=== PATIENT | male | born 1945 | race Caucasian/White ===

== ENCOUNTER → 2023-03-11 | Outpatient (CLI) | payer MEDICARE, SELFPAY ==
--- NOTE | 2023-03-11 12:53 | VDLE_ITS ---
Reason For Study: Bilateral swelling RIGHT LEFT CFV is compressible, spontaneous, phasic, CFV is compressible, spontaneous, phasic, competent and demonstrates normal competent, and demonstrates normal augmentation. augmentation. FV is compressible, spontaneous, phasic, FV is compressible, spontaneous, phasic, competent and demonstrates normal competent and demonstrates normal augmentation. augmentation. POP V is compressible, spontaneous, phasic, POP V is compressible, spontaneous, phasic, competent and demonstrates normal competent and demonstrates normal augmentation. augmentation. T/P Trunk is compressible. T/P Trunk is compressible. PTV is compressible. PTV is compressible. RT PerV is compressible. LT PerV is compressible. SFJ is competent and measures 0.61 x 0.75 cm. SFJ is competent and measures 0.72 x 0.88 cm. GSV proximal thigh measures 0.35 x 0.36 cm. GSV proximal thigh measures 0.42 x 0.44 cm. GSV at knee measures 0.27 x 0.28 cm. GSV above knee is INCOMPETENT for greater GSV is competent throughout. than 0.5 seconds. ASV proximal calf is INCOMPETENT for greater GSV at knee measures 0.13 x 0.14 cm. than 0.5 seconds and measures 0.24 x 0.24 cm. GSV below knee is competent. ASV2 proximal calf, medial, is INCOMPETENT ASV proximal calf is INCOMPETENT for greater for greater than 0.5 seconds and measures than 0.5 seconds and measures 0.30 x 0.30 cm. 0.14 x 0.15 cm. Cluster of varicose veins noted at the left SSV proximal calf is competent and measures proximal calf. 0.18 x 0.22 cm. INCOMPETENT cow puncher is noted 6cm above Procedure medial malleolus. This is a venous duplex using B-mode, color Vein of Giacomini is INCOMPETENT for greater flow and spectral Doppler. than 0.5 seconds and measures 0.30 x 0.29 cm. Exam performed in department. SSV proximal calf is INCOMPETENT for greater Patient was scanned in reverse Trendelenburg than 0.5 seconds and measures 0.30 x 0.30 cm. position during reflux assessment. VL/Venous Duplex US - Leroy Extrem Interpretation Summary Deep veins of the bilateral lower extremities are patent and compressible segme ntally. There is no evidence of bilateral lower extremity deep vein thrombosis. The bilateral great saphenous veins appear patent and compressible segmentally. Positive for reflux in two separate right accessory saphenous veins Positive for reflux in the left great saphenous vein above the knee, accessory saphenous vein below the knee, small saphenous vein, Vein of Giacomini, and a cow puncher vein above the malleolus Ordering Physician: Diana Kelley Referring Physician: Diana Kelley Performed By: Kortney Baltazar RVT
== END | disposition home or self-care (01) ==
LOC: CVS 12:50
PROVIDERS: PCP Nurse Practitioner; Referring Provider Nurse Practitioner; Visit Provider Nurse Practitioner
DX: I83.813 Varicose veins of bilateral lower extremities with pain (principal); R60.0 Localized edema
CPT/HCPCS: 93970

== ENCOUNTER → 2023-07-02 | Outpatient (CLI) | payer MEDICARE, SELFPAY ==
[2023-07-02 20:28] LABS: Absolute Lymphocyte Count 2.06 X10^3/uL (0.83-4.51); Absolute Neutrophil Count 5.4 X10^3/uL (2.0-7.7); Basophil# 0.07 X10^3/uL; Basophil% 0.8 % (0-1); Eosinophil# 0.28 X10^3/uL; Eosinophils% 3.3 % (0-5); Hemoglobin 14.2 g/dL (13.0-16.5); Lymphocyte # 2.06 X10^3/ul (0.83-4.51); Mean Corp Hgb Conc 32.3 g/dL (32-36); Monocyte# 0.78 X10^3/uL; Monocyte% 9.1 % (0-10); NRBC Flagged by Analyzer 0 % (0-5); Neutrophil # 5.36 X10^3/uL (2.7-7.7); Neutrophil % 62.2 % (47-70); Platelet Count 137 K/mm3 (150-450); RBC Distribution Width CV 12.2 % (11.6-14.6); RBC Distribution Width SD 41.9 fl (35.1-43.9); Red Blood Count 4.73 M/mm3 (4.6-6.2); White Blood Count 8.6 K/mm3 (4.4-11.0)
[2023-07-02 20:52] LABS: ALB/GLOB Ratio 1.1 RATIO (0.9-2.4); AST(SGOT) 21 U/L (15-37); Alanine Aminotransfer ALT/SGPT 17 U/L (16-61); Albumin, Serum 3.6 g/dL (3.2-5.0); Alkaline Phosphatase 67 U/L (45-117); Anion Gap 4 (5-15); BUN 18 mg/dL (7-18); Calcium,Total 8.5 mg/dL (8.5-10.1); Chloride 107 mmol/L (98-107); Cholesterol 98 mg/dL (200); Creatinine, Serum 1.06 mg/dL (0.70-1.30); EST Glomerular Filtration Rate 72 mL/min (>60); Est Glom Filt Rate - Afr Amer 87 mL/min (>60); Globulin 3.2 g/dL (2.2-4.2); Glucose 99 mg/dL (74-106); High Density Lipoprotein 35 mg/dL; PSA,Total- Diagnostic 1.85 ng/mL (0.0-4.0); Protein, Total 6.8 g/dL (6.4-8.2); Sodium Level 143 mmol/L (136-145); Triglycerides 170 mg/dL; Very Low Density Lipoprotein 34 mg/dL (5-40)
== END | disposition home or self-care (01) ==
PROVIDERS: PCP Nurse Practitioner; Referring Provider Nurse Practitioner; Visit Provider Nurse Practitioner
DX: I10 Essential (primary) hypertension (principal); E78.5 Hyperlipidemia, unspecified; R35.0 Frequency of micturition
CPT/HCPCS: 80053; 80061; 84153; 85025

== ENCOUNTER → 2024-01-10 | Outpatient (CLI) | payer MEDICARE, SELFPAY ==
[2024-01-10 22:31] LABS: Uric Acid 7.4 mg/dL (3.5-7.2)
== END | disposition home or self-care (01) ==
PROVIDERS: PCP Nurse Practitioner; Referring Provider Nurse Practitioner; Visit Provider Nurse Practitioner
DX: M10.9 Gout, unspecified (principal)
CPT/HCPCS: 84550

== ENCOUNTER → 2024-06-06 | Outpatient (CLI) | payer MEDICARE, SELFPAY ==
--- NOTE | 2024-06-06 09:25 | RAD_ITS ---
INDICATION: sleep apnea sob EXAMINATION/TECHNIQUE: X-RAY - XR Chest 2 Views COMPARISON: No relevant prior comparison study available FINDINGS: LINES/DEVICES: None. LUNGS: No consolidation, edema or effusion. No pneumothorax. MEDIASTINUM AND CARDIOVASCULAR STRUCTURES: Normal cardiac silhouette. Status post CABG. BONES AND SOFT TISSUES: Unremarkable. RAD/Chest PA and Lateral IMPRESSION: No radiographic evidence of acute cardiopulmonary disease. Electronically Signed: Hugo Martell MD at 8:15 EST ,
== END | disposition home or self-care (01) ==
LOC: RAD 09:16
PROVIDERS: PCP Nurse Practitioner; Referring Provider Nurse Practitioner; Visit Provider Nurse Practitioner
DX: G47.30 Sleep apnea, unspecified (principal); R06.83 Snoring
CPT/HCPCS: 71046

== ENCOUNTER → 2024-07-04 | Outpatient (CLI) | payer MEDICARE, SELFPAY ==
[2024-07-04 21:24] LABS: Absolute Neutrophil Count 5.6 X10^3/uL (2.0-7.7); Basophil# 0.08 X10^3/uL; Basophil% 0.9 % (0-1); Eosinophil# 0.38 X10^3/uL; Eosinophils% 4.2 % (0-5); Hematocrit 42.2 % (40-54); Hemoglobin 13.6 g/dL (13.0-16.5); Lymphocyte % 24.1 % (19-41); Mean Corp Hgb Conc 32.2 g/dL (32-36); Mean Corpuscular Volume 93.2 fL (80-94); Mean Platelet Vol. 12.9 fl (6.2-12.0); Monocyte# 0.89 X10^3/uL; Monocyte% 9.8 % (0-10); NRBC Flagged by Analyzer 0 % (0-5); Neutrophil # 5.55 X10^3/uL (2.7-7.7); Neutrophil % 60.8 % (47-70); Platelet Count 134 K/mm3 (150-450); RBC Distribution Width CV 12.4 % (11.6-14.6); RBC Distribution Width SD 42.6 fl (35.1-43.9); Red Blood Count 4.53 M/mm3 (4.6-6.2); White Blood Count 9.1 K/mm3 (4.4-11.0)
[2024-07-04 21:45] LABS: AST(SGOT) 15 U/L (15-37); Alanine Aminotransfer ALT/SGPT 11 U/L (16-61); Albumin, Serum 3.4 g/dL (3.2-5.0); Alkaline Phosphatase 63 U/L (45-117); Anion Gap 1 (5-15); BUN 19 mg/dL (7-18); BUN/Creat Ratio 19.2 RATIO (10-20); Calcium,Total 8.5 mg/dL (8.5-10.1); Chloride 107 mmol/L (98-107); Cholesterol 98 mg/dL (200); Creatinine, Serum 0.99 mg/dL (0.70-1.30); EST Glomerular Filtration Rate 78 mL/min (>60); Est Glom Filt Rate - Afr Amer 94 mL/min (>60); Globulin 3.4 g/dL (2.2-4.2); Glucose 99 mg/dL (74-106); High Density Lipoprotein 39 mg/dL; PSA,Total- Diagnostic 1.61 ng/mL (0.0-4.0); Potassium 4.3 mmol/L (3.5-5.1); Protein, Total 6.8 g/dL (6.4-8.2); Sodium Level 140 mmol/L (136-145); Triglycerides 104 mg/dL; Very Low Density Lipoprotein 21 mg/dL (5-40)
== END | disposition home or self-care (01) ==
PROVIDERS: PCP Nurse Practitioner; Referring Provider Nurse Practitioner; Visit Provider Nurse Practitioner
DX: I10 Essential (primary) hypertension (principal); E78.2 Mixed hyperlipidemia; R35.0 Frequency of micturition; G47.30 Sleep apnea, unspecified
CPT/HCPCS: 80053; 80061; 84153; 85025

== ENCOUNTER → 2024-08-01 | Outpatient (CLI) | payer MEDICARE, SELFPAY | END | disposition home or self-care (01) | LOC: SL 09:59 | PROVIDERS: PCP Nurse Practitioner; Referring Provider Nurse Practitioner Acute Care; Visit Provider Nurse Practitioner Acute Care | DX: G47.33 Obstructive sleep apnea (adult) (pediatric) (principal); G47.10 Hypersomnia, unspecified ==

== ENCOUNTER → 2024-12-14 | Outpatient (CLI) | payer MEDICARE, SELFPAY ==
[2024-12-14 22:01] LABS: Absolute Neutrophil Count 4.8 X10^3/uL (2.0-7.7); Basophil# 0.07 X10^3/uL; Basophil% 0.9 % (0-1); Eosinophil# 0.34 X10^3/uL; Eosinophils% 4.4 % (0-5); Hematocrit 39.9 % (40-54); Hemoglobin 13.5 g/dL (13.0-16.5); Mean Corp Hgb Conc 33.8 g/dL (32-36); Mean Corpuscular Hgb 31.1 pg (27.0-32.0); Mean Corpuscular Volume 91.9 fL (80-94); Mean Platelet Vol. 12.5 fl (6.2-12.0); Monocyte# 0.73 X10^3/uL; Monocyte% 9.3 % (0-10); NRBC Flagged by Analyzer 0 % (0-5); Neutrophil # 4.83 X10^3/uL (2.7-7.7); Neutrophil % 61.9 % (47-70); Platelet Count 157 K/mm3 (150-450); RBC Distribution Width CV 12.1 % (11.6-14.6); Red Blood Count 4.34 M/mm3 (4.6-6.2); White Blood Count 7.8 K/mm3 (4.4-11.0)
[2024-12-14 22:17] LABS: ALB/GLOB Ratio 1.5 RATIO (0.9-2.4); AST(SGOT) 28 U/L (<=37); Alanine Aminotransfer ALT/SGPT 13 U/L (<=46); Albumin, Serum 4.1 g/dL (3.4-4.8); Alkaline Phosphatase 62 U/L (40-129); Anion Gap 10 (5-15); BUN 19 mg/dL (4-19); BUN/Creat Ratio 18.1 RATIO (10-20); Calcium,Total 9.2 mg/dL (7.6-11.0); Carbon Dioxide 26.4 mmol/L (21.0-32.0); Chloride 103 mmol/L (98-108); Cholesterol 117 mg/dL (<=200); Creatinine, Serum 1.06 mg/dL (0.70-1.20); EST Glomerular Filtration Rate 71 (>60); Globulin 2.6 g/dL (2.2-4.2); Glucose 108 mg/dL (70-99); High Density Lipoprotein 33 mg/dL; Low Density Lipoprotein Calc. 52 mg/dL; Potassium 4.6 mmol/L (3.3-5.1); Protein, Total 6.7 g/dL (5.9-8.4); Sodium Level 139 mmol/L (133-145); Total Bilirubin 0.43 mg/dL (0.00-1.30); Triglycerides 163 mg/dL; Very Low Density Lipoprotein 33 mg/dL (5-40); cholesterol:hdl ratio screen 3.58
== END | disposition home or self-care (01) ==
LOC: OLS.AHF 21:46 → LABSPEC 12-15 09:35
PROVIDERS: PCP Nurse Practitioner; Referring Provider Nurse Practitioner; Visit Provider Nurse Practitioner
DX: E78.2 Mixed hyperlipidemia (principal); H34.211 Partial retinal artery occlusion, right eye; G47.30 Sleep apnea, unspecified; I10 Essential (primary) hypertension; I83.93 Asymptomatic varicose veins of bilateral lower extremities
CPT/HCPCS: 80053; 80061; 85025

== ENCOUNTER → 2024-12-21 | Outpatient (CLI) | payer MEDICARE, SELFPAY ==
--- OUTSIDE RECORDS SUMMARY | 2024-12-21 23:15 | XMS RPT_ITS | CCD ---
Author Organization [facility] Care Team Providers Care Manager Business Management Name Role Phone Regis Bravo Primary Care Provider Regis Bravo Unavailable Unavailable Unavailable Regis Bravo Attending Unavailable Regis Bravo Primary Care Unavailable PROVIDER, UNKNOWN Referring Unavailable Regis Bravo MD Primary Care Provider [phone] Regis Bravo MD Primary Care [facility] er Regis Bravo MD Primary Care Provider [phone] REGIS BRAVO Referring REGIS Love Primary Care JOAQUIN Peters Attending Dr. Regis Damon Primary Care Un available Gene, Dr. Rafa Mckeon Attending Hui Dockery, Dr. Rafa Mckeon Referring Hui Kelley TANK OPERATOR, TANK OPERATOR-C Diana Primary Care Provider Dr. Carson Hanna Attending Provider Warren TANK OPERATOR, TANK OPERATOR-C Diana Primary Care Provider Warren TANK OPERATOR, TANK OPERATOR-C Diana Referring Provider [phone] Dr. Carson Hanna Attending Provider [phone] VALERIA Weller Attending Provider Regis Bravo MD Primary Care [facility] er REGIS BRAVO Primary Care Unavailable YESSY VILLARREAL Attending Unavailable YESSY VILLARREAL Attending Unavailable YESSY VILLARREAL Referring Unavailable REGIS BRAVO Primary Care Unavailable YESSY VILLARREAL Attending Unavailable FINNERAN, REGIS Primary Care Unavailable VILLARREAL, YESSY Attending Unavailable FINNERAN, REGIS Primary Care Unavailable VILLARREAL, YESSY Attending Unavailable VILLARREAL, YESSY Referring Unavailable FINNERAN, REGIS Primary Care Unavailable VILLARREAL, YESSY Attending Unavailable VILLARREAL, YESSY Referring Unavailable FINNERAN, REGIS Primary Care Unavailable VILLARREAL, YESSY Attending Unavailable VILLARREAL, YESSY Referring Unavailable FINNERAN, REGIS Primary Care Unavailable VILLARREAL, YESSY Attending Unavailable VILLARREAL, YESSY Referring Unavailable FINNERAN, REGIS Primary Care Unavailable RAFA DOCKERY Attending Unavailable ROSAAN, REGIS P Primary Care Unavailable Kelley TANK OPERATOR-C, Diana Primary Care Provider Kelley TANK OPERATOR-C, Diana Referring Provider [phone] Olivia GÓMEZ-CRoshni Attending Provider Kelley TANK OPERATOR-C, Diana Attending Provider [phone] Dr. Magda Husain MD Attending Provider [phone] Kelley TANK OPERATOR, Diana Referring Unavailable Kelley TANK OPERATOR, Diana Primary Care Unavailable Magda Husian Attending Unavailable Kelley TANK OPERATOR, Diana Referring Unavailable Germain TANK OPERATOR, Estrellita Attending Unavailable Kelley TANK OPERATOR, Diana Primary Care Unavailable Kelley TANK OPERATOR, Diana Referring Unavailable Kelley TANK OPERATOR, Diana Primary Care Unavailable Roshni Baker Attending Unavailable Kelley TANK OPERATOR, Diana Referring Unavailable Kelley TANK OPERATOR, Diana Primary Care Unavailable Kelley TANK OPERATOR, Diana Attending Unavailable Germain TANK OPERATOR, Estrellita Attending Unavailable Germain TANK OPERATOR, Estrellita Referring Unavailable Kelley TANK OPERATOR, Diana Primary Care Unavailable Kelley TANK OPERATOR, Diana Primary Care Unavailable Magda Husain Attending Unavailable Magda Husain Referring Unavailable Kelley TANK OPERATOR, Diana Primary Care Unavailable Kelley TANK OPERATOR, Diana Attending Unavailable Kelley TANK OPERATOR, Diana Referring Unavailable Kelley TANK OPERATOR, Diana Attending Unavailable Kelley TANK OPERATOR, Diana Referring Unavailable Kelley TANK OPERATOR, Diana Primary Care Unavailable Kelley TANK OPERATOR, Diana Attending Unavailable Kelley TANK OPERATOR, Diana Referring Unavailable Kelley TANK OPERATOR, Diana Primary Care Unavailable Allergies Allergy Classification Reported Allergen(s) Allergy Type Date of Onset Reaction(s) Facility (1 source) ALLERGIES NOT ON FILE; Translations: [ALLERGIES NOT ON FILE] Propensity to adverse reactions (disorder) [facility] 3 Repository Medications Current Medications Medication Drug Class(es) Dates Sig (Normalized) Sig (Original) aspirin 81 mg delayed release oral tablet (20 sources) Platelet Aggregation Inhibitor, Nonsteroidal Anti-inflammatory Drug Start: 03-03-2023 take 1 tablet by mouth once daily Aspirin 81 mg tablet,delayed release (DR/EC) Active 81 mg PO DAILY March 03, 2023 12:00am Aspirin 81 MG TA BS Quantity: 0 Refills: 0 Ordered: 04-Jan-2014 DO Active cholecalciferol 0.125 mg oral capsule (20 sources) Vitamin D Start: 07-02-2023 take 1 capsule by mouth once daily Cholecalciferol (Vitamin D3) 125 mcg (5,000 unit) capsule Active 125 ug PO DAILY July 02, 2023 1:00am Start: 09-14-2014 take 2 capsules by m outh once daily Cholecalciferol, Vitamin D3, 125 mcg (5,000 unit) cap 2 cap(s) orally once a day 09/14/2014 Active take 1 tablet by bunny th in the morning cholecalciferol (Vitamin D-3) 125 MCG (5000 UT) tablet Take 5,000 Units by mouth in the morning. Active fenofibrate 200 mg oral capsule (2 sources) Peroxisome Proliferator Receptor alpha Agonist Start: 03-25-2018 take 1 capsule by mouth once daily fenofibrate micronized (LOFIBRA) 200 MG capsule take 1 capsule by mouth once daily 0 03/25/2018 Active Start: 09-26-2015 Fenofibrate Mi cronized 200 MG Oral Capsule Quantity: 90 Refills: 0 Ordered: 26-Sep-2015 DO Start : 26-Sep-2015 Active 2 ml hylan g-f 20 8 mg/ml prefilled syringe (20 sources) Start: 02-25-2024 hylan (Synvisc ) injection 16 mg Start: 12-21-2023 End: 12-21-2023 hylan (Synvisc One) 48 MG/6M L injection Inject 6 mL (48 mg) into the joint Once for 1 dose. Inject 6mL into the left knee once 6 mL 12/21/2023 12/21/2023 lisinopril 10 mg oral tablet (20 sources) Angiotensin Converting Enzyme Inhibitor Start: 12-14-2024 take 1 tablet by mouth once daily Lisinopril 10 mg tablet Active 10 mg PO daily December 14, 2024 12:00am Start: 03-06-2022 End: 12-14-2024 take 1 tablet by mouth once daily Lisinopril 5 mg tablet Discontinued 5 mg PO DAILY July 04, 2024 5:40pm December 14, 2024 4:19pm Lisinopril 5 MG Oral Tablet Quantity: 0 Refills: 0 Ordered: 04-Jan-2014 DO Active Completed/Discontinued Medications Medication Drug Class(es) Dates Sig (Normalized) Sig (Original) betamethasone 3 mg/ml / betamethasone acetate 3 mg/ml injectable suspension (12 sources) Corticosteroid Start: 12-20-2023 End: 12-21-2023 betamethasone acetate-betamethas one sodium phosphate (Celestone) injection 12 mg colchicine 0.6 mg oral tablet (2 sources) Start: 01-10-2024 End: 03-13-2024 take 1 tablet by mouth twice daily Colchicine 0.6 mg tablet Discontinued 0.6 mg PO TWICE A DAY January 10, 2024 12:00am March 13, 2024 6:29pm cycloSPORINE 0.5 mg/ml ophthalmic suspension (1 source) Calcineurin Inhibitor Immunosuppressant Start: 11-09-2016 Restasis MultiDose 0.05 % Ophthalmic Emulsion INSTILL 1 DROP IN RIGHT EYE EVERY 12 HOURS DAILY. Quantity: 1 Refills: 2 Ordered: 21-Jan-2018 Siddhartha Dan Start : 09-Nov-2016 Active dexamethasone 0.001 mg/mg / neomycin 0.0035 mg/mg / polymyxin b 10 unt/mg ophthalmic ointment (2 sources) Aminoglycoside Antibacterial, Polymyxin-class Antibacterial, Corticosteroid Start: 03-02-2018 Neomycin-Polymyxin -Dexameth 3.5-49622-2.1 Ophthalmic Ointment APPLY A SMALL AMOUNT OF OINTMENT in the left eyelid and in the left eye twice per day. Quantity: 2 Refills: 1 Ordered: 02-Mar-2018 Kings Olmedo MD Start : 02-Mar-2018 Active Start: 03-02-2018 neomycin-polym yxin-dexameth 3.5-52318-0.1 OINT apply A SMALL AMOUNT OF OINTMENT IN THE LEFT EYELID AND IN THE LEFT EYE twice a day 0 03/02/2018 Active dextran 70 1 mg/ml / hypromellose 3 mg/ml ophthalmic solution (1 source) Plasma Volume Mountain Guide take 1-2 drop(s) into the eye(s) four times daily as needed Artificial Tears 0.1-0.3 % Ophthalmic Solution INSTILL 1-2 DROPS INTO AFFECTED EYE(S) 4 TIMES DAILY DIRECTED. Quantity: 0 Refills: 0 Ordered: 04-Jan-2014 DO Active prn ou 10 ml lidocaine hydrochloride 10 mg/ml injection (12 sources) Antiarrhythmic, Amide Local Anesthetic Start: 4 End: 4 lidocaine (Xylocaine) 1 % injection 4 mL 24 hr metoprolol succinate 50 mg extended release oral tablet (20 sources) beta-Adrenergic Adriano Start: 3 End: 4 take 1 tablet by mouth once daily Metoprolol Succinate 50 mg tablet extended release 24 hr Discontinued 50 mg PO DAILY July 02, 2023 7:48pm July 04, 2024 5:40pm Start: 09-16-2017 take 1 tablet by bunny th in the morning metoprolol tartrate (Lopressor) 50 MG tablet Take 50 mg by mouth in the morning. 03/06/2022 Active Metoprolol Tartr ate 50 MG Oral Tablet Quantity: 0 Refills: 0 Ordered: 04-Jan-2014 DO Active Multivitamins TABS (1 source) Multivitamins TA BS Quantity: 0 Refills: 0 Ordered: 04-Jan-2014 DO Active predniSONE 20 mg oral tablet (2 sources) Start: 4 End: 4 take 2 tablets by mouth once daily Prednisone 20 mg tablet Discontinued 40 mg PO DAILY January 10, 2024 12:00am March 13, 2024 6:28pm simvastatin 40 mg oral tablet (20 sources) HMG-CoA Reductase Inhibitor Start: 8 End: 4 take 1 tablet by mouth at bedtime Simvastatin 40 mg tablet Discontinued 40 mg PO AT BEDTIME July 02, 2023 7:48pm July 04, 2024 5:40pm Start: 07-29-2015 Simvastatin 40 MG Oral Tablet Quantity: 90 Refills: 0 Ordered: 29-Jul-2015 DO Start : 29-Jul-2015 Active Problems Active Problems Problem Classification Problem Date Documented Da te Episodic/Chronic Blindness and vision defects (7 sources) Astigmatism of right eye; Translations: [Astigmatism, unspecified] Onset: 06-21-2024 Episodic Cancer; other and unspecified primary (1 source) Malignant melanoma of left choroid; Translations: [Malignant neoplasm of choroid] Chronic Cancer; other and unspecified primary (1 source) Malignant tumor of choroid; Translations: [Malignant neoplasm of choroid] Chronic Cataract (4 sources) Nuclear senile cataract; Translations: [Senile nuclear sclerosis] Onset: 09-03-2014 Chronic Coronary atherosclerosis and other heart disease (3 sources) Coronary arteriosclerosis; Translations: [Atherosclerotic heart disease of [place] coronary artery without angina pectoris] 12-14-2024 Chronic Comment on above: 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 Diabetes mellitus with complications (1 source) Type 2 diabetes mellitus; Translations: [Type 2 diabetes mellitus with diabetic chronic kidney disease] 11-13-2022 Chronic Disorders of lipid metabolism (9 sources) Hypercholesterolemia ; Translations: [Pure hypercholesterolemia ] Onset: 12-19-2024 11-13-2022 Chronic Essential hypertension (6 sources) Hypertensive disorder; Translations: [Essential (primary) hypertension] Onset: 12-14-2024 03-03-2023 Chronic Genitourinary symptoms and ill-defined conditions (3 sources) Increased frequency of urination; Translations: [Frequency of micturition] 07-02-2023 Episodic Gout and other crystal arthropathies (3 sources) Gout; Translations: [Gout, unspecified] Onset: 01-28-2024 01-11-2024 Chronic Hyperplasia of prostate (20 sources) Benign prostatic hypertrophy with outflow obstruction; Translations: [Benign prostatic hyperplasia with lower urinary tract symptoms] Onset: 05-05-2018 05-05-2018 Chronic Hypertension with complications and secondary hypertension (1 source) Chronic kidney disease due to hypertension; Translations: [Hypertensive chronic kidney disease with stage 1 through stage 4 chronic kidney disease, or unspecified chronic kidney disease] 11-13-2022 Chronic Inflammation; infection of eye (except that caused by tuberculosis or sexually transmitteddisease) (1 source) Papillary conjunctivitis; Translations: [Other conjunctivitis] Episodic Osteoarthritis (20 sources) Osteoarthritis of left knee joint; Translations: [Unilateral primary osteoarthritis, left knee] Onset: 06-01-2022 06-01-2022 Chronic Other and unspecified benign neoplasm (2 sources) Benign neoplasm of colon; Translations: [Benign neoplasm of colon, unspecified] Episodic Other and unspecified benign neoplasm (1 source) Benign neoplasm of colon, unspecified; Translations: [Benign neoplasm of colon, unspecified part of colon] Onset: 02-25-2023 Episodic Other circulatory disease (1 source) H/O: hypertension; Translations: [Personal history of other diseases of circulatory system] Episodic Other congenital anomalies (2 sources) Anophthalmos; 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, unspecified] Chronic Other connective tissue disease (2 sources) Hand pain; Translations: [Pain in right hand] 03-13-2024 Episodic Other connective tissue disease (2 sources) Pain in hallux; Translations: [Pain in left toe(s)] 01-11-2024 Episodic Other connective tissue disease (2 sources) Swelling of hand; Translations: [Other specified soft tissue disorders] 03-13-2024 Episodic Other eye disorders (1 source) Finding of prosthesis of eyeball; Translations: [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] Chronic Comment on above: os; Other eye disorders (1 source) Lesion of left eyelid; Translations: [Unspecified inflammation of eyelid] Episodic Other eye disorders (1 source) Cyst of left lower eyelid; Translations: [Cysts of eyelids] Episodic Other eye disorders (1 source) Chalazion of lower eyelid; Translations: [Chalazion] Episodic Other eye disorders (1 source) Meibomian gland dysfunction of bilateral eyes; Translations: [Other disorders of eyelid] Episodic Other eye disorders (1 source) Dry eyes; Translations: [Tear film insufficiency, unspecified] Episodic Other eye disorders (1 source) Disorder of lacrimal gland; Translations: [Tear film insufficiency, unspecified] Episodic Other eye disorders (1 source) Ptosis of eyelid; Translations: [Ptosis of eyelid, unspecified] Episodic Other eye disorders (1 source) Tear film insufficiency; Translations: [Tear film insufficiency, unspecified] Episodic Comment on above: Added by Jovan Jason; 2013-07-18; Other eye disorders (2 sources) Dry eye syndrome of right lacrimal gland; Translations: [Dry eye syndrome of right lacrimal gland] Onset: 06-21-2024 Episodic Other lower respiratory disease (2 sources) Snoring; Translations: [Snoring] 03-31-2024 Episodic Other nervous system disorders (1 source) H/O: cataract; Translations: [Personal history of other disorders of nervous system and sense organs] Episodic Comment on above: od; Residual codes; unclassified (4 sources) Obstructive sleep apnea syndrome; Translations: [Obstructive sleep apnea (adult) (pediatric)] 08-23-2024 Chronic Comment on above: AHI 18.2 from HST Residual codes; unclassified (2 sources) Daytime hypersomnia; Translations: [Hypersomnia, unspecified] 07-11-2024 Chronic Residual codes; unclassified (2 sources) Sleep apnea; Translations: [Sleep apnea, unspecified] 03-31-2024 Chronic Residual codes; unclassified (1 source) Obstructive sleep apnea (adult) (pediatric); Translations: [Obstructive sleep apnea (adult) (pediatric)] Onset: 08-23-2024 Chronic Residual codes; unclassified (1 source) Sleep apnea, unspecified; Translations: [Sleep apnea, unspecified] Onset: 07-06-2024 Chronic Residual codes; unclassified (1 source) Edema of lower extremity; Translations: [Localized edema] 03-03-2023 Episodic Residual codes; unclassified (2 sources) Acquired absence of eye; Translations: [Acquired absence of eye] Onset: 06-21-2024 Episodic Retinal detachments; defects; vascular occlusion; and retinopathy (9 sources) Macular drusen ; Translations: [Drusen (degenerative)] Onset: 06-21-2024 Chronic Screening and history of mental health and substance abuse codes (2 sources) Personal history of nicotine dependence; Translations: [Personal history of tobacco use] 01-27-2023 Episodic Unclassified (2 sources) 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, right eye,G47.33 - Obstructive sleep apnea (adult) (pediatric),E78.2 - Mixed hyperlipidemia,I10 - Essential (primary) hypertension Varicose veins of lower extremity (5 sources) Varicose veins of lower extremity; Translations: [Asymptomatic varicose veins of unspecified lower extremity] 03-03-2023 Episodic Comment on above: Venous Duplex 3:Positive for reflux in two separate right accessory saphenous veinsPositive for reflux in the left great saphenous vein above the knee, accessory saphenous vein belowthe knee, small saphenous vein, Vein of [place], and a junior web designer vein above the malleolus Past or Other Problems Problem Classification Problem Date Documented Da te Episodic/Chronic Cancer; other and unspecified primary (1 source) Malignant neoplasm of choroid; 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] Resolved: 01-04-2014 Chronic Comment on above: Added by Problem Melissa gauthier Migration; 2013-07-18; Neoplasms of unspecified nature or uncertain behavior (1 source) Neoplasm of uncertain behavior of skin of eyelid; Translations: [Neoplasm of uncertain behavior of skin] Onset: 03-02-2018 Episodic Other eye disorders (1 source) Dermatochalasis; Translations: [Dermatochalasis] Resolved: 01-04-2014 Episodic Comment on above: Added by Problem Melissa gauthier Migration; 2013-07-18; Other non-traumatic joint disorders (1 source) Pain in left knee; Translations: [Pain in joint, lower leg] Episodic Other screening for suspected conditions (not mental disorders or infectious disease) (20 sources) Raised prostate specific antigen; Translations: [Elevated prostate specific antigen [PSA]] Onset: 05-05-2018 08-17-2018 Episodic Results Test Name Value Interpretation Reference Range Facility Absolute lymphocyte countOrd ered By: Diana Kelley on 12-14-2024 Lymphocytes Auto (Unsp spec) [#/Vol] 1.80 10*3/uL 0.83-4.51 [facility] Absolute neutrophil countOrd ered By: Diana Kelley on 12-14-2024 Neutrophils (Bld) [#/Vol] 4.8 10*3/uL 2.0-7.7 [facility] Anion gap in Serum or Plasma Ordered By: Diana Kelley on 12-14-2024 Anion gap [Moles/Vol] 10 mmol/L 5- [facility] Automated lymphocyte count a s percentage of total leukocytesOrdered By: Diana Kelley on 12-14-2024 Lymphocytes/100 WBC Auto (Unsp spec) 23.0 % -41 [facility] BUN/creatinine ratioOrdered By: Diana Kelley on 12-14-2024 Urea nitrogen/Creatinine [Mass ratio] 18.1 mg/mg 10-20 [facility] Basophil percentageOrdered B y: Diana Kelley on 12-14-2024 Basophils/100 WBC (Bld) 0.9 % 0-1 [facility] Bilirubin, totalOrdered By: Diana Kelley on 12-14-2024 Bilirubin [Mass/Vol] 0.43 mg/dL 0.00-1.[address] [facility] Calculated very low density lipoprotein (VLDL) cholesterol measurementOrdered By: Diana Kelley on 12-14-2024 Calculated very low density lipoprotein (VLDL) cholesterol measurement 33 mg/dL 5-40 [facility] Carbon dioxide, total [Moles /volume] in Central venous bloodOrdered By: Diana Kelley on 12-14-2024 CO2 [Moles/Vol] 26.4 mmol/L 21.0-32.0 [facility] Cardiology Visit Reporton Cardiology Visit Report [facility] [address] [place] [address] OFFICE VISIT Date of Service: 12/14/24 MR#: [id number] Acct: [id number] Name: TRES DICKSON Rep #: [id number] : 1945 Provider: Dr. Magda Husain MD Age/Sex: 79/M Location: [facility] [place] Status: Signed HPI HPI History of Present Illness Details: This gentleman has history of coronary artery disease with an emergent single-vessel CABG with SVG to the [facility] and 2006 at [place] for an acute STEMI. 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 He is here to establish cardiac care with us. Patient denies any chest pains or shortness of breath either at rest or with exertion. Denies any palpitations. No orthopnea PND. No ankle edema. Denies any lightheadedness or dizziness. No syncope or presyncope. The note from the primary care physician describes a cholesterol embolus to the right eye. However patient denies that. According to him, he has no problems with vision in his right eye. 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 Required: No Accompanied by: Self Is patient in pain?: No Allergies No Known Allergies Allergy (Verified 12/14/24 08:53) Medications ???Medication ???Instructions ???Recorded ???Confirmed ???Type aspirin 81 mg tablet,delayed 81 mg PO DAILY 03/03/23 12/14/24 H istory release cholecalciferol (vitamin D3) 125 125 mcg PO DAILY 07/02/23 12/14/24 History mcg (5,000 unit) capsule lisinopril 5 mg tablet 5 mg PO DAILY #90 tabs 07/04/24 Rx metoprolol succinate 50 mg 50 mg PO DAILY #90 tabs 07/04/24 0 12/14/24 Rx tablet,extended release 24 hr simvastatin 40 mg tablet 40 mg PO QHS #90 tabs 07/04/24 Rx Have you fallen in the past year?: No PFSH Medical History (Updated 12/14/24 @ 09:[address] Magda Husain MD) Hollenhorst plaque, right eye Screening for lung cancer Hypertension Normal colonoscopy Melanoma of eye Surgical History (Updated 12/14/24 @ 09:[address] Magda Husain MD) H/O enucleation of left eyeball S/P CABG x 1 Social History (Updated 12/14/24 @ 08:54 by Elmira Landrum) Smoking Status: Former smoker quit date: 06/26/24 Tobacco: How many years used: 50 second hand exposure: No alcohol intake: current alcohol intake frequency: a few times a week substance use type: does not use caffeine: Yes Type: coffee Number of servings: 3 ROS Const Const: Negative for fatigue, weakness, headache(s) or weight gain ENT ENT: Positive for balance problems (Occ); Negative for headache(s), dizziness or Nosebleed/epistaxis Cardio Chest Pain: No Palpitations: No Edema: None Muscle aches with walking: Bilateral Resp Respiratory: Negative for SOB with activity, SOB at rest or SOB orthopnea SOB lying down GI GI: Negative nausea, vomiting or heartburn Musc Musc: Positive for muscle aches/ myalgia (BLE after walking), joint pain (Occ, B/L knee) and balance problems (Occ); Negative for muscle weakness Neuro Neuro: Negative for dizziness, lightheadedness, near syncope, syncope, headache(s) or weakness Endo Endo: Negative for fatigue Cardiology Exam Const Appearance: comfortable and no acute distress Nutritional Appearance: well nourished Neck Neck: no JVD Carotids: Negative bruit Chest Auscultation: Bilateral: Clear to Auscultation Cardio Rate: regular rate Rhythm: regular rhythm Heart sounds: S1 normal and S2 normal Neuro General: patient alert, patient awake and patient oriented x3 Extremities Lower Extremity Edema: None: Bilateral Supplemental Info Supplemental Information CABG x1 08/31/2007: Findings: At the time of the surgery, the patient had irritable right ventricle and off-bypass, distal anastomosis to the PDA was performed , and then off-bypass, one reverse saphenous vein graft, graft was placed into the distal PDA. Assessment and Plan Assessment and Plan (1) Coronary artery disease: Status: Chronic Comment: 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 Plan: Continue aspirin. Beta-blockers. Risk factor modification. ECG indicative of previous inferior [place]. ST changes that may denote lateral ischemia. Check exercise stress Myoview. Check echocardiogram. (2) History of coronary artery bypass graft x 1: Status: Chronic Plan: See #1 above. (3) Hypertension: St (more content not included)... Normal [facility] Chloride assayOrdered By: Do ra Kelley on 12-14-2024 Chloride [Moles/Vol] 103 mmol/L 98-[address] [facility] Eosinophil percentageOrdered By: Diana Kelley on 12-14-2024 Eosinophils/100 WBC (Bld) 4.4 % 0-5 [facility] Erythrocyte distribution wid th ratioOrdered By: Diana Kelley on 12-14-2024 Erythrocyte distribution width (RBC) [Ratio] 12.1 % 11.6-14.6 [facility] Erythrocyte distribution wid th standard deviationOrdered By: Diana Kelley on 12-14-2024 Erythrocyte distribution width (RBC) [Ratio] 41.0 fl 35.1-43.9 [facility] Glomerular filtration rate ( GFR) estimation/1.73 sq m using serum, plasma, or whole bOrdered By: Diana Kelley on 12-14-2024 GFR/1.73 sq M.predicted among non-blacks MDRD (S/P/Bld) [Vol rate/Area] 71 mL/min/{1.73_m2} >60 [facility] Comment on above: mL/min/1.73m2 CKD-EP I Creatinine Equation (2020) Hematocrit Auto (Bld) [Volum e fraction]Ordered By: Diana Kelley on 12-14-2024 Hematocrit (Bld) [Volume fraction] 39.9 % Low 40-54 [facility] Hemoglobin measurementOrdere d By: iDana Kelley on 12-14-2024 Hemoglobin (Bld) [Mass/Vol] 13.5 g/dL 13.0-16.5 [facility] Immature granulocytes/100 WB C Auto (Bld)Ordered By: Diana Kelley on 12-14-2024 Immature granulocytes/100 WBC (Bld) 0.500 % 0.0-0.9 [facility] Comment on above: IG% - Immature Granu locytes (promyelocytes, myelocytes and metamyelocytes) > 1% indicates that a LEFT SHIFT is Present. LDL calc ser/plasOrdered By: Diana Kelley on 12-14-2024 Cholesterol in LDL [Mass/Vol] 52 mg/dL [facility] Comment on above: Fbnuwmhmub=725-544 m g/dL & Higher Iugm=145 mg/dL or greater Laboratory - Chemistry and C hemistry - challengeOrdered By: Diana Kelley on 12-14-2024 AST [Catalytic activity/Vol] 28 U/L <38 [facility] MCV (mean corpuscular volume ) determinationOrdered By: Diana Kelley on 12-14-2024 MCV (RBC) [Entitic vol] 91.9 fL 80-94 [facility] Mean corpuscular hemoglobin (MCH) determinationOrdered By: Diana Kelley on 12-14-2024 MCH (RBC) [Entitic mass] 31.1 pg 27.0-32.0 [facility] Mean corpuscular hemoglobin concentration (MCHC) determinationOrdered By: Diana Kelley on 12-14-2024 MCHC (RBC) [Mass/Vol] 33.8 g/dL 32-36 [facility] Mean platelet volume determi nationOrdered By: Diana Kelley on 12-14-2024 Platelet mean volume (Bld) [Entitic vol] 12.5 fL High 6.2-12.0 [facility] Monocyte percentageOrdered B y: Diana Kelley on 12-14-2024 Monocytes/100 WBC (Bld) 9.3 % 0-10 [facility] Neutrophil percentageOrdered By: Diana Kelley on 12-14-2024 Neutrophils/100 WBC (Bld) 61.9 % 47-70 [facility] Nucleated red blood cell per centageOrdered By: Diana Kelley on 12-14-2024 Nucleated RBC/100 WBC (Bld) [Ratio] 0 % 0-5 [facility] Platelet countOrdered By: Do ra Kelley on 12-14-2024 Platelets (Bld) [#/Vol] 157 10*3/uL 150-450 [facility] Potassium measurement (mass/ volume)Ordered By: Diana Kelley on 12-14-2024 Potassium (Unsp spec) [Mass/Vol] 4.6 mmol/L 3.3-5.1 [facility] RBC Auto (Bld) [#/Vol]Ordere d By: Diana Kelley on 12-14-2024 RBC (Bld) [#/Vol] 4.34 10*6/uL Low 4.6-6.2 [facility] Screening total cholesterol/ high density lipoprotein (HDL) cholesterol ratioOrdered By: Diana Kelley on 12-14-2024 Cholesterol.total/Chol esterol in HDL [Mass ratio] 3.58 {ratio} [facility] Serum creatinine measurement (mass/volume)Ordered By: Diana Kelley on 12-14-2024 Creatinine [Mass/Vol] 1.06 mg/dL 0.70-1.20 [facility] Serum globulin measurementOr dered By: Diana Kelley on 12-14-2024 Globulin (S) [Mass/Vol] 2.6 g/dL 2.2-4.2 [facility] Serum glucose measurement (m ass/volume)Ordered By: Diana Kelley on 12-14-2024 Glucose [Mass/Vol] 108 mg/dL High 70-99 [facility] Serum or plasma alanine goodson otransferase (ALT) measurementOrdered By: Diana Kelley on 12-14-2024 ALT [Catalytic activity/Vol] 13 U/L <47 [facility] Serum or plasma albumin kristy urement (mass/volume)Ordered By: Diana Kelley on 12-14-2024 Albumin [Mass/Vol] 4.1 g/dL 3.4-4.8 [facility] Serum or plasma albumin/glob ulin mass ratioOrdered By: Diana Kelley on 12-14-2024 Albumin/Globulin [Mass ratio] 1.5 {ratio} 0.9-2.4 [facility] Serum or plasma alkaline len sphatase measurementOrdered By: Diana Kelley on 12-14-2024 ALP [Catalytic activity/Vol] 62 U/L 40-129 [facility] Serum or plasma calcium kristy urement (mass/volume)Ordered By: Diana Kelley on 12-14-2024 Calcium [Mass/Vol] 9.2 mg/dL 7.6-11.0 [facility] Serum or plasma cholesterol in HDL measurement (mass/volume)Ordered By: Diana Kelley on 12-14-2024 Cholesterol in HDL [Mass/Vol] 33 mg/dL Low >40 [facility] Comment on above: National Cholesterol Education Program (NCEP) guidelines:<40 mg/dL: Low HDL-cholesterol (major risk factor for CHD)>= 60 mg/dL: High HDL-cholesterol (negative risk factor for CHD)HDL-cholesterol is affected by a number of factors, e.g. smoking, exercise, hormones, sex and age. Serum or plasma cholesterol measurement (mass/volume)Ordered By: Diana Kelley on 12-14-2024 Cholesterol [Mass/Vol] 117 mg/dL <201 [facility] Comment on above: Cholesterol level, D esirable <200 mg/dLBorderline high cholesterol 200-239 mg/dLHigh cholesterol >=240 mg/dLRecommendations of the NCEP Adult Treatment Panel for the following risk-cutoff thresholds for the [place] population. Serum or plasma urea nitroge n measurement (mass/volume)Ordered By: Diana Kelley on 12-14-2024 Urea nitrogen [Mass/Vol] 19 mg/dL 4-19 [facility] Sodium levelOrdered By: Diana Kelley on 12-14-2024 Sodium [Moles/Vol] 139 mmol/L 133-145 [facility] Total proteinOrdered By: Osei Kelley on 12-14-2024 Protein [Mass/Vol] 6.7 g/dL 5.9-8.4 [facility] Triglycerides measurementOrd ered By: Diana Kelley on 12-14-2024 Triglyceride [Mass/Vol] 163 mg/dL <199 [facility] Comment on above: The drugs N-Acetylcy steine and Metamizole may falsely depress this assay. Normal range: <150 mg/dLBorderline High: 150-199 mg/dLHigh: 200-499 mg/dLVery High: >500 mg/dL White blood cell (WBC) count Ordered By: Diana Kelley on 12-14-2024 WBC (Bld) [#/Vol] 7.8 10*3/uL 4.4-11.0 [facility] Pulmonary Visit Reporton Pulmonary Visit Report [facility] [address] [place] [address] OFFICE VISIT Date of Service: 08/23/24 MR#: [id number] Acct: [id number] Name: TRES DICKSON Rep #: [id number] : 1945 Provider: Roshni Baker NP Age/Sex: 78/M Location[place] [facility] Status: Signed Assessment and Plan Assessment and Plan (1) Obstructive sleep apnea: Status: Acute Comment: AHI 18.2 from HST Plan: Moderate obstructive sleep apnea has been identified. I have recommended set up on AutoPap 5 to 15 cm and patient is agreeable to this plan. I have reviewed the pathophysiology of obstructive sleep apnea and the comorbid conditions associated with this disease process. The patient would like to use the [place] for his DME vendor. I would like to have a compliance download on follow-up in 8 to 12 weeks. At that point I would suspect that the patient will have been set up on therapy and will have been able to use his device for at least 30 days. The patient may be able to use a nasal style mask as he is not in oral breather. This may help him to better adapt to therapy. Plan Details Follow Up: 8-12 weeks (LMR) HPI HPI Comments Details: Patient is a 78-year-old male patient who presents to the office today for review of recent testing. He is ambulatory and currently on room air. He has not recently been seen in the ED or urgent care for any respiratory illness. He has not required any antibiotics or prednisone for any breathing problems. He has been retired for a few years. 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 The patient reports that he quit smoking 2 months ago. He did smoke a pack a day for many years and then 1/2 pack/day up 2 months ago. He does have a greater than 89-vdbk-vlsu smoking history. He has been following with the [facility] system for his annual LDCT. He states that he has an upcoming CT scan next week. He has never been prescribed any inhalers. He is using a nicotine patch to help with smoking cessation. Past medical family history: The patient is a poor historian. He believes his mother around the age of 75 or 80 and had pretty good health up until that time. He does not know his father's health at all as the father left us. The patient has 5 siblings, 2 brothers and 3 sisters. His youngest brother recently as his body just gave out on him. He believes he did have some health problems. The patient has 3 sisters who all have good health. He reports having 3 sons who also have good health. He denies shortness of breath, cough, sputum production or hemoptysis. He denies wheezing, chest tightness, chest pain or palpitations. He denies fever, chills or body aches. Documentation reviewed with patient today includes: Unattended sleep study from August 01, 2024 which shows AHI 18.2. 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 Accompanied by: Self Allergies No Known Allergies Allergy (Verified 08/23/24 09:21) Medications ???Medication ???Instructions ???Recorded ???Confirmed ???Type aspirin 81 mg tablet,delayed 81 mg PO DAILY 03/03/23 08/23/24 H istory release cholecalciferol (vitamin D3) 125 125 mcg PO DAILY 07/02/23 08/23/24 History mcg (5,000 unit) capsule lisinopril 5 mg tablet 5 mg PO DAILY #90 tabs 07/04/24 Rx metoprolol succinate 50 mg 50 mg PO DAILY #90 tabs 07/04/24 0 08/23/24 Rx tablet,extended release 24 hr simvastatin 40 mg tablet 40 mg PO QHS #90 tabs 07/04/2412/10 Rx Have you fallen in the past year?: No PFSH Medical History Screening for lung cancer Hypertension Normal colonoscopy Melanoma of eye Surgical History H/O enucleation of left eyeball S/P CABG x 1 Social History Smoking Status: Former smoker quit date: 06/26/24 Tobacco: How many years used: 50 second hand exposure: No Review of Systems Resp Respiratory: Yes as per HPI Exam Const Constitutional: Positive conversant, cooperative, in no acute respiratory distress, healthy appearing, well developed, well nourished, good hygiene and smells of smoke Head Head: Yes normocephalic, Yes atraumatic and No cyanosis of lips/distal nose Eyes Eye: Positive c (more content not included)... Normal [facility] Pulmonary Visit Reporton Pulmonary Visit Report [facility] [address] [place] [address] OFFICE VISIT Date of Service: 07/11/24 MR#: [id number] Acct: [id number] Name: LIZANDROTRES RAFIQ Rep #: [id number] : 1945 Provider: OLIVER Germain Age/Sex: 78/M Location: [facility] Status: Signed Assessment and Plan Assessment and Plan (1) Daytime hypersomnia: Status: Acute Plan: Suspicious for obstructive sleep apnea. Lengthy discussion about the pathophysiology of obstructive sleep apnea. We discussed the risks of untreated sleep apnea as well as the benefits. the patient is appropriate to begin with an unattended sleep study at home. Return to the office once test results are available to discuss. Once we are able to evaluate the presence and degree of obstructive sleep apnea treatment options can be discussed. The patient has already voiced hesitance, he does not believe he will be able to tolerate a mask. Follow up in the office in 6 weeks. Orders: Orders Unattended Sleep Study Today G47.10 - Hypersomnia, unspecified, G47.33 - Obstructive sleep apnea (adult) (pediatric) Plan Details Follow Up: 6 Weeks (LMR) HPI HPI Comments Details: This patient presents to the office today for initial consultation regarding concern for obstructive sleep apnea. He is ambulatory and currently on room air. He has not recently been seen in the ED or urgent care for any respiratory illness. He has not required any antibiotics or prednisone for any breathing problems. The patient does snore. His has witnessed him not breathing. He reports feeling rested when he wakes up in the morning, however he does admit to nodding off to sleep unintentionally when watching TV. He is not having nocturia. He does admit to some difficulty with dry mouth. He is not having morning headaches. He has been retired for a few years. 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 The patient reports that he quit smoking again 2 weeks ago. He did smoke a pack a day for many years, he had quit for some time but had resumed smoking 1/2 pack/day up until 2 weeks ago. He does have a greater than 81-thwk-luth smoking history. He has been following with the [facility] his annual LD[facility]. He states that he has an upcoming CT scan in the near future. He has never been prescribed any inhalers. Past medical family history: The patient is a poor historian. He believes his mother around the age of 75 or 80 and had pretty good health up until that time. He does not know his father's health at all as the father left us. The patient has 5 siblings, 2 brothers and 3 sisters. His youngest brother recently as his body just gave out on him. He believes he did have some health problems. The patient has 3 sisters who all have good health. He reports having 3 sons who also have good health. He denies any difficulty with shortness of breath. He denies any cough, sputum production or hemoptysis. He denies any wheezing, chest tightness, chest pain or palpitations. He has not had any fever, chills or body aches. STOP-BANG Assessment: 1. Do you snore? Y 2. Are you frequently tired during the day? N 3. Have you been observed gasping or choking while asleep? Y 4. Do you have high blood pressure? Y 5. BMI - greater than 35kg/m2? N 6. Age - over 50 years old? Y 7. Neck Circumference - greater than 37 cm for females or 40 cm for males? Y 41 CM 8. Gender - male? Y Total STOP-BANG score = 5 which indicates HIGH risk for obstructive sleep apnea (yes to 3 or more questions = high risk of sleep apnea). Intake Vital Signs 03/31/24 10:51 07/04/24 16:38 07/11/24 07:43 Height 5 ft 8.5 in 5 ft 8.5 in 5 ft 8.5 in Weight: 173 lb BMI 25.9 BP 167/93 H Blood Pressure Location Lt brachial Position Sitting Respiration 16 Pulse 51 L Pulse Source Monitor Temp 97.4 F L Temperature Source Temporal Artery Pulse Oximetry (%) 97 Oxygen Delivery Method room air Comment 41 cm-neck Intake Visit Reasons: Sleep apnea Accompanied by: Self Allergies No Known Allergies Allergy (Verified 07/11/24 13:40) Medications ???Medication ???Instructions ???Recorded ???Confirmed ???Type aspirin 81 mg tablet,delayed 81 mg PO DAILY 03/03/23 07/11/24 History release cholecalciferol (vitamin D3) 125 125 mcg PO DAILY 07/02/23 07/11/24 History mcg (5,000 unit) capsule lisinopril 5 mg tablet 5 mg PO DAILY #90 tabs 07/04/24 07/11/24 Rx metoprolol succinate 50 mg 50 mg PO DAILY #90 tabs 07/04/24 07/11/24 Rx tablet,extended release 24 hr simvastatin 40 mg tablet 40 mg PO QHS #90 tabs 07/04/24 07/11/24 Rx Have you fallen in the past year?: No [facility] Medical Histo (more content not included)... Normal [facility] CBC W/Diff, Automatedon 06-18 Absolute Lymph 2.20 X10 3/uL Normal 0.83-4.51 [facility] Comment on above: Performed By: #### L 501.9940, L100.0100, L500.4050, L500.4100 #### [facility] [address] [place], [address] Absolute Neut 5.6 X10 3/uL Normal 2.0-7.7 [facility] Comment on above: Performed By: #### L 501.9940, L100.0100, L500.4050, L500.4100 #### [facility] [address] [place], [address] Basophils/100 WBC (Bld) 0.9 % Normal 0-1 [facility] Comment on above: Performed By: #### L 501.9940, L100.0100, L500.4050, L500.4100 #### [facility] [address] [place], [address] Eosinophils/100 WBC (Bld) 4.2 % Normal 0-5 [facility] Comment on above: Performed By: #### L 501.9940, L100.0100, L500.4050, L500.4100 #### [facility] [address] [place], [address] Erythrocyte distribution width (RBC) [Ratio] 12.4 % Normal 11.6-14.6 [facility] Comment on above: Performed By: #### L 501.9940, L100.0100, L500.4050, L500.4100 #### [facility] [address] [place], [address] Hematocrit (Bld) [Volume fraction] 42.2 % Normal 40-54 [facility] Comment on above: Performed By: #### L 501.9940, L100.0100, L500.4050, L500.4100 #### [facility] [address] [place], [address] Hemoglobin (Bld) [Mass/Vol] 13.6 g/dL Normal 13.0-16.5 [facility] Comment on above: Performed By: #### L 501.9940, L100.0100, L500.4050, L500.4100 #### [facility] [address] [place], [address] IG% 0.200 Normal 0.0-0.9 [facility] Comment on above: Result Comment: IG% - Immature Granulocytes (promyelocytes, myelocytes and metamyelocytes) > 1% indicates that a LEFT SHIFT is Present. Performed By: #### L 501.9940, L100.0100, L500.4050, L500.4100 #### [facility] [address] [place], [address] Lymphocytes/100 WBC (Bld) 24.1 % Normal 19-41 [facility] Comment on above: Performed By: #### L 501.9940, L100.0100, L500.4050, L500.4100 #### [facility] [address] [place], [address] MCH (RBC) [Entitic mass] 30.0 pg Normal 27.0-32.0 [facility] Comment on above: Performed By: #### L 501.9940, L100.0100, L500.4050, L500.4100 #### [facility] [address] [place], [address] MCHC (RBC) [Mass/Vol] 32.2 g/dL Normal 32-36 [facility] Comment on above: Performed By: #### L 501.9940, L100.0100, L500.4050, L500.4100 #### [facility] [address] [place], [address] MCV (RBC) [Entitic vol] 93.2 fL Normal 80-94 [facility] Comment on above: Performed By: #### L 501.9940, L100.0100, L500.4050, L500.4100 #### [facility] [address] [place], [address] Monocytes/100 WBC (Bld) 9.8 % Normal 0-10 [facility] Comment on above: Performed By: #### L 501.9940, L100.0100, L500.4050, L500.4100 #### [facility] [address] [place], [address] Neutrophils/100 WBC (Bld) 60.8 % Normal 47-70 [facility] Comment on above: Performed By: #### L 501.9940, L100.0100, L500.4050, L500.4100 #### [facility] [address] [place], [address] Nucleated RBC (Bld) [#/Vol] 0 10*3/uL Normal 0-5 [facility] Comment on above: Performed By: #### L 501.9940, L100.0100, L500.4050, L500.4100 #### [facility] [address] [place], [address] Platelet mean volume (Bld) [Entitic vol] 12.9 fL High 6.2-12.0 [facility] Comment on above: Performed By: #### L 501.9940, L100.0100, L500.4050, L500.4100 #### [facility] [address] [place], [address] Platelets (Bld) [#/Vol] 134 10*3/uL Low 150-450 [facility] Comment on above: Performed By: #### L 501.9940, L100.0100, L500.4050, L500.4100 #### [facility] [address] [place], [address] RBC (Bld) [#/Vol] 4.53 10*6/uL Low 4.6-6.2 [facility] Comment on above: Performed By: #### L 501.9940, L100.0100, L500.4050, L500.4100 #### [facility] [address] [place], [address] RDW SD 42.6 fl Normal 35.1-43.9 [facility] Comment on above: Performed By: #### L 501.9940, L100.0100, L500.4050, L500.4100 #### [facility] [address] [place], [address] WBC (Bld) [#/Vol] 9.1 10*3/uL Normal 4.4-11.0 [facility] Comment on above: Performed By: #### L 501.9940, L100.0100, L500.4050, L500.4100 #### [facility] [address] [place], [address] Comprehensive Metabolic [facility] 07-04-2024 Albumin [Mass/Vol] 3.4 g/dL Normal 3.2-5.0 [facility] Comment on above: Performed By: #### L 501.9940, L100.0100, L500.4050, L500.4100 #### [facility] [address] [place], [address] Albumin/Globulin [Mass ratio] 1.0 {ratio} Normal 0.9-2.4 [facility] Comment on above: Performed By: #### L 501.9940, L100.0100, L500.4050, L500.4100 #### [facility] [address] [place], [address] ALK P 63 U/L Normal 45-117 [facility] Comment on above: Performed By: #### L 501.9940, L100.0100, L500.4050, L500.4100 #### [facility] [address] [place], [address] ALT [Catalytic activity/Vol] 11 U/L Low 16-61 [facility] Comment on above: Performed By: #### L 501.9940, L100.0100, L500.4050, L500.4100 #### [facility] [address] [place], [address] AST [Catalytic activity/Vol] 15 U/L Normal 15-37 [facility] Comment on above: Performed By: #### L 501.9940, L100.0100, L500.4050, L500.4100 #### [facility] [address] [place], [address] Bilirubin [Mass/Vol] 0.50 mg/dL Normal 0.20-1.[address] [facility] Comment on above: Result Comment: For patients on eltrombopag therapy, use of Dimension [place] TBIL is not recommended. Performed By: #### L 501.9940, L100.0100, L500.4050, L500.4100 #### [facility] [address] [place], [address] BUN/CRE 19.2 RATIO Normal 10-20 [facility] Comment on above: Performed By: #### L 501.9940, L100.0100, L500.4050, L500.4100 #### [facility] [address] [place], [address] CA,Total 8.5 mg/dL Normal 8.5-10.1 [facility] Comment on above: Performed By: #### L 501.9940, L100.0100, L500.4050, L500.4100 #### [facility] [address] [place], [address] Chloride [Moles/Vol] 107 mmol/L Normal 98-[address] [facility] Comment on above: Performed By: #### L 501.9940, L100.0100, L500.4050, L500.4100 #### [facility] [address] [place], [address] CO2 [Moles/Vol] 32.0 mmol/L Normal 21.0-32.0 [facility] Comment on above: Performed By: #### L 501.9940, L100.0100, L500.4050, L500.4100 #### [facility] [address] [place], [address] Creatinine [Mass/Vol] 0.99 mg/dL Normal 0.70-1.30 [facility] Comment on above: Result Comment: The validity of the calculated GFR GFRAA in patients over 70 years has not been determined. Clinical correlation is essential. Performed By: #### L 501.9940, L100.0100, L500.4050, L500.4100 #### [facility] [address] [place], [address] EST GFR - AA 94 mL/min Normal >60 [facility] Comment on above: Result Comment: Afri can [place] GFR Calc Performed By: #### L 501.9940, L100.0100, L500.4050, L500.4100 #### [facility] [address] [place], [address] GAP 1 Low 5-15 [facility] Comment on above: Performed By: #### L 501.9940, L100.0100, L500.4050, L500.4100 #### [facility] [address] [place], [address] GFR/1.73 sq M.predicted among non-blacks MDRD (S/P/Bld) [Vol rate/Area] 78 mL/min/{1.73_m2} Normal >60 [facility] Comment on above: Result Comment: Non- GFR Calc Performed By: #### L 501.9940, L100.0100, L500.4050, L500.4100 #### [facility] [address] [place], [address] Globulin (S) [Mass/Vol] 3.4 g/dL Normal 2.2-4.2 [facility] Comment on above: Performed By: #### L 501.9940, L100.0100, L500.4050, L500.4100 #### [facility] [address] [place], [address] Glucose [Mass/Vol] 99 mg/dL Normal 74-106 [facility] Comment on above: Performed By: #### L 501.9940, L100.0100, L500.4050, L500.4100 #### [facility] [address] [place], [address] Potassium [Moles/Vol] 4.3 mmol/L Normal 3.5-5.1 [facility] Comment on above: Performed By: #### L 501.9940, L100.0100, L500.4050, L500.4100 #### [facility] [address] [place], [address] Sodium [Moles/Vol] 140 mmol/L Normal 136-145 [facility] Comment on above: Performed By: #### L 501.9940, L100.0100, L500.4050, L500.4100 #### [facility] [address] [place], [address] T PROT 6.8 g/dL Normal 6.4-8.2 [facility] Comment on above: Performed By: #### L 501.9940, L100.0100, L500.4050, L500.4100 #### [facility] [address] [place], [address] Urea nitrogen [Mass/Vol] 19 mg/dL High - [facility] Comment on above: Performed By: #### L 501.9940, L100.0100, L500.4050, L500.4100 #### [facility] [address] [place], [address] Lipid Profileon 07-04-2024 Cholesterol [Mass/Vol] 98 mg/dL Normal 200 [facility] Comment on above: Result Comment: <200 mg/dL Desirable 200-240 mg/dL Borderline >240 mg/dL High Risk Performed By: #### L 501.9940, L100.0100, L500.4050, L500.4100 #### [facility] [address] [place], [address] Cholesterol in HDL [Mass/Vol] 39 mg/dL Low [facility] Comment on above: Result Comment: The drugs N-Acetylcysteine and Metamizole may falsely depress this assay. Reference Range HDL <40 mg/dL Low HDL Cholesterol HDL >or= 60 mg/dL High HDL Cholesterol Performed By: #### L 501.9940, L100.0100, L500.4050, L500.4100 #### [facility] [address] [place], [address] Cholesterol in LDL [Mass/Vol] 38 mg/dL Normal 0-130 [facility] Comment on above: Performed By: #### L 501.9940, L100.0100, L500.4050, L500.4100 #### [facility] [address] [place], [address] Cholesterol in VLDL [Mass/Vol] 21 mg/dL Normal 5-40 [facility] Comment on above: Performed By: #### L 501.9940, L100.0100, L500.4050, L500.4100 #### [facility] [address] [place], [address] Triglyceride [Mass/Vol] 104 mg/dL Normal [facility] Comment on above: Result Comment: The drugs N-Acetylcysteine and Metamizole may falsely depress this assay. Serum Triglycerides Reference Interval Normal <150 mg/dL Borderline high 150 - 199 mg/dL High 200 - 499 mg/dL Very High > or = 500 mg/dL Performed By: #### L 501.9940, L100.0100, L500.4050, L500.4100 #### [facility] [address] [place], [address] PSA,Total- Diagnosticon 06-18 PSA, DIAGNOSTIC 1.61 ng/mL Normal 0.0-4.0 [facility] Comment on above: Result Comment: This test was performed using the TPSA assay method for the H[employer]Points chemistry system. Values obtained with different assay methods cannot be used interchangably. When changing PSA assays in the course of monitoring a patient, additional sequential testing should be carried out to confirm baseline values. Performed By: #### L 501.9940, L100.0100, L500.4050, L500.4100 #### [facility] [address] [place], [address] Chest PA and Lateralon 06-06 Chest PA and Lateral [facility] [address] [place] [address] Chest PA and Lateral MR#: [id number] Acct: [id number] Name: TRES DICKSON Rep #: [id number] : 1945 M 78 From: Hugo Crowder PCP: OLIVER Richards Status: REG CLI Study: Chest PA and Lateral Date of Exam: 06/06/24 Exam# [id number] Ordering Dr: Diana Kelley NP N P-C [id number] INDICATION: sleep apnea sob EXAMINATION/TECHNIQUE: X-RAY - XR Chest 2 Views COMPARISON: No relevant prior comparison study available FINDINGS: LINES/DEVICES: None. LUNGS: No consolidation, edema or effusion. No pneumothorax. MEDIASTINUM AND CARDIOVASCULAR STRUCTURES: Normal cardiac silhouette. Status post CABG. BONES AND SOFT TISSUES: Unremarkable. RAD/Chest PA and Lateral IMPRESSION: No radiographic evidence of acute cardiopulmonary disease. Electronically Signed: Hugo Martell MD at 8:15 EST , CC: OLIVER Kelley Head Up Operator Helper: Signed Normal [facility] Progress Noteon 05-31-2024 Progress Note [facility] [place] [facility] AT [address] [place] [address] Dept: [phone] Dept PHYSICAL THERAPY RE-EVALUATION Patient Name: Tres Dickson : 1945 Date of Service: 05/31/2024 Referring Provider: Yessy Villarreal MD Visit #: 4 Diagnosis: Primary osteoarthritis of left shoulder Mechanism of injury: insidious onset Patient Preferences: tres Precautions/Red Flags: Yes HTN Subjective General Comments: Tres says he feels like he has made progress with physical therapy over the past month. Says it is not hurting all the time anymore. Says now it is hurting when he puts his hands behind his head for a while, golfing now doesn't bother it too much anymore. He says he feels about 90% functional at this time. Tres says he wishes to perform his exercises on his own going forward. Pain: Current: 0/10 Best: 0/10 Worst: 7/10 for an instant Current Level of Function: independent with some pain Patient?s Stated Goal: reduce pain Outcome Measures SPADI: 21 Objective SHOULDER Observation: forward head, rounded shoulders Cervical Spine AROM: WFL Elbow AROM: WFL Date Recorded: 05/31/2024 Upper Extremity ROM (degrees) Right Left AROM AROM Shoulder Flexion 169 168 Shoulder Abduction 166 142 Shoulder External Rotation (ER) 44, T4 40, T3 Shoulder Internal Rotation (IR) Thumb to L1 Thumb to L1 Upper Extremity Strength (*pain) Date 05/31/2024 R L Shoulder Flexion 5/5 5/5 Shoulder ABD 5/5 5/5* Shoulder ER 5/5 5/5 Shoulder IR 5/5 5/5 Elbow Flex 5/5 5/5 Elbow Ext 5/5 5/5 NT = not tested Scapular Strength Right Left Lower Trapezius 5/5 5/5* Middle Trapezius 5/5 5/5 Joint mobility: empty end feels Palpation: non-tender to palpation Flexibility: reduced pec and UT flexibility bilaterally L>R is improved but still present Special Tests: Sub Acromial Grind (-) Lateral Dayron (-) Assessment Tres has made excellent progress thus far with physical therapy. He has reduced his pain levels, improved his strength, increased his range of motion, and subjectively reports significant improvement in functioning. He will be successful transitioning to a fully home based exercise program going forward for further maintenance and prevention. He is therefore discharged at this time. Rehab Potential: Good Goals Active General/Ortho Patient will reduce pain to 2/10 for improved ability to perform home exercise program and participate in physical therapy sessions (Progressing) Start: 05/03/24 Expected End: 06/02/24 Patient will improve bilateral UE and periscapular strength to 5/5 for improved support with lifting and carrying objects (Completed) Start: 05/03/24 Expected End: 06/02/24 Resolved: 05/31/24 Patient will improve L shoulder abduction and flexion AROM to 160 degrees for improved ability to reach overhead and out (Progressing) Start: 05/03/24 Expected End: 06/02/24 Patient will reduce SPADI score from 50/130 to 25/130 for 50 % improvement in self perceived disability (Completed) Start: 05/03/24 Expected End: 06/02/24 Resolved: 05/31/24 Plan Frequency and Duration: discharge from physical therapy Risks and benefits were discussed with the patient and/or family, and the patient and/or family participated with the plan of care and agrees. Treatment Pt declined to perform exercises today Patient Education: re-evauation measures (billed as ther-act as mutiple components of functioning were addressed) Home Exercise Program: continue current Time Entry Total Treatment Time Start Time: 857 Stop Time: 907 Time Calculation (min): 10 min PT Therapeutic Procedures Time Entry Therapeutic Activity Time Entry: 10 Reji Clement, PT Normal [facility] Progress Noteon 05-17-2024 Progress Note [facility] AT [address] [place] [address] Dept: [phone] Dept PHYSICAL THERAPY TREATMENT Patient Name: Tres Dickson : 1945 Date of Service: 05/17/2024 Referring Provider: Yessy Villarreal MD Visit #: 3 Diagnosis: Primary osteoarthritis of left shoulder Mechanism of injury: insidious onset Patient Preferences: tres Precautions/Red Flags: Yes HTN Subjective Pt states his shoulder pain isn't bad today, went golfing yesterday which he thinks flared his shoulder up again. Compliance with HEP: Yes Objective Objective measurements not taken today. Treatment Therapeutic Exercise # of Activities: 10 Therapeutic Exercise Activity 1: UBE seat 8, lvl 3 Activity 1 Comment: 2/2 Therapeutic Exercise Activity 2: CC strength Activity 2 Comment: Mid rows/ SAPD 2 x 10 # 40, Therapeutic Exercise Activity 3: Wall slides- Flex and abd Activity 3 Comment: x 15 ea Therapeutic Exercise Activity 4: Standing shoulder strength Activity 4 Comment: 2 x 10 flex and abd RTB Therapeutic Exercise Activity 5: Supine Activity 5 Comment: Serratus punches x 20 #5 DB's, serratus alphabet (lowercase) x 1 #5 DB, horizontal abd RTB x 20 Home Exercise Program: Progressed home exercise program Assessment Skilled physical therapy interventions utilized to improve patient?s impairments and work towards established goals. Patient response to treatment: Continued UE/ periscap strength and shoulder ROM on this date. Initiated serratus strengthening in supine and added to HEP. Min cueing for proper form w/ serratus activation. Pt reports feeling shoulder fatigue post session, but no increase in pain. Feels comfortable performing updated HEP. Patient will benefit from continued physical therapy to benefit QOL and reduce UE discomfort. The rationale for today?s treatment was explained to the patient. Verbal cues were provided for correct form with all exercises. Advised patient to continue with Home Exercise Program (HEP). Goals General/Ortho Patient will reduce pain to 2/10 for improved ability to perform home exercise program and participate in physical therapy sessions (Progressing) Start: 05/03/24 Expected End: 06/02/24 Patient will improve bilateral UE and periscapular strength to 5/5 for improved support with lifting and carrying objects (Progressing) Start: 05/03/24 Expected End: 06/02/24 Patient will improve L shoulder abduction and flexion AROM to 160 degrees for improved ability to reach overhead and out (Progressing) Start: 05/03/24 Expected End: 06/02/24 Patient will reduce SPADI score from 50/130 to 25/130 for 50 % improvement in self perceived disability (Progressing) Start: 05/03/24 Expected End: 06/02/24 Plan Plan for next session: Progress UE/ postural stabilization as able Time Entry Total Treatment Time Start Time: 900 Stop Time: 928 Time Calculation (min): 28 min PT Therapeutic Procedures Time Entry Therapeutic Exercise Time Entry: 28 Tay Nowak, EMERGENCY ROOM DOCTOR Normal [facility] Progress Noteon 05-10-2024 Progress Note [facility] AT [address] [place] [address] Dept: [phone] Dept PHYSICAL THERAPY TREATMENT Patient Name: Tres Dickson : 1945 Date of Service: 05/10/2024 Referring Provider: Yessy Villarreal MD Visit #: 2 Diagnosis: Primary osteoarthritis of left shoulder Mechanism of injury: insidious onset Patient Preferences: tres Precautions/Red Flags: Yes HTN Subjective Pt states shoulder is feeling about the same today, HEP exercises are going fine. Reports he was able to golf fine yesterday, symptoms did flare up after playing however. Compliance with HEP: Yes Objective Objective measurements not taken today. Treatment Therapeutic Exercise # of Activities: 10 Therapeutic Exercise Activity 1: Pulleys Activity 1 Comment: 08/20 Therapeutic Exercise Activity 2: CC strength Activity 2 Comment: Mid rows/ SAPD 2 x 10 # 35, Therapeutic Exercise Activity 3: Wall slides- Flex and abd Activity 3 Comment: x 15 ea Therapeutic Exercise Activity 4: Counter push up + Activity 4 Comment: x 20 Therapeutic Exercise Activity 6: Stretches Activity 6 Comment: Doorway pec stretch x 30, B UT stretching x 30 ea Therapeutic Exercise Activity 7: Weighted dowel silvia raises #5 (Standing) Activity 7 Comment: x 20 flexion Therapeutic Exercise Activity 8: UBE seat 8, lvl 3 Activity 8 Comment: 08/20 Home Exercise Program: Progressed home exercise program Assessment Skilled physical therapy interventions utilized to improve patient?s impairments and work towards established goals. Focused today's visit on progressing periscap/ UE strength and UE ROM. Reviewed HEP exercises, required cueing for mid rows and SAPD to improve form. Updated HEP w/ counter push up plus, UT and pec stretch. Patient response to treatment: Pt states feeling a good burn and stretch w/ exercises this date. Required cueing for cable column HEP exercises, improved form w/ practice and demonstration. Reports feeling comfortable w/ his updated HEP post session, states just having shoulder fatigue. Patient will benefit from continued physical therapy to reduce symptoms and decrease discomfort w/ recreational activities such as golf. The rationale for today?s treatment was explained to the patient. Verbal cues were provided for correct form with all exercises. Advised patient to continue with Home Exercise Program (HEP). Goals General/Ortho Patient will reduce pain to 2/10 for improved ability to perform home exercise program and participate in physical therapy sessions (Progressing) Start: 05/03/24 Expected End: 06/02/24 Patient will improve bilateral UE and periscapular strength to 5/5 for improved support with lifting and carrying objects (Progressing) Start: 05/03/24 Expected End: 06/02/24 Patient will improve L shoulder abduction and flexion AROM to 160 degrees for improved ability to reach overhead and out (Progressing) Start: 05/03/24 Expected End: 06/02/24 Patient will reduce SPADI score from 50/130 to 25/130 for 50 % improvement in self perceived disability (Progressing) Start: 05/03/24 Expected End: 06/02/24 Plan Plan for next session: Assess response to HEP and previous session. Progress periscap strength and UE ROM. Consider serratus exercises Time Entry Total Treatment Time Start Time: 857 Stop Time: 924 Time Calculation (min): 27 min PT Therapeutic Procedures Time Entry Therapeutic Exercise Time Entry: 27 Tay Nowak, EMERGENCY ROOM DOCTOR Normal [facility] Progress Noteon 05-03-2024 Progress Note [facility] AT [facility] [address] [place] [address] Dept: [phone] Dept PHYSICAL THERAPY EVALUATION Patient Name: Tres Dickson : 1945 Date of Service: 05/03/2024 Referring Provider: Yessy Villarreal MD Visit #: 1 Diagnosis: Primary osteoarthritis of left shoulder General Information Mechanism of injury: insidious onset Patient Preferences: tres Precautions/Red Flags: Yes HTN Fall Risk: No Work status: not working PMHX: Tres has a past medical history of CAD (coronary artery disease), Hyperlipidemia, Hypertension, Melanoma (HCC), and [place] (myocardial infarction) ([facility]). PSHX: Tres has a past surgical history that includes Eye surgery; Coronary artery bypass graft; and Skin biopsy. Have you experienced any anxiety or depression?: No Have you experienced thoughts of self-harm or suicidal thoughts?: No Social Determinates of Health Reviewed: Yes Physician follow-up appointment?: Not yet Subjective Chief Complaint: Tres says his left shoulder pain started about a month ago. He says he is unsure what he did. He woke up and it just started hurting. Hurts most with reaching up and back. Noticed it hurt most when he was golfing. He says it hurt at the start and the end the most. Describes his pain as a shooting pain from the top down that is quick and pulsating. Denies pain at night with sleeping. Does get some pain after resting with hands above his head when sitting. Pain: Current: 0/10 Best: 0/10 Worst: 8-9/10 Symptoms Relieved by: tylenol extra strength, heat Prior Level of Function: independent without difficulty Current Level of Function: independent with increased pain and difficulty Patient?s Stated Goal: get rid of the pain Outcome Measures SPADI: 50/130 Objective SHOULDER Observation: forward head, rounded shoulders Cervical Spine AROM: WFL Elbow AROM: WFL Date Recorded: 05/03/2024 Upper Extremity ROM (degrees) Right Left AROM AROM Shoulder Flexion 169 148 Shoulder Abduction 166 95 Shoulder External Rotation (ER) 44, T4 34, T1 Shoulder Internal Rotation (IR) Thumb to L1 Thumb to L5 Upper Extremity Strength (*pain) Date 05/03/2024 R L Shoulder Flexion 5/5 5/5 Shoulder ABD 5/5 4+/5* Shoulder ER 5/5 5/5 Shoulder IR 5/5 5/5 Elbow Flex 5/5 5/5 Elbow Ext 5/5 5/5 NT = not tested Scapular Strength Right Left Lower Trapezius 5/5 4/5* Middle Trapezius 5/5 4/5* Joint mobility: empty end feels Palpation: non-tender to palpation Flexibility: reduced pec and UT flexibility bilaterally L>R Special Tests: Sub Acromial Grind (-) Lateral Dayron (+) Assessment Tres is a 78 y.o. patient with chief complaint of L Shoulder pain, who presents with signs and symptoms consistent with possible shoulder OA vs RTC injury. Tres presents today with significantly reduced L shoulder AROM, decreased shoulder strength, impaired posture, and impaired flexibility. All of these deficits can contribute to increased stress in the shoulder and can be exacerbating his symptoms. This is affecting his ability to fully function. He would benefit from skilled physical therapy to address decreased strength, decreased range of motion, pain, soft tissue impairment, and impaired functional activities. Evaluation complexity is low secondary to: patient has 1-2 personal factors and/or comorbidities that will affect plan of care, therapy will be addressing 1-2 elements, and clinical presentation is stable. Body Systems Affected: musculoskeletal and neuromuscular Rehab Potential: Good Learning Preferences: demonstration and explanation Barriers to Rehab: none Goals General/Ortho Patient will reduce pain to 2/10 for improved ability to perform home exercise program and participate in physical therapy sessions (Initiated) Start: 05/03/24 Expected End: 06/02/24 Patient will improve bilateral UE and periscapular strength to 5/5 for improved support with lifting and carrying objects (Initiated) Start: 05/03/24 Expected End: 06/02/24 Patient will improve L shoulder abduction and flexion AROM to 160 degrees for improved ability to reach overhead and out (Initiated) Start: 05/03/24 Expected End: 06/02/24 Patient will reduce SPADI score from 50/130 to 25/130 for 50 % improvement in self perceived disability (Initiated) Start: 05/03/24 Expected End: 06/02/24 Plan Frequency and Duration: 1/wk for 4 weeks Therapeutic Contents: client education, group therapy, home exercise program, manual therapy techniques, neuromuscular re-education, therapeutic activities, therapeutic exercise, trigger point dry needle, and modalities as needed Plan for next session: assess HEP response, pec stretching, UT stretching, periscapular progressions, serratus press, prone Y/T Risks and benefits were discussed with the patient and/or family, and the patient and/o (more content not included)... Normal [facility] Office Visiton 04-28-2024 Follow-up visit [id number] Tres Dickson 1945 [facility] Provider Department Center 04/28/2024 [id number] No family history on file Level of Service:00825 DE OFFICE/OUTPATIENT ESTABLISHED LOW MDM 20 MIN Reason for Visit and Comments: Follow-up [970923] - NDX left shoulder Normal [facility] Progress Noteon 04-28-2024 Progress Note [facility] - [facility] [address] [place] [address] [place] [address] Dept: [phone] Dept Chief Complaint Patient presents with Follow-up NDX left shoulder Subjective History of Present Illness: Tres Dickson is a 78 y.o. right hand dominant male who presents today for evaluation of left shoulder pain. Location: anterior and posterior Onset: 1 month Injury: no Quality: sharp, shooting, and pulsing Mechanical symptoms: no Radiation of symptoms: yes - from the back of his shoulder to the front Severity: 3/10 at rest and 9/10 at worst Exacerbating factor(s): repetitive use, overhead use, and reaching behind and after golfing Relieving factor(s): Tylenol extra strength and heat Timing: all day but gets worse when he over does it Imaging to date: X-ray April 2024 Treatment to date: PT/OT/HEP: no Ice: no Heat: yes, helpful Medications: Tylenol: yes, helpful NSAIDs: no Oral steroids: no Muscle relaxants: no Nerve medications: no Targeted injections: none in shoulder Assistive devices: none Occupation: Retired, Fall risk assessment: Completed in the past 12 months Objective Visit Vitals BP 134/82 Physical Exam: General: Alert, well appearing, no acute distress. Respiratory: Breathing comfortably on room air. No respiratory distress. Skin: Warm, dry, intact. No visible rashes or erythema overlying area of focused exam. Physical Exam Musculoskeletal: Right shoulder: No swelling, deformity or tenderness. Normal strength. Normal pulse. Left shoulder: Tenderness (diffuse) present. No swelling or deformity. Decreased range of motion. Normal strength. Normal pulse. Comments: Left range of motion decreased, abduction 110 degrees, external rotation 15 degrees, internal rotation 10 degrees Supraspinatus muscle strength normal with discomfort Infraspinatus muscle strength normal Subscapularis muscle strength normal Biceps muscle strength normal Speed's test unable Hawkin's test unable Impingement test unable Davison's test unable Sulcus test negative Scarf test unable Spurling test negative External Notes No pertinent interval updates Labs No results found for: HGBA1C Lab Results Component Value Date CREATININE 0.97 11/13/2022 Imaging Images reviewed with patient today I have personally reviewed the images pertinent to the appointment today EMG/NCT No interval studies Procedure No procedures completed today Assessment Diagnosis Plan 1. Primary osteoarthritis of left shoulder XR shoulder 2+ views left Ambulatory referral to Physical Therapy Plan We discussed osteoarthritis of the shoulder. We reviewed the spectrum of 1. Pills - everything from Tylenol, ibuprofen, Aleve, and pain medicines. Tumeric can be supplemented, it is likely similar to ibuprofen and is generally safe for most people to take. We discussed that turmeric is dose-dependent and the higher the dose the more anti-inflammatory effect you will receive and that when turmeric is taken with black pepper more is absorbed. 2. Physical therapy - formal physical therapy and braces. The benefits of strengthening, endurance, flexibility, balancing, and proprioception. The combination of all of these to decrease joint pain. Bracing is not available for the shoulder 3. Shots - corticosteroid and investigational injections. We discussed the episodic nature, and Band-Aid nature of cortisone. No more frequent than every 3-4 months, the potential for cortisone to soften articular cartilage with repetitive use. We also discussed the benefits and disadvantages of different approaches for corticosteroid injections of the shoulder including subacromial and ultrasound-guided intra-articular. Additionally, investigational agents like stem cells, whole blood, PRP have not been shown to be effective for osteoarthritis of the shoulder. 4. Surgery -specifically total shoulder replacement. We discussed the need to progress through conservative measures before this is a viable option. No follow-ups on file. Yessy Villarreal MD 04/28/2024 10:04 AM Please note that portions of this note may have been completed with voice recognition software. 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 Normal [facility] 36on 03-16-2024 36 This patient has had a prior lung screening CT scan at [facility]. According to our records, he/she is now due for an annual lung screening CT scan. Please evaluate and order this annual screening if your patient still meets lung screening criteria. Normal [facility] Office Visiton 02-25-2024 Follow-up visit [id number] Tres Dickson 1945 M Date Provider Department Center 02/25/2024 [id number] VILLARREAL [facility] SM WAD None No family history on file Level of Service:25794 DE OFFICE/OUTPT VISIT,PROCEDURE ONLY Reason for Visit and Comments: Knee Pain [112451] - left Normal [facility] PATINSon 02-25-2024 PATINS After your shot toda y Avoid strenuous physical activity for 1-2 days. Ice your knee if needed. Avoid prolonged standing for the today. If you have any signs of infection (severe pain, redness, fever, drainage) call the office or go directly to the ER. Keep your next injection appointment. Euflexxa, Gel-One, Hyalgan, Hyalgan L/L, Monovisc, Orthovisc, Supartz, Supartz FX Orthovisc Side Effects Along with its needed effects, a medicine may cause some unwanted effects. Although not all of these side effects may occur, if they do occur they may need medical attention. Check with your doctor or nurse immediately if any of the following side effects occur: More common Difficulty with moving muscle pain or stiffness pain in the joints Less common Swelling or redness in the joints Some side effects may occur that usually do not need medical attention. These side effects may go away during treatment as your body adjusts to the medicine. Also, your health career and transition teacher may be able to tell you about ways to prevent or reduce some of these side effects. Check with your health career and transition teacher if any of the following side effects continue or are bothersome or if you have any questions about them: Less common Bleeding, blistering, burning, coldness, discoloration of the skin, feeling of pressure, hives, infection, inflammation, itching, lumps, numbness, pain, rash, redness, scarring, soreness, stinging, swelling, tenderness, tingling, ulceration, or warmth at the injection site Other side effects not listed may also occur in some patients. If you notice any other effects, check with your healthcare professional. Call your doctor for medical advice about side effects. Normal [facility] Progress Noteon 02-25-2024 Progress Note [facility] [address] [place] [address] Dept: [phone] Dept Chief Complaint Patient presents with Knee Pain left Subjective History of Present Illness: Tres Dickson is a 78 y.o. male who presents today for injection of left knee. He rates symptoms as a 0/10 at rest and a 5/10 at worst. Prior targeted injections: Corticosteroid 12/20/2023. Helpful. Fall risk assessment: Less than 65, not applicable Objective There were no vitals taken for this visit. Physical Exam: General: Alert, well appearing, no acute distress. Respiratory: Breathing comfortably on room air. No respiratory distress. Skin: Warm, dry, intact. No visible rashes or erythema overlying area of focused exam. External Notes No pertinent interval updates Labs No results found for: HGBA1C Lab Results Component Value Date CREATININE 0.97 11/13/2022 Imaging I have personally reviewed the images pertinent to the appointment today EMG/NCT N/A Procedure Procedure completed today, details below Procedure Note: We discussed risks and precautions including infection, bleeding. Verbal and written consent was obtained. The left knee injection site was located, confirmed and marked, it was prepped in the usual fashion with betadine and isopropyl alcohol. Prefilled syring of Synvisc One was placed in the, intra-articular, intracondylar space using a 21G 1.5 inch needle using the inferior lateral approach. The procedure was tolerated well. There were no complications with the injection. The injection site was bandaged. Assessment Diagnosis Plan 1. Primary osteoarthritis of left knee hylan (Synvisc) injection 16 mg Plan -Discussed with the patient the nature of Arthritis and answered questions. -Discussed prior imaging results with patient. -Discussed activity modification for the rest of today. -Questions answered. -Written patient information provided in the AVS. -Knee injection performed per above procedure note. Yessy Villarreal MD 02/25/2024 3:00 PM Please note that portions of this note may have been completed with voice recognition software. 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 [place] [id number] 36 Confirmed that gel injections are at [place] [facility], and called patient to update him, someone had already made his follow up appointment [place] [id number] Pt is calling back t o check on status of his gel injections. He states he was not asked to pay a co-pay when the Specialty Pharm[facility] called him to get approval for delivery of injection to our office and he would like to know when they might be coming in. Please call to advise. [address] 02-09-2024 36 Called Kate croft with [facility] and set up delivery of Synvisc one for 02/14 to the [place] [facility]. Will call patient and update him. [address] 02-08-2024 36 S: [facility] [place] [place] - [facility] [address] spoke with [facility] nurse regarding medication delivery to office B: Synvisc one A: states they need to schedule delivery of above medication R: Please return call to [phone] to discuss Reason for Disposition [1] Caller requesting NON-URGENT health information AND [2] PCP's office is the best resource Protocols used: Information Only Call - No [id number] [id number] S: Nurse called [facility] at # and spoke with Robin. B: Patient's hylan (Synvisc One) is ready to schedule to be sent to the patient. A: Patient's consent is on file. R: Message sent to Dr. Villarreal's office for follow-up. [facility] 36on 02-02-2024 36 Patient called in [facility] s/w [facility] and they told him he may have a possible copay of $279. Said they told him they'd get it reach to ship and reach out to the office. Patient unsure if he truly has a copay or not for this with his [employer] Medicare plan. Advised they won't ship to us if there's still a balance due. We'll see if we get call for shipment in the next few days. [facility] 36 Pt returning our tylor l, I relayed the information. He verbalizes understanding and will call the pharmacy to ok delivery. FYI [facility] 36 Called [facility] t o check status of patient's gel injection order. Spoke with Lupe she states that they reached out to patient to obtain consent to ship and patient told them that He wasn't interested so they placed his order on hold. I reached out to patient and LVM that he needs to call [facility] if he wants to go ahead with his gel injection. Their # is [phone]. Please relay this message to patient if he calls the office. Thank you!! [facility] Uric Acidon 01-10-2024 URIC 7.4 mg/dL High 3.5-7.2 [facility] Comment on above: Result Comment: The drugs N-Acetylcysteine and Metamizole may falsely depress this assay. Performed By: #### L [id number] #### [facility] [address] [place], [address] 36on 12-28-2023 36 Called [facility] gave ICD 10 code, they state the gel is still processing and will reach out to patient when ready for consent to ship to office [facility] 36 Lupe from [facility] is calling to request the ICD 10 code for the patient for the Synvisc 1. can speak to anyone in the pharmacy in regards to this. [facility] 36on 12-27-2023 36 Lupe with [facility] called asking for ICD 10 code for Synvisc One. She states when calling back you can speak to anyone in the pharmacy. Please advise. [facility] 36on 12-20-2023 36 Left Knee New Therapy Provider prefers Single Injection (example: Durolane/Gel One). However whatever is a preferred drug on patient's plan is acceptable. Delivery location is [address] [place] [address] [place] [address] [facility] 36 No PA needed from [facility] ins for Synvisc one injection. Med is pended, please sign. Thank you! [facility] Office Visiton 12-20-2023 Follow-up visit [id number] Tres Dickson 1945 M [facility] Provider Department Center 12/20/2023 [id number] VILLARREAL [facility] None No family history on file Level of Service:87691 DE OFFICE/OUTPATIENT ESTABLISHED LOW [facility] 20 MIN Reason for Visit and Comments: New Patient [542] Knee Pain [471541] - left [facility] Progress Noteon 12-20-2023 Progress Note [facility] [address] [place] [address] [place] [address] Dept: [phone] Dept Chief Complaint Patient presents with New Patient Knee Pain left Subjective History of Present Illness: Tres Dickson follows up today for left knee pain. Since the last visit on 06/01/2022, symptoms improved initially but over the last few months he has been experiencing a tight stiffness that hurts more when he is climbing and descending stairs . Current symptoms are tight/stiff. He rates symptoms as a 4/10 at rest and a 8/10 at worst. Imaging to date: X-ray May 2022 Treatment to date: PT/OT/HEP: doing his own workouts in the gym Ice: no Heat: no Medications: Voltaren Tylenol: yes, helpful NSAIDs: no Oral steroids: no Muscle relaxants: no Nerve medications: no Targeted injections: Corticosteroid 06/01/2022. Helpful. Assistive devices: none Fall risk assessment: Completed today. Have you had 2 or more falls in the last year? No Have you had a fall with injury in the last year? No Do you feel unsteady or worried about falling? No ----- Hyaluronic acid prior authorization information summary ----- Requested agent: [employer] (or insurance approved similar agent) Knee: left Injections requested: 1 shot series Knee symptoms have been present for more than 6 months: Yes Prior knee x-rays with diagnostic criteria confirming osteoarthritis: Yes Previously treatment plans tried over the last 6-12 months that have been ineffective include Tylenol: Yes Oral Anti-inflammatories: Yes Weight loss: Yes Home exercise program: Yes Formal physical therapy: No Intra-articular Corticosteroid injection: Yes Previous treatment plans tried Prior intra-articular hyaluronic acid injection series completed: No If performed, did it last more than 6 months: N/A The office staff will begin the prior authorization and purchasing procedure for your hyaluronic acid injection series. As discussed at your office visit, this process can take up to 4 weeks to complete. Our staff will call you when your injections are approved. If 4 weeks has passed since your appointment, please feel free to call us and check on the status of your authorization. Objective There were no vitals taken for this visit. Physical Exam: General: Alert, well appearing, no acute distress. Respiratory: Breathing comfortably on room air. No respiratory distress. Skin: Warm, dry, intact. No visible rashes or erythema overlying area of focused exam. Physical Exam Musculoskeletal: Left knee: Swelling (trace) and effusion (small) present. No deformity, erythema, ecchymosis or bony tenderness. Normal range of motion. Tenderness present over the medial joint line. No lateral joint line, MCL or LCL tenderness. No LCL laxity, MCL laxity, ACL laxity or PCL laxity.Normal patellar mobility. Instability Tests: Anterior drawer test negative. Posterior drawer test negative. Anterior Kieran test negative. Medial Renee test negative and lateral Renee test negative. Legs: External Notes No pertinent interval updates Labs No results found for: HGBA1C Lab Results Component Value Date CREATININE 0.97 11/13/2022 Imaging I have personally reviewed the images pertinent to the appointment today EMG/NCT N/A Procedure Procedure completed today, details below Procedure Note: We discussed risks and precautions including infection, bleeding, hypopigmentation, fat atrophy and a 1-2% chance of a steroid flare. Verbal and written consent was obtained. The left knee injection site was located, confirmed and marked, it was prepped in the usual fashion with betadine and isopropyl alcohol. 2 cc of Betamethasone (6mg/ml) and 4 cc of 1% lidocaine were placed in the, intra-articular, intracondylar space using a inferior lateral approach. The procedure was tolerated well. There were no complications with the injection. The injection site was bandaged. Assessment Diagnosis Plan 1. Primary osteoarthritis of left knee Plan We discussed osteoarthritis of the knee. We reviewed the spectrum of 1. Pills - everything from Tylenol, ibuprofen, Aleve, and pain medicines. We also discussed glucosamine/chondroitin combinations and how to perform a glucosamine trial. Additionally Tumeric can be supplemented, it is likely similar to ibuprofen and is generally safe for most people to take. Glucosamine Trial: As a treatment for arthritis, we discussed a trial of glucosamine, [id number]. We talked about using a good quality glucosamine source as the testing agent. Cosamin DS or Osteo-Bio Flex would be two of the options to pick from. Write down, using as many numbers as possible, a description of when the arthritis is symptomatic ( i.e. I can go up 1 flight of stairs before my knee hurts, I can sleep 4 hours before my knee wakes me, my knee begins to hurt m (more content not included)... Normal [facility] Absolute lymphocyte countOrd ered By: Diana Kelley on 07-02-2023 Lymphocytes Auto (Unsp spec) [#/Vol] 2.06 10*3/uL 0.83-4.51 [facility] Basophil percentageOrdered B y: Diana Kelley on 07-02-2023 Basophils/100 WBC (Bld) 0.8 % 0-1 [facility] Bilirubin [Mass/Vol] 0.60 mg/dL 0.20-1.[address] [facility] Comment on above: For patients on eltr ombopag therapy, use of Dimension [place] TBIL is not recommended. Chloride [Moles/Vol] 107 mmol/L 98-[address] [facility] Cholesterol [Mass/Vol] 98 mg/dL <200 [facility] Comment on above: <200 mg/dL Desirable 200-240 mg/dL Borderline >240 mg/dL High Risk Eosinophils/100 WBC (Bld) 3.3 % 0-5 [facility] Glucose [Mass/Vol] 99 mg/dL 74-106 [facility] Neutrophils (Bld) [#/Vol] 5.4 10*3/uL 2.0-7.7 [facility] Neutrophils/100 WBC (Bld) 62.2 % 47-70 [facility] Potassium [Moles/Vol] 4.0 mmol/L 3.5-5.1 [facility] Protein [Mass/Vol] 6.8 g/dL 6.4-8.2 [facility] Sodium [Moles/Vol] 143 mmol/L 136-145 [facility] Triglyceride [Mass/Vol] 170 mg/dL <199 [facility] Comment on above: The drugs N-Acetylcy steine and Metamizole may falsely depress this assay.Serum Triglycerides Reference Interval Normal <150 mg/dL Borderline high 150 - 199 mg/dL High 200 - 499 mg/dL Very High > or = 500 mg/dL WBC (Bld) [#/Vol] 8.6 10*3/uL 4.4-11.0 [facility] Blood erythrocytes count (nu mber/volume)Ordered By: Diana Kelley on 07-02-2023 RBC (Bld) [#/Vol] 4.73 10*6/uL 4.6-6.2 [facility] Blood hemoglobin measurement (mass/volume)Ordered By: Diana Kelley on 07-02-2023 Hemoglobin (Bld) [Mass/Vol] 14.2 g/dL 13.0-16.5 [facility] Blood lymphocytes/100 leukoc ytesOrdered By: Diana Kelley on 07-02-2023 Lymphocytes/100 WBC (Bld) 24.0 % 19-41 [facility] Blood monocytes/100 leukocyt esOrdered By: Diana Kelley on 07-02-2023 Monocytes/100 WBC (Bld) 9.1 % 0-10 [facility] Blood platelet mean volumeOr dered By: Diana Kelley on 07-02-2023 Platelet mean volume (Bld) [Entitic vol] 13.0 fL 6.2-12.0 [facility] Determination of erythrocyte mean corpuscular volume (MCV)Ordered By: Diana Kelley on 07-02-2023 MCV (RBC) [Entitic vol] 93.0 fL 80-94 [facility] Hematocrit Auto (Bld) [Volum e fraction]Ordered By: Diana Kelley on 07-02-2023 Hematocrit (Bld) [Volume fraction] 44.0 % 40-54 [facility] Laboratory - Chemistry and C hemistry - challengeOrdered By: Diana Kelley on 07-02-2023 ALP [Catalytic activity/Vol] 67 U/L 45-117 [facility] ALT [Catalytic activity/Vol] 17 U/L 16-61 [facility] CO2 [Moles/Vol] 32.0 mmol/L 21.0-32.0 [facility] Globulin (S) [Mass/Vol] 3.2 g/dL 2.2-4.2 [facility] Urea nitrogen/Creatinine [Mass ratio] 17.0 mg/mg 10-20 [facility] - Hematology and Cell countsOrdered By: Diana Kelley on 07-02-2023 Erythrocyte distribution width (RBC) [Entitic vol] 41.9 fL 35.1-43.9 [facility] Erythrocyte distribution width (RBC) [Ratio] 12.2 % 11.6-14.6 [facility] Immature granulocytes/100 WBC (Bld) 0.600 % 0.0-0.9 [facility] Comment on above: IG% - Immature Granu locytes (promyelocytes, myelocytes and metamyelocytes) > 1% indicates that a LEFT SHIFT is Present. MCH (RBC) [Entitic mass] 30.0 pg 27.0-32.0 [facility] Nucleated RBC/100 WBC (Bld) [Ratio] 0 % 0-5 [facility] MCHC Auto (RBC) [Mass/Vol]Or dered By: Diana Kelley on 07-02-2023 MCHC (RBC) [Mass/Vol] 32.3 g/dL 32-36 [facility] No Panel InformationOrdered By: Diana Kelley on 07-02-2023 Estimated GFR (MDRD) Amer 87 mL/min >60 [facility] Comment on above: GFR Calc Estimated GFR (MDRD) Non-Af Amer 72 mL/min >60 [facility] Comment on above: Non- GFR Calc Prostate Specific Antigen Total 1.85 ng/mL 0.0-4.0 [facility] Comment on above: This test was perfor med using the TPSA assay method for theHypePoints chemistry system. Values obtained with differentassay methods cannot be used interchangably.When changing PSA assays in the course of monitoring apatient, additional sequential testing should be carriedout to confirm baseline values. Platelets bldOrdered By: Osei Kelley on 07-02-2023 Platelets (Bld) [#/Vol] 137 10*3/uL 150-450 [facility] Serum or plasma albumin kristy urement (mass/volume)Ordered By: Diana Kelley on 07-02-2023 Albumin [Mass/Vol] 3.6 g/dL 3.2-5.0 [facility] Serum or plasma albumin/glob ulin mass ratioOrdered By: Diana Kelley on 07-02-2023 Albumin/Globulin [Mass ratio] 1.1 {ratio} 0.9-2.4 [facility] Serum or plasma calcium kristy urement (mass/volume)Ordered By: Diana Kelley on 07-02-2023 Calcium [Mass/Vol] 8.5 mg/dL 8.5-10.1 [facility] Serum or plasma cholesterol in HDL measurement (mass/volume)Ordered By: Diana Kelley on 07-02-2023 Cholesterol in HDL [Mass/Vol] 35 mg/dL >40 [facility] Comment on above: The drugs N-Acetylcy steine and Metamizole may falsely depress this assay. Reference Range HDL <40 mg/dL Low HDL Cholesterol HDL >or= 60 mg/dL High HDL Cholesterol Serum or plasma cholesterol in VLDL measurement (mass/volume)Ordered By: Diana Kelley on 07-02-2023 Cholesterol in VLDL [Mass/Vol] 34 mg/dL 5-40 [facility] Serum or plasma creatinine m easurement (mass/volume)Ordered By: Diana Kelley on 07-02-2023 Creatinine [Mass/Vol] 1.06 mg/dL 0.70-1.30 [facility] Comment on above: The validity of the calculated GFR & GFRAA in patients over 70 years has not been determined. Clinical correlation is essential. Serum or plasma low density lipoprotein (LDL) cholesterol measurement (mass/volume)Ordered By: Diana Kelley on 07-02-2023 Cholesterol in LDL [Mass/Vol] 29 mg/dL 0-130 [facility] Serum or plasma urea nitroge n measurement (mass/volume)Ordered By: Diana Kelley on 07-02-2023 Urea nitrogen [Mass/Vol] 18 mg/dL 7-18 [facility] Thin prep Papanicolaou smear with manual screeningOrdered By: Diana Kelley on 07-02-2023 Thin prep Papanicolaou smear with manual screening 21 U/L 15-37 [facility] Thin prep Papanicolaou smear with manual screening 4 5-15 [facility] Ophthalmic Eye [place] 2022 Ophthalmic Eye Exam DOCUMENT REVIEWED BY : Rafa Dockery DOCUMENT SIGNED ELECTRONICALLY BY Rafa Dockery ON 03/03/2023 11:00:49 AM [place] [id number] [place] [address], [facility] [address] [place], [address] THIS DOCUMENT WAS CREATED ON: 03/03/2023 11:00:39 AM BY: Rafa Dockery Exam Date: Friday, March 03, 2023 PATIENT NAME: TRES DICKSON DATE: 1945 AGE: 77 GENDER: Male RACE: History Chief Complaint/Reason For Visit: Problem-Routine eye exam,Cataract OD,OS prosthetic, Location-right eye, Duration-one year,VA is stable OD,No floaters,No flashes,No eye pain,OTC drops prn OD. HISTORY OF PRESENT ILLNESS: PROBLEM: Routine eye exam,OS prosthetic LOCATION: right eye DURATION: one year HPI was performed by Dr. 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; History of Dry eye syndrome; History of Dermatochalasis; History of Malignant Eye Neoplasm Of Choroid; SURGERIES: History of Coronary Artery Surgery; History of Globe Enucleation Left; SOCIAL HISTORY: ALCOHOL: Social alcohol use; SMOKING: Former smoker (V15.82 Z87.891); FAMILY HISTORY: Mother,Father:Family history of No pertinent family history CURRENT MEDICATIONS: Artificial Tears 0.1-0.3 % Ophthalmic Solution - ML, Solution, INSTILL 1-2 DROPS INTO AFFECTED EYE(S) 4 TIMES DAILY DIRECTED.[Reported] , Evaluate Aspirin 81 MG TABS (No longer available) - Tablet, [Reported] Fenofibrate Micronized 200 MG Oral Capsule - #90 Capsule, [Reported] Lisinopril 5 MG Oral Tablet - Tablet, [Reported] Metoprolol Tartrate 50 MG Oral Tablet - Tablet, [Reported] Multivitamins TABS (No longer available) - Tablet, [Reported] Xmujasdu-Vjbkcwshj-Aflteo th 3.5-56643-3.1 Ophthalmic Ointment - #2 3.5 GM Tube, Ointment, APPLY A SMALL AMOUNT OF OINTMENT in the left eyelid and in the left eye twice per day., 1 refill, Evaluate: 01-Apr-2018 Restasis MultiDose 0.05 % Ophthalmic Emulsion - #1 5.5 ML Bottle, Emulsion, INSTILL 1 DROP IN RIGHT EYE EVERY 12 HOURS DAILY., 2 refills, Evaluate: 05-Jun-2018 Simvastatin 40 MG Oral Tablet - #90 Tablet, [Reported] ALLERGIES: No Known Drug Allergies REVIEW OF SYSTEMS: All other Review Of Systems negative Exam ORIENTATION, MOOD AND AFFECT: Alert AND oriented x3 RIGHT EYE LEFT EYE UNCORRECTED VA N/A WEARING +0.75 -1.75 x 090 add +2.75 PROSTHETIC SPHER MANIFEST REFRACTION +0.75 -1.75 x 098 add +3.00 DOCTORS FINAL REFRACTION +0.75 -1.75 x 098 add +3.00 PINHOLE NI CORRECTED VA 20/40 DOCTORS FINAL VA 20/40 DOCTORS FINAL NEAR VA CHECK 20/25 PRESSURE METHOD: Applanation Applanation PRESSURES: 12 prosthetic DATE-TIME: 03/03/2023 10:12:42 AM 03/03/2023 10:12:42 AM FIELD ASSESSOR: BELLA RAMOS7 CONFRONTATION VF FTFC prosthetic EXTERNAL EYE EXAM: LID: Good Position Good Position, hyperemic lids (+)trace scurf PUPIL: PERRL/no APD UNABLE ADNEXA: Normal Normal OCULAR MOTILITY: Full OD ANTERIOR SEGMENT EXAM: TEARFILM: Good prosthetic CONJUNCTIVA: White and quiet CORNEA: Clear (-)PEE ANTERIOR CHAMBER: Deep and quiet IRIS: Round and reactive LENS: 2+ NS ANTERIOR VITREOUS: Clear FUNDUS EXAM: DILATION and NUMBING DROPS: Mydriacyl 1% AND Sergio 2 1/2% OU 03/03/2023 10:12:43 AM CUP TO DISC: .3 OPTIC DISC: Winkelman and sharp VITREOUS: PVD MACULA: Normal reflex, few small hard drusen temporally VESSELS: Normal PERIPHERY: No tears, breaks, or holes Impression 1 H25.11 Age-related nuclear cataract of right eye-Stable 2 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 Pt asymptomatic with no difficulty with ADL`s. Monitor. 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 Dry eye syndrome of both lacrimal glands H04.123 -Educated to contiinue using AT`s prn. Educated on lid hygiene OS with lid scrubs. Could RX erythromycin lolita prn. Hypermetropia of right eye H52.01 Presbyopia H52.4 Astigmatism of right eye H52.201 -stable spec RX. FTW of specs; monocular precautions discussed with FTW and polycarbonate specs. Macular drusen H35.369 -few drusen noted. Ed on green leafy vegt (more content not included)... Normal [facility] ANES POSTPROC EVALon 023 ANES POSTPROC EVAL HNO ID: [id number] Author: Samantha Banuelos APRN.AGRICULTURAL ENGINEERING TECHNOLOGIST Service: Anesthesiology Author Type: Nurse Supply Chain Consultant Type: Anesthesia Postprocedure Evaluation Filed: 02/25/2023 10:28 AM Note Text: POST ANESTHESIA EVALUATION NOTE : 1945 Procedure Summary Date: 02/25/23 Room / Location: Ambulatory Surgery Anesthesia Start: 1005 Anesthesia Stop: 1023 Procedure: COLONOSCOPY SCREENING Diagnosis: Benign neoplasm of colon, unspecified part of colon (Screening for colorectal malignant neoplasm) Scheduled Providers: Joaquin Benito MD Responsible Provider: Samantha Banuelos APRN.AGRICULTURAL ENGINEERING TECHNOLOGIST Anesthesia Type: MAC ASA Status: 3 Anesthesia Type: MAC Last Vitals Vitals Value Taken Time BP 104/59 02/25/23 1023 Temp 36.3 ?C (97.3 ?F) 02/25/23 1023 Pulse 48 02/25/23 1023 Resp 16 02/25/23 1023 SpO2 95 % 02/25/23 1023 Post Anesthesia Patient Status Patient Evaluation: PACU. PACU/ICU Patient Condition: stable. Anticipated Disposition: phase 2 then home. Neurological Status: aware and responsive. Pulmonary Status: breathing comfortably on room air Airway Control: returned to baseline unsupported. Cardiovascular Status: stable. Pain Management: clinically adequate - multimodal analgesia pain management approach Postoperative Hydration: acceptable. Intraoperative Events: no significant anesthesia events Post Operative Nausea/Vomiting Status: no significant post operative nausea or vomiting Recommendation: continue current plan of care. Anesthesia Observations No Documentation SIGNATURE: Samantha Banuelos APRN.AGRICULTURAL ENGINEERING TECHNOLOGIST PATIENT NAME: Tres Dickson DATE: February 25, 2023 TIME: 10:28 AM CSN: [id number] Normal [facility] ANES PRE-OPon 02-25-2023 ANES PRE-OP HNO ID: [id number] Author: Samantha Banuelos APRN.AGRICULTURAL ENGINEERING TECHNOLOGIST Service: Anesthesiology Author Type: Nurse Supply Chain Consultant Type: Anesthesia Preprocedure Evaluation Filed: 02/25/2023 10:02 AM Note Text: ANESTHESIOLOGY DAY OF SURGERY NOTE : 1945 Procedure Information Date/Time: 02/25/23 1000 Scheduled providers: Joaquin Benito MD Procedure: COLONOSCOPY SCREENING Location: Ambulatory Surgery Estimated body mass index is 25.11 kg/m? as calculated from the following: Height as of this encounter: 177.8 cm (5' 10). Weight as of this encounter: 79.4 kg (175 lb). Most recent hematocrit and potassium results: No results found for this basename: HCT,HEMATOCRIT,K,POTASSIU M Relevant Problems No relevant active problems I - PHYSICAL EVALUATION AIRWAY Patient intubated: No. Tracheostomy tube not present Mallampati: II. TM distance: >3 FB. Neck ROM: full ROM without neurological symptoms. Mouth opening: adequate. Short neck: no. Thick neck: no DENTAL Dental findings: teeth intact. Additional exam findings: no II - ANESTHESIA PLAN ASA Score: 3 Anesthetic Plan: MAC The patient is not a current smoker. NPO Status: adequate Beta Adriano Monitoring Plan Monitoring plan: standard ASA. Post Procedure Analgesic Plan Postoperative analgesic plan: parenteral or oral opioids and multimodal analgesia. Informed Consent Anesthetic risks, benefits, alternatives, personnel and consent discussed: yes. Patient / Responsible Green Party agrees to proceed: yes Patient / Surrogate agrees to blood products: blood products not planned Significant changes in the patient condition since the History and Physical, not otherwise documented in primary service progress note: no. Potential Anesthesia issues that may suggest increased risk of complications or contraindication to planned procedure: none. Vitals Value Taken Time BP 156/77 02/25/23945 Pulse 62 02/25/23945 Resp 16 02/25/23945 Temp 36.4 ?C (97.5 ?F) 02/25/23945 SpO2 93 % 02/25/23945 Outpatient Medications as of 02/25/2023 Medication Sig - simvastatin (ZOCOR) 40 mg tablet 1 tab(s) orally once a day (at bedtime) for 90 days - metoprolol tartrate, short acting, (LOPRESSOR) 50 mg tablet 1 tab(s) orally once a day for 90 days - Cholecalciferol, Vitamin D3, 125 mcg (5,000 unit) cap 2 cap(s) orally once a day - lisinopril (ZESTRIL) 5 mg tablet 1 tab(s) orally once a day for 90 days - aspirin, enteric coated (ASPIRIN, ENTERIC COATED) 81 mg EC tablet 1 tab(s) orally once a day Facility-Administered Medications as of 02/25/2023 Medication Dose Route Frequency - lidocaine (PF) 10 mg/mL (1 %) 1-2 mg injection (XYLOCAINE) 0.1-0.2 mL INTRADERMAL PRN - lactated ringers iv infusion 30 mL/hr INTRAVENOUS CONTINUOUS I have interviewed and examined the patient. I have reviewed the medical record and/or the pre-anesthesia evaluation, pertinent labs, and test results. This contains updated information obtained within 48 hours of Surgery/Procedure. SIGNATURE: Samantha Banuelos APRN.CRNA PATIENT NAME: Tres Dickson DATE: February 25, 2023 TIME: 10:02 AM CSN: [id number] Normal [facility] Colonoscopyon 02-25-2023 Colonoscopy [facility] Patient Name: Tres Dickson Procedure Date: 02/25/2023 9:58 AM Date of : 1945 Admit Type: Outpatient Age: 77 Room: [place] [address] Gender: Male Note Status: Finalized Attending MD: Joaquin Benito MD Procedure: Colonoscopy Indications: Screening for colorectal malignant neoplasm Providers: Joaquin Benito MD Patient Profile: Last Colonoscopy: 10 years ago. Referring Physician: Regis Bravo (Referring MD) Medicines: Propofol per Anesthesia Complications: No immediate complications. Requesting Provider: Procedure: Pre-Anesthesia Assessment: - Prior to the procedure, a History and Physical was performed, and patient medications and allergies were reviewed. The patient's tolerance of previous anesthesia was also reviewed. The risks and benefits of the procedure and the sedation options and risks were discussed with the patient. All questions were answered, and informed consent was obtained. Prior Anticoagulants: The patient has taken no anticoagulant or antiplatelet agents. ASA Grade Assessment: II - A patient with mild systemic disease. After reviewing the risks and benefits, the patient was deemed in satisfactory condition to undergo the procedure. After I obtained informed consent, the scope was passed under direct vision. Throughout the procedure, the patient's blood pressure, pulse, and oxygen saturations were monitored continuously. The Colonoscope was introduced through the anus and advanced to the cecum, identified by appendiceal orifice and ileocecal valve. I was present and participated during the entire procedure, including non-corey portions, and during the administration and monitoring of Moderate Sedation. The colonoscopy was performed without difficulty. The patient tolerated the procedure well. The quality of the bowel preparation was fair. The ileocecal valve, appendiceal orifice, and rectum were photographed. Moderate Sedation: MAC anesthesia was administered by the anesthesia team. Findings: Multiple medium-mouthed diverticula were found in the sigmoid colon and descending colon. Impression: - Preparation of the colon was fair. - Diverticulosis in the sigmoid colon and in the descending colon. - No specimens collected. Recommendation: - Resume previous diet. - Continue present medications. - The patient is not currently taking anticoagulant or antiplatelet agents. - No repeat colonoscopy due to age. - Patient has a contact number available for emergencies. The signs and symptoms of potential delayed complications were discussed with the patient. Return to normal activities tomorrow. Written discharge instructions were provided to the patient. Procedure Code(s): --- Professional --- 67701, Colonoscopy, flexible; diagnostic, including collection of specimen(s) by brushing or washing, when performed (separate procedure) CPT copyright 2020 [employer] [employer]. All rights reserved. The codes documented in this report are preliminary and upon public health analyst review may be revised to meet current compliance requirements. Attending Participation: I personally performed the entire procedure. Scope In: 10:09:40 AM Scope Out: 10:19:49 AM MD Joaquin Beckham MD 02/25/2023 10:24:27 AM This report has been signed electronically by Joaquin Benito MD Number of Addenda: 0 Note Initiated On: 02/25/2023 9:58 AM Estimated Blood Loss: Estimated blood loss: none. Normal [facility] Colonoscopy Study observatio non 02-25-2023 [facility] Patient Name: Tres Dickson Procedure Date: 02/25/2023 9:58 AM Date of : 1945 Admit Type: Outpatient Age: 77 Room: [facility] 1 Gender: Male Note Status: Finalized Attending MD: Joaquin Benito MD Procedure: Colonoscopy Indications: Screening for colorectal malignant neoplasm Providers: Joaquin Benito MD Patient Profile: Last Colonoscopy: 10 years ago. Referring Physician: Regis Bravo (Referring MD) Medicines: Propofol per Anesthesia Complications: No immediate complications. Requesting Provider: Procedure: Pre-Anesthesia Assessment: - Prior to the procedure, a History and Physical was performed, and patient medications and allergies were reviewed. The patient's tolerance of previous anesthesia was also reviewed. The risks and benefits of the procedure and the sedation options and risks were discussed with the patient. All questions were answered, and informed consent was obtained. Prior Anticoagulants: The patient has taken no anticoagulant or antiplatelet agents. ASA Grade Assessment: II - A patient with mild systemic disease. After reviewing the risks and benefits, the patient was deemed in satisfactory condition to undergo the procedure. After I obtained informed consent, the scope was passed under direct vision. Throughout the procedure, the patient's blood pressure, pulse, and oxygen saturations were monitored continuously. The Colonoscope was introduced through the anus and advanced to the cecum, identified by appendiceal orifice and ileocecal valve. I was present and participated during the entire procedure, including non-corey portions, and during the administration and monitoring of Moderate Sedation. The colonoscopy was performed without difficulty. The patient tolerated the procedure well. The quality of the bowel preparation was fair. The ileocecal valve, appendiceal orifice, and rectum were photographed. Moderate Sedation: MAC anesthesia was administered by the anesthesia team. Findings: Multiple medium-mouthed diverticula were found in the sigmoid colon and descending colon. Impression: - Preparation of the colon was fair. - Diverticulosis in the sigmoid colon and in the descending colon. - No specimens collected. Recommendation: - Resume previous diet. - Continue present medications. - The patient is not currently taking anticoagulant or antiplatelet agents. - No repeat colonoscopy due to age. - Patient has a contact number available for emergencies. The signs and symptoms of potential delayed complications were discussed with the patient. Return to normal activities tomorrow. Written discharge instructions were provided to the patient. Procedure Code(s): --- Professional --- 41097, Colonoscopy, flexible; diagnostic, including collection of specimen(s) by brushing or washing, when performed (separate procedure) CPT copyright 2020 [employer] [place] [employer]. All rights reserved. The codes documented in this report are preliminary and upon public health analyst review may be revised to meet current compliance requirements. Attending Participation: I personally performed the entire procedure. Scope In: 10:09:40 AM Scope Out: 10:19:[address] ShamMD Joaquin Kelly MD 02/25/2023 10:24:27 AM This report has been signed electronically by Joaquin Benito MD Number of Addenda: 0 Note Initiated On: 02/25/2023 9:58 AM Estimated Blood Loss: Estimated blood loss: none. PROVATION [facility] Radiology Study observation (narrative) [facility] HISTORY PHYSICALon HISTORY PHYSICAL HNO ID: [id number] Author: Joaquin Benito MD Service: Gastroenterology Author Type: Physician Type: HANDP Filed: 02/25/2023 9:57 AM Note Text: HISTORY AND PHYSICAL Tres Dickson, 77 year old male here for colonoscopy, average risk for colon cancer screening Current history and physical on file: No Is a new History and Physical required for today's visit? Yes Indication for procedure: Screening PROCEDURE(S) SCHEDULED FOR: Colonoscopy with or without biopsies and with or without removal of polyps or lesions, dilation (any means), treatment of bleeding (any means), based on clinical findings. BASELINE BEHAVIOR: Calm BASELINE ORIENTATION: A AND O x3 All medications and allergies reviewed: Yes Skin Assessment: Warm dry muscus membranes pink Airway/Respiratory Assessment: Airway: visualization of the uvula- Yes Mouth: opening greater than 2 fingerbreadths- Yes Neck: full range of motion- Yes Breath sounds clear/equal- Yes Cardiac Assessment: Regular rate and rhythm without murmur Abdominal Assessment: Abdomen soft, non-tender, no masses or organomegaly. Sedation Plan: Deep Additional Comments: None Joaquin Benito MD Normal [facility] CT Chest for screening WO co ntraston 01-28-2023 1. Small pulmonary nodules, the largest 5.2 mm. 2. No acute pulmonary process. ASSESSMENT CATEGORY (version 2022): Lung-RADS Assessment Category 2 - Benign appearance or behavior. Recommend continued annual low-dose screening CT in 12 months. Report Dictated on Electronically Signed By: Rolando Houston MD Electronically Signed Date/Time: 01/28/2023 12:33 PM T [employer] [facility] 1945 [id number] Exam Date/Time: 01/27/2023 10:32 Procedure: CT LUNG SCREENING LOW DOSE Ordering Provider: MYERS ELIZABETH Reason For Exam: [id number] CT CHEST SCREENING WITHOUT CONTRAST CLINICAL INDICATION: Tobacco use, screening for lung cancer. Z87.981 TECHNIQUE: Low-dose axial CT images of the thorax from the lung apices through the bases were obtained. Dose reduction was employed with automated exposure control. COMPARISON: None. FINDINGS: Pulmonary nodules: *All nodule measurements are mean axial diameter and saved on corey images* * 5 mm right lower lobe nodule (6:190) * 2.7 mm nodule along the right major fissure (6:186) * 5.2 mm right lower lobe nodule (6:197) * 4.9 mm triangular pleural-based nodular opacity in the right middle lobe (6:254) Lungs: Clear. No endobronchial lesions. Cardiomediastinum: The patient is status post CABG. There is atherosclerotic calcification of the muscogee coronary arteries. Mild aortic atherosclerotic calcification without aneurysm. Lymph nodes: No enlarged mediastinal, hilar, or axillary lymph nodes. Upper Abdomen: No acute process identified in the upper abdomen. Soft tissues and Osseous structures: Unremarkable [facility] CT Chest for screening WO classmarkets ntrastOrdered By: Rolando Houston on 01-28-2023 [employer] Work Phone: CT Chest for screening WO co ntraston 01-27-2023 Radiology Study observation (narrative) [employer] CNCOon 12-02-2022 CNCO Letter Text Normal [facility] CNPNon 12-02-2022 CNPN Telephone (GSTNOR) ----- TRES DICKSON ([id number]) 1945 M Date Time Provider Department 12/02/22 JOAQUIN BENITO GSTNOR During your visit today, we recorded the following information about you: Elmira Galicia 12/02/2022 11:38 AM Signed Indication: HIGH RISK SCREENING COLONOSCOPY Height: 510 Weight: 175 BMI: 25.1 Have you ever been told you were difficult to intubate? No (If yes, schedule at hospital) Recent stroke or cardiac event in the past 6 months? No (ex: heart attack or stent placement) Chest pain or shortness of breath on exertion? No If yes, give to AGRICULTURAL ENGINEERING TECHNOLOGIST to evaluate. History of COPD/Emphysema/Asthma/or Sleep Apnea? No If uses an inhaler, have pt bring inhaler with them. On oxygen at home? No If yes, give to AGRICULTURAL ENGINEERING TECHNOLOGIST to evaluate. Implanted defibrillator (ACD)? No If yes, schedule at hospital Allergies: Latex, Adhesives, or Medication? No If anaphylactic reaction to latex, schedule at hospital On any blood thinners? No (Coumadin, Plavix, ASA, Xarelto, Brilinta, Eliquis, Pradaxa, Efficent etc.) If yes, need to check with physician on whether to stop them or OV Are you insulin dependent? Are your sugars in control? Ask what BS is running. No If controlled sugars needs scheduled in early AM, If uncontrolled sugars and are over 250 needs to be scheduled at hospital. Any kidney/liver disease or on dialysis? No If cirrhosis pt., have AGRICULTURAL ENGINEERING TECHNOLOGIST review chart Do you have a history of seizures? No If yes, when was last seizure? Tracheostomy new or old No If yes, schedule at hospital Any surgery or radiation to the head or neck? No If can't move neck side to side AND up and down, schedule at hospital. Radiation to neck or head automatically gets scheduled at hospital COVID patients. Are you still having symptoms such as shortness of breath, on oxygen, using inhalers, seeing adjunct physical education instructor? No If yes, have AGRICULTURAL ENGINEERING TECHNOLOGIST evaluate patient Personal History Colon polyps? Yes Colon cancer? No Crohn's Disease? No Ulcerative Colitis? No Who/where? Approx date 2011 Family History Colon polyps? No Colon cancer? No Crohn's Disease? No Ulcerative Colitis? No Relationship? Approx age dx. Referring Physician: Office Visit Scheduled: Procedure Date Scheduled: Elmira Galicia 12/02/2022 11:38 AM Signed Bowel Preparation Instructions for: Miralax-Gatorade Preparations IF YOU DO NOT FOLLOW THESE DIRECTIONS, YOUR COLONOSCOPY WILL BE CANCELLED. Corey Instructions: Your bowel must be empty so that your doctor can clearly view your colon. Follow all of the instructions in this handout EXACTLY as they are written. Do NOT eat any solid food the ENTIRE day before your colonoscopy. Buy your bowel preparation at least 5 days before your colonoscopy. Four (4) Dulcolax laxative tablets containing 5mg of bisacodyl each (NOT Dulcolax stool softener) One (1) 8.3oz. bottle Miralax (238 grams) or generic equivalent 2 x 32oz. Bottles of Gatorade (NOT RED) Diabetic Patients: Use G2 (Gatorade 2) TRANSPORTATION on the Day of Your Exam A responsible adult MUST be present with you at Check In prior to your colonoscopy and REMAIN in the endoscopy area until you are discharged. You are NOT ALLOWED to drive, take a taxi or bus, or leave the Endoscopy Center ALONE. If you do not have a responsible milk truck driver (family member or friend) with you to take you home, your exam cannot be done with sedation and will be cancelled. Please bring a list of all of your current medications, including any Eddq-qvq-Qwcgrai medications with you. Medications If you take insulin, diabetic medications or blood thinners such as Coumadin (warfarin), Plavix (clopidogrel), Ticlid (ticlopidine hydrochloride), Agrylin (anagrelide), Xarelto (Rivaroxaban), Pradaxa (Dabigatran), Eliquis (Apixaban), and Effient (Prasugrel). You MUST call the doctors who orders those medicines for instructions on altering the dosage before your colonoscopy. All other medications should be taken the day of the exam with a sip of water including ASPIRIN. Five (5) Days Before Your Colonoscopy Do NOT take medicines that stop diarrhea - such as Imodium, Kaopectate, or Pepto Bismol. Do NOT take fiber supplements - such as Metamucil, Citrucel, or Perdiem. Do NOT take products that contain iron - such as multi-vitamins (the label lists what is in the products). Three (3) Days Before Your Colonoscopy Do NOT eat high-fiber foods - such as popcorn, beans, seeds (flax, sunflower, quinoa), multigrain bread, nuts, salad/vegetables, or fresh and dried fruit. 1 Bowel Preparation Instructions for: Miralax-Gatorade Preparations One (1) Day Before Your Colonoscopy Only drink clear liquids the ENTIRE DAY before your colonoscopy. Do NOT eat any solid foods. Drink at least 8 ounces of clear liquids every hour after waking up. The clear liquids you can drink inc (more content not included)... [facility] and freeon 2022 Free PSA [Mass/Vol] 0.4 ng/mL [facility] [employer] Free PSA/Total PSA [Mass fraction] 21 % [facility] [employer] Comment on above: INTERPRETIVE INFORMA TION: Prostate Specific Antigen, Free Percentage [facility] uses the [employer] Free PSA electrochemiluminescent immunoassay method in conjunction with the [employer] PSA electrochemiluminescent immunoassay method to determine the free PSA percentage. Values obtained with different assay methods should not be used interchangeably. The free PSA percentage is an aid in distinguishing prostate cancer from benign prostatic conditions in individuals with a prostate age 50 years and older with a total PSA between 3 and 10 ng/mL and negative digital rectal examination findings. Prostatic biopsy is required for the diagnosis of cancer. In patients with total PSA concentrations of 4-10 ng/mL, the probability of finding prostate cancer on needle biopsy by age in years is: %fPSA 50-59 60-69 70 or older 0 - 10% 49% 58% 65% 11 - 18% 27% 34% 41% 19 - 25% 18% 24% 30% Greater than 25% 9% 12% 16% Other factors may help determine the actual risk of prostate cancer in individual patients. Performed By: [employer] [address] [place] [address] Shop Assistant: Kai Ruff MD, PhD Prostate specific Ag [place] [Mass/Vol] 1.9 ng/mL 0.0 - 4.0 ng/mL [facility] [employer] Comment on above: INTERPRETIVE INFORMA TION: Prostate Specific Antigen The Joselo PSA electrochemiluminescent immunoassay is used. Results obtained with different test methods or kits cannot be used interchangeably. The Joselo PSA method is approved for use as an aid in the detection of prostate cancer when used in conjunction with a digital rectal exam in individuals with a prostate age 50 years and older. The Joselo PSA is also indicated for the serial measurement of PSA to aid in the prognosis and management of prostate cancer patients. Elevated PSA concentrations can only suggest the presence of prostate cancer until biopsy is performed. PSA concentrations can also be elevated in benign prostatic hyperplasia or inflammatory conditions of the prostate. PSA is generally not elevated in healthy individuals or individuals with nonprostatic carcinoma. [facility] [employer] CBC W Auto Differential pane l (Bld)Ordered By: Sheba Rosario on 11-13-2022 Basophils (Bld) [#/Vol] 0.0 10*3/uL 0.0 - 0.2 10*3/uL [facility] Basophils/100 WBC (Bld) 0.4 % 0.0 - 2.0 % [facility] Eosinophils (Bld) [#/Vol] 0.3 10*3/uL 0.0 - 0.5 10*3/uL [facility] Eosinophils/100 WBC (Bld) 2.7 % 1.0 - 6.0 % [facility] Erythrocyte distribution width (RBC) [Ratio] 12.4 % 11.5 - 14.5 % [facility] Hematocrit (Bld) [Volume fraction] 42.5 % 40.0 - 52.0 % [facility] Hemoglobin (Bld) [Mass/Vol] 14.2 g/dL 13.0 - 18.0 g/dL [facility] Immature granulocytes (Bld) [#/Vol] 0.0 10*3/uL NINF - 0.0 10*3/uL [facility] Immature granulocytes/100 WBC (Bld) 0.4 % High NINF - 0.0 % [facility] Interpretation and review of laboratory results Abnormal [facility] Lymphocytes (Bld) [#/Vol] 1.3 10*3/uL 1.0 - 4.3 10*3/uL [facility] Lymphocytes/100 WBC (Bld) 12.6 % Low 20.0 - 40.0 % [facility] MCH (RBC) [Entitic mass] 30.9 pg 26.0 - 34.0 pg [facility] MCHC (RBC) [Mass/Vol] 33.4 % 32.0 - 36.0 % [facility] MCV (RBC) [Entitic vol] 92.6 fL 80.0 - 98.0 fL [facility] Monocytes (Bld) [#/Vol] 0.9 10*3/uL High 0.0 - 0.8 10*3/uL [facility] Monocytes/100 WBC (Bld) 8.6 % 2.0 - 10.0 % [facility] Neutrophils (Bld) [#/Vol] 7.5 10*3/uL High 1.8 - 7.0 10*3/uL [facility] Neutrophils/100 WBC (Bld) 75.3 % 40.0 - 80.0 % [facility] Platelet mean volume (Bld) [Entitic vol] 12.7 fL High 7.4 - 12.4 fL [facility] Platelets (Bld) [#/Vol] 133 10*3/uL Low 140 - 440 10*3/uL [facility] RBC (Bld) [#/Vol] 4.59 10*6/uL 4.40 - 5.9 0 10*6/uL [facility] WBC (Bld) [#/Vol] 9.9 10*3/uL 3.6 - 10.7 10*3/uL [facility] Comprehensive metabolic 1998 panelon 11-13-2022 Albumin [Mass/Vol] 3.8 g/dL 3.5 - 5.0 g/dL [facility] ALP [Catalytic activity/Vol] 60 U/L 38 - 126 U/L [facility] ALT [Catalytic activity/Vol] 17 U/L 0 - 49 U/L [facility] Anion gap [Moles/Vol] 2 mmol/L Low 3 - 13 mmol/L [facility] AST [Catalytic activity/Vol] 32 U/L 15 - 46 U/L [facility] Bilirubin [Mass/Vol] 0.7 mg/dL 0.2 - 1 .3 mg/dL [facility] Calcium [Mass/Vol] 8.7 mg/dL 8.4 - 10. 4 mg/dL [facility] Chloride [Moles/Vol] 104 mmol/L 98 - 10 7 mmol/L [facility] CO2 [Moles/Vol] 33 mmol/L High 22 - 30 mmol/L [facility] Creatinine [Mass/Vol] 0.97 mg/dL 0.66 - 1.25 mg/dL [facility] GFR/1.73 sq M.predicted MDRD (S/P/Bld) [Vol rate/Area] 80.4 mL/min/{1.73_m2} - PINF [facility] Comment on above: Calculation based on the Chronic Kidney Disease Epidemiology Collaboration (CKD-EPI) equation refit without adjustment for race Glucose [Mass/Vol] 115 mg/dL High 70 - 100 mg/dL [facility] Potassium [Moles/Vol] 4.5 mmol/L 3.5 - 5.1 mmol/L [facility] Protein [Mass/Vol] 7.0 g/dL 6.3 - 8.2 g/dL [facility] Sodium [Moles/Vol] 139 mmol/L 135 - 145 mmol/L [facility] Urea nitrogen [Mass/Vol] 18 mg/dL 9 - 20 mg/dL [facility] Lipid 1996 panelon 3 Cholesterol [Mass/Vol] 107 mg/dL NINF - 200 mg/dL [facility] Cholesterol in HDL [Mass/Vol] 37 mg/dL Low 40 - 60 mg/dL [facility] Cholesterol in LDL [Mass/Vol] 53 mg/dL 0 - <100 [facility] Cholesterol.total/Chol esterol in HDL [Mass ratio] 3 {ratio} [facility] Comment on above: Ref Range: < 3 Low Risk for CHD 3-6 Mod Risk for CHD > 6 High Risk for CHD Triglyceride [Mass/Vol] 83 mg/dL NINF - 150 mg/dL [facility] Microalbumin/Creatinine rati o panel (U)on 11-13-2022 Albumin DL <= 20 mg/L (U) [Mass/Vol] 11.8 mg/L 0.0 - 29.9 mg/L [facility] Albumin/Creatinine DL <= 20 mg/L (U) [Mass ratio] 10.2 mg/g 0.0 - 29.9 mg/g [facility] CREATININE, URINE 115.4 mg/dL No Range [facility] Microalbumin concentrations <30 are considered normal, 30-300 are considered microalbuminuria (or risk of diabetic nephropathy), and >300 are considered clinical albuminuria (clinical nephropathy). Diabetes Care,27, Supplement 1, A27-86, 2004 [facility] No Panel Informationon 11-13 Interpretation and review of laboratory results Abnormal [facility] US Extremity Non Vascular Li tania 05-11-2022 US Extremity Non Vascular Limited Patient Name: TRES DICKSON Ultrasound ACCESSION EXAM DATE/TIME PROCEDURE ORDERING PROVIDER [id number] 05/11/2022 13:00 EDT US Extremity Non MD LUCIUS, REGIS Vascular Limited RENZO CPT code 23920 Reason For Exam (US Extremity Non Vascular Limited) lt pop fossa pain Report Indication: Left popliteal fossa pain. FINDINGS: Focused grayscale and color Doppler ultrasound performed of the left popliteal fossa. No focal mass or fluid collections visualized. Visualized vessels appear normally compressible, with flow signal. IMPRESSION: Negative exam. The etiology of the patient's symptoms is not certain. Report Dictated on Final Dictating Physician: MD MORELOS JOHN Signed Date and Time: 05/11/2022 2:27 pm Signed by: MD MORELOS JOHN Transcribed Date and Time: 05/11/2022 2:42 Normal [facility] CBC Auto Differentialon 03-19 Absolute Baso # 0.1 10*3/uL 0 - 0.2 10*3/uL [place] Absolute Neut # 5.8 10*3/uL 1.8 - 7 10*3/uL [place] Basophils/100 WBC (Bld) 1.1 % 0 - 2 % [place] Eosinophils (Bld) [#/Vol] 0.4 10*3/uL 0 - 0.5 10*3/uL [place] Eosinophils/100 WBC (Bld) 4.7 % 1 - 6 % [place] Erythrocyte distribution width (RBC) [Ratio] 13.1 % 11.5 - 14.5 % [place] Granulocytes/100 WBC (Bld) 66.8 % 40 - 80 % [place] Hematocrit (Bld) [Volume fraction] 42.1 % 40 - 52 % [place] Hemoglobin (Bld) [Mass/Vol] 14.0 g/dL 13 - 18 g/dL [place] Interpretation and review of laboratory results Abnormal [place] Lymphocytes (Bld) [#/Vol] 1.6 10*3/uL 1 - 4.3 10*3/uL [place] Lymphocytes/100 WBC (Bld) 18.1 % Low 20 - 40 % [place] MCH (RBC) [Entitic mass] 29.9 pg 26 - 34 pg [place] MCHC (RBC) [Mass/Vol] 33.2 % 32 - 36 % [place] MCV (RBC) [Entitic vol] 89.9 fL 80 - 98 fL [place] Monocytes (Bld) [#/Vol] 0.8 10*3/uL 0 - 0.8 10*3/uL [place] Monocytes/100 WBC (Bld) 9.3 % 2 - 10 % [place] Platelet mean volume (Bld) [Entitic vol] 11.9 fL High 7.4 - 10.4 fL [place] Platelets (Bld) [#/Vol] 172 10*3/uL 140 - 440 10*3/uL [place] Comment on above: Few large platelets seen on slide. RBC (Bld) [#/Vol] 4.68 10*6/uL 4.4 - 5.9 10*6/uL [place] WBC (Bld) [#/Vol] 8.6 10*3/uL 3.6 - 10.7 10*3/uL [place] Test Performed by [facility], [address] , [address] Comprehensive Metabolic Pane cristian 04-03-2019 Albumin [Mass/Vol] 3.9 g/dL 3.5 - 5 g/dL [place] ALP [Catalytic activity/Vol] 34 U/L Low 38 - 126 U/L [place] ALT [Catalytic activity/Vol] 25 U/L 13 - 69 U/L [place] Anion gap [Moles/Vol] 10 mmol/L [place] AST [Catalytic activity/Vol] 28 U/L 15 - 46 U/L [place] Bilirubin Ql (U) 0.4 mg/dL 0.2 - 1.3 mg/dL [place] Calcium [Mass/Vol] 9.4 mg/dL 8.4 - 10. 4 mg/dL [place] Chloride [Moles/Vol] 106 mmol/L 98 - 10 7 mmol/L [place] CO2 [Moles/Vol] 27 mmol/L 22 - 30 mmol/L [place] Creatinine [Mass/Vol] 1.42 mg/dL High 0.52 - 1.25 mg/dL [place] EGFR IF NonAfrican Citizen [place] 48.8 mL/min >60 [place] Comment on above: Source- MDRD equatio n with creatinine calibration to IDMS(NKDEP) eGFR not recommended for drug dose adjustment GFR/1.73 sq M predicted among blacks MDRD (S/P/Bld) [Vol rate/Area] 59.2 mL/min/{1.73_m2} >60 [place] Glucose [Mass/Vol] 102 mg/dL High 70 - 100 mg/dL [place] Potassium [Moles/Vol] 4.8 mmol/L 3.5 - 5.1 mmol/L [place] Protein [Mass/Vol] 6.7 g/dL 6.3 - 8.2 g/dL [place] Sodium [Moles/Vol] 143 mmol/L 135 - 145 mmol/L [place] Urea nitrogen [Mass/Vol] 33 mg/dL High 7 - 20 mg/dL [place] Hemoglobin A1Con 04-03-2019 eAG 128 mg/dL [place] HbA1c (Bld) [Mass fraction] 6.1 % High 4 - 5.7 % [place] Comment on above: --HgbA1C levels may not be accurate in patients who have renal disease, received recent blood transfusions, are anemic, or who have dyshemoglobinemia. Interpretation and review of laboratory results Abnormal [place] Test Performed by [facility], [address] , [place], [place] [address] [place] Lipid Panelon 04-03-2019 Cholesterol [Mass/Vol] 108 mg/dL <200 [place] Cholesterol in HDL [Mass/Vol] 27 mg/dL Low 40 - 60 mg/dL [place] Cholesterol in LDL [Mass/Vol] 54 mg/dL <100 [place] Cholesterol.total/Chol esterol in HDL [Mass ratio] 4 {ratio} [place] Comment on above: Ref Range: < 3 Low Risk for CHD 3-6 Mod Risk for CHD > 6 High Risk for CHD Triglyceride [Mass/Vol] 137 mg/dL <150 [facility] Otheron 04-03-2019 Interpretation and review of laboratory results Abnormal [place] Test Performed by [facility], [address] , [place], [place] [id number] [place] [address] Vital Signs Date Time Vital Sign Value Performing Clinician Gayla mak 12-14-2024 19:59-0400 Body height 173.99 cm Diana Kelley TANK OPERATOR-C Work Phone: [facility] 12-14-2024 08:29-0400 Body height 173.99 cm Diana Kelley TANK OPERATOR-C Work Phone: [facility] 12-14-2024 08:29-0400 Body mass index (BMI) [Ratio] 27.1 kg/m2 Diananitza Kelley TANK OPERATOR-C Work Phone: [facility] 12-14-2024 08:29-0400 Body weight 82.1 kg Diana Kelley TANK OPERATOR-C Work Phone: [facility] 12-14-2024 08:29-0400 Diastolic blood pressure 82 mm[Hg] Diana Kelley TANK OPERATOR-C Work Phone: [facility] 12-14-2024 08:29-0400 Heart rate 51 /min Diana Kelley TANK OPERATOR-C Work Phone: [facility] 12-14-2024 08:29-0400 Respiratory rate 14 /min Diana Kelley TANK OPERATOR-C Work Phone: [facility] 12-14-2024 08:29-0400 Systolic blood pressure 144 mm[Hg] Diana Kelley TANK OPERATOR-C Work Phone: [facility] 11-02-2024 12:53-0400 Body mass index (BMI) [Ratio] 27.4 kg/m2 Diana Kelley TANK OPERATOR-C Work Phone: [facility] 11-02-2024 12:53-0400 Body temperature 98.1 [degF] Diana Kelley TANK OPERATOR-C Work Phone: [facility] 11-02-2024 12:53-0400 Body weight 83 kg Diana Kelley TANK OPERATOR-C Work Phone: [facility] 11-02-2024 12:53-0400 Diastolic blood pressure 76 mm[Hg] Diana Kelley TANK OPERATOR-C Work Phone: [facility] 11-02-2024 12:53-0400 Heart rate 61 /min Diana Kelley TANK OPERATOR-C Work Phone: [facility] 11-02-2024 12:53-0400 Respiratory rate 18 /min Diana Kelley TANK OPERATOR-C Work Phone: [facility] 11-02-2024 12:53-0400 SaO2% (BldA) [Mass fraction] 96 % Diana Kelley TANK OPERATOR-C Work Phone: [facility] 11-02-2024 12:53-0400 Systolic blood pressure 156 mm[Hg] Diana Kelley TANK OPERATOR-C Work Phone: [facility] 08-23-2024 08:16-0500 Body mass index (BMI) [Ratio] 26.2 kg/m2 Diana Kelley TANK OPERATOR-C Work Phone: [facility] 08-23-2024 08:16-0500 Body temperature 97.2 [degF] Diana Kelley TANK OPERATOR-C Work Phone: [facility] 08-23-2024 08:16-0500 Body weight 79.37 kg Diana Kelley TANK OPERATOR-C Work Phone: [facility] 08-23-2024 08:16-0500 Diastolic blood pressure 89 mm[Hg] Diana Kelley TANK OPERATOR-C Work Phone: [facility] 08-23-2024 08:16-0500 Heart rate 57 /min Diana Kelley TANK OPERATOR-C Work Phone: [facility] 08-23-2024 08:16-0500 Respiratory rate 18 /min Diana Kelley TANK OPERATOR-C Work Phone: [facility] 08-23-2024 08:16-0500 SaO2% (BldA) [Mass fraction] 96 % Diana Kelley TANK OPERATOR-C Work Phone: [facility] 08-23-2024 08:16-0500 Systolic blood pressure 151 mm[Hg] Diana Kelley TANK OPERATOR-C Work Phone: [facility] 04-28-2024 10:23-0400 Body height 177.8 cm Yessy Villarreal MD Work Phone: [facility] 04-28-2024 10:23-0400 Body mass index (BMI) [Ratio] 25.11 kg/m2 Yessy Villarreal MD Work Phone: [facility] 04-28-2024 10:23-0400 Body weight 79.38 kg Yessy Villarreal MD Work Phone: [facility] 04-28-2024 10:23-0400 Diastolic blood pressure 82 mm[Hg] Yessy Villarreal MD Work Phone: [facility] 04-28-2024 10:23-0400 Systolic blood pressure 134 mm[Hg] Yessy Villarreal MD Work Phone: [facility] 02-25-2024 15:02-0400 Body height 177.8 cm Yessy Villarreal MD Work Phone: [facility] 02-25-2024 15:02-0400 Body mass index (BMI) [Ratio] 25.11 kg/m2 Yessy Villarreal MD Work Phone: [facility] 02-25-2024 15:02-0400 Body weight 79.38 kg Yessy Villarreal MD Work Phone: [facility] 12-20-2023 14:56-0400 Body height 177.8 cm Yessy Villarreal MD Work Phone: [facility] 12-20-2023 14:56-0400 Body mass index (BMI) [Ratio] 25.11 kg/m2 Yessy Villarreal MD Work Phone: [facility] 12-20-2023 14:56-0400 Body weight 79.38 kg Yessy Villarreal MD Work Phone: [facility] 07-02-2023 18:47-0500 Body height 173.99 cm TANK OPERATOR-C Diana Kelley TANK OPERATOR Work Phone: [facility] 07-02-2023 18:47-0500 Body mass index (BMI) [Ratio] 26.6 kg/m2 TANK OPERATOR-C Diana Kelley TANK OPERATOR Work Phone: [facility] 07-02-2023 18:47-0500 Body temperature 98.1 [degF] TANK OPERATOR-C Diana Kelley TANK OPERATOR Work Phone: [facility] 07-02-2023 18:47-0500 Body weight 80.73 kg TANK OPERATOR-C Diana Kelley TANK OPERATOR Work Phone: [facility] 07-02-2023 18:47-0500 Diastolic blood pressure 70 mm[Hg] TANK OPERATOR-C Diana Kelley TANK OPERATOR Work Phone: [facility] 07-02-2023 18:47-0500 Heart rate 76 /min TANK OPERATOR-C Diana Kelley TANK OPERATOR Work Phone: [facility] 07-02-2023 18:47-0500 Respiratory rate 18 /min TANK OPERATOR-C Diana Kelley TANK OPERATOR Work Phone: [facility] 07-02-2023 18:47-0500 SaO2% (BldA) [Mass fraction] 95 % TANK OPERATOR-C Diana Kelley TANK OPERATOR Work Phone: [facility] 07-02-2023 18:47-0500 Systolic blood pressure 140 mm[Hg] TANK OPERATOR-C Diana Kelley TANK OPERATOR Work Phone: [facility] 03-24-2023 09:10-0400 Body temperature 98.4 [degF] TANK OPERATOR-C Diana Kelley TANK OPERATOR Work Phone: [facility] 03-24-2023 09:10-0400 Body weight 78.92 kg TANK OPERATOR-C Diana Kelley TANK OPERATOR Work Phone: [facility] 03-24-2023 09:10-0400 Diastolic blood pressure 80 mm[Hg] TANK OPERATOR-C Diana Kelley TANK OPERATOR Work Phone: [facility] 03-24-2023 09:10-0400 Heart rate 51 /min TANK OPERATOR-C Diana Kelley TANK OPERATOR Work Phone: [facility] 03-24-2023 09:10-0400 Respiratory rate 16 /min TANK OPERATOR-C Diana Kelley TANK OPERATOR Work Phone: [facility] 03-24-2023 09:10-0400 SaO2% (BldA) [Mass fraction] 97 % TANK OPERATOR-C Diana Kelley TANK OPERATOR Work Phone: [facility] 03-24-2023 09:10-0400 Systolic blood pressure 146 mm[Hg] TANK OPERATOR-C Diana Kelley TANK OPERATOR Work Phone: [facility] 03-03-2023 16:08-0400 Body height 173.99 cm TANK OPERATOR-Kajal Kelley TANK OPERATOR Work Phone: [facility] 03-03-2023 16:08-0400 Body mass index (BMI) [Ratio] 26 kg/m2 TANK OPERATOR-C Diana Kelley TANK OPERATOR Work Phone: [facility] 03-03-2023 16:08-0400 Body temperature 97.9 [degF] TANK OPERATOR-C Diana Kelley TANK OPERATOR Work Phone: [facility] 03-03-2023 16:08-0400 Body weight 78.92 kg TANK OPERATOR-C Diana Kelley TANK OPERATOR Work Phone: [facility] 03-03-2023 16:08-0400 Diastolic blood pressure 70 mm[Hg] TANK OPERATOR-C Diana Warren TANK OPERATOR Work Phone: [facility] 03-03-2023 16:08-0400 Heart rate 67 /min TANK OPERATOR-C Diana Kelley TANK OPERATOR Work Phone: [facility] 03-03-2023 16:08-0400 Respiratory rate 18 /min TANK OPERATOR-C Diana Kelley TANK OPERATOR Work Phone: [facility] 03-03-2023 16:08-0400 SaO2% (BldA) [Mass fraction] 96 % TANK OPERATOR-C Diana Kelley TANK OPERATOR Work Phone: [facility] 03-03-2023 16:08-0400 Systolic blood pressure 130 mm[Hg] TANK OPERATOR-C Diana Kelley TANK OPERATOR Work Phone: [facility] 02-25-2023 10:43-0400 Diastolic blood pressure 61 mm[Hg] Joaquin Benito MD Work Phone: [facility] 02-25-2023 10:43-0400 Heart rate 50 /min Joaquin Benito MD Work Phone: [facility] 02-25-2023 10:43-0400 Respiratory rate 16 /min Joaquin Benito MD Work Phone: [facility] 02-25-2023 10:43-0400 SaO2% (BldA) [Mass fraction] 95 % Joaquin Benito MD Work Phone: [facility] 02-25-2023 10:43-0400 Systolic blood pressure 121 mm[Hg] Joaquin Benito MD Work Phone: [facility] 02-25-2023 10:23-0400 Body temperature 97.3 [degF] Joaquin Benito MD Work Phone: [facility] 02-25-2023 09:46-0400 Body height 177.8 cm Joaquin Benito MD Work Phone: [facility] 02-25-2023 09:46-0400 Body mass index (BMI) [Ratio] 25.11 kg/m2 Joaquin Benito MD Work Phone: [facility] 02-25-2023 09:46-0400 Body weight 79.38 kg Joaquin Benito MD Work Phone: [facility] Encounters Encounter Date Encounter Type Care Provider Facility Start: 12-28-2024 ambulatory Diana Kelley TANK OPERATOR Faci lity:[facility] Start: 12-14-2024 Patient encounter procedure Diana Kelley TANK OPERATOR-C -[facility] Work Phone: Start: 12-14-2024 End: 12-14-2024 ambulatory Diana Kelley TANK OPERATOR-C Work Phone: [facility] Work Phone: Start: 12-14-2024 End: 12-14-[address] Magda Husain MD -[facility] Work Phone: Start: 12-14-2024 End: 12-14-2024 ambulatory Diana Kelley TANK OPERATOR-C Work Phone: [facility] Work Phone: Start: 12-14-2024 End: 12-14-2024 ambulatory Diana Kelley TANK OPERATOR Facility:[facility] Start: 08-23-2024 End: 08-23-2024 Patient encounter procedure TANK OPERATOR Roshni Baker -[facility] Work Phone: Start: 08-23-2024 End: 08-23-2024 ambulatory Diana Kelley TANK OPERATOR Facility:[facility] Start: 08-01-2024 End: 08-01-2024 ambulatory Estrellita Germain TANK OPERATOR Facility:[facility] Start: 07-11-2024 End: 07-11-2024 ambulatory Diana Kelley TANK OPERATOR Facility:[facility] Start: 07-04-2024 End: 07-04-2024 ambulatory Diana Kelley TANK OPERATOR Facility:[facility] Start: 06-21-2024 End: 06-21-2024 ambulatory [facility] Amb[facility] Start: 06-06-2024 End: 06-06-2024 ambulatory Diana Kelley NP Facility:[facility] Start: 05-31-2024 End: 05-31-2024 ambulatory Yessy Villarreal MD Work Phone: [facility] Comment on above: 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 (Primary Dx) Start: 05-17-2024 End: 05-17-2024 Follow-up encounter Yessy Villarreal MD Work Phone: [facility] Comment on above: 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 (Primary Dx) Start: 05-17-2024 End: 05-17-2024 ambulatory [facility] Start: 05-10-2024 End: 05-10-2024 Follow-up encounter Yessy Villarreal MD Work Phone: [facility] Comment on above: 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 (Primary Dx) Start: 05-10-2024 End: 05-10-2024 ambulatory [facility] Start: 05-03-2024 End: 05-03-2024 ambulatory Yessy Villarreal MD Work Phone: [facility] Comment on above: 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 Start: 04-28-2024 End: 04-28-2024 Office outpatient visit 15 minutes Yessy Villarreal MD Work Phone: [facility] Comment on above: 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 (Primary Dx) Start: 04-28-2024 End: 04-28-2024 Subsequent hospital visit by physician Yessy Villarreal MD Work Phone: [facility] Comment on above: 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 Start: 04-28-2024 End: 04-28-2024 ambulatory [facility] Start: 03-16-2024 End: 03-16-2024 Telephone encounter Regis Bravo MD Work Phone: [facility] Comment on above: Other (Annual Lung S creening Reminder) Start: 02-25-2024 End: 02-25-2024 Patient encounter procedure Yessy Villarreal MD Work Phone: [facility] Comment on above: Primary osteoarthrit is of left knee (Primary Dx) Start: 02-25-2024 End: 02-25-2024 ambulatory YESSY VILLARREAL [facility] Start: 02-08-2024 End: 02-08-2024 ambulatory Caitlyn Carrera RN [facility] Clinical Communication Start: 02-08-2024 End: 02-08-2024 Patient encounter procedure Caitlyn Carrera RN [facility] Clinical Communication Start: 01-10-2024 End: 01-10-2024 ambulatory Diana Kelley TANK OPERATOR Facility:[facility] Start: 12-20-2023 End: 12-20-2023 Office outpatient visit 15 minutes Yessy Villarreal MD Work Phone: [facility] Comment on above: Primary osteoarthrit is of left knee (Primary Dx) Start: 12-20-2023 End: 12-21-2023 Darlyn Marquez MA [facility] Start: 07-02-2023 End: 07-02-2023 ambulatory TANK OPERATOR-C Diana Kelley TANK OPERATOR Work Phone: [facility] Work Phone: Start: 07-02-2023 End: 07-02-2023 Patient encounter procedure TANK OPERATOR-Kajal Kelley TANK OPERATOR Work Phone: [facility]-Laboratory, Specimen Work Phone: Start: 03-24-2023 End: 03-24-2023 Patient encounter procedure TANK OPERATOR-Kajal Kelley TANK OPERATOR Work Phone: [facility] Work Phone: Start: 03-11-2023 Non-patient / Non-visit TANK OPERATOR-C Vel Kelley TANK OPERATOR Work Phone: [facility] Start: 03-11-2023 End: 03-11-2023 ambulatory TANK OPERATOR-Kajal Kelley TANK OPERATOR Work Phone: [facility] Work Phone: Start: 03-11-2023 End: 03-11-2023 Patient encounter procedure TANK OPERATOR-Kajal Kelley TANK OPERATOR Work Phone: [facility]-Cardiovascular Services Work Phone: Start: 03-03-[address] 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] Start: 02-23-2023 ambulatory Joaquin Benito MD Work Phone: [facility]ulatory Surgery Start: 01-27-2023 End: 01-27-2023 Subsequent hospital visit by physician Jania Myers 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 Work Phone: [facility] Comment on above: Personal history of nicotine dependence Start: 12-07-2022 Transcribe Orders Jania Myers 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 Work Phone: [facility] Central Scheduling Comment on above: Personal history of nicotine dependence (Primary Dx) Start: 12-02-2022 Telephone encounter Joaquin Benito MD Work Phone: [facility] Comment on above: Screening order/chec klist Start: 11-13-2022 End: 11-13-2022 ambulatory Regis Bravo MD Work Phone: [facility] Comment on above: Hypertensive chronic kidney disease with stage 1 through stage 4 chronic kidney disease, or unspecified chronic kidney disease (Primary Dx); Type 2 diabetes mellitus with diabetic chronic kidney disease (HCC); Mixed hyperlipidemia; Benign prostatic hyperplasia without lower urinary tract symptoms Start: 05-25-2022 Transcribe Orders Regis camara MD Work Phone: [facility] Comment on above: Pain in left knee (P rimary Dx) Start: 05-11-2022 ambulatory Regis Rosaganga [facility] Start: 02-25-2022 Patient encounter procedure Regis Verónica Bravo Work Phone: IX-Zcoyjemgseueu-Jqvxiwkl ook Work Phone: Start: 04-03-2019 End: 04-03-2019 Subsequent hospital visit by physician Regis Bravo Work Phone: [facility] Laboratory Procedures Date Procedure Procedure Detail Performing Clinician Start: 02-25-2023 Colonoscopy flx dx w/collj spec when pfrmd Joaquin Benito MD Work Phone: Start: 11-13-2022 Comprehensive metabo lic panel Regis Bravo MD Work Phone: Start: 11-13-2022 Lipid panel Regis guerrier MD Work Phone: Start: 11-13-2022 Lipid 1996 panel - S aelssandra or Plasma [facility] Start: 04-03-2019 Blood count complete auto&auto difrntl wbc Regis Renzo Bravo Work Phone: Start: 04-03-2019 Comprehensive metabo lic panel Regis Bravo Work Phone: Start: 04-03-2019 Hemoglobin glycosyla karen a1c Regis Renzo Bravo Work Phone: Start: 04-03-2019 Lipid panel Regis Bravo Work Phone: Coronary Artery Surgery Tony asael Bravo Work Phone: Comment on above: single heart bypass; Globe Enucleation Left aSnto delonte Bravo Work Phone: Comment on above: 04-27-05; H/O: surgery H/O enucleation of left eyeball Diana Kellye TANK OPERATOR-C Work Phone: Comment on above: 2006 H/O: surgery H/O enucleation of left eyeball Dr. Magda Husain MD History of coronary artery bypass grafting History of coronary artery bypass graft x 1 Dr. Magda Husain MD Plan of Treatment Date Care Activity Detail Author Start: 11-14-2027 Lipid panel Lipid Panel [facility] Start: 04-14-2027 DTaP/Tdap/Td vaccine (2 - Td) DTaP/Tdap/Td vaccine (2 - Td) [place] Start: 04-14-2027 DTaP/Tdap/Td Vaccine s (2 - Td or Tdap) DTaP/Tdap/Td Vaccines (2 - Td or Tdap) [facility] Start: 04-14-2027 Urine microalbumin profile DTaP,Tdap,Td Vaccine (2 - Td or Tdap) [facility] Start: 11-13-2025 Diabetes Screening Diabetes Screenin g [facility] Start: 12-14-2024 Evaluation of diagnostic study results [facility] Start: 11-06-2024 Patient referral [facility] Work Phone: Start: 05-31-2024 End: 05-31-2024 ambulatory 05/31/2024 9:00 AM EST Evaluation [facility] at [address] [place] [phone] Yessy Villarreal MD [address] [place] [address] Reji Clement, PT [facility] Start: 05-24-2024 End: 05-24-2024 Follow-up encounter 05/24/2024 9:00 AM EST Follow-Up [facility] [address] [place] [phone] Yessy Villarreal MD [address] [place] [address] Tay Nowak, EMERGENCY ROOM DOCTOR [facility] Start: 05-17-2024 End: 05-17-2024 Follow-up encounter 05/17/2024 9:00 AM EDT Follow-Up [facility] at [address] [place] [phone] Yessy Villarreal MD [address] [place], [place] [address], [place] [address] Tay Nowak, EMERGENCY ROOM DOCTOR [facility] Start: 05-10-2024 End: 05-10-2024 Follow-up encounter 05/10/2024 9:00 AM EDT Follow-Up [facility] at [address] [place] [phone] Yessy Villarreal MD [address] [place] [address] Tay Nowak, PERI [facility] Therapy [facility] Start: 05-03-2024 End: 05-03-2024 ambulatory 05/03/2024 9:00 AM EDT Evaluation [facility] at [address] [place] [phone] Yessy Villarreal MD [address] [place] [id number] Reji Clement, PT [facility] Start: 04-27-2024 End: 04-27-2025 XR Shoulder - left 2 Views XR shoulder 2+ views left Imaging Routine Primary osteoarthritis of left shoulder Expected: 04/27/2024, Expires: 04/27/2025 [facility] Work Phone: Comment on above: Expected: 04/27/2024 , Expires: 04/27/2025 Start: 04-03-2024 Lipid screen Lipid screen Elizabethmarifer Ramila th- [place], [place] Start: 03-19-2024 Covid-19 Vaccine () Covid-19 Vaccine () [facility] Start: 03-19-2024 COVID-19 Vaccine ( season) COVID-19 Vaccine ( season) [facility] Start: 03-19-2024 Influenza vaccination S [facility] Start: 02-26-2024 Glaucoma screening Diabetes: R etinopathy Screening [facility] Start: 02-25-2024 End: 02-25-2024 Patient encounter procedure 02/25/2024 3:15 PM EDT Office Visit [facility] [address] [place] [address] [place] [address] [facility] Start: 11-14-2023 Diabetes: Estimated Glomerular Filtration Rate for Kidney Health Diabetes: Estimated Glomerular Filtration Rate for Kidney Health [facility] Start: 11-14-2023 Diabetes: Urine Albumin-Creatinine Ratio for Kidney Health Diabetes: Urine Albumin-Creatinine Ratio for Kidney Health [facility] Start: 11-14-2023 Lipid panel Lipid Panel [facility] Start: 11-14-2023 Urine screening for protein Diabetes: Urine Protein Screening [facility] Start: 07-19-2023 Advance Directive Discussion Advance Directive Discussion [facility] Start: 07-19-2023 Medicare Advantage Annual Wellness Visit Medicare [facility] Annual Wellness Visit [facility] Start: 03-24-2023 Patient referral [facility] Work Phone: Start: 03-19-2023 COVID-19 Vaccine ( season) COVID-19 Vaccine () [facility] Start: 03-19-2023 Influenza vaccination C [facility] Start: 03-03-2023 EPVDILATED, Provider : Rafa Dockery, Status: Pen, Time: 9:45 AM EPVDILATED, Provider: Rafa Dockery, Status: Pen, Time: 9:45 AM OG-Yrolfutiqhgwu-Qdas erbrook Work Phone: Start: 08-24-2022 EPVOPTOM, Provider: [facility] Huss[facility] acy, Status: Pen, Time: 10:00 AM EPVOPTOM, Provider: Andrew Nixon, Status: Pen, Time: 10:00 AM IL-Gxuxsknjatvjh-Qart erbrook Work Phone: Start: 07-28-2022 Hemoglobin A1c measurement Diabetes: Hemoglobin A1C [facility] Start: 07-19-2022 ADVANCE DIRECTIVE DISCUSSION ADVANCE DIRECTIVE DISCUSSION [facility] Start: 07-19-2022 DEPRESSION ASSESSMENT DEPRESSION ASS ESSMENT [facility] Start: 09-15-2021 COVID-19 Vaccine (4 - Booster for Pfizer series) COVID-19 Vaccine (4 - Booster for Pfizer series) [facility] Start: 2020 RSV Immunization for Adults (1 - 1-dose 75+ series) RSV Immunization for Adults (1 - 1-dose 75+ series) [facility] Start: 04-03-2020 A1C test (Diabetic o r Prediabetic) A1C test (Diabetic or Prediabetic) [place] Start: 04-03-2020 Creatinine monitoring Creatinine mon itoring [place] Start: 04-03-2020 Potassium monitoring Potassium monit oring [place] Start: 03-19-2019 Influenza vaccination Flu vaccine (# 1) [place] Start: 02-22-2019 Shingrix Vaccine (3 of 3) Shingrix Vaccine (3 of 3) [facility] Start: 02-22-2019 Zoster Vaccines (3 o f 3) Zoster Vaccines (3 of 3) [facility] Start: 01-05-2019 Annual Wellness Visi t (AWV) Annual Wellness Visit (AWV) [place] Start: 03-15-2016 Pneumococcal Vaccine : 65+ (2 of 2 - PPSV23 or PCV20) Pneumococcal Vaccine: 65+ (2 of 2 - PPSV23 or PCV20) [facility] Start: 03-15-2016 Pneumococcal Vaccine : 65+ Years (2 - PPSV23 if available, else PCV20) Pneumococcal Vaccine: 65+ Years (2 - PPSV23 if available, else PCV20) [facility] Start: 03-15-2016 Pneumococcal Vaccine : 65+ Years (2 of 2 - PPSV23 or PCV20) Pneumococcal Vaccine: 65+ Years (2 of 2 - PPSV23 or PCV20) [facility] Start: 05-10-2015 Pneumococcal Vaccine : 65+ Years (2 - PPSV23 if available, else PCV20) Pneumococcal Vaccine: 65+ Years (2 - PPSV23 if available, else PCV20) [facility] Start: 05-10-2015 Pneumococcal Vaccine : 65+ Years (2 of 2 - PPSV23 or PCV20) Pneumococcal Vaccine: 65+ Years (2 of 2 - PPSV23 or PCV20) [facility] Start: 2010 Pneumococcal 65+ yea rs Vaccine (1 of 2 - PCV13) Pneumococcal 65+ years Vaccine (1 of 2 - PCV13) [place] Start: 2010 PNEUMOCOCCAL: 65+ (1 - PCV) PNEUMOCOCCAL: 65+ (1 - PCV) [facility] Start: 2005 RSV Immunization age d 60 or older (1 - 1-dose 60+ series) RSV Immunization aged 60 or older (1 - 1-dose 60+ series) [facility] Start: 2005 RSV Vaccine (1 - 1-dose 60+ series) RSV Vaccine (1 - 1-dose 60+ series) [facility] Start: 10-22-1995 Colon cancer screen colonoscopy Colon cancer screen colonoscopy [place] Start: 10-22-1995 Shingles Vaccine (1 of 2) Shingles Vaccine (1 of 2) [place] Start: 10-22-1995 SHINGRIX VACCINE (1 of 2) SHINGRIX VACCINE (1 of 2) [facility] Start: 1990 DIABETES SCREEN DIABETES SCREEN [facility] Start: 1964 Urine microalbumin profile DTAP,TDAP,TD (1 - Tdap) [facility] Start: 10-22-1963 Anxiety Screening Anxiety Screening [facility] Start: 10-22-1963 Depression Screening Depression Scre ening [facility] Start: 10-22-1963 Hepatitis C screening Hepatitis C [facility] Start: 10-22-1963 HEPATITIS C SCREENING HEPATITIS C SC [facility] Start: 1957 Depression Screening Depression Scre ening [facility] Start: 10-22-1955 Diabetic foot examination Diabetes: Foot Exam [facility] Start: 10-22-1955 Preventive dental service Diabetes: Dental Exam [facility] Start: 04-22-1946 COVID-19 VACCINE (#1) COVID-19 VACCI NE (#1) [facility] Start: 1945 AAA screen AAA screen [place], [place] Start: 1945 Hepatitis B Vaccines (1 of 3 - 3-dose series) Hepatitis B Vaccines (1 of 3 - 3-dose series) [facility] Start: 1945 Hepatitis C screen Hepatitis C [facility] Start: [facility] Lipid panel Lipid Panel [facility] Start: 1945 Medicare Annual Wellness (AWV) Medicare Annual Wellness (AWV) [facility] Basic metabolic 2008 panel with ionized calcium - Serum or Plasma [facility] End: 01-27-2023 CT Chest for screening WO contrast [facility] Work Phone: Comment on above: Once for 1 Occurrenc es starting 01/27/2023 until 01/27/2023 OUTSIDE PROCEDURE SCAN OUTSIDE P ROCEDURE SCAN Procedures Ordered: 11/13/2022 [facility] Comment on above: Ordered: 11/13/2022 OUTSIDE PROCEDURE SCAN OUTSIDE P ROCEDURE SCAN Procedures Ordered: 01/26/2023 [facility] Comment on above: Ordered: 01/26/2023 Patient referral [facility] Work Phone: End: 04-03-2019 PSA, Total and Free PSA, Total and Free Lab Routine Once for 1 Occurrences starting 04/03/2019 until 04/03/2019 [facility] Comment on above: Once for 1 Occurrenc es starting 04/03/2019 until 04/03/2019 PSA, Total and Free PSA, Total a nd Free Lab Routine 04/03/2019 2:38 PM EDT [facility] Radion[facility] imaging of perfusion of myocardium under exercise stress [facility] End: 12-03-2023 Screening colonoscopy COLONOSCOPY SCREENING Endoscopy Routine Benign neoplasm of colon, unspecified part of colon 1 Occurrences starting 12/02/2022 until 12/03/2023 [facility] Work Phone: Comment on above: 1 Occurrences starti ng 12/02/2022 until 12/03/2023 US Carotid arteries [facility] End: 04-28-2024 XR Shoulder - left 2 Views [facility] Comment on above: Once for 1 Occurrenc es starting 04/28/2024 until 04/28/2024 [facility] Immunizations Immunization Date Immunization Notes Care Provider Tyesha ibarra 04-27-2022 influenza, high dose seasonal, preservative-free [facility] 04-27-2022 influenza virus vacc ine, unspecified formulation Jania Myers 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 Work Phone: [facility] 04-11-2021 Influenza, High-dose Seasonal, Quadrivalent, Preservative Free [facility] 04-18-2020 influenza, seasonal, injectable [facility] 03-16-2020 influenza, injectabl e, quadrivalent, preservative free [facility] 04-10-2019 influenza, high dose seasonal, preservative-free [facility] 12-28-2018 zoster vaccine recombinant [facility] 05-25-2018 zoster vaccine, live [facility] n [facility] 03-25-2018 influenza, high dose seasonal, preservative-free [facility] 04-14-2017 tetanus toxoid, redu caty diphtheria toxoid, and acellular pertussis vaccine, adsorbed Regis Bravo [facility] 03-15-2017 influenza, high dose seasonal, preservative-free [facility] 05-15-2016 influenza, high dose seasonal, preservative-free [facility] 04-27-2015 influenza, high dose seasonal, preservative-free [facility] 03-15-2015 pneumococcal conjuga te vaccine, 13 valent [facility] Payers Date Payer Category Payer Self-pay 2022 Medicare HMO [employer] [id number] 2022 Medicare [id number] 2020 Unknown 2018 Unknown [employer] M [employer] [address] xxxxxxxxxxxx 2018-Present [phone] [address] [place] [address] xxxxxxxxxxxx [id number] 2017 Medicare MEDICARE MEDICAR E PART A AND B xxxxxxxxxx 2017-Present [phone] [address] [address] [place] [address] xxxxxxxxxx [id number] 2010 Medicare 1945 Unknown [id number] 1945 Unknown [id number] 1945 Unknown [id number] 4 Medicare [id number] Unknown [id number] Unknown [id number] Unknown [id number] Unknown [id number] Unknown [id number] Unknown [id number] Unknown [id number] Unknown [id number] Unknown [id number] Social History Date Type Detail Facility Start: 08-17-2018 End: 12-14-2024 Tobacco smoking status NHIS Former smoker [facility] Start: 08-17-2018 End: 02-25-2024 Alcohol intake Yes [place], [place] Start: 1945 Sex Assigned At Not on file M [place] Start: 06-01-2022 End: 02-25-2024 Former smoker Former smoker [facility]-Jvyvbuztysons-UqqJavi montoya Work Phone: History of tobacco use Current smoker [facility] Start: 06-01-2022 End: 02-25-2024 Alcohol intake Current drinker of alcohol (finding) [facility] Start: 05-22-2022 End: 01-27-2023 Exposure to SARS-CoV-2 (event) Not sure [facility] Start: 03-03-2023 End: 03-24-2023 Tobacco smoking status [facility] Tobacco smoking consumption unknown [facility] Start: 1945 Sex Assigned At Male [facility] Start: 02-25-2023 Tobacco smoking status [facility] Occasional tobacco smoker [facility] History of tobacco use Cigarette Smoker [facility] Start: 02-25-2023 Alcohol Comment 2 or less days per w [employer] [facility] Start: 02-16-2022 Sex Male (finding) [facility] yenifer Clinical Notes 12-02-2022 to 12-14-2024 Note Date & Type Note Facility 12-14-2024 Progress note Note Date/Time December 14, 2024 8:00p m [facility] [address] [place] [address] OFFICE VISIT Date of Service: 12/14/24 MR#: [id number] Acct: [id number] Name: TRES DICKSON Rep #: [id number] : 1945 Provider: OLIVER Kelley Age/Sex: 79/M Location: [facility] Status: Signed Intake Vital Signs 12/14/24 08:29 12/14/24 19:59 Height 5 ft 8.5 in 5 ft 8.5 in Weight: 181 lb BMI 27.1 BP 144/82 H Blood Pressure Location Lt brachial Position Sitting Respiration 14 Pulse 51 L Pulse Source NIBP Intake Visit Reasons: labs to be drawn Allergies No Known Allergies Allergy (Verified 12/14/24 08:53) PFSH Medical History (Updated 12/14/24 @ 09:[address] Magda Husain MD) Hollenhorst plaque, right eye Screening for lung cancer Hypertension Normal colonoscopy Melanoma of eye Surgical History (Updated 12/14/24 @ 09:[address] Magda Husain MD) H/O enucleation of left eyeball S/P CABG x 1 Social History (Updated 12/14/24 @ 08:54 by Elmira Landrum) Smoking Status: Former smoker quit date: 06/26/24 Tobacco: How many years used: 50 second hand exposure: No alcohol intake: current alcohol intake frequency: a few times a week substance use type: does not use caffeine: Yes Type: coffee Number of servings: 3 HPI HPI HPI HPI: TRES DICKSON, is a 79 M who presents to the office today for lab draw for cardiology Coding Level of Care Code No Charge Diagnoses H/O enucleation of left eyeball Z90.01 Dyslipidemia E78.5 Hollenhorst plaque, right eye H34.211 Obstructive sleep apnea G47.33 Moderate mixed hyperlipidemia not requiring statin therapy E78.2 Hyperlipidemia type: moderate mixed hyperlipidemia not requiring statin therapy Primary hypertension I10 Hypertension type: primary hypertension Assessment and Plan Assessment and Plan (1) 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 (2) Dyslipidemia: Status: Chronic (3) Hollenhorst plaque, right eye: Status: Chronic (4) Obstructive sleep apnea: Status: Acute Comment: AHI 18.2 from HST (5) Hyperlipidemia: Status: Acute Qualifiers: Hyperlipidemia type: moderate mixed hyperlipidemia not requiring statin therapy Qualified Code(s): E78.2 - Mixed hyperlipidemia (6) Hypertension: Status: Chronic Qualifiers: Hypertension type: primary hypertension Qualified Code(s): I10 - Essential (primary) hypertension Orders: Orders CBC W/Diff, Automated Today E78.2 - Mixed hyperlipidemia, E78.5 - Hyperlipidemia, unspecified, G47.30 - Sleep apnea, unspecified, 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, right eye, I10 - Essential (primary) hypertension, I83.93 - Asymptomatic varicose veins of bilateral lower extremities Comprehensive Metabolic Profil Today E78.2 - Mixed hyperlipidemia, E78.5 - Hyperlipidemia, unspecified, G47.30 - Sleep apnea, unspecified, 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, right eye, I10 - Essential (primary) hypertension, I83.93 - Asymptomatic varicose veins of bilateral lower extremities Lipid Profile Today E78.2 - Mixed hyperlipidemia, E78.5 - Hyperlipidemia, unspecified, G47.30 - Sleep apnea, unspecified, H34.211 - Partial retinal arteryocclusion, right eye, I10 - Essential (primary) hypertension, I83.93 - Asymptomatic varicose veins of bilateral lower extremities Patient Instructions: Will call with the lab results 12/14/241999 <Electronically signed by Diana Truong on DALIA GÓMEZ-Kajal> Date _ Diana Kelley NP TANK OPERATOR-C CC: ~ [facility] Work Phone: 1(992) 596-714905-29-2025 Progress noteAfter Hours Family [facility] [address], [place] [id number] OFFICE VISIT Date of Service: 12/14/24 MR#: [id number] Acct: [id number] Name: LIZANDROTRES RAFIQ Rep #: [id number] : 1945 Provider: OLIVER Kelley Age/Sex: 79/M Location: [facility] Status: Signed Intake Vital Signs 12/14/24 08:29 12/14/24 19:59 Height 5 ft 8.5 in 5 ft 8.5 in Weight: 181 lb BMI 27.1 BP 144/82 H Blood Pressure Location Lt brachial Position Sitting Respiration 14 Pulse 51 L Pulse Source NIBP Intake Visit Reasons: labs to be drawn Allergies No Known Allergies Allergy (Verified 12/14/24 08:53) [facility] Medical History (Updated 12/14/24 @ 09:[address] Magda Husain MD) Hollenhorst plaque, right eye Screening for lung cancer Hypertension Normal colonoscopy Melanoma of eye Surgical History (Updated 12/14/24 @ 09:[address] Magda Husain MD) H/O enucleation of left eyeball S/P CABG x 1 Social History (Updated 12/14/24 @ 08:54 by Elmira Landrum) Smoking Status: Former smoker quit date: 06/26/24 Tobacco: How many years used: 50 second hand exposure: No alcohol intake: current alcohol intake frequency: a few times a week substance use type: does not use caffeine: Yes Type: coffee Number of servings: 3 HPI HPI HPI HPI: TRES DICKSON, is a 79 M who presents to the office today for lab draw for cardiology Coding Level of Care Code No Charge Diagnoses H/O enucleation of left eyeball Z90.01 Dyslipidemia E78.5 Hollenhorst plaque, right eye H34.211 Obstructive sleep apnea G47.33 Moderate mixed hyperlipidemia not requiring statin therapy E78.2 Hyperlipidemia type: moderate mixed hyperlipidemia not requiring statin therapy Primary hypertension I10 Hypertension type: primary hypertension Assessment and Plan Assessment and Plan (1) 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 (2) Dyslipidemia: Status: Chronic (3) Hollenhorst plaque, right eye: Status: Chronic (4) Obstructive sleep apnea: Status: Acute Comment: AHI 18.2 from HST (5) Hyperlipidemia: Status: Acute Qualifiers: Hyperlipidemia type: moderate mixed hyperlipidemia not requiring statin therapy Qualified Code(s): E78.2 - Mixed hyperlipidemia (6) Hypertension: Status: Chronic Qualifiers: Hypertension type: primary hypertension Qualified Code(s): I10 - Essential (primary) hypertension Orders: Orders CBC W/Diff, Automated Today E78.2 - Mixed hyperlipidemia, E78.5 - Hyperlipidemia, unspecified, G47.30 - Sleep apnea, unspecified, 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, right eye, I10 - Essential (primary) hypertension, I83.93 - Asymptomatic varicose veins of bilateral lower extremities Comprehensive Metabolic Profil Today E78.2 - Mixed hyperlipidemia, E78.5 - Hyperlipidemia, unspecified, G47.30 - Sleep apnea, unspecified, 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, right eye, I10 -Essential (primary) hypertension, I83.93 - Asymptomatic varicose veins of bilateral lower extremitie s Lipid Profile Today E78.2 - Mixed hyperlipidemia, E78.5 - Hyperlipidemia, unspecified, G47.30 - Sleep apnea, unspecified, H34.211 - Partial retinal arteryocclusion, right eye, I10 - Essential (primary) hypertension, I83.93 - Asymptomatic varicose veins of bilateral lower extremities Patient Instructions: Will call with the lab results 12/14/241999 on TANK OPERATOR TANK OPERATOR-C> Date _ Diana Kelley TANK OPERATOR TANK OPERATOR-C CC: ~ [facility]02-05-2025 Evaluation note* Diagnosis Onset Date Resolution Status Admit Date Obstructive sleep apnea acute F ebary 2024 9:13am Hollenhorst plaque, right eye acute November 02, 2024 3:51pm Hyperlipidemia acute October 3:51pm Hypertension chronic November 02, 2024 3:51pm [employer] [facility] Work Phone: [phone] Evaluation note* Diagnosis Onset Date Resolution Status Admit Date Obstructive sleep apnea acute F 2024 9:13am Hyperlipidemia acute October 3:51pm Hollenhorst plaque, right eye chroni c November 02, 2024 3:51pm Hypertension chronic November 02, 2024 3:51pm Coronary artery disease chronic [facility] 2024 8:44am Dyslipidemia chronic December 14 8:44am H/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 14, 2024 8:44am History of coronary artery bypass graft x 1 chronic December 14, 2024 8:44am Hollenhorst plaque, right eye chroni c December 14, 2024 8:44am Hypertension chronic December 14 8:44am Hyperlipidemia acute December 14, 2024 3:44pm Obstructive sleep apnea acute M ay 2024 3:44pm Dyslipidemia chronic December 14 3:44pm H/O enucleation of left eyeball 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 [facility] [place] [facility] [address] [place] [address] Dept: [phone] Dept PHYSICAL THERAPY RE-EVALUATION Patient Name: Tres Dickson : 1945 Date of Service: 05/31/2024 Referring Provider: Yessy Villarreal MD Visit #: 4 Diagnosis: Primary osteoarthritis of left shoulder Mechanism of injury: insidious onset Patient Preferences: tres Precautions/Red Flags: Yes HTN Subjective General Comments: Tres says he feels like he has made progress with physical therapy over the past month. Says it is not hurting all the time anymore. Says now it is hurting when he puts his hands behind his head for a while, golfing now doesn't bother it too much anymore. He says he feels about 90% functional at this time. Tres says he wishes to perform his exercises on his own going forward. Pain: Current: 0/10 Best: 0/10 Worst: 7/10 for an instant Current Level of Function: independent with some pain Patient s Stated Goal: reduce pain Outcome Measures SPADI: 21/130 Objective SHOULDER Observation: forward head, rounded shoulders Cervical Spine AROM: WFL Elbow AROM: WFL Date Recorded: 05/31/2024 Upper Extremity ROM (degrees) Right Left AROM AROM Shoulder Flexion 169 168 Shoulder Abduction 166 142 Shoulder External Rotation (ER) 44, T4 40, T3 Shoulder Internal Rotation (IR) Thumb to L1 Thumb to L1 Upper Extremity Strength (*pain) Date 05/31/2024 R L Shoulder Flexion 5/5 5/5 Shoulder ABD 5/5 5/5* Shoulder ER 5/5 5/5 Shoulder IR 5/5 5/5 Elbow Flex 5/5 5/5 Elbow Ext 5/5 5/5 NT = not tested Scapular Strength Right Left Lower Trapezius 5/5 5/5* Middle Trapezius 5/5 5/5 Joint mobility: empty end feels Palpation: non-tender to palpation Flexibility: reduced pec and UT flexibility bilaterally L>R is improved but still present Special Tests: Sub Acromial Grind (-) Lateral Dayron (-) Assessment Tres has made excellent progress thus far with physical therapy. He has reduced his pain levels, improved his strength, increased his range of motion, and subjectively reports significant improvementin functioning. He will be successful transitioning to a fully home based exercise program going forward for further maintenance and prevention. He is therefore discharged at this time. Rehab Potential: Good Goals Active General/Ortho Patient will reduce pain to 2/10 for improved ability to perform home exercise program and participate in physical therapy sessions (Progressing) Start: 05/03/24 Expected End: 06/02/24 Patient will improve bilateral UE and periscapular strength to 5/5 for improved support with lifting and carrying objects (Completed) Start: 05/03/24 Expected End: 06/02/24 Resolved: 05/31/24 Patient will improve L shoulder abduction and flexion AROM to 160 degrees for improved ability to reach overhead and out (Progressing) Start: 05/03/24 Expected End: 06/02/24 Patient will reduce SPADI score from 50/130 to 25/130 for 50 % improvement in self perceived disability (Completed) Start: 05/03/24 Expected End: 06/02/24 Resolved: 05/31/24 Plan Frequency and Duration: discharge from physical therapy Risks and benefits were discussed with the patient and/or family, and the patient and/or family participated with the plan of care and agrees. Treatment Pt declined to perform exercises today Patient Education: re-evauation measures (billed as ther-act as mutiple components of functioning were addressed) Home Exercise Program: continue current Time Entry Total Treatment Time Start Time: 857 Stop Time: 907 Time Calculation (min): 10 min PT Therapeutic Procedures Time Entry Therapeutic Activity Time Entry: 10 Reji Clement PT documented in this [facility]10-30-2024 History of Present illness Narrative* Tay Nowak, EMERGENCY ROOM DOCTOR - 05/17/2024 9:00 AM EDT Images from the original note were not included. [facility] [place] [facility] [place] [address] [place] [address] Dept: [phone] Dept PHYSICAL THERAPY TREATMENT Patient Name: Tres Dickson : 1945 Date of Service: 05/17/2024 Referring Provider: Yessy Villarreal MD Visit #: 3 Diagnosis: Primary osteoarthritis of left shoulder Mechanism of injury: insidious onset Patient Preferences: tres Precautions/Red Flags: Yes HTN Subjective Pt states his shoulder pain isn't bad today, went golfing yesterday which he thinks flared his shoulder up again. Compliance with HEP: Yes Objective Objective measurements not taken today. Treatment Therapeutic Exercise # of Activities: 10 Therapeutic Exercise Activity 1: UBE seat 8, lvl 3 Activity 1 Comment: 2/2 Therapeutic Exercise Activity 2: CC strength Activity 2 Comment: Mid rows/ SAPD 2 x 10 # 40, Therapeutic Exercise Activity 3: Wall slides- Flex and abd Activity 3 Comment: x 15 ea Therapeutic Exercise Activity 4: Standing shoulder strength Activity 4 Comment: 2 x 10 flex and abd RTB Therapeutic Exercise Activity 5: Supine Activity 5 Comment: Serratus punches x 20 #5 DB's, serratus alphabet (lowercase) x 1 #5 DB, horizontal abd RTB x 20 Home Exercise Program: Progressed home exercise program Assessment Skilled physical therapy interventions utilized to improve patient s impairments and work towards established goals. Patient response to treatment: Continued UE/ periscap strength and shoulder ROM on this date. Initiated serratus strengthening in supine and added to HEP. Min cueing for proper form w/ serratus activation. Pt reports feeling shoulder fatigue post session, but no increase in pain. Feels comfortable performing updated HEP. Patient will benefit from continued physical therapy to benefit QOL and reduce UE discomfort. The rationale for today s treatment was explained to the patient. Verbal cues were provided for correct form with all exercises. Advised patient to continue with Home Exercise Program (HEP). Goals General/Ortho Patient will reduce pain to 2/10 for improved ability to perform home exercise program and participate in physical therapy sessions (Progressing) Start: 05/03/24 Expected End: 06/02/24 Patient will improve bilateral UE and periscapular strength to 5/5 for improved support with lifting and carrying objects (Progressing) Start: 05/03/24 Expected End: 06/02/24 Patient will improve L shoulder abduction and flexion AROM to 160 degrees for improved ability to reach overhead and out (Progressing) Start: 05/03/24 Expected End: 06/02/24 Patient will reduce SPADI score from 50/130 to 25/130 for 50 % improvement in self perceived disability (Progressing) Start: 05/03/24 Expected End: 06/02/24 Plan Plan for next session: Progress UE/ postural stabilization as able Time Entry Total Treatment Time Start Time: 900 Stop Time: 928 Time Calculation (min): 28 min PT Therapeutic Procedures Time Entry Therapeutic Exercise Time Entry: 28 Tay Nowak PTA Cosigned by Reji Clement PT at 05/17/2024 10:24 AM EDT documented in this [facility]10-23-2024 History of Present illness Narrative* Tay Nowak PTA - 05/10/2024 9:00 AM EDT Images from the original note were not included. [facility] AT [address] [place] [address] Dept: [phone] Dept PHYSICAL THERAPY TREATMENT Patient Name: Tres Dickson : 1945 Date of Service: 05/10/2024 Referring Provider: Yessy Villarreal MD Visit #: 2 Diagnosis: Primary osteoarthritis of left shoulder Mechanism of injury: insidious onset Patient Preferences: tres Precautions/Red Flags: Yes HTN Subjective Pt states shoulder is feeling about the same today, HEP exercises are going fine. Reports he was able to golf fine yesterday, symptoms did flare up after playing however. Compliance with HEP: Yes Objective Objective measurements not taken today. Treatment Therapeutic Exercise # of Activities: 10 Therapeutic Exercise Activity 1: Pulleys Activity 1 Comment: 08/20 Therapeutic Exercise Activity 2: CC strength Activity 2 Comment: Mid rows/ SAPD 2 x 10 # 35, Therapeutic Exercise Activity 3: Wall slides- Flex and abd Activity 3 Comment: x 15 ea Therapeutic Exercise Activity 4: Counter push up + Activity 4 Comment: x 20 Therapeutic Exercise Activity 6: Stretches Activity 6 Comment: Doorway pec stretch x 30, B UT stretching x 30 ea Therapeutic Exercise Activity 7: Weighted dowel silvia raises #5 (Standing) Activity 7 Comment: x 20 flexion Therapeutic Exercise Activity 8: UBE seat 8, lvl 3 Activity 8 Comment: 08/20 Home Exercise Program: Progressed home exercise program Assessment Skilled physical therapy interventions utilized to improve patient s impairments and work towards established goals. Focused today's visit on progressing periscap/ UE strength and UE ROM. Reviewed HEP exercises, required cueing for mid rows and SAPD to improve form. Updated HEP w/ counter push up plus, UT and pec stretch. Patient response to treatment: Pt states feeling a good burn and stretch w/ exercises this date. Required cueing for cable column HEP exercises, improved form w/ practice and demonstration. Reports feeling comfortable w/ his updated HEP post session, states just having shoulder fatigue. Patient will benefit from continued physical therapy to reduce symptoms and decrease discomfort w/ recreational activities such as golf. The rationale for today s treatment was explained to the patient. Verbal cues were provided for correct form with all exercises. Advised patient to continue with Home Exercise Program (HEP). Goals General/Ortho Patient will reduce pain to 2/10 for improved ability to perform home exercise program and participate in physical therapy sessions (Progressing) Start: 05/03/24 Expected End: 06/02/24 Patient will improve bilateral UE and periscapular strength to 5/5 for improved support with lifting and carrying objects (Progressing) Start: 05/03/24 Expected End: 06/02/24 Patient will improve L shoulder abduction and flexion AROM to 160 degrees for improved ability to reach overhead and out (Progressing) Start: 05/03/24 Expected End: 06/02/24 Patient will reduce SPADI score from 50/130 to 25/130 for 50 % improvement in self perceived disability (Progressing) Start: 05/03/24 Expected End: 06/02/24 Plan Plan for next session: Assess response to HEP and previous session. Progress periscap strength and UE ROM. Consider serratus exercises Time Entry Total Treatment Time Start Time: 857 Stop Time: 924 Time Calculation (min): 27 min PT Therapeutic Procedures Time Entry Therapeutic Exercise Time Entry: Tay Nowak PTA Cosigned by Reji Clement PT at 05/10/2024 4:56 PM EDT documented in this [facility]10-16-2024 History of Present illness Narrative* Reji Clement PT - 05/03/2024 9:00 AM EDT Images from the original note were not included. [facility] [place] [facility] AT [address] [place] [address] Dept: [phone] Dept PHYSICAL THERAPY EVALUATION Patient Name: Tres Dickson : 1945 Date of Service: 05/03/2024 Referring Provider: Yessy Villarreal MD Visit #: 1 Diagnosis: Primary osteoarthritis of left shoulder General Information Mechanism of injury: insidious onset Patient Preferences: tres Precautions/Red Flags: Yes HTN Fall Risk: No Work status: not working PMHX: Tres has a past medical history of CAD (coronary artery disease), Hyperlipidemia, Hypertension, Melanoma (HCC), and WV (myocardial infarction) (HCC). PSHX: Tres has a past surgical history that includes Eye surgery; Coronary artery bypass graft; andSkin biopsy. Have you experienced any anxiety or depression?: No Have you experienced thoughts of self-harm or suicidal thoughts?: No Social Determinates of Health Reviewed: Yes Physician follow-up appointment?: Not yet Subjective Chief Complaint: Tres says his left shoulder pain started about a month ago. He says he is unsure what he did. He woke up and it just started hurting. Hurts most with reaching up and back. Noticed ithurt most when he was golfing. He says it hurt at the start and the end the most. Describes his pain as a shooting pain from the top down that is quick and pulsating. Denies pain at night with sleeping. Does get some pain after resting with hands above his head when sitting. Pain: Current: 0/10 Best: 0/10 Worst: 8-9/10 Symptoms Relieved by: tylenol extra strength, heat Prior Level of Function: independent without difficulty Current Level of Function: independent with increased pain and difficulty Patient s Stated Goal: get rid of the pain Outcome Measures SPADI: 50/130 Objective SHOULDER Observation: forward head, rounded shoulders Cervical Spine AROM: WFL Elbow AROM: WFL Date Recorded: 05/03/2024 Upper Extremity ROM (degrees) Right Left AROM AROM Shoulder Flexion 169 148 Shoulder Abduction 166 95 Shoulder External Rotation (ER) 44, T4 34, T1 Shoulder Internal Rotation (IR) Thumb to L1 Thumb to L5 Upper Extremity Strength (*pain) Date 05/03/2024 R L Shoulder Flexion 5/5 5/5 Shoulder ABD 5/5 4+/5* Shoulder ER 5/5 5/5 Shoulder IR 5/5 5/5 Elbow Flex 5/5 5/5 Elbow Ext 5/5 5/5 NT = not tested Scapular Strength Right Left Lower Trapezius 5/5 4/5* Middle Trapezius 5/5 4/5* Joint mobility: empty end feels Palpation: non-tender to palpation Flexibility: reduced pec and UT flexibility bilaterally L>R Special Tests: Sub Acromial Grind (-) Lateral Dayron (+) Assessment Tres is a 78 y.o. patient with chief complaint of L Shoulder pain, who presents with signs and symptoms consistent with possible shoulder OA vs RTC injury. Tres presents today with significantly reduced L shoulder AROM, decreased shoulder strength, impaired posture, and impaired flexibility. All ofthese deficits can contribute to increased stress in the shoulder and can be exacerbating his symptoms. This is affecting his ability to fully function. He would benefit from skilled physical therapyto address decreased strength, decreased range of motion, pain, soft tissue impairment, and impaired functional activities. Evaluation complexity is low secondary to: patient has 1-2 personal factors and/or comorbidities that will affect plan of care, therapy will be addressing 1-2 elements, and clinical presentation is stable. Body Systems Affected: musculoskeletal and neuromuscular Rehab Potential: Good Learning Preferences: demonstration and explanation Barriers to Rehab: none Goals General/Ortho Patient will reduce pain to 2/10 for improved ability to perform home exercise program and participate in physical therapy sessions (Initiated) Start: 05/03/24 Expected End: 06/02/24 Patient will improve bilateral UE and periscapular strength to 5/5 for improved support with lifting and carrying objects (Initiated) Start: 05/03/24 Expected End: 06/02/24 Patient will improve L shoulder abduction and flexion AROM to 160 degrees for improved ability to reach overhead and out (Initiated) Start: 05/03/24 Expected End: 06/02/24 Patient will reduce SPADI score from 50/130 to 25/130 for 50 % improvement in self perceived disability (Initiated) Start: 05/03/24 Expected End: 06/02/24 Plan Frequency and Duration: 1/wk for 4 weeks Therapeutic Contents: client education, group therapy, home exercise program, manual therapy techniques, neuromuscular re-education, therapeutic activities, therapeutic exercise, trigger point dry needle, and modalities as needed Plan for next session: assess HEP response, pec stretching, UT stretching, periscapular progressions, serratus press, prone Y/T Risks and benefits were discussed with the patient and/or family, and the patient and/or family participated with the plan of care and agrees. Treatment Therapeutic Exercise # of Activities: 5 Therapeutic Exercise Activity 1: wall slides flexion/abduction Activity 1 Comment: 3x10 Therapeutic Exercise Activity 2: ER/IR isometric Activity 2 Comment: x10 3s each Therapeutic Exercise Activity 3: mid rows Activity 3 Comment: green 3x10 Therapeutic Exercise Activity 4: pull downs Activity 4 Comment: green 3x10 Patient Education: muscular support, force distribution, shoulder mechanics Home Exercise Program: Created Time Entry Total Treatment Time Start Time: 900 Stop Time: 929 Time Calculation (min): 29 min PT Evaluation Time Entry PT Evaluation (Low) Time Entry: 20 PT Therapeutic Procedures Time Entry Therapeutic Exercise Time Entry: 9 Reji Clement PT documented in this [facility]10-11-2024 History of Present illness Narrative* Yessy Villarreal MD - 04/28/2024 10:00 AM EDT Images from the original note were not included. [facility] [address] [place] [address] [place] [address] Dept: [phone] Dept Chief Complaint Patient presents with Follow-up NDX left shoulder Subjective History of Present Illness: Tres Dickson is a 78 y.o. right hand dominant male who presents today for evaluation of left shoulder pain. Location: anterior and posterior Onset: 1 month Injury: no Quality: sharp, shooting, and pulsing Mechanical symptoms: no Radiation of symptoms: yes - from the back of his shoulder to the front Severity: 3/10 at rest and 9/10 at worst Exacerbating factor(s): repetitive use, overhead use, and reaching behind and after golfing Relieving factor(s): Tylenol extra strength and heat Timing: all day but gets worse when he over does it Imaging to date: X-ray April 2024 Treatment to date: PT/OT/HEP: no Ice: no Heat: yes, helpful Medications: Tylenol: yes, helpful NSAIDs: no Oral steroids: no Muscle relaxants: no Nerve medications: no Targeted injections: none in shoulder Assistive devices: none Occupation: Retired, Fall risk assessment: Completed in the past 12 months Objective Visit Vitals BP 134/82 Physical Exam: General: Alert, well appearing, no acute distress. Respiratory: Breathing comfortably on room air. No respiratory distress. Skin: Warm, dry, intact. No visible rashes or erythema overlying area of focused exam. Physical Exam Musculoskeletal: Right shoulder: No swelling, deformity or tenderness. Normal strength. Normal pulse. Left shoulder: Tenderness (diffuse) present. No swelling or deformity. Decreased range of motion. Normal strength. Normal pulse. Comments: Left range of motion decreased, abduction 110 degrees, external rotation 15 degrees, internal rotation 10 degrees Supraspinatus muscle strength normal with discomfort Infraspinatus muscle strength normal Subscapularis muscle strength normal Biceps muscle strength normal Speed's test unable Hawkin's test unable Impingement test unable Davison's test unable Sulcus test negative Scarf test unable Spurling test negative External Notes No pertinent interval updates Labs No results found for: HGBA1C Lab Results Component Value Date CREATININE 0.97 11/13/2022 Imaging Images reviewed with patient today I have personally reviewed the images pertinent to the appointment today EMG/NCT No interval studies Procedure No procedures completed today Assessment Diagnosis Plan 1. Primary osteoarthritis of left shoulder XR shoulder 2+ views left Ambulatory referral to Physical Therapy Plan We discussed osteoarthritis of the shoulder. We reviewed the spectrum of 1. Pills - everything from Tylenol, ibuprofen, Aleve, and pain medicines. Tumeric can be supplemented, it is likely similar to ibuprofen and is generally safe for most people to take. We discussed that turmeric is dose-dependent and the higher the dose the more anti-inflammatory effect you will receive and that when turmeric is taken with black pepper more is absorbed. 2. Physical therapy - formal physical therapy and braces. The benefits of strengthening, endurance,flexibility, balancing, and proprioception. The combination of all of these to decrease joint pain.Bracing is not available for the shoulder 3. Shots - corticosteroid and investigational injections. We discussed the episodic nature, and Band-Aid nature of cortisone. No more frequent than every 3-4 months, the potential for cortisone to soften articular cartilage with repetitive use. We also discussed the benefits and disadvantages of different approaches for corticosteroid injections of the shoulder including subacromial and ultrasound-guided intra-articular. Additionally, investigational agents like stem cells, whole blood, PRP have not been shown to be effective for osteoarthritis of the shoulder. 4. Surgery -specifically total shoulder replacement. We discussed the need to progress through conservative measures before this is a viable option. No follow-ups on file. Yessy Villarreal MD 04/28/2024 10:04 AM Please note that portions of this note may have been completed with voice recognition software. 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 documented in this [facility]10-11-2024 Miscellaneous Notes* Addendum Note - Yessy Villarreal MD - 04/28/2024 10:00 AM EDTAddended by: YESSY VILLARREAL on: 04/28/2024 12:28 PM Modules accepted: Level of Service documented in this [facility]10-11-2024 Note* Addendum Note - Yessy Villarreal MD - 04/28/2024 10:00 AM EDTAddended by: YESSY VILLARREAL on: 04/28/2024 12:28 PM Modules accepted: Level of Service [id number] Note* Addendum Note - Yessy Villarreal MD - 04/28/2024 10:00 AM EDTAddended by: YESSY VILLARREAL on: 04/28/2024 12:28 PM Modules accepted: Level of Service [id number] NoteAddended by: YESSY VILLARREAL on: 04/28/2024 12:28 PM Modules accepted: [facility] Tele[facility] encounter Note* Telephone Encounter - Toyin Umanzor - 03/16/2024 1:14 PM EDT This patient has had a prior lung screening CT scan at [facility]. According to our records, he/she is now due for an annual lung screening CT scan. Please evaluate and order this annual screening if your patient still meets lung screening criteria. [id number] Miscellaneous Notes* Telephone Encounter - Toyin Umanzor - 03/16/2024 1:14 PM EDT This patient has had a prior lung screening CT scan at [facility]. According to our records, he/she is now due for an annual lung screening CT scan. Please evaluate and order this annual screening if your patient still meets lung screening criteria. documented in this [facility]08-09-2024 History of Present illness Narrative* Yessy Villarreal MD - 02/25/2024 3:15 PM EDT Images from the original note were not included. [facility] [address] [place] [address] Dept: [phone] Dept Chief Complaint Patient presents with Knee Pain left Subjective History of Present Illness: Tres Dickson is a 78 y.o. male who presents today for injection of left knee. He rates symptoms as a 0/10 at rest and a 5/10 at worst. Prior targeted injections: Corticosteroid 12/20/2023. Helpful. Fall risk assessment: Less than 65, not applicable Objective There were no vitals taken for this visit. Physical Exam: General: Alert, well appearing, no acute distress. Respiratory: Breathing comfortably on room air. No respiratory distress. Skin: Warm, dry, intact. No visible rashes or erythema overlying area of focused exam. External Notes No pertinent interval updates Labs No results found for: HGBA1C Lab Results Component Value Date CREATININE 0.97 11/13/2022 Imaging I have personally reviewed the images pertinent to the appointment today EMG/NCT N/A Procedure Procedure completed today, details below Procedure Note: We discussed risks and precautions including infection, bleeding. Verbal and written consent was obtained. The left knee injection site was located, confirmed and marked, it was prepped in the usual fashionwith betadine and isopropyl alcohol. Prefilled syring of Synvisc One was placed in the, intra-articular, intracondylar space using a 21G 1.5 inch needle using the inferior lateral approach. The procedure was tolerated well. There were no complications with the injection. The injection site was bandaged. Assessment Diagnosis Plan 1. Primary osteoarthritis of left knee hylan (Synvisc) injection 16 mg Plan -Discussed with the patient the nature of Arthritis and answered questions. -Discussed prior imaging results with patient. -Discussed activity modification for the rest of today. -Questions answered. -Written patient information provided in the AVS. -Knee injection performed per above procedure note. Yessy Villarreal MD 02/25/2024 3:00 PM Please note that portions of this note may have been completed with voice recognition software. 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 documented in this [facility]08-09-2024 Instructions* Patient Instructions* Yessy Villarreal MD - 02/25/2024 3:15 PM EDT After your shot today Avoid strenuous physical activity for 1-2 days. Ice your knee if needed. Avoid prolonged standing for the today. If you have any signs of infection (severe pain, redness, fever, drainage) call the office or go directly to the ER. Keep your next injection appointment. Euflexxa, Gel-One, Hyalgan, Hyalgan L/L, Monovisc, Orthovisc, Supartz, Supartz FX Orthovisc Side Effects Along with its needed effects, a medicine may cause some unwanted effects. Although not all of these side effects may occur, if they do occur they may need medical attention. Check with your doctor or nurse immediately if any of the following side effects occur: More common Difficulty with moving muscle pain or stiffness pain in the joints Less common Swelling or redness in the joints Some side effects may occur that usually do not need medical attention. These side effects may go away during treatment as your body adjusts to the medicine. Also, your health career and transition teacher may be able to tell you about ways to prevent or reduce some of these side effects. Check with your health career and transition teacher if any of the following side effects continue or are bothersome or if you have any questions about them: Less common Bleeding, blistering, burning, coldness, discoloration of the skin, feeling of pressure, hives, infection, inflammation, itching, lumps, numbness, pain, rash, redness, scarring, soreness, stinging, swelling, tenderness, tingling, ulceration, or warmth at the injection site Other side effects not listed may also occur in some patients. If you notice any other effects, check with your healthcare professional. Call your doctor for medical advice about side effects. documented in this [facility]07-31-2024 Telephone encounter Note* Telephone Encounter - Elmira Landrum MA - 02/16/2024 10:20 AM EDT Confirmed that gel injections are at [facility], and called patient to update him, someone had already made his follow up appointment [id number] Miscellaneous Notes* Telephone Encounter - Elmira Landrum MA - 02/16/2024 10:20 AM EDT Confirmed that gel injections are at [place] [facility], and called patient to update him, someone had already made his follow up appointment * Telephone Encounter - Elmira Landrum MA - 02/16/2024 10:15 AM EDT Images from the original note were not included. * Telephone Encounter - Elmira Landrum MA - 02/09/2024 8:34 AM EDT Called [facility] spoke with Abimbola and set up delivery of Synvisc one for 02/14 to the [place] [facility]. Will call patient and update him. * Telephone Encounter - Elmira Landrum MA - 02/09/2024 8:28 AM EDT Images from the original note were not included. * Telephone Encounter - Owen Phelps - 02/02/2024 11:38 AM EDT Pt returning our call, I relayed the information. He verbalizes understanding and will call the pharmacy to ok delivery. RUBENS * Telephone Encounter - Elmira Landrum MA - 02/02/2024 10:59 AM EDT Called [facility] to check status of patient's gel injection order. Spoke with Lupe she states that they reached out to patient to obtain consent to ship and patient told them that He wasn't interested so they placed his order on hold. I reached out to patient and LVM that he needs to call [facility] if he wants to go ahead with his gel injection. Their # is [phone]. Please relay this m essage to patient if he calls the office. Thank you!! * Telephone Encounter - Elmira Landrum MA - 12/28/2023 11:05 AM EDT Called [facility] and gave ICD 10 code, they state the gel is still processing and will reach out to patient when ready for consent to ship to office * Telephone Encounter - Sharon Hopper - 12/27/2023 9:40 AM EDT Lupe with [facility] called asking for ICD 10 code for Synvisc One. She states when calling back you can speak to anyone in the pharmacy. Please advise. * Telephone Encounter - Elmira Landrum MA - 12/20/2023 3:47 PM EDT No PA needed from [facility] ins for Synvisc one injection. Med is pended, please sign. Thank you! documented in this encounterSACMC Healthcare [id number] Telephone encounter Note* Telephone Encounter - Elmira Landrum MA - 02/16/2024 10:15 AM EDT Images from the original note were not included. [id number] Telephone encounter Note* Telephone Encounter - Julia Cartagena - 02/16/2024 9:42 AM EDT Pt is calling back to check on status of his gel injections. He states he was not asked to pay a co-pay when the Specialty Pharmacy called him to get approval for delivery of injection to our office and he would like to know when they might be coming in. Please call to advise. [id number] Miscellaneous Notes* Telephone Encounter - Julia Cartagena - 02/16/2024 9:42 AM EDT Pt is calling back to check on status of his gel injections. He states he was not asked to pay a co-pay when the Specialty Pharmacy called him to get approval for delivery of injection to our office and he would like to know when they might be coming in. Please call to advise. * Telephone Encounter - Hoda Rees - 02/02/2024 11:51 AM EDT Patient called in stating he s/w [facility] and they told him he may have a possible copay of $279. Said they told him they'd get it reach to ship and reach out to the office. Patient unsure if he truly has a copay or not for this with his [employer] Medicare plan. Advised they won't ship to us if there's still a balance due. We'll see if we get call for shipment in the next few days. * Telephone Encounter - Ewa Godoy - 12/28/2023 10:25 AM EDT Lupe from [facility] is calling to request the ICD 10 code for the patient for the Synvisc 1. can speak to anyone in the pharmacy in regards to this. * Telephone Encounter - Jennifer Fabian - 12/20/2023 3:59 PM EDT Left Knee New Therapy Provider prefers Single Injection (example: Durolane/Gel One). However whatever is a preferred drugon patient's plan is acceptable. Delivery location is [address] [place] [address]. documented in this encounterSACMC Healthcare [id number] Telephone encounter Note* Telephone Encounter - Elmira Landrum MA - 02/09/2024 8:34 AM EDT Called [facility] spoke with Abimbola and set up delivery of Synvisc one for 02/14 to the [place] [facility]. Will call patient and update him. [id number] Miscellaneous Notes* Telephone Encounter - Elmira Landrum MA - 02/09/2024 8:34 AM EDT Called [facility] spoke with Abimbola and set up delivery of Synvisc one for 02/14 to the [place] [facility]. Will call patient and update him. * Telephone Encounter - Elmira Landrum MA - 02/09/2024 8:28 AM EDT Images from the original note were not included. * Telephone Encounter - Owen Phelps - 02/02/2024 11:38 AM EDT Pt returning our call, I relayed the information. He verbalizes understanding and will call the pharmacy to ok delivery. FYI * Telephone Encounter - Elmira Landrum MA - 02/02/2024 10:59 AM EDT Called [facility] to check status of patient's gel injection order. Spoke with Lupe she states that they reached out to patient to obtain consent to ship and patient told them that He wasn't interested so they placed his order on hold. I reached out to patient and LVM that he needs to call [facility] if he wants to go ahead with his gel injection. Their # is [phone]. Please relay this m essage to patient if he calls the office. Thank you!! * Telephone Encounter - Elmira Landrum MA - 12/28/2023 11:05 AM EDT Called [facility] and gave ICD 10 code, they state the gel is still processing and will reach out to patient when ready for consent to ship to office * Telephone Encounter - Sharon Hopper - 12/27/2023 9:40 AM EDT Lupe with [facility] called asking for ICD 10 code for Synvisc One. She states when calling back you can speak to anyone in the pharmacy. Please advise. * Telephone Encounter - Elmira Landrum MA - 12/20/2023 3:47 PM EDT No PA needed from [facility] for Synvisc one injection. Med is pended, please sign. Thank you! documented in this [facility]07-24-2024 Telephone encounter Note* Telephone Encounter - Elmira Landrum MA - 02/09/2024 8:28 AM EDT Images from the original note were not included. [id number] Telephone encounter Note* Telephone Encounter - Denise Tang RN - 02/08/2024 7:19 PM EDT S: [facility] (Specialty) [place] [address] [employer]oke with [facility] nurse regarding medication delivery to office B: Synvisc one A: states they need to schedule delivery of above medication R: Please return call to [phone] to discuss Reason for Disposition [1] Caller requesting NON-URGENT health information AND [2] PCP's office is the best resource Protocols used: Information Only Call - No [id number] [id number] Miscellaneous Notes* Telephone Encounter - Denise Tang RN - 02/08/2024 7:19 PM EDT [facility] [place] [phone] [employer] with [facility] nurse regarding medication delivery to office B: Synvisc one A: states they need to schedule delivery of above medication R: Please return call to [phone] to discuss Reason for Disposition [1] Caller requesting NON-URGENT health information AND [2] PCP's office is the best resource Protocols used: Information Only Call - No [id number] * Telephone Encounter - Caitlyn Carrera RN - 02/08/2024 7:17 PM EDT S: Nurse called [facility] at # and spoke with Robin. B: Patient's hylan (Synvisc One) is ready to schedule to be sent to the patient. A: Patient's consent is on file. R: Message sent to Dr. Villarreal's office for follow-up. documented in this encounterSACMC Healthcare [id number] Telephone encounter Note* Telephone Encounter - Caitlyn Carrera RN - 02/08/2024 7:17 PM EDT S: Nurse called [facility] at # and spoke with Robin. B: Patient's hylan (Synvisc One) is ready to schedule to be sent to the patient. A: Patient's consent is on file. R: Message sent to Dr. Villarreal's office for follow-up. [facility]beighBwjxui86-85-0325 Telephone encounter Note* Telephone Encounter - Hoda Rees - 02/02/2024 11:51 AM EDT Patient called in stating he s/w [facility] and they told him he may have a possible copay of $279. Said they told him they'd get it reach to ship and reach out to the office. Patient unsure if he truly has a copay or not for this with his [facility] Medicare plan. Advised they won't ship to us if there's still a balance due. We'll see if we get call for shipment in the next few days. [id number] Miscellaneous Notes* Telephone Encounter - Hoda Rees - 02/02/2024 11:51 AM EDT Patient called in stating he s/w [facility] and they told him he may have a possible copay of $279. Said they told him they'd get it reach to ship and reach out to the office. Patient unsure if he truly has a copay or not for this [facility]. Advised they won't ship to us if there's still a balance due. We'll see if we get call for shipment in the next few days. * Telephone Encounter - Ewa Godoy - 12/28/2023 10:25 AM EDT Lupe from [facility] is calling to request the ICD 10 code for the patient for the Synvisc 1. can speak to anyone in the pharmacy in regards to this. * Telephone Encounter - Jennifer Fabian - 12/20/2023 3:59 PM EDT Left Knee New Therapy Provider prefers Single Injection (example: Durolane/Gel One). However whatever is a preferred drugon patient's plan is acceptable. Delivery location is [address] [place] [address]. documented in this encounterSACMC Healthcare SystemHjpnor05-21-0487 Telephone encounter Note* Telephone Encounter - Owen Phelps - 02/02/2024 11:38 AM EDT Pt returning our call, I relayed the information. He verbalizes understanding and will call the pharmacy to ok delivery. RUBENS [facility] [id number] Miscellaneous Notes* Telephone Encounter - Owen Phelps - 02/02/2024 11:38 AM EDT Pt returning our call, I relayed the information. He verbalizes understanding and will call the pharmacy to ok delivery. RUBENS * Telephone Encounter - Elmira Landrum MA - 02/02/2024 10:59 AM EDT Called [facility] to check status of patient's gel injection order. Spoke with Lupe she states that they reached out to patient to obtain consent to ship and patient told them that He wasn't interested so they placed his order on hold. I reached out to patient and LVM that he needs to call [facility] if he wants to go ahead with his gel injection. Their # is [phone]. Please relay this m essage to patient if he calls the office. Thank you!! * Telephone Encounter - Elmira Landrum MA - 12/28/2023 11:05 AM EDT Called [facility] and gave ICD 10 code, they state the gel is still processing and will reach out to patient when ready for consent to ship to office * Telephone Encounter - Sharon Hopper - 12/27/2023 9:40 AM EDT Lupe with [facility] called asking for ICD 10 code for Synvisc One. She states when calling back you can speak to anyone in the pharmacy. Please advise. * Telephone Encounter - Elmira Landrum MA - 12/20/2023 3:47 PM EDT No PA needed from [facility] ins for Synvisc one injection. Med is pended, please sign. Thank you! documented in this [facility]07-17-2024 Telephone encounter Note* Telephone Encounter - Elmira Landrum MA - 02/02/2024 10:59 AM EDT Called [facility] to check status of patient's gel injection order. Spoke with Lupe she states that they reached out to patient to obtain consent to ship and patient told them that He wasn't interested so they placed his order on hold. I reached out to patient and LVM that he needs to call [facility] if he wants to go ahead with his gel injection. Their # is [phone]. Please relay this m essage to patient if he calls the office. Thank you!! [facility] [id number] Telephone encounter Note* Telephone Encounter - Elmira Landrum MA - 12/28/2023 11:05 AM EDT Called [facility] and gave ICD 10 code, they state the gel is still processing and will reach out to patient when ready for consent to ship to office [facility] [id number] Miscellaneous Notes* Telephone Encounter - Elmira Landrum MA - 12/28/2023 11:05 AM EDT Called [facility] and gave ICD 10 code, they state the gel is still processing and will reach out to patient when ready for consent to ship to office * Telephone Encounter - Sharon Hopper - 12/27/2023 9:40 AM EDT Lupe with [facility] called asking for ICD 10 code for Synvisc One. She states when calling back you can speak to anyone in the pharmacy. Please advise. * Telephone Encounter - Elmira Landrum MA - 12/20/2023 3:47 PM EDT No PA needed from [facility] ins for Synvisc one injection. Med is pended, please sign. Thank you! documented in this encounterSACMC Healthcare SystemVevcyr29-31-8667 Telephone encounter Note* Telephone Encounter - Ewa Godoy - 12/28/2023 10:25 AM EDT Lupe from [facility] is calling to request the ICD 10 code for the patient for the Synvisc 1. can speak to anyone in the pharmacy in regards to this. [facility] [id number] Miscellaneous Notes* Telephone Encounter - Ewa Godoy - 12/28/2023 10:25 AM EDT Lupe from [facility] is calling to request the ICD 10 code for the patient for the Synvisc 1. can speak to anyone in the pharmacy in regards to this. * Telephone Encounter - Jennifer Fabian - 12/20/2023 3:59 PM EDT Left Knee New Therapy Provider prefers Single Injection (example: Durolane/Gel One). However whatever is a preferred drugon patient's plan is acceptable. Delivery location is [address] [place] [address]. documented in this encounterSACMC Healthcare [id number] Telephone encounter Note* Telephone Encounter - Sharon Hopper - 12/27/2023 9:40 AM EDT Lupe with [facility] called asking for ICD 10 code for Synvisc One. She states when calling back you can speak to anyone in the pharmacy. Please advise. [id number] Miscellaneous Notes* Telephone Encounter - Sharon Hopper - 12/27/2023 9:40 AM EDT Lupe with [facility] called asking for ICD 10 code for Synvisc One. She states when calling back you can speak to anyone in the pharmacy. Please advise. * Telephone Encounter - Elmira Landrum MA - 12/20/2023 3:47 PM EDT No PA needed from [facility] ins for Synvisc one injection. Med is pended, please sign. Thank you! documented in this [facility]06-03-2024 Telephone encounter Note* Telephone Encounter - Jennifer Fabian - 12/20/2023 3:59 PM EDT Left Knee New Therapy Provider prefers Single Injection (example: Durolane/Gel One). However whatever is a preferred drugon patient's plan is acceptable. Delivery location is [address] [place] [address]. [facility] [id number] Telephone encounter Note* Telephone Encounter - Elmira Landrum MA - 12/20/2023 3:47 PM EDT No PA needed from [facility] ins for Synvisc one injection. Med is pended, please sign. Thank you! [facility] GlenbeighPcgyhv17-29-9648 Miscellaneous Notes* Telephone Encounter - Elmira Landrum MA - 12/20/2023 3:47 PM EDT No PA needed from [facility] for Synvisc one injection. Med is pended, please sign. Thank you! documented in this [facility]06-03-2024 History of Present illness Narrative* Yessy Villarreal MD - 12/20/2023 3:15 PM EDT Images from the original note were not included. [facility] [address] [place] [address] Dept: [phone] Dept Chief Complaint Patient presents with New Patient Knee Pain left Subjective History of Present Illness: Tres Dickson follows up today for left knee pain. Since the last visit on 06/01/2022, symptoms improved initially but over the last few months he hasbeen experiencing a tight stiffness that hurts more when he is climbing and descending stairs . Current symptoms are tight/stiff. He rates symptoms as a 4/10 at rest and a 8/10 at worst. Imaging to date: X-ray May 2022 Treatment to date: PT/OT/HEP: doing his own workouts in the gym Ice: no Heat: no Medications: Voltaren Tylenol: yes, helpful NSAIDs: no Oral steroids: no Muscle relaxants: no Nerve medications: no Targeted injections: Corticosteroid 06/01/2022. Helpful. Assistive devices: none Fall risk assessment: Completed today. Have you had 2 or more falls in the last year? No Have you had a fall with injury in the last year? No Do you feel unsteady or worried about falling? No ----- Hyaluronic acid prior authorization information summary ----- Requested agent: [employer] (or insurance approved similar agent) Knee: left Injections requested: 1 shot series Knee symptoms have been present for more than 6 months: Yes Prior knee x-rays with diagnostic criteria confirming osteoarthritis: Yes Previously treatment plans tried over the last 6-12 months that have been ineffective include Tylenol: Yes Oral Anti-inflammatories: Yes Weight loss: Yes Home exercise program: Yes Formal physical therapy: No Intra-articular Corticosteroid injection: Yes Previous treatment plans tried Prior intra-articular hyaluronic acid injection series completed: No If performed, did it last more than 6 months: N/A The office staff will begin the prior authorization and purchasing procedure for your hyaluronic acid injection series. As discussed at your office visit, this process can take up to 4 weeks to complete. Our staff will call you when your injections are approved. If 4 weeks has passed since your appointment, please feel free to call us and check on the status of your authorization. Objective There were no vitals taken for this visit. Physical Exam: General: Alert, well appearing, no acute distress. Respiratory: Breathing comfortably on room air. No respiratory distress. Skin: Warm, dry, intact. No visible rashes or erythema overlying area of focused exam. Physical Exam Musculoskeletal: Left knee: Swelling (trace) and effusion (small) present. No deformity, erythema, ecchymosis or bony tenderness. Normal range of motion. Tenderness present over the medial joint line. No lateral joint line, MCL or LCL tenderness. No LCL laxity, MCL laxity, ACL laxity or PCL laxity.Normal patellar mobility. Instability Tests: Anterior drawer test negative. Posterior drawer test negative. Anterior Kieran test negative. Medial Renee test negative and lateral Renee test negative. Legs: External Notes No pertinent interval updates Labs No results found for: HGBA1C Lab Results Component Value Date CREATININE 0.97 11/13/2022 Imaging I have personally reviewed the images pertinent to the appointment today EMG/NCT N/A Procedure Procedure completed today, details below Procedure Note: We discussed risks and precautions including infection, bleeding, hypopigmentation, fat atrophy una 1-2% chance of a steroid flare. Verbal and written consent was obtained. The left knee injection site was located, confirmed and marked, it was prepped in the usual fashionwith betadine and isopropyl alcohol. 2 cc of Betamethasone (6mg/ml) and 4 cc of 1% lidocaine were placed in the, intra-articular, intracondylar space using a inferior lateral approach. The procedure was tolerated well. There were no complications with the injection. The injection site was bandaged. Assessment Diagnosis Plan 1. Primary osteoarthritis of left knee Plan We discussed osteoarthritis of the knee. We reviewed the spectrum of 1. Pills - everything from Tylenol, ibuprofen, Aleve, and pain medicines. We also discussed glucosamine/chondroitin combinations and how to perform a glucosamine trial. Additionally Tumeric can be supplemented, it is likely similar to ibuprofen and is generally safe for most people to take. Glucosamine Trial: As a treatment for arthritis, we discussed a trial of glucosamine, fiti-[id number]-[id number]. We talked about using a good quality glucosamine source as the testing agent. Cosamin DS or Osteo-Bio Flex would be two of the options to pick from. Write down, using as many numbers as possible, a description of when the arthritis is symptomatic (i.e. I can go up 1 flight of stairs before my knee hurts, I can sleep 4 hours before my knee wakes me, my knee begins to hurt me at 2 p.m. on a work day ). This documentation will be kept for comparison in 3-4 months. Take the glucosamine twice daily for 3-4 months. Comparing your symptoms sheet, and see if there is improvement. Glucosamine will work in approximately 60-65% of people. If it is helping continue the supplementation. If there is no improvement you can stop the glucosamine. 2. Physical therapy - formal physical therapy and braces. The benefits of strengthening, endurance,flexibility, balancing, and proprioception. The combination of all of these to decrease joint pain. 3. Shots - corticosteroid, hyaluronic acid, and investigational injections. We discussed the episodic nature, and Band-Aid nature of cortisone. No more frequent than every 3-4 months, the potential for cortisone to soften articular cartilage with repetitive use. And the use as a bridge agent. We also discussed hyaluronic acid injection series and the potential benefits of lubrication, nourishing the cartilage, re-booting the knee capsule and the potential for 1 year of improvement. 4. Surgery - cleanup procedures as well as total joint replacement. We discussed the need to progress through conservative measures before this is a viable option. All treatment options were discussed. All questions were answered. We will continue with prn oral medication, a glucosamine trial and a HEP. We will recheck as outlined to alter therapy as needed. No follow-ups on file. Yessy Villarreal MD 12/20/2023 3:02 PM Please note that portions of this note may have been completed with voice recognition software. 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 documented in this [facility]08-10-2023 NoteHNO ID: [id number] Author: Karrie Jasso RN Service: ? Author Type: Registered Nurse Type: Nursing Progress Note Filed: 02/25/2023 11:07 AM Note Text: Physician at bedside.[facility]08-10-2023 NoteHNO ID: [id number] Author: Harig, Karrie, RN Service: ? Author Type: Registered Nurse Type: Nursing Progress Note Filed: 02/25/2023 10:53 AM Note Text: Pt. States readiness for discharge. Assisted with dressing.[facility]08-10-2023 Nurse Note* Karrie Jasso RN - 02/25/2023 11:07 AM EDT Physician at bedside. [facility]08-10-2023 Nurse Note* Karrie Jasso RN - 02/25/2023 11:07 AM EDT Physician at bedside. * Karrie Jasso RN - 02/25/2023 10:53 AM EDT Pt. States readiness for discharge. Assisted with dressing. [facility]* Karrie Jasso RN - 02/25/2023 10:53 AM EDT Pt. States readiness for discharge. Assisted with dressing. [facility]08-10-2023 Nurse procedure note* Sedation Documentation - Adore Arredondo RN - 02/25/2023 10:16 AM EDT Abdominal support applied. [facility]08-10-2023 Miscellaneous Notes* Sedation Documentation - Adore Arredondo RN - 02/25/2023 10:16 AM EDT Abdominal support applied. [facility] History and physical note * Joaquin Benito MD - 02/25/2023 10:00 AM EDT HISTORY AND PHYSICAL Tres Dickson, 77 year old male here for colonoscopy, average risk for colon cancer screening Current history and physical on file: No Is a new History and Physical required for today's visit? Yes Indication for procedure: Screening PROCEDURE(S) SCHEDULED FOR: Colonoscopy with or without biopsies and with or without removal of polyps or lesions, dilation (any means), treatment of bleeding (any means), based on clinical findings. BASELINE BEHAVIOR: Calm BASELINE ORIENTATION: A & O x3 All medications and allergies reviewed: Yes Skin Assessment: Warm dry muscus membranes pink Airway/Respiratory Assessment: Airway: visualization of the uvula- Yes Mouth: opening greater than 2 fingerbreadths- Yes Neck: full range of motion- Yes Breath sounds clear/equal- Yes Cardiac Assessment: Regular rate and rhythm without murmur Abdominal Assessment: Abdomen soft, non-tender, no masses or organomegaly. Sedation Plan: Deep Additional Comments: None Joaquin Benito MD [facility] Work Phone: [phone]) 442-812508-10-2023 History and physical note* Joaquin Benito MD - 02/25/2023 10:00 AM EDT HISTORY AND PHYSICAL Tres Dickson, 77 year old male here for colonoscopy, average risk for colon cancer screening Current history and physical on file: No Is a new History and Physical required for today's visit? Yes Indication for procedure: Screening PROCEDURE(S) SCHEDULED FOR: Colonoscopy with or without biopsies and with or without removal of polyps or lesions, dilation (any means), treatment of bleeding (any means), based on clinical findings. BASELINE BEHAVIOR: Calm BASELINE ORIENTATION: A & O x3 All medications and allergies reviewed: Yes Skin Assessment: Warm dry muscus membranes pink Airway/Respiratory Assessment: Airway: visualization of the uvula- Yes Mouth: opening greater than 2 fingerbreadths- Yes Neck: full range of motion- Yes Breath sounds clear/equal- Yes Cardiac Assessment: Regular rate and rhythm without murmur Abdominal Assessment: Abdomen soft, non-tender, no masses or organomegaly. Sedation Plan: Deep Additional Comments: None Joaquin Benito MD documented in [facility] Instructions* Patient Instructions* Elmira Galicia - 12/02/2022 11:38 AM EDT Images from the original note were not included. Bowel Preparation Instructions for: Miralax-Gatorade Preparations IF YOU DO NOT FOLLOW THESE DIRECTIONS, YOUR COLONOSCOPY WILL BE CANCELLED. Corey Instructions: Your bowel must be empty so that your doctor can clearly view your colon. Follow all of the instructions in this handout EXACTLY as they are written. Do NOT eat any solid food the ENTIRE day before your colonoscopy. Buy your bowel preparation at least 5 days before your colonoscopy. Four (4) Dulcolax laxative tablets containing 5mg of bisacodyl each (NOT Dulcolax stool softener) One (1) 8.3oz. bottle Miralax (238 grams) or generic equivalent 2 x 32oz. Bottles of Gatorade (NOT RED) Diabetic Patients: Use G2 (Gatorade 2) TRANSPORTATION on the Day of Your Exam A responsible adult MUST be present with you at Check In prior to your colonoscopy and REMAIN in the endoscopy area until you are discharged. You are NOT ALLOWED to drive, take a taxi or bus, or leave the Endoscopy Center ALONE. If you do not have a responsible milk truck driver (family member or friend) withyou to take you home, your exam cannot be done with sedation and will be cancelled. Please bring a list of all of your current medications, including any Zqdo-yfj-Hylcoyh medications with you. Medications If you take insulin, diabetic medications or blood thinners such as Coumadin (warfarin), Plavix (clopidogrel), Ticlid (ticlopidine hydrochloride), Agrylin (anagrelide), Xarelto (Rivaroxaban), Pradaxa(Dabigatran), Eliquis (Apixaban), and Effient (Prasugrel). You MUST call the doctors who orders those medicines for instructions on altering the dosage before your colonoscopy. All other medications should be taken the day of the exam with a sip of water including ASPIRIN. Five (5) Days Before Your Colonoscopy Do NOT take medicines that stop diarrhea - such as Imodium, Kaopectate, or Pepto Bismol. Do NOT take fiber supplements - such as Metamucil, Citrucel, or Perdiem. Do NOT take products that contain iron - such as multi-vitamins (the label lists what is in the products). Three (3) Days Before Your Colonoscopy Do NOT eat high-fiber foods - such as popcorn, beans, seeds (flax, sunflower, quinoa), multigrain bread, nuts, salad/vegetables, or fresh and dried fruit. 1 Bowel Preparation Instructions for: Miralax-Gatorade Preparations One (1) Day Before Your Colonoscopy Only drink clear liquids the ENTIRE DAY before your colonoscopy. Do NOT eat any solid foods. Drink at least 8 ounces of clear liquids every hour after waking up. The clear liquids you can drink include: Clear Liquid (NO RED LIQUIDS) DO NOT DRINK Gatorade, Pedialyte or Powerade Clear broth or bouillon Coffee or tea (no milk or non-dairy creamer) Carbonated and non-carbonated soft drinks Ashkan-Aid or other fruit flavored drinks Strained fruit juices (no pulp) Jell-O, popsicles, hard candy Water Alcohol Milk or non-dairy creamers Noodles or vegetables in soup Juice with pulp Liquid you cannot see through Do not use tobacco/vaping products Mix 1/2 of Miralax bottle (119 grams) in each 32 ounces of Gatorade bottle until dissolved. Keep cool in the refrigerator. DO NOT ADD ICE. The bowel preparation solution will be consumed in two parts. Part 1 5:00 PM - Evening before your colonoscopy Take 4 Dulcolax tablets. 6 PM - Evening before your colonoscopy Drink 32 oz. of the mixed solution. Drink an 8 oz. glass of bowel preparation every 15 minutes for a total of 4 glasses. Fifteen (15) minutes later, drink an 8 oz. glass of of clear liquids every 15 minutes for a total of 2 glasses. You may continue to drink clear liquids till midnight. Part 2 On the day of your colonoscopy you may drink clear liquids up to (three) 3 hours prior to procedure. 4 1/2 hours before your colonoscopy Take another 32 oz. bottle of mixed solution. Drink an 8 oz. glass of bowel prep every 15 minutes for a total of 4 glasses. Fifteen (15) minutes later, drink an 8 oz. glass of clear liquids every 15 minutes for a total of 2glasses. You may continue to drink clear liquids up to (three) 3 hours before your exam. 2 06/2019 [facility] Miscellaneous Notes* Telephone Encounter - Elmira Galicia - 12/02/2022 11:33 AM EDT Indication: HIGH RISK SCREENING COLONOSCOPY Height: 510 Weight: 175 BMI: 25.1 Have you ever been told you were difficult to intubate? No (If yes, schedule at hospital) Recent stroke or cardiac event in the past 6 months? No (ex: heart attack or stent placement) Chest pain or shortness of breath on exertion? No If yes, give to AGRICULTURAL ENGINEERING TECHNOLOGIST to evaluate. History of COPD/Emphysema/Asthma/or Sleep Apnea? No If uses an inhaler, have pt bring inhaler with them. On oxygen at home? No If yes, give to AGRICULTURAL ENGINEERING TECHNOLOGIST to evaluate. Implanted defibrillator (ACD)? No If yes, schedule at hospital Allergies: Latex, Adhesives, or Medication? No If anaphylactic reaction to latex, schedule at hospital On any blood thinners? No (Coumadin, Plavix, ASA, Xarelto, Brilinta, Eliquis, Pradaxa, Efficent etc.) If yes, need to check with physician on whether to stop them or OV Are you insulin dependent? Are your sugars in control? Ask what BS is running. No If controlled sugars needs scheduled in early AM, If uncontrolled sugars and are over 250 needs to be scheduled at hospital. Any kidney/liver disease or on dialysis? No If cirrhosis pt., have AGRICULTURAL ENGINEERING TECHNOLOGIST review chart Do you have a history of seizures? No If yes, when was last seizure? Tracheostomy new or old No If yes, schedule at hospital Any surgery or radiation to the head or neck? No If can't move neck side to side & up and down, schedule at hospital. Radiation to neck or head automatically gets scheduled at hospital COVID patients. Are you still having symptoms such as shortness of breath, on oxygen, using inhalers, seeing adjunct physical education instructor? No If yes, have AGRICULTURAL ENGINEERING TECHNOLOGIST evaluate patient Personal History Colon polyps? Yes Colon cancer? No Crohn's Disease? No Ulcerative Colitis? No Who/where? Approx date 2011 Family History Colon polyps? No Colon cancer? No Crohn's Disease? No Ulcerative Colitis? No Relationship? Approx age dx. Referring Physician: Office Visit Scheduled: Procedure Date Scheduled: [facility] Diagnosis Benign neoplasm of colon, unspecified part of colon- Primary [facility] in [facility]* Diagnosis Personal history of nicotine dependence documented in this encounter [facility] note* Diagnosis Hypertensive chronic kidney disease with stage 1 through stage 4 chronic kidney disease, or unspecified chronic kidney disease- Primary Type 2 diabetes mellitus with diabetic chronic kidney disease (HCC) Mixed hyperlipidemia Benign prostatic hyperplasia without lower urinary tract symptoms documented in this encounter [facility] note* Diagnosis Personal history of nicotine dependence- Primary Personal history of nicotine dependence documented in this encounter [facility] note* Diagnosis Onset Date Resolution Status Edema, lower extremity acute Varicosities of leg acute Hypertension [facility] Work Phone: evaluation note* Diagnosis Onset Date Resolution Status Varicosities of leg acute Hyperlipidemia acute Hypertension [facility] Work Phone: evaluation note* Diagnosis Primary osteoarthritis of left knee- Primary documented in this encounter [facility] note* Diagnosis Primary osteoarthritis of left knee- Primary documented in this encounter [facility] note* Diagnosis Benign neoplasm of colon, unspecified part of colon documented in this encounter [facility]* Diagnosis Primary osteoarthritis of left shoulder- Primary documented in this encounter [facility] note* Diagnosis Primary osteoarthritis of left shoulder documented in this encounter [facility] note* Diagnosis Primary osteoarthritis of left shoulder- Primary [facility] Diagnosis Primary osteoarthritis of left shoulder- Primary [facility]* Diagnosis Pain in left knee- Primary [facility]* Diagnosis Primary osteoarthritis of left shoulder documented in this encounter [facility] for referral (narrative)* Outpatient Procedure (Routine) - Authorized Specialty Diagnoses / Procedures Referred By Contac t Referred To Contact [facility] Diagnoses Benign neoplasm of colon, unspecified part of colon Procedures COLONOSCOPY SCREENING COLONOSCOPY FLX DX W/COLLJ SPEC WHEN Joaquin Gordon MD [address] [place] [address] [facility] [address] [place] [id number] Referral ID Status Reason Start Date Expiration Date Visits Requested Visits Authorized [id number] Authorized Auto-Generat ed Referral 12/02/2022 12/03/2023 1 1 [facility] for referral (narrative)* Outpatient Procedure (Routine) - Closed Specialty Diagnoses / Procedures Referred By Contac t Referred To Contact [facility] Diagnoses Benign neoplasm of colon, unspecified part of colon Procedures COLONOSCOPY SCREENING COLONOSCOPY FLX DX W/COLLJ SPEC WHEN Joaquin Gordon MD [address] [place] [address] [facility] [address] [place] [address] Referral ID Status Reason Start Date Expiration Date V isits Requested Visits Authorized [id number] Closed Auto-Generate d Referral 12/02/2022 12/03/2023 1 1 [facility] for visit Narrative* Outpatient Procedure (Routine) - Closed Specialty Diagnoses / Procedures Referred By Contac t Referred To [facility] Diagnoses Benign neoplasm of colon, unspecified part of colon Procedures COLONOSCOPY SCREENING COLONOSCOPY FLX DX W/COLLJ SPEC WHEN Joaquin Gordon MD [address] [place] [address] [facility] [address] [place] [address] Referral ID Status Reason Start Date Expiration Date V isits Requested Visits Authorized [id number] Closed Auto-Generate d Referral 12/02/2022 12/03/2023 1 1 [facility] for visit Narrative* Therapy (Routine) - Authorized Specialty Diagnoses / Procedures Referred By Kelvin gauthier Referred To Contact Physical Therapy Diagnoses Primary osteoarthritis of left shoulder Procedures DE OFFICE/OUTPATIENT NEW HIGH MDM 60 MINUTES Yessy Villarreal MD [address] [place] [id number] Phone: tel: fax: [facility] at [address] [address] Phone: tel: fax: Referral ID Status Reason Start Date Expiration Date Visits Requested Visits Authorized [id number] Authorized Specialty Services Required 04/28/2025 99 99 [facility] Advance Directives No Advanced Directives Records FoundDocuments on File Type Date Recorded 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 Advance Directives and Living Will Power of Cloth Napping Supervisor Family History No Family History Records FoundUnknown Family Member Name Dates Details No pertinent family history: Mother, Father(V49.89, Z78.9) Status:Active Summary Purpose Reason for Referral Specialty Diagnoses / Procedures Referred By Kelvin gauthier Referred To Contact Radiology Diagnoses Personal history of nicotine dependence Procedures CT lung screening low dose Jania Myers, 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 [address] [place] [address] Referral ID Status Reason Start Date Expiration Date Visits Re quested Visits Authorized [id number] Closed 12/07/2022 06/05/2023 1 1 Specialty Diagnoses / Procedures Referred By Kelvin gauthier Referred To Contact Diagnoses Primary osteoarthritis of left knee Yessy Villarreal MD [address] [place] [id number] Referral ID Status Reason Start Date Expiration Date V isits Requested Visits Authorized [id number] Pending Review 02/25/2024 02/19/2025 1 1 Specialty Diagnoses / Procedures Referred By Kelvin gauthier Referred To Contact Physical Therapy Diagnoses Primary osteoarthritis of left shoulder Procedures DE OFFICE/OUTPATIENT NEW HIGH MDM 60 MINUTES Yessy Villarreal MD [address] [place] [address] [facility] [address] [place] [address] Referral ID Status Reason Start Date Expiration Date Visits Requested Visits Authorized [id number] Authorized Specialty Services Required 04/28/2025 99 99 Chief Complaint and Reason for Visit Chief Complaint Concern about veins in his legs BILAT LOWER EXT SWELLING EDEMA Reason for Visit Edema, lower extremi ty Varicosities of leg Hypertension Chief Complaint BILAT LOWER EXT SWEL LING EDEMA Consult medication refills Reason for Visit Varicosities of leg Hyperlipidemia Hypertension Chief Complaint Admit Date 6 W FU August 23, 2024 9 :13am RIGHT EYE November 02, 2024 3:5 1pm RETINAL ARTERY OCCLUSION (KELLEY) Ma y 2024 8:44am Reason for Visit Admit Date Obstructive sleep apnea August 23 9:13am [place]ollen[place]st plaque, right eye October 3:51pm Hyperlipidemia November 02, 2024 3:5 1pm Hypertension November 02, 2024 3:5 1pm Chief Complaint Admit Date 6 W FU August 23, 2024 9 :13am RIGHT EYE November 02, 2024 3:5 1pm RETINAL ARTERY OCCLUSION (KELLEY) Ma y 2024 8:44am labs to be drawn December 14, 2024 3:44p m Reason for Visit Admit Date Obstructive sleep apnea August 23 9:13am Hyperlipidemia November 02, 2024 3:5 1pm [place] plaque, right eye October 3:51pm Hypertension November 02, 2024 3:5 1pm Coronary artery disease December 14, 2024 8 :44am Dyslipidemia December 14, 2024 8:44a m H/O enucleation of left eyeball November 8:44am History of coronary artery bypass graft x 1 December 14, 2024 8:44am Hollenhorst plaque, right eye December 14, 2024 8:44am Hypertension December 14, 2024 8:44a m Hyperlipidemia May 29th, 2025 3:44p m Obstructive sleep apnea December 14, 2024 3 :44pm Dyslipidemia December 14, 2024 3:44p m H/O enucleation of left eyeball November 3:44pm H[place]st plaque, right eye December 14, 2024 3:44pm Hypertension December 14, 2024 3:44p m Additional Source Comments (unrecognized sect ion and content) No Status Records FoundNo Status Records FoundNo Status Records FoundNo Status Records FoundNo Status Records FoundNo Status Records FoundNo Status Records Found INFORMATION SOURCE (unrecogn ized section and content) DATE CREATED AUTHOR 05/12/2022 [facility] [employer] DATE CREATED AUTHOR AUTHOR'S ORGANIZ ATION 02/26/2023 [facility] DATE CREATED AUTHOR AUTHOR'S ORGANIZ ATION 03/04/2023 [facility] DATE CREATED AUTHOR AUTHOR'S ORGANIZ ATION 03/04/2023 [employer] DATE CREATED AUTHOR AUTHOR'S ORGANIZ ATION 06/06/2024 [facility] [employer] [facility] DATE CREATED AUTHOR AUTHOR'S ORGANIZ ATION 06/23/2024 [facility] DATE CREATED AUTHOR AUTHOR'S ORGANIZ ATION 12/20/2024 [facility] Care Teams (unrecognized sec tion and content) Team Status: Active Member Role Status Dates Diana Kelley NP, NP-C Primary Care Provider Active Team Status: Inactive Member Role Status Dates Diana Kelley NP, NP-C Primary Care Provider Active Start: August 23, 2024 End: August 23, 2024 Diana Kelley NP, NP-C Referring Provider Active Start: August 23, 2024 End: August 23, 2024 SYBIL HoffmanC Attending Provider Active Start: August 23, 2024 End: August 23, 2024 Team Status: Inactive Member Role Status Dates Diana Kelley NP, NP-C Primary Care Provider Active Start: November 02, 2024 End: November 02, 2024 Diana Kelley NP, NP-C Attending Provider Active Start: November 02, 2024 End: November 02, 2024 Diana Kelley NP, NP-C Referring Provider Active Start: November 02, 2024 End: November 02, 2024 Team Status: Inactive Member Role Status Dates Diana Kelley TANK OPERATOR, TANK OPERATOR-C Primary Care Provider Active Start: December 14, 2024 End: December 14, 2024 Diana Kelley TANK OPERATOR, TANK OPERATOR-C Referring Provider Active Start: December 14, 2024 End: December 14, 2024 Dr. Magda Husain MD Attending Provider Active Start: December 14, 2024 End: December 14, 2024 Manager Business Management Relationship Specialty Start Date End Date Regis Bravo MD [address] [place] [phone] PCP - General 12/17/18 Manager Business Management Relationship Specialty Start Date End Date Regis Bravo MD [address] [place], [place] [phone] PCP - General Family Medicine 12/02/22 Manager Business Management Relationship Specialty Start Date End Date Regis Bravo MD [address] [place] [phone] PCP - General 12/17/18 Manager Business Management Relationship Specialty Start Date End Date Regis Bravo MD [address] [place] [phone] PCP - General 12/17/18 Manager Business Management Relationship Specialty Start Date End Date Regis Bravo MD [address] [place], [place] [phone] PCP - General Family Medicine 12/02/22 Manager Business Management Relationship Specialty Start Date End Date Regis Bravo MD [address] [place] [phone] PCP - General 12/17/18 Team Status: Active Member Role Status Dates Diana Kelley NP, TANK OPERATOR-C Primary Care Provider Active Dr. Carson Hanna MD Attending Provider Active Team Status: Inactive Member Role Status Dates Diana Kelley TANK OPERATOR, TANK OPERATOR-C Attending Provider Active Team Status: Inactive Member Role Status Dates Diana Kelley TANK OPERATOR, TANK OPERATOR-C Primary Care Pr ovider, Attending Provider, Referring Provider Active Team Status: Active Member Role Status Dates Diana Kelley TANK OPERATOR, TANK OPERATOR-C Primary Care Provider, Referr ing Provider Active Dr. Carson Hanna MD Attending Provider Active Team Status: Inactive Member Role Status Dates Diana Kelley TANK OPERATOR, TANK OPERATOR-C Primary Care Provider, Referr ing Provider Active VALERIA Salazar Attending Provider Active Manager Business Management Relationship Specialty Start Date End Date Regis Bravo MD [address] [place] [phone] PCP - General 12/17/18 Manager Business Management Relationship Specialty Start Date End Date Regis Bravo MD [address] [place] [phone] PCP - General 12/17/18 Manager Business Management Relationship Specialty Start Date End Date Regis Bravo MD [address] [place] [phone] PCP - General 12/17/18 Manager Business Management Relationship Specialty Start Date End Date Regis Bravo MD [address] [place] [phone] PCP - General 12/17/18 Manager Business Management Relationship Specialty Start Date End Date Regis Bravo MD [address] [place] [phone] PCP - General 12/17/18 Manager Business Management Relationship Specialty Start Date End Date Regis Bravo MD [address] [place] [phone] PCP - General 12/17/18 Manager Business Management Relationship Specialty Start Date End Date Regis Bravo MD [address] [place] [phone] PCP - General 12/17/18 Manager Business Management Relationship Specialty Start Date End Date Regis Bravo MD [address] [place] [address] PCP - General 12/17/18 Manager Business Management Relationship Specialty Start Date End Date Regis Bravo MD [address] [place] [address] PCP - General 12/17/18 Manager Business Management Relationship Specialty Start Date End Date Regis Bravo MD [address] [place] [phone] PCP - General 12/17/18 Manager Business Management Relationship Specialty Start Date End Date Regis Bravo MD [address] [place] [phone] PCP - General 12/17/18 Manager Business Management Relationship Specialty Start Date End Date Regis Bravo MD [address] [place], [place] [phone] PCP - General Family Medicine 12/02/22 Manager Business Management Relationship Specialty Start Date End Date Regis Bravo MD [address] [place] [phone] PCP - General 12/17/18 Manager Business Management Relationship Specialty Start Date End Date Regis Bravo MD [address] [place] [phone] PCP - General 12/17/18 Manager Business Management Relationship Specialty Start Date End Date Regis Bravo MD [address] [place] [phone] PCP - General 12/17/18 Manager Business Management Relationship Specialty Start Date End Date Regis Bravo MD [address] [place] [phone] PCP - General 12/17/18 Team Status: Inactive Member Role Status Dates Diana Kelley NP, TANK OPERATOR-C Primary Care Provider Active Start: December 14, 2024 End: December 14, 2024 Diana Kelley NP, TANK OPERATOR-C Attending Provider Active Start: December 14, 2024 End: December 14, 2024 Diana Kelley NP, TANK OPERATOR-C Referring Provider Active Start: December 14, 2024 End: December 14, 2024 Team Status: Active Member Role Status Dates Diana Kelley NP, TANK OPERATOR-C Primary Care Provider Active Start: December 14, 2024 Diana Kelley NP, TANK OPERATOR-C Attending Provider Active Start: December 14, 2024 Source Comments (unrecognize d section and content) In the event this informatio n is protected by the Federal Confidentiality of Alcohol and Drug Abuse Patient Records regulations: The Federal rules restrict any use of the information to criminally investigate or prosecute any alcohol or drug abuse patient.[facility] the event this information is protected by the Federal Confidentiality of Alcohol and Drug Abuse Patient Records regulations: The Federal rules restrict any use of the information to criminally investigate or prosecute any alcohol or drug abuse patient.[facility] the event this information is protected by the Federal Confidentiality of Alcohol and Drug Abuse Patient Records regulations: The Federal rules restrict any use of the information to criminally investigate or prosecute any alcohol or drug abuse patient.[facility] Reason for Visit (unrecogniz ed section and content) Reason Comments Screening order/checklist Specialty Diagnoses / Procedures Referred By Contac t Referred To Contact Radiology Diagnoses Personal history of nicotine dependence Procedures CT lung screening low dose Jania Myers, 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 [address] [place] [address] Referral ID Status Reason Start Date Expiration Date Visits Re quested Visits Authorized [id number] Closed 12/07/2022 06/05/2023 1 1 Reason Comments New Patient Knee Pain left Reason Onset Date Comments Gel Inj 12/20/2023 Reason Onset Date Comments Medication Question 02/08/2024 Reason Comments Knee Pain left Reason Onset Date Comments Other 03/16/2024 Annual Lung Scre ening Reminder Reason Comments Follow-up NDX left shoulder Specialty Diagnoses / Procedures Referred By Contac t Referred To Contact Physical Therapy Diagnoses Primary osteoarthritis of left shoulder Procedures DE OFFICE/OUTPATIENT NEW HIGH MDM 60 MINUTES Yesys Villarreal MD [address] [place] [address] [facility] [address] [place] [address] Referral ID Status Reason Start Date Expiration Date Visits Requested Visits Authorized [id number] Authorized Specialty Services Required 4 04/28/2025 99 99 Goals (unrecognized section and content) Goals may be documented in a n alternate sectionGoals may be documented in an alternate sectionGoals may be documented in an alternate sectionGoals may be documented in an alternate section FOR RECORDS PERTAINING TO PATIENTS WHO ARE OR HAVE BEEN ENROLLED IN A CHEMICAL DEPENDENCY/SUBSTANCEABUSE PROGRAM, SOME INFORMATION MAY BE OMITTED. This clinical summary was aggregated from multiple sources. Caution should be exercised in using it in the provision of clinical care. This summary normalizes information from multiple sources, and as a consequence, information in this document may materially change the coding, format and clinical context of patient data. In addition, data may be omitted in some cases. CLINICAL DECISIONS SHOULD BE BASED ON THE PRIMARY CLINICAL RECORDS. [email or web address] [facility]. provides no warranty or guarantee of the accuracy or completeness of information in this document.
[2024-12-22 00:33] LABS: Anion Gap 11 (5-15); BUN 18 mg/dL (4-19); BUN/Creat Ratio 13.8 RATIO (10-20); Calcium,Total 8.8 mg/dL (7.6-11.0); Carbon Dioxide 27.4 mmol/L (21.0-32.0); Chloride 104 mmol/L (98-108); Creatinine, Serum 1.33 mg/dL (0.70-1.20); EST Glomerular Filtration Rate 54 (>60); Glucose 110 mg/dL (70-99); Potassium 4.7 mmol/L (3.3-5.1); Sodium Level 143 mmol/L (133-145)
== END | disposition home or self-care (01) ==
PROVIDERS: Internal Medicine Cardiovascular Disease; PCP Nurse Practitioner; Referring Provider Nurse Practitioner; Visit Provider Nurse Practitioner
DX: I10 Essential (primary) hypertension (principal); G47.10 Hypersomnia, unspecified
CPT/HCPCS: 80048

== ENCOUNTER → 2024-12-28 | Outpatient (CLI) | payer MEDICARE, SELFPAY ==
--- NOTE | 2024-12-28 08:53 | CDU_ITS ---
Reason For Study Reason For Study: Hollenhorst plaque Rt. Velocities/BP Lt. Velocities/BP Prox CCA 57.8/11.6 cm/sec. Prox CCA 81.3/20.7 cm/sec. Mid CCA 64.8/17.7 cm/sec. Mid CCA 80.2/16.3 cm/sec. Dist CCA 50.0/13.0 cm/sec. Dist CCA 61.8/12.6 cm/sec. Prox ICA 144.8/27.9 cm/sec. Prox ICA 76.5/22.5 cm/sec. Mid ICA 82.6/24.9 cm/sec. Mid ICA 47.2/16.6 cm/sec. Dist ICA 85.1/24.9 cm/sec. Dist ICA 74.3/25.4 cm/sec. Rt. ICA/CCA = 2.2. Lt. ICA/CCA = 1.0. Prox ECA 85.0/11.3 cm/sec. Prox ECA 93.7/15.2 cm/sec. Rt. Vert. 55.6/16.3 cm/sec. Lt. Vert. 32.4/11.3 cm/sec. Right Extracranial There is homogeneous, smooth atherosclerotic plaque noted in the right common carotid artery. There is heterogeneous, irregular atherosclerotic plaque noted in the right internal carotid artery. There is intimal thickening but no significant atherosclerotic plaque noted in the right external carotid artery. Antegrade flow is noted in the right vertebral artery. Left Extracranial There is homogeneous, smooth atherosclerotic plaque noted in the left common carotid artery. There is heterogeneous, irregular atherosclerotic plaque noted in the left internal carotid artery. There is intimal thickening but no significant atherosclerotic plaque noted in the left external carotid artery. Antegrade flow is noted in the left vertebral artery. Procedure Carotid Duplex [id number]. This is a Carotid Duplex examination using B-mode, color flow and specral Doppler. Exam performed in department. VL/Carotid Duplex Ultrasound Interpretation Summary Moderate (50-69%) stenosis right extracranial internal carotid. Mild (<50%) stenosis left extracranial internal carotid. Patent and antegrade vertebrals bilaterally. Ordering Physician: Magda Husain Referring Physician: Magda Husain MD Performed By: Lois Ortiz RVT
== END | disposition home or self-care (01) ==
LOC: CVS 08:52
PROVIDERS: PCP Nurse Practitioner; Referring Provider Internal Medicine Cardiovascular Disease; Visit Provider Internal Medicine Cardiovascular Disease
DX: H34.211 Partial retinal artery occlusion, right eye (principal)
CPT/HCPCS: 93880

== ENCOUNTER → 2025-01-24 | Outpatient (CLI) | payer MEDICARE, SELFPAY ==
--- NOTE | 2025-01-24 06:57 | ECHOCS_ITS ---
Reason For Study Reason For Study: CAD/ASHD Procedure This was a 2D Doppler, Color Flow transthoracic echocardiogram. The study was technically difficult. Due to suboptimal imaging windows. Contrast injection was performed. Left Ventricle Normal LV size. Mild concentric left ventricular hypertrophy. Inferior, posterior and apical akinesis. Estimated LVEF 35-40%. Stage I diastolic dysfunction. Right Ventricle Normal right ventricle. Atria The left atrium is mildly enlarged. Normal right atrium. Bubble contrast study is negative for PFO/ASD. Mitral Valve Trivial mitral valve insufficiency. Tricuspid Valve Trivial tricuspid valve insufficiency. Normal pulmonary artery pressure. Aortic Valve Aortic sclerosis, no stenosis. Pulmonic Valve The pulmonic valve is not well visualized. Great Vessels Normal sized aortic root. Pericardium/Pleural No pericardial effusion. Medication Diluted definity 3.0ml given slow IV push to enhance endocardial definition. Performed a rapid injection of agitated mix of 9 cc saline and 1cc air to assess for atrial septal defect. MMode/2D Measurements & Calculations LVIDd: 6.1 cm IVSd: 1.3 cm Ao root diam: 3.2 cm LVIDs: 5.1 cm LVPWd: 1.1 cm RVDd: 3.3 cm FS: 16.7 % LAV(MOD-bp): 69.2 ml LVAd ap4: 39.0 cm2 LVAd ap2: 38.1 cm2 LAV(MOD-bp) Indexed: 35.5 ml/m2 LVLd ap4: 9.2 cm LVLd ap2: 8.6 cm LAV(MOD-sp2): 69.7 ml EDV(MOD-sp4): 139.6 ml EDV(MOD-sp2): 143.6 ml LAV(MOD-sp4): 69.6 ml EDV(sp4-el): 141.1 ml EDV(sp2-el): 143.5 ml LVAs ap4: 29.1 cm2 LVAs ap2: 28.7 cm2 LVLs ap4: 8.3 cm LVLs ap2: 7.9 cm ESV(MOD-sp4): 86.7 ml ESV(MOD-sp2): 91.5 ml ESV(sp4-el): 86.1 ml ESV(sp2-el): 88.3 ml EF(MOD-sp4): 37.9 % EF(MOD-sp2): 36.3 % EF(sp4-el): 39.0 % SV(MOD-sp4): 52.9 ml SV(MOD-sp2): 52.1 ml SV(sp4-el): 55.0 ml SI(MOD-sp4): 27.2 ml/m2 SI(MOD-sp2): 26.8 ml/m2 LA A4 area: 22.2 cm2 LA dimension(2D): 3.2 cm RA A4 area: 13.4 cm2 TAPSE: 1.8 cm Time Measurements MV dec time: 0.32 sec Doppler Measurements & Calculations MV E max daryn: 56.5 cm/sec Lat Peak E' Daryn: 6.0 cm/sec Med Peak E' Daryn: 3.4 cm/sec MV A max daryn: 107.7 cm/sec E/E' lat: 9.4 E/E' med: 16.8 MV E/A: 0.52 MV V2 max: 107.1 cm/sec MV P1/2t max daryn: 82.6 cm/sec Ao V2 max: 132.9 cm/sec MV max P.6 mmHg MV P1/2t: 74.1 msec Ao max P.1 mmHg MV V2 mean: 52.0 cm/sec MV dec slope: 326.8 cm/sec2 Ao V2 mean: 90.9 cm/sec MV mean P.4 mmHg MVA(P1/2t): 3.0 cm2 Ao mean P.7 mmHg MV V2 VTI: 43.3 cm Ao V2 VTI: 34.0 cm AV (velocity ratio): 0.71 LV V1 max: 98.5 cm/sec PA V2 max: 71.2 cm/sec TR max daryn: 237.0 cm/sec LV V1 max P.9 mmHg TR max P.5 mmHg LV V1 mean P.7 mmHg LV V1 mean: 60.1 cm/sec LV V1 VTI: 24.2 cm ECHO/Echo Complete W/ Contrast Interpretation Summary Mild concentric left ventricular hypertrophy. Inferior, posterior and apical akinesis. Estimated LVEF 35-40%. Stage I diastol ic dysfunction. The left atrium is mildly enlarged. Aortic sclerosis, no stenosis. Ordering Physician: Magda Husain Referring Physician: Diana Kelley Performed By: Katie Nair, JEFFERY, RVT
--- NOTE | 2025-01-24 09:50 | STRESSREP_ITS ---
Stress Test Report Date: 01/24/2025 Procedure: Exercise tolerance test/imaging study Indications: Coronary artery disease Consent: Per the patient Procedure: The patient exercised on a Romel protocol for 6 minutes achieving a peak heart rate of 129 bpm (91% predicted maximal heart rate) with a peak blood pressure 164/96 mmHg and a peak MET capacity of 7.0 METs. The baseline ECG demonstrated sinus rhythm with Q waves in inferior leads suggestive of old inferior WA. The peak exercise ECG failed to show any diagnostic ischemic changes. No significant cardiac arrhythmias noted. The functional capacity was considered average. There was no complaint of chest discomfort during exercise or recovery. The examination was discontinued secondary to target heart rate being achieved and dyspnea. The patient was injected with 11.8 mCi of technetium 99m Cardiolite and subsequently rest SPECT Cardiolite nuclear imaging was obtained in the hori zontal long, vertical long, and short axis views. Post-exercise, the patient was injected with 34.7 mCi of technetium 99m Cardiolite and subsequently stress SPECT Cardiolite nuclear imaging was obtained in the horizontal long, vertical long, and short axis views. A gated Cardiolite study at peak stress was obtained. Rest and stress SPECT Cardiolite nuclear imaging status post realignment, marlee lization, and attenuation correction, demonstrates a large inferior and lateral resting defect suggestive of prior inferolateral infarct. There is moderate worsening post exercise suggestive of moderate tye-infarct ischemia. The gated study reveals inferolateral akinesis. The reported LVEF is 32%. Impression: 1. Technically adequate (percent predicted maximal heart rate greater than 85%) exercise tolerance test 2. Peak exercise ECG with no diagnostic ischemic changes 3. No significant cardiac arrhythmias noted 4. 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 5. The gated Cardiolite study reports an LVEF of 32%. This note was generated with [employer]ified [employer] software. It may contain incorrect words, spelling, and punctuation that were not noted in checking the note before signing.
--- OUTSIDE RECORDS SUMMARY | 2025-01-25 03:36 | XMS RPT_ITS | CCD ---
Author Organization [facility] Care Team Providers Care Muffler Hand Name Role Phone Regis Bravo Primary Care Provider Regis Bravo Unavailable Unavailable Unavailable Regis Bravo Attending Unavailable Regis Bravo Primary Care Unavailable PROVIDER, UNKNOWN Referring Unavailable Regis Bravo MD Primary Care Provider [phone] Regis Bravo MD Primary Care [facility] er Regis Bravo MD Primary Care Provider REGIS BRAVO Referring REGIS Love Primary Care JOAQUIN Peters Attending Dr. Regis Damon Primary Care Un available Gene, Dr. Rafa Mckeon Attending uHi Dockery, Dr. Rafa Mckeon Referring Hui Kelley SENIOR ACCOUNTING CLERK, SENIOR ACCOUNTING CLERK-C Diana Primary Care Provider Dr. Carson Hanna Attending Provider [phone] Warren SENIOR ACCOUNTING CLERK, SENIOR ACCOUNTING CLERK-C Diana Primary Care Provider Warren SENIOR ACCOUNTING CLERK, SENIOR ACCOUNTING CLERK-C Diana Referring Provider Dr. Carson Hanna Attending Provider VALERIA Weller Attending Provider [phone] Regis Bravo MD Primary Care [facility] er REGIS BRAVO Primary Care Unavailable [...] Referring Unavailable FINNERAN, REGIS Primary Care Unavailable Kelley SENIOR ACCOUNTING CLERK-C, Diana Primary Care Provider Kelley SENIOR ACCOUNTING CLERK-C, Diana Referring Provider [phone] Olivia GÓMEZ-CRoshni Attending Provider Kelley SENIOR ACCOUNTING CLERK-C, Diana Attending Provider [phone] Magda Husain MD Attending Provider [phone] Kelley SENIOR ACCOUNTING CLERK-C, Diana Primary Care Provider [phone] Kelley SENIOR ACCOUNTING CLERK-C, Diana Referring Provider [phone] Magda Husain MD Referring Provider Dr. Carson Hanna MD Attending Provider [phone] RAFA DOCKERY Attending Unavailable FINNERAN, REGIS P Primary Care Unavailable RAFA DOCKERY Attending Unavailable FINNERAN, REGIS P Primary Care Unavailable Kelley SENIOR ACCOUNTING CLERK, Diana Primary Care Unavailable Magda Husain Attending Unavailable Magda Husain Referring Unavailable Kelley SENIOR ACCOUNTING CLERK, Diana Primary Care Unavailable Kelley SENIOR ACCOUNTING CLERK, Diana Attending Unavailable Kelley SENIOR ACCOUNTING CLERK, Diana Referring Unavailable Kelley SENIOR ACCOUNTING CLERK, Diana Referring Unavailable Kelley SENIOR ACCOUNTING CLERK, Diana Attending Unavailable Kelley SENIOR ACCOUNTING CLERK, Diana Primary Care Unavailable Kelley SENIOR ACCOUNTING CLERK, Diana Referring Unavailable Kelley SENIOR ACCOUNTING CLERK, Diana Primary Care Unavailable Kelley SENIOR ACCOUNTING CLERK, Diana Attending Unavailable Germain SENIOR ACCOUNTING CLERK, Estrellita Attending Unavailable Germain SENIOR ACCOUNTING CLERK, Estrellita Referring Unavailable Kelley SENIOR ACCOUNTING CLERK, Diana Primary Care Unavailable Kelley SENIOR ACCOUNTING CLERK, Diana Primary Care Unavailable Kelley SENIOR ACCOUNTING CLERK, Diana Attending Unavailable Kelley SENIOR ACCOUNTING CLERK, Diana Referring Unavailable Kelley SENIOR ACCOUNTING CLERK, Diana Primary Care Unavailable Magda Husain Attending Unavailable Rodrigue, Magda Referring Unavailable Germain SENIOR ACCOUNTING CLERK, Estrellita Attending Unavailable Kelley SENIOR ACCOUNTING CLERK, Diana Primary Care Unavailable Warren SENIOR ACCOUNTING CLERK, Diana Referring Unavailable Warren SENIOR ACCOUNTING CLERK, Diana Primary Care Unavailable Roshni Baker NP Attending Unavailable Warren SENIOR ACCOUNTING CLERK, Diana Referring Unavailable Warren SENIOR ACCOUNTING CLERK, Diana Primary Care Unavailable RodrigueMagda schuler Attending Unavailable Warren SENIOR ACCOUNTING CLERK, Diana Referring Unavailable Warren SENIOR ACCOUNTING CLERK, Diana Primary Care Unavailable Carson Hanna Attending Unavailable Rodrigue, Magda Referring Unavailable Warren SENIOR ACCOUNTING CLERK, Diana Referring Unavailable Warren SENIOR ACCOUNTING CLERK, Diana Primary Care Unavailable Roshni Baker NP Attending Unavailable Allergies Allergy Classification Reported Allergen(s) Allergy Type Date of Onset Reaction(s) Facility (1 source) ALLERGIES NOT ON FILE; Translations: [ALLERGIES NOT ON FILE] Propensity to adverse reactions (disorder) [facility] 3 Repository Medications Current Medications Medication [...] 12 mg colchicine 0.6 mg oral tablet (7 sources) Start: 01-10-2024 End: 03-13-2024 take 1 [...] Polymyxin-class Antibacterial, Corticosteroid Start: 03-02-2018 Neomycin-Polymyxin -Dexameth 3.5-23413-5.1 Ophthalmic Ointment APPLY A SMALL AMOUNT OF OINTMENT in the left eyelid and in the left eye twice per day. Quantity: 2 Refills: 1 Ordered: 02-Mar-2018 Kings Olmedo MD Start : 02-Mar-2018 Active Start: 03-02-2018 neomycin-polym yxin-dexameth 3.5-13104-4.1 OINT apply A SMALL AMOUNT OF OINTMENT IN THE LEFT EYELID AND IN THE LEFT EYE twice a day 0 03/02/2018 Active dextran 70 1 mg/ml / hypromellose 3 mg/ml ophthalmic solution (1 source) Plasma Volume Banquet Kitchen Supervisor take 1-2 drop(s) into the eye(s) four [...] DO Active predniSONE 20 mg oral tablet (7 sources) Start: 4 End: 4 take 2 tablets by mouth once daily Prednisone 20 mg tablet Discontinued 40 mg PO DAILY January 10, 2024 12:00am March 13, 2024 6:28pm simvastatin 40 mg oral tablet (20 sources) HMG-CoA Reductase Inhibitor Start: 8 End: take 1 tablet by mouth at bedtime [...] Chronic Coronary atherosclerosis and other heart disease (14 sources) Coronary arteriosclerosis; Translations: [Atherosclerotic heart disease of [place] coronary artery without angina pectoris] Onset: 01-16-2025 12-14-2024 Chronic Comment on above: 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 Diabetes mellitus with complications (1 source) Type 2 diabetes mellitus; Translations: [Type 2 diabetes mellitus with diabetic chronic kidney disease] 11-13-2022 Chronic Disorders of lipid metabolism (20 sources) Hypercholesterolemia ; Translations: [Pure hypercholesterolemia ] Onset: 12-19-2024 11-13-2022 Chronic Essential hypertension (16 sources) Hypertensive disorder; Translations: [Essential (primary) hypertension] Onset: 12-29-2024 03-03-2023 Chronic Genitourinary symptoms and ill-defined conditions (8 sources) Increased frequency of urination; Translations: [Frequency of micturition] 07-02-2023 Episodic Gout and other crystal arthropathies (7 sources) Gout; Translations: [Gout, unspecified] 01-11-2024 Chronic Hyperplasia of prostate (20 sources) [...] source) Papillary conjunctivitis; Translations: [Other conjunctivitis] Episodic Occlusion or stenosis of precerebral arteries (3 sources) Carotid artery stenosis; Translations: [Occlusion and stenosis of unspecified carotid artery] 12-28-2024 Chronic Osteoarthritis (20 sources) Osteoarthritis of left knee [...] anophthalmos, unspecified] Chronic Other connective tissue disease (7 sources) Hand pain; Translations: [Pain in right hand] 03-13-2024 Episodic Other connective tissue disease (7 sources) Pain in hallux; Translations: [Pain in left toe(s)] 01-11-2024 Episodic Other connective tissue disease (7 sources) Swelling of hand; Translations: [Other specified [...] unspecified] Episodic Comment on above: Added by Problem Lis t Migration; 2013-07-18; Other lower respiratory disease (7 sources) Snoring; Translations: [Snoring] 03-31-2024 Episodic Other nervous system disorders (1 source) H/O: cataract; Translations: [Personal history of other disorders of nervous system and sense organs] Episodic Comment on above: od; Residual codes; unclassified (10 sources) Obstructive sleep apnea syndrome; Translations: [Obstructive sleep apnea (adult) (pediatric)] 08-23-2024 Chronic Comment on above: AHI 18.2 from HST Residual codes; unclassified (7 sources) Daytime hypersomnia; Translations: [Hypersomnia, unspecified] 07-11-2024 Chronic Residual codes; unclassified (7 sources) Sleep apnea; Translations: [Sleep apnea, unspecified] 03-31-2024 Chronic Residual codes; unclassified (1 source) Obstructive sleep apnea (adult) (pediatric); Translations: [Obstructive sleep apnea (adult) (pediatric)] Onset: 08-23-2024 Chronic Residual codes; unclassified (1 source) Sleep apnea, unspecified; Translations: [Sleep apnea, unspecified] Onset: 07-06-2024 Chronic Residual codes; unclassified (1 source) Edema of lower extremity; Translations: [Localized edema] 03-03-2023 Episodic Retinal detachments; defects; vascular occlusion; and retinopathy (20 sources) Macular drusen ; Translations: [Drusen (degenerative)] Onset: 06-21-2024 11-06-2024 Chronic Screening and history of mental health and substance abuse codes (2 sources) Personal history of nicotine dependence; Translations: [Personal history of tobacco use] 01-27-2023 Episodic Unclassified (7 sources) 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, right eye,G47.33 - Obstructive sleep apnea (adult) (pediatric),E78.2 - Mixed hyperlipidemia,I10 - Essential (primary) hypertension Varicose veins of lower extremity (10 sources) Varicose veins of lower extremity; Translations: [Asymptomatic varicose veins of unspecified lower extremity] 03-03-2023 Episodic Comment on above: Venous Duplex 3:Positive for reflux in two separate right accessory saphenous veinsPositive for reflux in the left great saphenous vein above the knee, accessory saphenous vein belowthe knee, small saphenous vein, Vein of [place], and a mount loader vein above the malleolus Past or Other Problems Problem Classification Problem Date Documented Da te Episodic/Chronic Blindness and vision defects (7 sources) Astigmatism of right eye; Translations: [Astigmatism, unspecified] Onset: 06-21-2024 Episodic Cancer; other and unspecified primary (1 source) Malignant neoplasm of choroid; 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] Resolved: 01-04-2014 Chronic Comment on above: Added by Problem Melissa t Migration; 2013-07-18; Neoplasms of unspecified nature or uncertain behavior (1 source) Neoplasm of uncertain behavior of skin of eyelid; Translations: [Neoplasm of uncertain behavior of skin] Onset: 03-02-2018 Episodic Other eye disorders (1 source) Dermatochalasis; Translations: [Dermatochalasis] Resolved: 01-04-2014 Episodic Comment on above: Added by Problem Lis t Migration; 2013-07-18; Other eye disorders (2 sources) Dry eye syndrome of right lacrimal gland; Translations: [Dry eye syndrome of right lacrimal gland] Onset: 06-21-2024 Episodic Other non-traumatic joint disorders (1 source) Pain in left knee; Translations: [Pain in joint, lower leg] Episodic Other screening for suspected conditions (not mental disorders or infectious disease) (20 sources) Raised prostate specific antigen; Translations: [Elevated prostate specific antigen [PSA]] Onset: 05-05-2018 08-17-2018 Episodic Residual codes; unclassified (2 sources) Acquired absence of eye; Translations: [Acquired absence of eye] Onset: 06-21-2024 Episodic Results Test Name Value Interpretation Reference Range Facility Carotid Duplex Ultrasoundon 12-28-2024 Carotid Duplex Ultrasound [facility] [place] [address] Carotid Duplex Ultrasound 12/28/24 0909 MR#: [id number] Acct: [id number] Name: TRES DICKSON Rep #: [id number] : 1945 79 From: Carson Hanna MD Attending Dr: Dr. Magda Husain MD Status: REG CLI Ordering Dr: Magda Husian MD Date: 12/28/24 Location: [facility] Sex: M C Admitted: Reason For Study Reason For Study: Hollenhorst plaque Rt. Velocities/BP Lt. Velocities/BP Prox CCA 57.8/11.6 cm/sec. Prox CCA 81.3/20.7 cm/sec. Mid CCA 64.8/17.7 cm/sec. Mid CCA 80.2/16.3 cm/sec. Dist CCA 50.0/13.0 cm/sec. Dist CCA 61.8/12.6 cm/sec. Prox ICA 144.8/27.9 cm/sec. Prox ICA 76.5/22.5 cm/sec. Mid ICA 82.6/24.9 cm/sec. Mid ICA 47.2/16.6 cm/sec. Dist ICA 85.1/24.9 cm/sec. Dist ICA 74.3/25.4 cm/sec. Rt. ICA/CCA = 2.2. Lt. ICA/CCA = 1.0. Prox ECA 85.0/11.3 cm/sec. Prox ECA 93.7/15.2 cm/sec. Rt. Vert. 55.6/16.3 cm/sec. Lt. Vert. 32.4/11.3 cm/sec. Right Extracranial There is homogeneous, smooth atherosclerotic plaque noted in the right common carotid artery. There is heterogeneous, irregular atherosclerotic plaque noted in the right internal carotid artery. There is intimal thickening but no significant atherosclerotic plaque noted in the right external carotid artery. Antegrade flow is noted in the right vertebral artery. Left Extracranial There is homogeneous, smooth atherosclerotic plaque noted in the left common carotid artery. There is heterogeneous, irregular atherosclerotic plaque noted in the left internal carotid artery. There is intimal thickening but no significant atherosclerotic plaque noted in the left external carotid artery. Antegrade flow is noted in the left vertebral artery. Procedure Carotid Duplex 08322. This is a Carotid Duplex examination using B-mode, color flow and specral Doppler. Exam performed in department. VL/Carotid Duplex Ultrasound Interpretation Summary Moderate (50-69%) stenosis right extracranial internal carotid. Mild (<50%) stenosis left extracranial internal carotid. Patent and antegrade vertebrals bilaterally. ___ Ordering Physician: Magda Husain Referring Physician: Magda Husain MD Performed By: Lois Ortiz RVT 12/28/24 1249 Date Carson Hanna MD CC: SENIOR ACCOUNTING CLERK-C Diaan Kelley; Dr. Magda Husain MD Date Dictated: 12/28/24908 Date Transcribed: 12/28/24 124 Hat Lining Blocker: Signed Normal [facility] Duplex ultrasound of carotid artery reportOrdered By: Carson Hanna on 12-28-2024 Study report [facility] [address] [place] [address] Carotid Duplex Ultrasound 12/28/24908 MR#: [id number] Acct: [id number] Name: TRES DICKSON Rep #:[id number] : 1945 79 From: Carson Crowder Attending Dr: Dr. Magda Husain MD Status: REG CLI Ordering Dr: Magda Husain MD Date: Location: [facility] Sex: M C Admitted: Reason For Study Reason For Study: Hollenhorst plaque Rt. Velocities/BP Lt. Velocities/BP Prox CCA 57.8/11.6 cm/sec. Prox CCA 81.3/20.7 cm/sec. Mid CCA 64.8/17.7 cm/sec. Mid CCA 80.2/16.3 cm/sec. Dist CCA 50.0/13.0 cm/sec. Dist CCA 61.8/12.6 cm/sec. Prox ICA 144.8/27.9 cm/sec. Prox ICA 76.5/22.5 cm/sec. Mid ICA 82.6/24.9 cm/sec. Mid ICA 47.2/16.6 cm/sec. Dist ICA 85.1/24.9 cm/sec. Dist ICA 74.3/25.4 cm/sec. Rt. ICA/CCA = 2.2. Lt. ICA/CCA = 1.0. Prox ECA 85.0/11.3 cm/sec. Prox ECA 93.7/15.2 cm/sec. Rt. Vert. 55.6/16.3 cm/sec. Lt. Vert. 32.4/11.3 cm/sec. Right Extracranial There is homogeneous, smooth atherosclerotic plaque noted in the right common carotid artery. There is heterogeneous, irregular atherosclerotic plaque noted in the right internal carotid artery. There is intimal thickening but no significant atherosclerotic plaque noted in the right external carotid artery. Antegrade flow is noted in the right vertebral artery. Left Extracranial There is homogeneous, smooth atherosclerotic plaque noted in the left common carotid artery. There is heterogeneous, irregular atherosclerotic plaque noted in the left internal carotid artery. There is intimal thickening but no significant atherosclerotic plaque noted in the left external carotid artery. Antegrade flow is noted in the left vertebral artery. Procedure Carotid Duplex 74021. This is a Carotid Duplex examination using B-mode, color flow and specral Doppler. Exam performed in department. VL/Carotid Duplex Ultrasound Interpretation Summary Moderate (50-69%) stenosis right extracranial internal carotid. Mild (<50%) stenosis left extracranial internal carotid. Patent and antegrade vertebrals bilaterally. ___ Ordering Physician: Magda Husain Referring Physician: Magda Husain MD Performed By: Lois Ortiz RVT 12/28/249 Date _ Carson Hanna MD CC: OLIVER Kelley; Dr. Magda Husain MD ~ Date Dictated: 12/28/24908 Date Transcribed: 12/28/241248 Hat Lining Blocker: Signed [facility] Work Phone: Basic Metabolic Profile (BMP )on 12-22-2024 BUN/CRE 13.8 RATIO Normal 10-20 [facility] Comment on above: Performed By: #### L 500.2500 #### [facility] [address] [place], [address] Calcium [Mass/Vol] 8.8 mg/dL Normal 7.6-11.0 [facility] Comment on above: Performed By: #### L 500.2500 #### [facility] [address] [place], [address] Chloride [Moles/Vol] 104 mmol/L Normal 98-108 [facility] Comment on above: Performed By: #### L 500.2500 #### [facility] [address] [place], [address] CO2 [Moles/Vol] 27.4 mmol/L Normal 21.0-32.0 [facility] Comment on above: Performed By: #### L 500.2500 #### [facility] [address] [place], [address] Creatinine [Mass/Vol] 1.33 mg/dL High 0.70-1.20 [facility] Comment on above: Performed By: #### L 500.2500 #### [facility] [address] [place], [address] GAP 11 Normal 5-15 [facility] Comment on above: Performed By: #### L 500.2500 #### [facility] [address] [place], [address] GFR/1.73 sq M.predicted among non-blacks MDRD (S/P/Bld) [Vol rate/Area] 54 mL/min/{1.73_m2} Low >60 [facility] Comment on above: Result Comment: mL/m in/1.73m2 CKD-EPI Creatinine Equation (2020) Performed By: #### L 500.2500 #### [facility] [address] [place], [address] Glucose [Mass/Vol] 110 mg/dL High 70-99 [facility] Comment on above: Performed By: #### L 500.2500 #### [facility] [address] [place], [address] Potassium [Moles/Vol] 4.7 mmol/L Normal 3.3-5.1 [facility] Comment on above: Performed By: #### L 500.2500 #### [facility] [address] [place], [address] Sodium [Moles/Vol] 143 mmol/L Normal 133-145 [facility] Comment on above: Performed By: #### L 500.2500 #### [facility] [address] [place], [address] Urea nitrogen [Mass/Vol] 18 mg/dL Normal 4-19 [facility] Comment on above: Performed By: #### L 500.2500 #### [facility] [address] [place], [address] Anion gap in Serum or Plasma Ordered By: Magda Husain on 12-21-2024 Anion gap [Moles/Vol] 11 mmol/L 5-15 [facility] BUN/creatinine ratioOrdered By: Magda Husain on 12-21-2024 Urea nitrogen/Creatinine [Mass ratio] 13.8 mg/mg 10-20 [facility] Carbon dioxide, total [Moles /volume] in Central venous bloodOrdered By: Magda Husain on 12-21-2024 CO2 [Moles/Vol] 27.4 mmol/L 21.0-32.0 [facility] Chloride assayOrdered By: Nils Husain on 12-21-2024 Chloride [Moles/Vol] 104 mmol/L 98-108 [facility] Glomerular filtration rate ( GFR) estimation/1.73 sq m using serum, plasma, or whole bOrdered By: Magda Husain on 12-21-2024 GFR/1.73 sq M.predicted among non-blacks MDRD (S/P/Bld) [Vol rate/Area] 54 mL/min/{1.73_m2} Low >60 [facility] Comment on above: mL/min/1.73m2 CKD-EP I Creatinine Equation (2020) Potassium measurement (mass/ volume)Ordered By: Magda Husain on 12-21-2024 Potassium (Unsp spec) [Mass/Vol] 4.7 mmol/L 3.3-5.1 [facility] Serum creatinine measurement (mass/volume)Ordered By: Magda Husain on 12-21-2024 Creatinine [Mass/Vol] 1.33 mg/dL High 0.70-1.20 [facility] Serum glucose measurement (m ass/volume)Ordered By: Magda Husain on 12-21-2024 Glucose [Mass/Vol] 110 mg/dL High 70-99 [facility] Serum or plasma calcium kristy urement (mass/volume)Ordered By: Magda Husain on 12-21-2024 Calcium [Mass/Vol] 8.8 mg/dL 7.6-11.0 [facility] Serum or plasma urea nitroge n measurement (mass/volume)Ordered By: Magda Husain on 12-21-2024 Urea nitrogen [Mass/Vol] 18 mg/dL 4-19 [facility] Sodium levelOrdered By: Jaquan Husain on 12-21-2024 Sodium [Moles/Vol] 143 mmol/L 133-145 [facility] Absolute lymphocyte countOrd ered By: Diana Kelley on 12-14-2024 Lymphocytes Auto (Unsp spec) [#/Vol] 1.80 10*3/uL 0.83-4.51 [facility] Absolute neutrophil countOrd ered By: Diana Kelley on 12-14-2024 Neutrophils (Bld) [#/Vol] 4.8 10*3/uL 2.0-7.7 [facility] Anion gap in Serum or Plasma Ordered By: Diana Kelley on 12-14-2024 Anion gap [Moles/Vol] 10 mmol/L 5-15 [facility] Automated lymphocyte count a s percentage of total leukocytesOrdered By: Diana Kelley on 12-14-2024 Lymphocytes/100 WBC Auto (Unsp spec) 23.0 % 19-41 [facility] BUN/creatinine ratioOrdered By: Diana Kelley on 12-14-2024 Urea nitrogen/Creatinine [Mass ratio] 18.1 mg/mg 10-20 [facility] Basophil percentageOrdered B y: Diana Kelley on 12-14-2024 Basophils/100 WBC (Bld) 0.9 % 0-1 [facility] Bilirubin, totalOrdered By: Diana Kelley on 12-14-2024 Bilirubin [Mass/Vol] 0.43 mg/dL 0.00-1.30 [facility] Calculated very low density lipoprotein (VLDL) cholesterol measurementOrdered By: Diana Kelley on 12-14-2024 Calculated very low density lipoprotein (VLDL) cholesterol measurement 33 mg/dL 5-40 [facility] Carbon dioxide, total [Moles /volume] in Central venous bloodOrdered By: Diana Kelley on 12-14-2024 CO2 [Moles/Vol] 26.4 mmol/L 21.0-32.0 [facility] Cardiology Visit Reporton Cardiology Visit Report [facility] [address] [place], [place] [id number] OFFICE VISIT Date of Service: 12/14/24 MR#: [id number] Acct: [id number] Name: TRES DICKSON Rep #: [id number] : 1945 Provider: Dr. Magda Husain MD Age/Sex: 79/M Location: [facility] Status: Signed HPI HPI History of Present Illness Details: This gentleman has history of coronary artery disease with an emergent single-vessel CABG with SVG to the [facility] and 2006 at [place] for an acute STEMI. 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 Intake Vital Signs 11/02/24 12:53 12/14/24 08:29 Height 5 ft 8.5 in 5 ft 8.5 in Weight: 181 lb BMI 27.1 BP 144/82 H Blood Pressure Location Lt brachial Position Sitting Respiration 14 Pulse 51 L Pulse Source NIBP Intake Visit Reasons: RETINAL ARTERY OCCLUSION (WARREN) [employer] Required: No Accompanied by: Self Is patient [...] factor modification. ECG indicative of previous inferior ME. ST changes that may denote lateral ischemia. Check exercise stress Myoview. Check echocardiogram. (2) History of coronary artery bypass graft x 1: Status: Chronic Plan: See #1 above. (3) Hypertension: St (more content not included)... Normal [facility] Chloride assayOrdered By: Do ra Kelley on 12-14-2024 Chloride [Moles/Vol] 103 mmol/L 98-108 [facility] Eosinophil percentageOrdered By: Diana Kelley on 12-14-2024 Eosinophils/100 WBC (Bld) 4.4 % 0-5 [facility] Erythrocyte distribution wid th ratioOrdered By: Diana Kelley on 12-14-2024 Erythrocyte distribution width (RBC) [Ratio] 12.1 % 11.6-14.6 [facility] Erythrocyte distribution wid th standard deviationOrdered By: Diana Kelley on 12-14-2024 Erythrocyte distribution width (RBC) [Ratio] 41.0 fl 35.1-43.9 [facility] Glomerular filtration rate ( GFR) estimation/1.73 sq m using serum, plasma, or whole bOrdered By: Diana Kelley on 12-14-2024 GFR/1.73 sq M.predicted among non-blacks MDRD (S/P/Bld) [Vol rate/Area] 71 mL/min/{1.73_m2} >60 [facility] Comment on above: mL/min/1.73m2 CKD-EP I Creatinine Equation (2020) Hematocrit Auto (Bld) [Volum e fraction]Ordered By: Diana Kelley on 12-14-2024 Hematocrit (Bld) [Volume fraction] 39.9 % Low 40-54 [facility] Hemoglobin measurementOrdere d By: Diana Kelley on 12-14-2024 Hemoglobin (Bld) [Mass/Vol] 13.5 g/dL 13.0-16.5 [facility] Immature granulocytes/100 WB C Auto (Bld)Ordered By: Diana Kelley on 12-14-2024 Immature granulocytes/100 WBC (Bld) 0.500 % 0.0-0.9 [facility] Comment on above: IG% - Immature Granu locytes (promyelocytes, myelocytes and metamyelocytes) > 1% indicates that a LEFT SHIFT is Present. LDL calc ser/plasOrdered By: Diana Kelley on 12-14-2024 Cholesterol in LDL [Mass/Vol] 52 mg/dL [facility] Comment on above: Wotdxfolxi=444-404 m g/dL & Higher Sdes=774 mg/dL or greater Laboratory - Chemistry and C hemistry - challengeOrdered By: Diana Kelley on 12-14-2024 AST [Catalytic activity/Vol] 28 U/L <38 [facility] MCV (mean corpuscular volume ) determinationOrdered By: Diana Kelley on 12-14-2024 MCV (RBC) [Entitic vol] 91.9 fL 80-94 [facility] Mean corpuscular hemoglobin (MCH) determinationOrdered By: Diana Kelley on 12-14-2024 MCH (RBC) [Entitic mass] 31.1 pg 27.0-32.0 [facility] Mean corpuscular hemoglobin concentration (MCHC) determinationOrdered By: Diana Kelley on 12-14-2024 MCHC (RBC) [Mass/Vol] 33.8 g/dL 32-36 [facility] Mean platelet volume determi nationOrdered By: Diana Kelley on 12-14-2024 Platelet mean volume (Bld) [Entitic vol] 12.5 fL High 6.2-12.0 [facility] Monocyte percentageOrdered B y: Diana Kelley on 12-14-2024 Monocytes/100 WBC (Bld) 9.3 % 0-10 [facility] Neutrophil percentageOrdered By: Diana Kelley on 12-14-2024 Neutrophils/100 WBC (Bld) 61.9 % 47-70 [facility] Nucleated red blood cell per centageOrdered By: Diana Kelley on 12-14-2024 Nucleated RBC/100 WBC (Bld) [Ratio] 0 % 0-5 [facility] Platelet countOrdered By: Do ra Kelley on 12-14-2024 Platelets (Bld) [#/Vol] 157 10*3/uL 150-450 [facility] Potassium measurement (mass/ volume)Ordered By: Diana Kelley on 12-14-2024 Potassium (Unsp spec) [Mass/Vol] 4.6 mmol/L 3.3-5.1 [facility] RBC Auto (Bld) [#/Vol]Ordere d By: Diana Kelley on 12-14-2024 RBC (Bld) [#/Vol] 4.34 10*6/uL Low 4.6-6.2 [facility] Screening total cholesterol/ high density lipoprotein (HDL) cholesterol ratioOrdered By: Diana Kelley on 12-14-2024 Cholesterol.total/Chol esterol in HDL [Mass ratio] 3.58 {ratio} [facility] Serum creatinine measurement (mass/volume)Ordered By: Diana Kelley on 12-14-2024 Creatinine [Mass/Vol] 1.06 mg/dL 0.70-1.20 [facility] Serum globulin measurementOr dered By: Diana Kelley on 12-14-2024 Globulin (S) [Mass/Vol] 2.6 g/dL 2.2-4.2 [facility] Serum glucose measurement (m ass/volume)Ordered By: Diana Kelley on 12-14-2024 Glucose [Mass/Vol] 108 mg/dL High 70-99 [facility] Serum or plasma alanine goodson otransferase (ALT) measurementOrdered By: Diana Kelley on 12-14-2024 ALT [Catalytic activity/Vol] 13 U/L <47 [facility] Serum or plasma albumin kristy urement (mass/volume)Ordered By: Diana Kelley on 12-14-2024 Albumin [Mass/Vol] 4.1 g/dL 3.4-4.8 [facility] Serum or plasma albumin/glob ulin mass ratioOrdered By: Diana Kelley on 12-14-2024 Albumin/Globulin [Mass ratio] 1.5 {ratio} 0.9-2.4 [facility] Serum or plasma alkaline len sphatase measurementOrdered By: Diana Kelley on 12-14-2024 ALP [Catalytic activity/Vol] 62 U/L 40-129 [facility] Serum or plasma calcium kristy urement (mass/volume)Ordered By: Diana Kelley on 12-14-2024 Calcium [Mass/Vol] 9.2 mg/dL 7.6-11.0 [facility] Serum or plasma cholesterol in HDL measurement (mass/volume)Ordered By: Diana Kelley on 12-14-2024 Cholesterol in HDL [Mass/Vol] 33 mg/dL Low >40 [facility] Comment on above: National Cholesterol Education Program (NCEP) guidelines:<40 mg/dL: Low HDL-cholesterol (major risk factor for CHD)>= 60 mg/dL: High HDL-cholesterol (negative risk factor for CHD)HDL-cholesterol is affected by a number of factors, e.g. smoking, exercise, hormones, sex and age. Serum or plasma cholesterol measurement (mass/volume)Ordered By: Diana Kelley on 12-14-2024 Cholesterol [Mass/Vol] 117 mg/dL <201 [facility] Comment on above: Cholesterol level, D esirable <200 mg/dLBorderline high cholesterol 200-239 mg/dLHigh cholesterol >=240 mg/dLRecommendations of the NCEP Adult Treatment Panel for the following risk-cutoff thresholds for the [place] population. Serum or plasma urea nitroge n measurement (mass/volume)Ordered By: Diana Kelley on 12-14-2024 Urea nitrogen [Mass/Vol] 19 mg/dL 4-19 [facility] Sodium levelOrdered By: Diana Kelley on 12-14-2024 Sodium [Moles/Vol] 139 mmol/L 133-145 [facility] Total proteinOrdered By: Osei Kelley on 12-14-2024 Protein [Mass/Vol] 6.7 g/dL 5.9-8.4 [facility] Triglycerides measurementOrd ered By: Diana Kelley on 12-14-2024 Triglyceride [Mass/Vol] 163 mg/dL <199 [facility] Comment on above: The drugs N-Acetylcy steine and Metamizole may falsely depress this assay. Normal range: <150 mg/dLBorderline High: 150-199 mg/dLHigh: 200-499 mg/dLVery High: >500 mg/dL White blood cell (WBC) count Ordered By: Diana Kelley on 12-14-2024 WBC (Bld) [#/Vol] 7.8 10*3/uL 4.4-11.0 [facility] Pulmonary Visit Reporton Pulmonary Visit Report [facility] Pul[facility] Medicine of [address] [place] [address] OFFICE VISIT Date of Service: 08/23/24 MR#: [id number] Acct: [id number] Name: TRES DICKSON Rep #: [id number] : 1945 Provider: Roshni Baker NP Age/Sex: 78/M Location: [facility] Status: Signed Assessment and Plan Assessment and [...] The patient would like to use the [employer] for his DME vendor. I would like [...] ago. He does have a greater than 20-ihrx-efrv smoking history. He has been following with the [place] [facility] for his annual LDCT. He [...] air Intake Visit Reasons: 6 W FU Vp [employer] Required: No Accompanied by: Self Allergies No [...] Positive c (more content not included)... Normal [facility] Pulmonary Visit Reporton Pulmonary Visit Report [facility] [place] [address] [place] [address] OFFICE VISIT Date of Service: 07/11/24 MR#: [id number] Acct: [id number] Name: TRES DICKSON Rep #: [id number] : 1945 Provider: OLIVER Germain Age/Sex: 78/M Location: [facility] Status: Signed Assessment and Plan Assessment and [...] ago. He does have a greater than 28-updk-madx smoking history. He has been following with [...] you fallen in the past year?: No [facility] Medical Histo (more content not included)... Normal [facility] CBC W/Diff, Automatedon 06-18 Absolute Lymph 2.20 X10 3/uL Normal 0.83-4.51 [facility] Comment on above: Performed By: #### L 501.9940, L100.0100, L500.4050, L500.4100 #### [facility] [address] [place], [address] Absolute Neut 5.6 X10 3/uL Normal 2.0-7.7 [facility] Comment on above: Performed By: #### L 501.9940, L100.0100, L500.4050, L500.4100 #### [facility] [address] [place], [address] Basophils/100 WBC (Bld) 0.9 % Normal 0-1 [facility] Comment on above: Performed By: #### L 501.9940, L100.0100, L500.4050, L500.4100 #### [facility] [address] [place], [address] Eosinophils/100 WBC (Bld) 4.2 % Normal 0-5 [facility] Comment on above: Performed By: #### L 501.9940, L100.0100, L500.4050, L500.4100 #### [facility] [address] [place], [address] Erythrocyte distribution width (RBC) [Ratio] 12.4 % Normal 11.6-14.6 [facility] Comment on above: Performed By: #### L 501.9940, L100.0100, L500.4050, L500.4100 #### [facility] [address] [place], [address] Hematocrit (Bld) [Volume fraction] 42.2 % Normal 40-54 [facility] Comment on above: Performed By: #### L 501.9940, L100.0100, L500.4050, L500.4100 #### [facility] [address] [place], [address] Hemoglobin (Bld) [Mass/Vol] 13.6 g/dL Normal 13.0-16.5 [facility] Comment on above: Performed By: #### L 501.9940, L100.0100, L500.4050, L500.4100 #### [facility] [address] [place], [address] IG% 0.200 Normal 0.0-0.9 [facility] Comment on above: Result Comment: IG% - Immature Granulocytes (promyelocytes, myelocytes and metamyelocytes) > 1% indicates that a LEFT SHIFT is Present. Performed By: #### L 501.9940, L100.0100, L500.4050, L500.4100 #### [facility] [address] [place], [address] Lymphocytes/100 WBC (Bld) 24.1 % Normal 19-41 [facility] Comment on above: Performed By: #### L 501.9940, L100.0100, L500.4050, L500.4100 #### [facility] [address] [place], [address] MCH (RBC) [Entitic mass] 30.0 pg Normal 27.0-32.0 [facility] Comment on above: Performed By: #### L 501.9940, L100.0100, L500.4050, L500.4100 #### [facility] [address] [place], [address] MCHC (RBC) [Mass/Vol] 32.2 g/dL Normal 32-36 [facility] Comment on above: Performed By: #### L 501.9940, L100.0100, L500.4050, L500.4100 #### [facility] [address] [place], [address] MCV (RBC) [Entitic vol] 93.2 fL Normal 80-94 [facility] Comment on above: Performed By: #### L 501.9940, L100.0100, L500.4050, L500.4100 #### [facility] [address] [place], [address] Monocytes/100 WBC (Bld) 9.8 % Normal 0-10 [facility] Comment on above: Performed By: #### L 501.9940, L100.0100, L500.4050, L500.4100 #### [facility] [address] [place], [address] Neutrophils/100 WBC (Bld) 60.8 % Normal 47-70 [facility] Comment on above: Performed By: #### L 501.9940, L100.0100, L500.4050, L500.4100 #### [facility] [address] [place], [address] Nucleated RBC (Bld) [#/Vol] 0 10*3/uL Normal 0-5 [facility] Comment on above: Performed By: #### L 501.9940, L100.0100, L500.4050, L500.4100 #### [facility] [address] [place], [address] Platelet mean volume (Bld) [Entitic vol] 12.9 fL High 6.2-12.0 [facility] Comment on above: Performed By: #### L 501.9940, L100.0100, L500.4050, L500.4100 #### [facility] [address] [place], [address] Platelets (Bld) [#/Vol] 134 10*3/uL Low 150-450 [facility] Comment on above: Performed By: #### L 501.9940, L100.0100, L500.4050, L500.4100 #### [facility] [address] [place], [address] RBC (Bld) [#/Vol] 4.53 10*6/uL Low 4.6-6.2 [facility] Comment on above: Performed By: #### L 501.9940, L100.0100, L500.4050, L500.4100 #### [facility] [address] [place], [address] RDW SD 42.6 fl Normal 35.1-43.9 [facility] Comment on above: Performed By: #### L 501.9940, L100.0100, L500.4050, L500.4100 #### [facility] [address] [place], [address] WBC (Bld) [#/Vol] 9.1 10*3/uL Normal 4.4-11.0 [facility] Comment on above: Performed By: #### L 501.9940, L100.0100, L500.4050, L500.4100 #### [facility] [address] [place], [address] Comprehensive Metabolic Prof ilon 07-04-2024 Albumin [Mass/Vol] 3.4 g/dL Normal 3.2-5.0 [facility] Comment on above: Performed By: #### L 501.9940, L100.0100, L500.4050, L500.4100 #### [facility] [address] [place], [address] Albumin/Globulin [Mass ratio] 1.0 {ratio} Normal 0.9-2.4 [facility] Comment on above: Performed By: #### L 501.9940, L100.0100, L500.4050, L500.4100 #### [facility] [address] [place], [address] ALK P 63 U/L Normal 45-117 [facility] Comment on above: Performed By: #### L 501.9940, L100.0100, L500.4050, L500.4100 #### [facility] [address] [place], [address] ALT [Catalytic activity/Vol] 11 U/L Low 16-61 [facility] Comment on above: Performed By: #### L 501.9940, L100.0100, L500.4050, L500.4100 #### [facility] [address] [place], [address] AST [Catalytic activity/Vol] 15 U/L Normal 15-37 [facility] Comment on above: Performed By: #### L 501.9940, L100.0100, L500.4050, L500.4100 #### [facility] [address] [place], [address] Bilirubin [Mass/Vol] 0.50 mg/dL Normal 0.20-1.00 [facility] Comment on above: Result Comment: For patients on eltrombopag therapy, use of Dimension [place] TBIL is not recommended. Performed By: #### L 501.9940, L100.0100, L500.4050, L500.4100 #### [facility] [address] [place], [address] BUN/CRE 19.2 RATIO Normal 10-20 [facility] Comment on above: Performed By: #### L 501.9940, L100.0100, L500.4050, L500.4100 #### [facility] [address] [place], [address] CA,Total 8.5 mg/dL Normal 8.5-10.1 [facility] Comment on above: Performed By: #### L 501.9940, L100.0100, L500.4050, L500.4100 #### [facility] [address] [place], [address] Chloride [Moles/Vol] 107 mmol/L Normal 98-107 [facility] Comment on above: Performed By: #### L 501.9940, L100.0100, L500.4050, L500.4100 #### [facility] [address] [place], [address] CO2 [Moles/Vol] 32.0 mmol/L Normal 21.0-32.0 [facility] Comment on above: Performed By: #### L 501.9940, L100.0100, L500.4050, L500.4100 #### [facility] [address] [place], [address] Creatinine [Mass/Vol] 0.99 mg/dL Normal 0.70-1.30 [facility] Comment on above: Result Comment: The validity of the calculated GFR GFRAA in patients over 70 years has not been determined. Clinical correlation is essential. Performed By: #### L 501.9940, L100.0100, L500.4050, L500.4100 #### [facility] [address] [place], [address] EST GFR - AA 94 mL/min Normal >60 [facility] Comment on above: Result Comment: Afri can Croatian GFR Calc Performed By: #### L 501.9940, L100.0100, L500.4050, L500.4100 #### [facility] [address] [place], [address] GAP 1 Low 5-15 [facility] Comment on above: Performed By: #### L 501.9940, L100.0100, L500.4050, L500.4100 #### [facility] [address] [place], [address] GFR/1.73 sq M.predicted among non-blacks MDRD (S/P/Bld) [Vol rate/Area] 78 mL/min/{1.73_m2} Normal >60 [facility] Comment on above: Result Comment: Non- GFR Calc Performed By: #### L 501.9940, L100.0100, L500.4050, L500.4100 #### [facility] [address] [place], [address] Globulin (S) [Mass/Vol] 3.4 g/dL Normal 2.2-4.2 [facility] Comment on above: Performed By: #### L 501.9940, L100.0100, L500.4050, L500.4100 #### [facility] [address] [place], [address] Glucose [Mass/Vol] 99 mg/dL Normal 74-106 [facility] Comment on above: Performed By: #### L 501.9940, L100.0100, L500.4050, L500.4100 #### [facility] [address] [place], [address] Potassium [Moles/Vol] 4.3 mmol/L Normal 3.5-5.1 [facility] Comment on above: Performed By: #### L 501.9940, L100.0100, L500.4050, L500.4100 #### [facility] [address] [place], [address] Sodium [Moles/Vol] 140 mmol/L Normal 136-145 [facility] Comment on above: Performed By: #### L 501.9940, L100.0100, L500.4050, L500.4100 #### [facility] [address] [place], [address] T PROT 6.8 g/dL Normal 6.4-8.2 [facility] Comment on above: Performed By: #### L 501.9940, L100.0100, L500.4050, L500.4100 #### [facility] [address] [place], [address] Urea nitrogen [Mass/Vol] 19 mg/dL High 7-18 [facility] Comment on above: Performed By: #### L 501.9940, L100.0100, L500.4050, L500.4100 #### [facility] [address] [place], [address] Lipid Profileon 07-04-2024 Cholesterol [Mass/Vol] 98 mg/dL Normal 200 [facility] Comment on above: Result Comment: <200 mg/dL Desirable 200-240 mg/dL Borderline >240 mg/dL High Risk Performed By: #### L 501.9940, L100.0100, L500.4050, L500.4100 #### [facility] [address] [place], [address] Cholesterol in HDL [Mass/Vol] 39 mg/dL Low [facility] Comment on above: Result Comment: The drugs N-Acetylcysteine and Metamizole may falsely depress this assay. Reference Range HDL <40 mg/dL Low HDL Cholesterol HDL >or= 60 mg/dL High HDL Cholesterol Performed By: #### L 501.9940, L100.0100, L500.4050, L500.4100 #### [facility] [address] [place], [address] Cholesterol in LDL [Mass/Vol] 38 mg/dL Normal 0-130 [facility] Comment on above: Performed By: #### L 501.9940, L100.0100, L500.4050, L500.4100 #### [facility] [address] [place], [address] Cholesterol in VLDL [Mass/Vol] 21 mg/dL Normal 5-40 [facility] Comment on above: Performed By: #### L 501.9940, L100.0100, L500.4050, L500.4100 #### [facility] [address] [place], [address] Triglyceride [Mass/Vol] 104 mg/dL Normal [facility] Comment on above: Result Comment: The drugs N-Acetylcysteine and Metamizole may falsely depress this assay. Serum Triglycerides Reference Interval Normal <150 mg/dL Borderline high 150 - 199 mg/dL High 200 - 499 mg/dL Very High > or = 500 mg/dL Performed By: #### L 501.9940, L100.0100, L500.4050, L500.4100 #### [facility] [address] [place], [address] PSA,Total- Diagnosticon 12 PSA, DIAGNOSTIC 1.61 ng/mL Normal 0.0-4.0 [facility] Comment on above: Result Comment: This test was performed using the TPSA assay method for the [employer] chemistry system. Values obtained with different assay methods cannot be used interchangably. When changing PSA assays in the course of monitoring a patient, additional sequential testing should be carried out to confirm baseline values. Performed By: #### L 501.9940, L100.0100, L500.4050, L500.4100 #### [facility] [address] 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 Normal [facility] Progress Noteon 05-31-2024 Progress Note [facility] [address] [place] [address] Dept: [phone] Dept PHYSICAL THERAPY RE-EVALUATION Patient Name: Tres iDckson : 1945 Date of Service: 05/31/2024 Referring [...] Stated Goal: reduce pain Outcome Measures SPADI: 21130 Objective SHOULDER Observation: forward head, rounded shoulders [...] Activity Time Entry: 10 Reji Clement PT Normal [facility] Progress Noteon 05-17-2024 Progress Note [facility] AT [address] [place] [address] Dept: [phone] Dept PHYSICAL THERAPY TREATMENT Patient Name: Tres [...] Exercise Time Entry: 28 Tay Nowak PTA Normal [facility] Progress Noteon 05-10-2024 Progress Note [facility] [place] [address] [place] [address] Dept: [phone] Dept PHYSICAL THERAPY TREATMENT Patient Name: Tres [...] Exercise Activity 1: Pulleys Activity 1 Comment: 2/2 Therapeutic Exercise Activity [...] seat 8, lvl 3 Activity 8 Comment: 2/2 Home Exercise Program: Progressed home exercise program [...] Entry Therapeutic Exercise Time Entry: 27 Tay Nowak PTA Normal [facility] Progress Noteon 05-03-2024 Progress Note [facility] [place] [address] [place] [address] Dept: [phone] Dept PHYSICAL THERAPY EVALUATION Patient Name: Tres [...] artery disease), Hyperlipidemia, Hypertension, Melanoma (HCC), and ME (myocardial infarction) ([facility]). PSHX: Tres has a past [...] patient and/o (more content not included)... Normal [facility] Office Visiton 04-28-2024 Follow-up visit [id number] Tres Dickson 1945 M Date Provider Department Center 04/28/2024 [id number]-BZPCSFRAYESSY VILLARREAL [facility] None No family history on file Level of Service:92119 IN OFFICE/OUTPATIENT ESTABLISHED LOW MDM 20 MIN Reason for Visit and Comments: Follow-up [802636] - NDX left shoulder Normal [facility] Progress Noteon 04-28-2024 Progress Note 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 Normal [facility] 36on 03-16-2024 36 This patient has had a prior lung screening CT scan at [facility]. According to our records, he/she is now due for an annual lung screening CT scan. Please evaluate and order this annual screening if your patient still meets lung screening criteria. Normal [facility] Office Visiton 02-25-2024 Follow-up visit [id number] Tres Dickson 1945 M Date Provider Department Center 02/25/2024 [id number]-VXAWMUPLYESSY VILLARREAL [facility] None No family history on file Level of Service:25176 IN OFFICE/OUTPT VISIT,PROCEDURE ONLY Reason for Visit and Comments: Knee Pain [627727] - left Normal [facility] PATINSon 02-25-2024 PATINS After your shot [...] adjusts to the medicine. Also, your health morning caregiver may be able to tell you about ways to prevent or reduce some of these side effects. Check with your health morning caregiver if any of the following side effects [...] for medical advice about side effects. 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 Normal [facility] 36on 02-16-2024 36 Confirmed that gel injections are at [facility], and called patient to update him, someone had already made his follow up appointment Normal [facility] 36 Pt is calling back t o check on status of his gel injections. He states he was not asked to pay a co-pay when the [facility] called him to get approval for delivery of injection to our office and he would like to know when they might be coming in. Please call to advise. [facility] 36on 02-09-2024 36 Called Kate de la garza poke with [employer] and set up delivery of Synvisc one for 02/14 to the [place] office. Will call patient and update him. [facility] 36on 02-08-2024 36 S: Sven (Petar rodríguez) [facility] - [place], [place] - [address] spoke with [facility] nurse regarding medication delivery to office B: Synvisc one A: states they need to schedule delivery of above medication R: Please return call to [phone] to discuss Reason for Disposition [1] Caller requesting NON-URGENT health information AND [2] PCP's office is the best resource Protocols used: Information Only Call - [facility] S: Nurse called [facility] at # and spoke with Robin. B: Patient's hylan (Synvisc One) is ready to schedule to be sent to the patient. A: Patient's consent is on file. R: Message sent to Dr. Villarreal's office for follow-up. [facility] 36on 02-02-2024 36 Patient called in [facility] he s[facility]w [facility] and they told him [...] will call the pharmacy to ok delivery. FY [facility] 36 Called [facility] t o check status of patient's gel injection order. Spoke with Lupe she states that they reached out to patient to obtain consent to ship and patient told them that He wasn't interested so they placed his order on hold. I reached out to patient and LVM that he needs to call [employer] if he wants to go ahead with his gel injection. Their # is [phone]. Please relay this message to patient if he calls the office. Thank you!! [facility] 36on 12-28-2023 36 Called [facility] a nd gave ICD 10 code, they state the gel is still processing and will reach out to patient when ready for consent to ship to office [facility] 36 Lupe from [facility] is calling to request the ICD 10 code for the patient for the Synvisc 1. can speak to anyone in the pharmacy in regards to this. [facility] 36on 12-27-2023 36 Lupe with [facility] called asking for ICD 10 code for Synvisc One. She states when calling back you can speak to anyone in the pharmacy. Please advise. [facility] 36on 12-20-2023 36 Left Knee New Therapy Provider prefers Single Injection (example: Durolane/Gel One). However whatever is a preferred drug on patient's plan is acceptable. Delivery location is [address] [place] [address], [place] [address] [facility] 36 No PA needed from [facility] ins for Synvisc one injection. Med is pended, please sign. Thank you! [facility] Office Visiton 12-20-2023 Follow-up visit [id number] Ters Dickson 1945 M Date Provider Department Center 12/20/2023 [id number] No family history on file Level of Service:27189 IN OFFICE/OUTPATIENT ESTABLISHED LOW MDM 20 MIN Reason for Visit and Comments: New Patient [542] Knee Pain [883720] - left [facility] Progress Noteon 12-20-2023 Progress Note [facility] [address] [place] [address] [place] [address] Dept: [phone] Dept Chief Complaint Patient presents with New [...] arthritis, we discussed a trial of glucosamine, [id number]-[id number]-[id number]. We talked about using a good quality [...] hurt m (more content not included)... Normal [facility] Absolute lymphocyte countOrd ered By: Diana Kelley on 07-02-2023 Lymphocytes Auto (Unsp spec) [#/Vol] 2.06 10*3/uL 0.83-4.51 [facility] Basophil percentageOrdered B y: Diana Kelley on 07-02-2023 Basophils/100 WBC (Bld) 0.8 % 0-1 [facility] Bilirubin [Mass/Vol] 0.60 mg/dL 0.20-1.00 [facility] Comment on above: For patients on eltr ombopag therapy, use of Dimension [place] TBIL is not recommended. Chloride [Moles/Vol] 107 mmol/L 98-107 [facility] Cholesterol [Mass/Vol] 98 mg/dL <200 [facility] Comment on above: <200 mg/dL Desirable 200-240 mg/dL Borderline >240 mg/dL High Risk Eosinophils/100 WBC (Bld) 3.3 % 0-5 [facility] Glucose [Mass/Vol] 99 mg/dL 74-106 [facility] Neutrophils (Bld) [#/Vol] 5.4 10*3/uL 2.0-7.7 [facility] Neutrophils/100 WBC (Bld) 62.2 % 47-70 [facility] Potassium [Moles/Vol] 4.0 mmol/L 3.5-5.1 [facility] Protein [Mass/Vol] 6.8 g/dL 6.4-8.2 [facility] Sodium [Moles/Vol] 143 mmol/L 136-145 [facility] Triglyceride [Mass/Vol] 170 mg/dL <199 [facility] Comment on above: The drugs N-Acetylcy steine and Metamizole may falsely depress this assay.Serum Triglycerides Reference Interval Normal <150 mg/dL Borderline high 150 - 199 mg/dL High 200 - 499 mg/dL Very High > or = 500 mg/dL WBC (Bld) [#/Vol] 8.6 10*3/uL 4.4-11.0 [facility] Blood erythrocytes count (nu mber/volume)Ordered By: Diana Kelley on 07-02-2023 RBC (Bld) [#/Vol] 4.73 10*6/uL 4.6-6.2 [facility] Blood hemoglobin measurement (mass/volume)Ordered By: Diana Kelley on 07-02-2023 Hemoglobin (Bld) [Mass/Vol] 14.2 g/dL 13.0-16.5 [facility] Blood lymphocytes/100 leukoc ytesOrdered By: Diana Kelley on 07-02-2023 Lymphocytes/100 WBC (Bld) 24.0 % 19-41 [facility] Blood monocytes/100 leukocyt esOrdered By: Diana Kelley on 07-02-2023 Monocytes/100 WBC (Bld) 9.1 % 0-10 [facility] Blood platelet mean volumeOr dered By: Diana Kelley on 07-02-2023 Platelet mean volume (Bld) [Entitic vol] 13.0 fL 6.2-12.0 [facility] Determination of erythrocyte mean corpuscular volume (MCV)Ordered By: Diana Kelley on 07-02-2023 MCV (RBC) [Entitic vol] 93.0 fL 80-94 [facility] Hematocrit Auto (Bld) [Volum e fraction]Ordered By: Diana Kelley on 07-02-2023 Hematocrit (Bld) [Volume fraction] 44.0 % 40-54 [facility] Laboratory - Chemistry and C hemistry - challengeOrdered By: Diana Kelley on 07-02-2023 ALP [Catalytic activity/Vol] 67 U/L 45-117 [facility] ALT [Catalytic activity/Vol] 17 U/L 16-61 [facility] CO2 [Moles/Vol] 32.0 mmol/L 21.0-32.0 [facility] Globulin (S) [Mass/Vol] 3.2 g/dL 2.2-4.2 [facility] Urea nitrogen/Creatinine [Mass ratio] 17.0 mg/mg 10-20 [facility] Laboratory - Hematology and Cell countsOrdered By: Diana Kelley on 07-02-2023 Erythrocyte distribution width (RBC) [Entitic vol] 41.9 fL 35.1-43.9 [facility] Erythrocyte distribution width (RBC) [Ratio] 12.2 % 11.6-14.6 [facility] Immature granulocytes/100 WBC (Bld) 0.600 % 0.0-0.9 [facility] Comment on above: IG% - Immature Granu locytes (promyelocytes, myelocytes and metamyelocytes) > 1% indicates that a LEFT SHIFT is Present. MCH (RBC) [Entitic mass] 30.0 pg 27.0-32.0 [facility] Nucleated RBC/100 WBC (Bld) [Ratio] 0 % 0-5 [facility] MCHC Auto (RBC) [Mass/Vol]Or dered By: Diana Kelley on 07-02-2023 MCHC (RBC) [Mass/Vol] 32.3 g/dL 32-36 [facility] No Panel InformationOrdered By: Diana Kelley on 07-02-2023 Estimated GFR (MDRD) Amer 87 mL/min >60 [facility] Comment on above: GFR Calc Estimated GFR (MDRD) Non-Af Amer 72 mL/min >60 [facility] Comment on above: Non- GFR Calc Prostate Specific Antigen Total 1.85 ng/mL 0.0-4.0 [facility] Comment on above: This test was perfor med using the TPSA assay method for Interact[employer] chemistry system. Values obtained with differentassay methods cannot be used interchangably.When changing PSA assays in the course of monitoring apatient, additional sequential testing should be carriedout to confirm baseline values. Platelets bldOrdered By: Osei Kelley on 07-02-2023 Platelets (Bld) [#/Vol] 137 10*3/uL 150-450 [facility] Serum or plasma albumin kristy urement (mass/volume)Ordered By: Diana Kelley on 07-02-2023 Albumin [Mass/Vol] 3.6 g/dL 3.2-5.0 [facility] Serum or plasma albumin/glob ulin mass ratioOrdered By: Diana Kelley on 07-02-2023 Albumin/Globulin [Mass ratio] 1.1 {ratio} 0.9-2.4 [facility] Serum or plasma calcium kristy urement (mass/volume)Ordered By: Diana Kelley on 07-02-2023 Calcium [Mass/Vol] 8.5 mg/dL 8.5-10.1 [facility] Serum or plasma cholesterol in HDL measurement (mass/volume)Ordered By: Diana Kelley on 07-02-2023 Cholesterol in HDL [Mass/Vol] 35 mg/dL >40 [facility] Comment on above: The drugs N-Acetylcy steine and Metamizole may falsely depress this assay. Reference Range HDL <40 mg/dL Low HDL Cholesterol HDL >or= 60 mg/dL High HDL Cholesterol Serum or plasma cholesterol in VLDL measurement (mass/volume)Ordered By: Diana Kelley on 07-02-2023 Cholesterol in VLDL [Mass/Vol] 34 mg/dL 5-40 [facility] Serum or plasma creatinine m easurement (mass/volume)Ordered By: Diana Kelley on 07-02-2023 Creatinine [Mass/Vol] 1.06 mg/dL 0.70-1.30 [facility] Comment on above: The validity of the calculated GFR & GFRAA in patients over 70 years has not been determined. Clinical correlation is essential. Serum or plasma low density lipoprotein (LDL) cholesterol measurement (mass/volume)Ordered By: Diana Kelley on 07-02-2023 Cholesterol in LDL [Mass/Vol] 29 mg/dL 0-130 [facility] Serum or plasma urea nitroge n measurement (mass/volume)Ordered By: Diana Kelley on 07-02-2023 Urea nitrogen [Mass/Vol] 18 mg/dL 7-18 [facility] Thin prep Papanicolaou smear with manual screeningOrdered By: Diana Kelley on 07-02-2023 Thin prep Papanicolaou smear with manual screening 21 U/L 15-37 [facility] Thin prep Papanicolaou smear with manual screening 4 5-15 [facility] Ophthalmic Eye Examon 2022 Ophthalmic Eye Exam DOCUMENT REVIEWED BY : Rafa Dockery DOCUMENT SIGNED ELECTRONICALLY BY Rafa Dockery ON 03/03/2023 11:00:49 AM [place] [address] [facility] [address] [place], [place], [id number] THIS DOCUMENT WAS CREATED ON: 03/03/2023 11:00:39 [...] S/P Enucliation Left eye PROCEDURES : Enucleation [id number], LLL Cyst removal 03/02/18 INFECTIOUS: Usual childhood [...] TABS (No longer available) - Tablet, [Reported] Uneakcyr-Xhohkrmpv-Gquixk th 3.5-68024-6.1 Ophthalmic Ointment - #2 3.5 GM Tube, [...] DATE-TIME: 03/03/2023 10:12:42 AM 03/03/2023 10:12:42 AM HIGH SCHOOL DIRECTOR: BELLA BLANCO CONFRONTATION VF FTFC prosthetic EXTERNAL EYE EXAM: [...] AM CUP TO DISC: .3 OPTIC DISC: Staley and sharp VITREOUS: PVD MACULA: Normal reflex, [...] EVALon 023 ANES POSTPROC EVAL HNO ID: [id number] Author: Samantha Banuelos APRN.CRNA Service: Anesthesiology Author Type: Nurse Dairy Equipment Specialist Type: Anesthesia Postprocedure Evaluation Filed: 02/25/2023 10:28 AM Note Text: POST ANESTHESIA EVALUATION NOTE : 1945 Procedure Summary Date: 02/25/23 Room / Location: Ambulatory Surgery Anesthesia Start: 1005 Anesthesia Stop: 1023 Procedure: COLONOSCOPY SCREENING Diagnosis: Benign neoplasm of colon, unspecified part of colon (Screening for colorectal malignant neoplasm) Scheduled Providers: Joaquin Benito MD Responsible Provider: Samantha Banuelos APRN.CRNA Anesthesia Type: MAC ASA Status: 3 Anesthesia [...] Anesthesia Observations No Documentation SIGNATURE: Samantha Banuelos APRN.CRNA PATIENT NAME: Tres Dickson DATE: February 25, 2023 TIME: 10:28 AM CSN: [id number] Normal [facility] ANES PRE-OPon 02-25-2023 ANES PRE-OP HNO ID: [id number] Author: Samantha Banuelos APRN.CRNA Service: Anesthesiology Author Type: Nurse Dairy Equipment Specialist Type: Anesthesia Preprocedure Evaluation Filed: 02/25/2023 10:02 [...] and consent discussed: yes. Patient / Responsible Constitution Party agrees to proceed: yes Patient / Surrogate agrees to blood products: blood products not planned Significant changes in the patient condition since the History and Physical, not otherwise documented in primary service progress note: no. Potential Anesthesia issues that may suggest increased risk of complications or contraindication to planned procedure: none. Vitals Value Taken Time BP 156/77 02/25/23 0946 Pulse 62 02/25/2346 Resp 16 02/25/2346 Temp 36.4 ?C (97.5 ?F) 02/25/23945 SpO2 [...] February 25, 2023 TIME: 10:02 AM CSN: [id number] Normal [facility] Colonoscopyon 02-25-2023 Colonoscopy [facility]astro[facility] Endoscopy Patient Name: Tres Dickson Procedure Date: 02/25/2023 9:58 AM Date of : 1945 Admit Type: Outpatient Age: 77 Room: [place] [address] Gender: Male Note Status: Finalized Attending MD: [...] the patient. Procedure Code(s): --- Professional --- 21214, Colonoscopy, flexible; diagnostic, including collection of specimen(s) by brushing or washing, when performed (separate procedure) CPT copyright 2021 [employer]. All rights reserved. The codes documented in this report are preliminary and upon air conditioning specialist review may be revised to meet current compliance requirements. Attending Participation: I personally performed the entire procedure. Scope In: 10:09:40 AM Scope Out: 10:19:49 AM MD Joaquin Beckham MD 02/25/2023 10:24:27 AM This report has been signed electronically by Joaquin Benito MD Number of Addenda: 0 Note Initiated On: 02/25/2023 9:58 AM Estimated Blood Loss: Estimated blood loss: none. Normal [facility] Colonoscopy Study observatio non 02-25-2023 [facility] Patient Name: Tres Dickson Procedure Date: 02/25/2023 9:58 AM Date of : 1945 Admit Type: Outpatient Age: 77 Room: [place] [address] Gender: Male Note Status: Finalized Attending MD: [...] the patient. Procedure Code(s): --- Professional --- 10502, Colonoscopy, flexible; diagnostic, including collection of specimen(s) by brushing or washing, when performed (separate procedure) CPT copyright 2020 [employer]. All rights reserved. The codes documented in this report are preliminary and upon air conditioning specialist review may be revised to meet current compliance requirements. Attending Participation: I personally performed the entire procedure. Scope In: 10:09:40 AM Scope Out: 10:19:49 AM MD Joaquin Beckham MD 02/25/2023 10:24:27 AM This report has been signed electronically by Joaquin Benito MD Number of Addenda: 0 Note Initiated On: 02/25/2023 9:58 AM Estimated Blood Loss: Estimated blood loss: none. [employer] Radiology Study observation (narrative) [facility] HISTORY PHYSICALon HISTORY PHYSICAL HNO ID: [id number] Author: Joaquin Benito MD Service: Gastroenterology Author [...] Additional Comments: None Joaquin Benito MD Normal [facility] CT Chest for screening WO co ntraston 01-28-2023 1. Small pulmonary nodules, the largest 5.2 mm. 2. No acute pulmonary process. ASSESSMENT CATEGORY (version 2022): Lung-RADS Assessment Category 2 - Benign appearance or behavior. Recommend continued annual low-dose screening CT in 12 months. Report Dictated on Electronically Signed By: Rolando Houston MD Electronically Signed Date/Time: 01/28/2023 12:33 PM T [facility] 1945 [id number] Exam Date/Time: 01/27/2023 10:32 Procedure: CT LUNG [...] CABG. There is atherosclerotic calcification of the [place] coronary arteries. Mild aortic atherosclerotic calcification without aneurysm. Lymph nodes: No enlarged mediastinal, hilar, or axillary lymph nodes. Upper Abdomen: No acute process identified in the upper abdomen. Soft tissues and Osseous structures: Unremarkable [facility] CT Chest for screening WO co ntrastOrdered By: Rolando Houston on 01-28-2023 N-Sided Work Phone: CT Chest for screening WO co ntraston 01-27-2023 Radiology Study observation (narrative) N-Sided CNCOon 12-02-2022 CNCO Letter Text [facility] CNPNon 12-02-2022 CNPN Telephone (GSTNOR) ----- LIZANDROTRES ([id number]) 1945 M Date Time Provider Department 12/02/22 [...] on exertion? No If yes, give to COLLAR TACKER to evaluate. History of COPD/Emphysema/Asthma/or Sleep Apnea? No If uses an inhaler, have pt bring inhaler with them. On oxygen at home? No If yes, give to COLLAR TACKER to evaluate. Implanted defibrillator (ACD)? No If [...] on dialysis? No If cirrhosis pt., have COLLAR TACKER review chart Do you have a history [...] of breath, on oxygen, using inhalers, seeing jordan man? No If yes, have COLLAR TACKER evaluate patient Personal History Colon polyps? Yes Colon cancer? No Crohn's Disease? No Ulcerative Colitis? No Who/where? Approx 2011 Family History Colon polyps? No Colon cancer? No Crohn's Disease? No Ulcerative Colitis? No Relationship? Approx age dx. Referring Physician: Office Visit Scheduled: Procedure Date Scheduled: Elmira Benjaminer 12/02/2022 11:38 AM Signed Bowel Preparation Instructions [...] If you do not have a responsible regional driver (family member or friend) with you to take you home, your exam cannot be done with sedation and will be cancelled. Please bring a list of all of your current medications, including any Vxsj-soh-Lfosbof medications with you. Medications If you take [...] drink inc (more content not included)... [facility] PSA, total and freeon 2022 Free PSA [Mass/Vol] 0.4 ng/mL [facility] Free PSA/Total PSA [Mass fraction] 21 % [facility] Comment on above: INTERPRETIVE INFORMA TION: Prostate Specific Antigen, Free Percentage [employer] uses the [employer] Free PSA electrochemiluminescent immunoassay method in conjunction [...] prostate cancer in individual patients. Performed By: [employer] [address] [place] [id number] Convention Manager: Kai Ruff MD, PhD Prostate specific Ag [place] [Mass/Vol] 1.9 ng/mL 0.0 - 4.0 ng/mL [facility] Comment on above: INTERPRETIVE INFORMA TION: Prostate [...] healthy individuals or individuals with nonprostatic carcinoma. [facility] CBC W Auto Differential pane l (Bld)Ordered By: Sheba Rosario on 11-13-2022 Basophils (Bld) [#/Vol] 0.0 10*3/uL 0.0 - 0.2 10*3/uL [facility] Basophils/100 WBC (Bld) 0.4 % 0.0 - 2.0 % [facility] Eosinophils (Bld) [#/Vol] 0.3 10*3/uL 0.0 - 0.5 10*3/uL [facility] Eosinophils/100 WBC (Bld) 2.7 % 1.0 - 6.0 % [facility] Erythrocyte distribution width (RBC) [Ratio] 12.4 % 11.5 - 14.5 % [facility] Hematocrit (Bld) [Volume fraction] 42.5 % 40.0 - 52.0 % [facility] Hemoglobin (Bld) [Mass/Vol] 14.2 g/dL 13.0 - 18.0 g/dL [facility] Immature granulocytes (Bld) [#/Vol] 0.0 10*3/uL NINF - 0.0 10*3/uL [facility] Immature granulocytes/100 WBC (Bld) 0.4 % High NINF - 0.0 % [facility] Interpretation and review of laboratory results Abnormal [facility] Lymphocytes (Bld) [#/Vol] 1.3 10*3/uL 1.0 - 4.3 10*3/uL [facility] Lymphocytes/100 WBC (Bld) 12.6 % Low 20.0 - 40.0 % [facility] MCH (RBC) [Entitic mass] 30.9 pg 26.0 - 34.0 pg [facility] MCHC (RBC) [Mass/Vol] 33.4 % 32.0 - 36.0 % [facility] MCV (RBC) [Entitic vol] 92.6 fL 80.0 - 98.0 fL [facility] Monocytes (Bld) [#/Vol] 0.9 10*3/uL High 0.0 - 0.8 10*3/uL [facility] Monocytes/100 WBC (Bld) 8.6 % 2.0 - 10.0 % [facility] Neutrophils (Bld) [#/Vol] 7.5 10*3/uL High 1.8 - 7.0 10*3/uL [facility] Neutrophils/100 WBC (Bld) 75.3 % 40.0 - 80.0 % [facility] Platelet mean volume (Bld) [Entitic vol] 12.7 fL High 7.4 - 12.4 fL [facility] Platelets (Bld) [#/Vol] 133 10*3/uL Low 140 - 440 10*3/uL [facility] RBC (Bld) [#/Vol] 4.59 10*6/uL 4.40 - 5.9 0 10*6/uL [facility] WBC (Bld) [#/Vol] 9.9 10*3/uL 3.6 - 10.7 10*3/uL [facility] Comprehensive metabolic 1998 panelon 11-13-2022 Albumin [Mass/Vol] 3.8 g/dL 3.5 - 5.0 g/dL [facility] ALP [Catalytic activity/Vol] 60 U/L 38 - 126 U/L [facility] ALT [Catalytic activity/Vol] 17 U/L 0 - 49 U/L [facility] Anion gap [Moles/Vol] 2 mmol/L Low 3 - 13 mmol/L [facility] AST [Catalytic activity/Vol] 32 U/L 15 - 46 U/L [facility] Bilirubin [Mass/Vol] 0.7 mg/dL 0.2 - 1 .3 mg/dL [facility] Calcium [Mass/Vol] 8.7 mg/dL 8.4 - 10. 4 mg/dL [facility] Chloride [Moles/Vol] 104 mmol/L 98 - 10 7 mmol/L [facility] CO2 [Moles/Vol] 33 mmol/L High 22 - 30 mmol/L [facility] Creatinine [Mass/Vol] 0.97 mg/dL 0.66 - 1.25 mg/dL [facility] GFR/1.73 sq M.predicted MDRD (S/P/Bld) [Vol rate/Area] 80.4 mL/min/{1.73_m2} [facility] Comment on above: Calculation based on the Chronic Kidney Disease Epidemiology Collaboration (CKD-EPI) equation refit without adjustment for race Glucose [Mass/Vol] 115 mg/dL High 70 - 100 mg/dL [facility] Potassium [Moles/Vol] 4.5 mmol/L 3.5 - 5.1 mmol/L [facility] Protein [Mass/Vol] 7.0 g/dL 6.3 - 8.2 g/dL [facility] Sodium [Moles/Vol] 139 mmol/L 135 - 145 mmol/L [facility] Urea nitrogen [Mass/Vol] 18 mg/dL 9 - 20 mg/dL [facility] Lipid 1996 panelon 3 Cholesterol [Mass/Vol] 107 mg/dL NINF - 200 mg/dL [facility] Cholesterol in HDL [Mass/Vol] 37 mg/dL Low 40 - 60 mg/dL [facility] Cholesterol in LDL [Mass/Vol] 53 mg/dL 0 - <100 [facility] Cholesterol.total/Chol esterol in HDL [Mass ratio] 3 {ratio} [facility] Comment on above: Ref Range: < 3 Low Risk for CHD 3-6 Mod Risk for CHD > 6 High Risk for CHD Triglyceride [Mass/Vol] 83 mg/dL NINF - 150 mg/dL [facility] Microalbumin/Creatinine rati o panel (U)on 11-13-2022 Albumin DL <= 20 mg/L (U) [Mass/Vol] 11.8 mg/L 0.0 - 29.9 mg/L [facility] Albumin/Creatinine DL <= 20 mg/L (U) [Mass ratio] 10.2 mg/g 0.0 - 29.9 mg/g [facility] CREATININE, URINE 115.4 mg/dL No Range [facility] Microalbumin concentrations <30 are considered normal, 30-300 are considered microalbuminuria (or risk of diabetic nephropathy), and >300 are considered clinical albuminuria (clinical nephropathy). Diabetes Care,27, Supplement 1, S66-56, 2004 [facility] No Panel Informationon 11-13 Interpretation and review of laboratory results Abnormal [facility] US Extremity Non Vascular Li tania 05-11-2022 US Extremity Non Vascular Limited Patient Name: TRES DICKSON Ultrasound ACCESSION EXAM DATE/TIME PROCEDURE ORDERING PROVIDER [id number] 05/11/2022 13:00 EDT US Extremity Non MD SHELLY, REGIS Vascular Limited RENZO CPT code 50487 Reason For Exam (US Extremity Non Vascular [...] Transcribed Date and Time: 05/11/2022 2:42 Normal [facility] CBC Auto Differentialon 03-19 Absolute Baso # 0.1 10*3/uL 0 - 0.2 10*3/uL [place] Absolute Neut # 5.8 10*3/uL 1.8 - 7 10*3/uL [place] Basophils/100 WBC (Bld) 1.1 % 0 - 2 % [place] Eosinophils (Bld) [#/Vol] 0.4 10*3/uL 0 - 0.5 10*3/uL [place] Eosinophils/100 WBC (Bld) 4.7 % 1 - 6 % [place] Erythrocyte distribution width (RBC) [Ratio] 13.1 % 11.5 - 14.5 % [place] Granulocytes/100 WBC (Bld) 66.8 % 40 - 80 % [place] Hematocrit (Bld) [Volume fraction] 42.1 % 40 - 52 % [place] Hemoglobin (Bld) [Mass/Vol] 14.0 g/dL 13 - 18 g/dL [place] Interpretation and review of laboratory results Abnormal [place] Lymphocytes (Bld) [#/Vol] 1.6 10*3/uL 1 - 4.3 10*3/uL [place] Lymphocytes/100 WBC (Bld) 18.1 % Low 20 - 40 % [place] MCH (RBC) [Entitic mass] 29.9 pg 26 - 34 pg [place] MCHC (RBC) [Mass/Vol] 33.2 % 32 - 36 % [place] MCV (RBC) [Entitic vol] 89.9 fL 80 - 98 fL [place] Monocytes (Bld) [#/Vol] 0.8 10*3/uL 0 - 0.8 10*3/uL [place] Monocytes/100 WBC (Bld) 9.3 % 2 - 10 % [place] Platelet mean volume (Bld) [Entitic vol] 11.9 fL High 7.4 - 10.4 fL [place] Platelets (Bld) [#/Vol] 172 10*3/uL 140 - 440 10*3/uL [place] Comment on above: Few large platelets seen on slide. RBC (Bld) [#/Vol] 4.68 10*6/uL 4.4 - 5.9 10*6/uL [place] WBC (Bld) [#/Vol] 8.6 10*3/uL 3.6 - 10.7 10*3/uL [place] Test Performed by [facility], [address] , [place], [place] [id number] [place] [address] Comprehensive Metabolic Pane cristian 04-03-2019 Albumin [Mass/Vol] 3.9 g/dL 3.5 - 5 g/dL [place] ALP [Catalytic activity/Vol] 34 U/L Low 38 - 126 U/L [place] ALT [Catalytic activity/Vol] 25 U/L 13 - 69 U/L [place] Anion gap [Moles/Vol] 10 mmol/L [place] AST [Catalytic activity/Vol] 28 U/L 15 - 46 U/L [place] Bilirubin Ql (U) 0.4 mg/dL 0.2 - 1.3 mg/dL [place] Calcium [Mass/Vol] 9.4 mg/dL 8.4 - 10. 4 mg/dL [place] Chloride [Moles/Vol] 106 mmol/L 98 - 10 7 mmol/L [place] CO2 [Moles/Vol] 27 mmol/L 22 - 30 mmol/L [place] Creatinine [Mass/Vol] 1.42 mg/dL High 0.52 - 1.25 mg/dL [place] EGFR IF NonAfrican Croatian 48.8 mL/min >60 [place] Comment on above: Source- MDRD equatio n with creatinine calibration to IDMS(NKDEP) eGFR not recommended for drug dose adjustment GFR/1.73 sq M predicted among blacks MDRD (S/P/Bld) [Vol rate/Area] 59.2 mL/min/{1.73_m2} >60 [place] Glucose [Mass/Vol] 102 mg/dL High 70 - 100 mg/dL [place] Potassium [Moles/Vol] 4.8 mmol/L 3.5 - 5.1 mmol/L [place] Protein [Mass/Vol] 6.7 g/dL 6.3 - 8.2 g/dL [place] Sodium [Moles/Vol] 143 mmol/L 135 - 145 mmol/L [place] Urea nitrogen [Mass/Vol] 33 mg/dL High 7 - 20 mg/dL [place] Hemoglobin A1Con 04-03-2019 eAG 128 mg/dL [place] HbA1c (Bld) [Mass fraction] 6.1 % High 4 - 5.7 % [place] Comment on above: --HgbA1C levels may not be accurate in patients who have renal disease, received recent blood transfusions, are anemic, or who have dyshemoglobinemia. Interpretation and review of laboratory results Abnormal 0[employer] TOSHA Test Performed by [email or web address] [facility], [address] , [address] Lipid Panelon 04-03-2019 Cholesterol [Mass/Vol] 108 mg/dL <200 [facility] [employer] Cholesterol in HDL [Mass/Vol] 27 mg/dL Low 40 - 60 [facility] [place] Cholesterol in LDL [Mass/Vol] 54 mg/dL <100 [facility] [employer] Cholesterol.total/Chol esterol in HDL [Mass ratio] 4 {ratio} [facility] [employer] Comment on above: Ref Range: < 3 Low Risk for CHD 3-6 Mod Risk for CHD > 6 High Risk for CHD Triglyceride [Mass/Vol] 137 mg/dL <150 [facility] Otheron 04-03-2019 Interpretation and review of laboratory results Abnormal [facility] Test Performed by [employer] [facility], [address] , [address] [employer] Vital Signs Date Time Vital Sign Value Performing Clinician Gayla mak 12-28-2024 15:44-0400 Body height 173.99 cm Diana Kelley SENIOR ACCOUNTING CLERK-C Work Phone: [facility] 12-28-2024 15:44-0400 Body mass index (BMI) [Ratio] 26.5 kg/m2 Diana Kelley SENIOR ACCOUNTING CLERK-C Work Phone: [facility] 12-28-2024 15:44-0400 Body temperature 97.9 [degF] Diana Kelley SENIOR ACCOUNTING CLERK-C Work Phone: [facility] 12-28-2024 15:44-0400 Body weight 80.28 kg Diana Kelley SENIOR ACCOUNTING CLERK-C Work Phone: [facility] 12-28-2024 15:44-0400 Diastolic blood pressure 64 mm[Hg] Diana Kelley SENIOR ACCOUNTING CLERK-C Work Phone: [facility] 12-28-2024 15:44-0400 Heart rate 70 /min Diana Kelley SENIOR ACCOUNTING CLERK-C Work Phone: [facility] 12-28-2024 15:44-0400 Respiratory rate 18 /min Diananitza Kelley SENIOR ACCOUNTING CLERK-C Work Phone: [facility] 12-28-2024 15:44-0400 SaO2% (BldA) [Mass fraction] 95 % Diananitza Kelley SENIOR ACCOUNTING CLERK-C Work Phone: [facility] 12-28-2024 15:44-0400 Systolic blood pressure 130 mm[Hg] Diananitza Kelley SENIOR ACCOUNTING CLERK-C Work Phone: [facility] 12-21-2024 15:03-0400 Body height 173.99 cm Diana Kelley SENIOR ACCOUNTING CLERK-C Work Phone: [facility] 12-14-2024 19:59-0400 Body height 173.99 cm Diananitza Kelley SENIOR ACCOUNTING CLERK-C Work Phone: [facility] 12-14-2024 08:29-0400 Body height 173.99 cm Diananitza Kelley SENIOR ACCOUNTING CLERK-C Work Phone: [facility] 12-14-2024 08:29-0400 Body mass index (BMI) [Ratio] 27.1 kg/m2 Diananitza Kelley SENIOR ACCOUNTING CLERK-C Work Phone: [facility] 12-14-2024 08:29-0400 Body weight 82.1 kg Diananitza Kelley SENIOR ACCOUNTING CLERK-C Work Phone: [facility] 12-14-2024 08:29-0400 Diastolic blood pressure 82 mm[Hg] Diana Kelley SENIOR ACCOUNTING CLERK-C Work Phone: [facility] 12-14-2024 08:29-0400 Heart rate 51 /min Diana Kelley SENIOR ACCOUNTING CLERK-C Work Phone: [facility] 12-14-2024 08:29-0400 Respiratory rate 14 /min Diananitza Kelley SENIOR ACCOUNTING CLERK-C Work Phone: [facility] 12-14-2024 08:29-0400 Systolic blood pressure 144 mm[Hg] Diana Kelley SENIOR ACCOUNTING CLERK-C Work Phone: [facility] 11-02-2024 12:53-0400 Body mass index (BMI) [Ratio] 27.4 kg/m2 Diana Kelley SENIOR ACCOUNTING CLERK-C Work Phone: [facility] 11-02-2024 12:53-0400 Body temperature 98.1 [degF] Diananitza Kelley SENIOR ACCOUNTING CLERK-C Work Phone: [facility] 11-02-2024 12:53-0400 Body weight 83 kg Diana Kelley SENIOR ACCOUNTING CLERK-C Work Phone: [facility] 11-02-2024 12:53-0400 Diastolic blood pressure 76 mm[Hg] Diana Kelley SENIOR ACCOUNTING CLERK-C Work Phone: [facility] 11-02-2024 12:53-0400 Heart rate 61 /min Diana Kelley SENIOR ACCOUNTING CLERK-C Work Phone: [facility] 11-02-2024 12:53-0400 Respiratory rate 18 /min Diananitza Kelley SENIOR ACCOUNTING CLERK-C Work Phone: [facility] 11-02-2024 12:53-0400 SaO2% (BldA) [Mass fraction] 96 % Diana Kelley SENIOR ACCOUNTING CLERK-C Work Phone: [facility] 11-02-2024 12:53-0400 Systolic blood pressure 156 mm[Hg] Diana Kelley SENIOR ACCOUNTING CLERK-C Work Phone: [facility] 08-23-2024 08:16-0500 Body mass index (BMI) [Ratio] 26.2 kg/m2 Diana Kelley SENIOR ACCOUNTING CLERK-C Work Phone: [facility] 08-23-2024 08:16-0500 Body temperature 97.2 [degF] Diana Kelley SENIOR ACCOUNTING CLERK-C Work Phone: [facility] 08-23-2024 08:16-0500 Body weight 79.37 kg Diananitza TripathiKelley SENIOR ACCOUNTING CLERK-C Work Phone: [facility] 08-23-2024 08:16-0500 Diastolic blood pressure 89 mm[Hg] Diana Kelley SENIOR ACCOUNTING CLERK-C Work Phone: [facility] 08-23-2024 08:16-0500 Heart rate 57 /min Diana Kelley SENIOR ACCOUNTING CLERK-C Work Phone: [facility] 08-23-2024 08:16-0500 Respiratory rate 18 /min Diananitza TripathiKelley SENIOR ACCOUNTING CLERK-C Work Phone: [facility] 08-23-2024 08:16-0500 SaO2% (BldA) [Mass fraction] 96 % Diananitza TripathiKelley SENIOR ACCOUNTING CLERK-C Work Phone: [facility] 08-23-2024 08:16-0500 Systolic blood pressure 151 mm[Hg] Diana Kelley SENIOR ACCOUNTING CLERK-C Work Phone: [facility] 04-28-2024 10:23-0400 Body height 177.8 cm Yessy Villarreal MD Work Phone: [facility] 04-28-2024 10:23-0400 Body mass index (BMI) [Ratio] 25.11 kg/m2 Yessy Villarreal MD Work Phone: [facility] 04-28-2024 10:23-0400 Body weight 79.38 kg Yessy Villarreal MD Work Phone: [facility] 04-28-2024 10:23-0400 Diastolic blood pressure 82 mm[Hg] Yessy Villarreal MD Work Phone: [facility] 04-28-2024 10:23-0400 Systolic blood pressure 134 mm[Hg] Yessy Villarreal MD Work Phone: [facility] 02-25-2024 15:02-0400 Body height 177.8 cm Yessy Villarreal MD Work Phone: [facility] 02-25-2024 15:02-0400 Body mass index (BMI) [Ratio] 25.11 kg/m2 Yessy Villarreal MD Work Phone: [facility] 02-25-2024 15:02-0400 Body weight 79.38 kg Yessy Villarreal MD Work Phone: [facility] 12-20-2023 14:56-0400 Body height 177.8 cm Yessy Villarreal MD Work Phone: [facility] 12-20-2023 14:56-0400 Body mass index (BMI) [Ratio] 25.11 kg/m2 Yessy Villarreal MD Work Phone: [facility] 12-20-2023 14:56-0400 Body weight 79.38 kg Yessy Villarreal MD Work Phone: [facility] 07-02-2023 18:47-0500 Body height 173.99 cm SENIOR ACCOUNTING CLERK-C Diana Kelley SENIOR ACCOUNTING CLERK Work Phone: [facility] 07-02-2023 18:47-0500 Body mass index (BMI) [Ratio] 26.6 kg/m2 SENIOR ACCOUNTING CLERK-C Diana Kelley SENIOR ACCOUNTING CLERK Work Phone: [facility] 07-02-2023 18:47-0500 Body temperature 98.1 [degF] SENIOR ACCOUNTING CLERK-C Diana Kelley SENIOR ACCOUNTING CLERK Work Phone: [facility] 07-02-2023 18:47-0500 Body weight 80.73 kg SENIOR ACCOUNTING CLERK-C Diana Kelley SENIOR ACCOUNTING CLERK Work Phone: [facility] 07-02-2023 18:47-0500 Diastolic blood pressure 70 mm[Hg] SENIOR ACCOUNTING CLERK-C Diana Kelley SENIOR ACCOUNTING CLERK Work Phone: [facility] 07-02-2023 18:47-0500 Heart rate 76 /min SENIOR ACCOUNTING CLERK-C Diana Kelley SENIOR ACCOUNTING CLERK Work Phone: [facility] 07-02-2023 18:47-0500 Respiratory rate 18 /min SENIOR ACCOUNTING CLERK-C Diana Kelley SENIOR ACCOUNTING CLERK Work Phone: [facility] 07-02-2023 18:47-0500 SaO2% (BldA) [Mass fraction] 95 % SENIOR ACCOUNTING CLERK-C Diana Kelley SENIOR ACCOUNTING CLERK Work Phone: [facility] 07-02-2023 18:47-0500 Systolic blood pressure 140 mm[Hg] SENIOR ACCOUNTING CLERK-C Diana Tripathison SENIOR ACCOUNTING CLERK Work Phone: [facility] 03-24-2023 09:10-0400 Body temperature 98.4 [degF] SENIOR ACCOUNTING CLERK-C Diana Kelley SENIOR ACCOUNTING CLERK Work Phone: [facility] 03-24-2023 09:10-0400 Body weight 78.92 kg SENIOR ACCOUNTING CLERK-C Diana Kelley SENIOR ACCOUNTING CLERK Work Phone: [facility] 03-24-2023 09:10-0400 Diastolic blood pressure 80 mm[Hg] SENIOR ACCOUNTING CLERK-C Diana Kelley SENIOR ACCOUNTING CLERK Work Phone: [facility] 03-24-2023 09:10-0400 Heart rate 51 /min SENIOR ACCOUNTING CLERK-C Diana Kelley SENIOR ACCOUNTING CLERK Work Phone: [facility] 03-24-2023 09:10-0400 Respiratory rate 16 /min SENIOR ACCOUNTING CLERK-C Diana Kelley SENIOR ACCOUNTING CLERK Work Phone: [facility] 03-24-2023 09:10-0400 SaO2% (BldA) [Mass fraction] 97 % SENIOR ACCOUNTING CLERK-C Diana Kelley SENIOR ACCOUNTING CLERK Work Phone: [facility] 03-24-2023 09:10-0400 Systolic blood pressure 146 mm[Hg] SENIOR ACCOUNTING CLERK-C Diana Kelley SENIOR ACCOUNTING CLERK Work Phone: [facility] 03-03-2023 16:08-0400 Body height 173.99 cm SENIOR ACCOUNTING CLERK-C Diana Kelley SENIOR ACCOUNTING CLERK Work Phone: [facility] 03-03-2023 16:08-0400 Body mass index (BMI) [Ratio] 26 kg/m2 SENIOR ACCOUNTING CLERK-C Diana Kelley SENIOR ACCOUNTING CLERK Work Phone: [facility] 03-03-2023 16:08-0400 Body temperature 97.9 [degF] SENIOR ACCOUNTING CLERK-C Diana Kelley SENIOR ACCOUNTING CLERK Work Phone: [facility] 03-03-2023 16:08-0400 Body weight 78.92 kg SENIOR ACCOUNTING CLERK-C Diana Kelley SENIOR ACCOUNTING CLERK Work Phone: [facility] 03-03-2023 16:08-0400 Diastolic blood pressure 70 mm[Hg] SENIOR ACCOUNTING CLERK-C Diana Kelley SENIOR ACCOUNTING CLERK Work Phone: [facility] 03-03-2023 16:08-0400 Heart rate 67 /min SENIOR ACCOUNTING CLERK-C Diana Kelley SENIOR ACCOUNTING CLERK Work Phone: [facility] 03-03-2023 16:08-0400 Respiratory rate 18 /min SENIOR ACCOUNTING CLERK-C Diana Kelley SENIOR ACCOUNTING CLERK Work Phone: [facility] 03-03-2023 16:08-0400 SaO2% (BldA) [Mass fraction] 96 % SENIOR ACCOUNTING CLERK-C Diana Kelley SENIOR ACCOUNTING CLERK Work Phone: [facility] 03-03-2023 16:08-0400 Systolic blood pressure 130 mm[Hg] SENIOR ACCOUNTING CLERK-C Diana Kelley SENIOR ACCOUNTING CLERK Work Phone: [facility] 02-25-2023 10:43-0400 Diastolic blood pressure 61 mm[Hg] Joaquin Benito MD Work Phone: [facility] 02-25-2023 10:43-0400 Heart rate 50 /min Joaquin Benito MD Work Phone: [facility] 02-25-2023 10:43-0400 Respiratory rate 16 /min Joaquin Benito MD Work Phone: [facility] 02-25-2023 10:43-0400 SaO2% (BldA) [Mass fraction] 95 % Joaquin Benito MD Work Phone: [facility] 02-25-2023 10:43-0400 Systolic blood pressure 121 mm[Hg] Joaquin Benito MD Work Phone: [facility] 02-25-2023 10:23-0400 Body temperature 97.3 [degF] Joaquin Benito MD Work Phone: [facility] 02-25-2023 09:46-0400 Body height 177.8 cm Joaquin Benito MD Work Phone: [facility] 02-25-2023 09:46-0400 Body mass index (BMI) [Ratio] 25.11 kg/m2 Joaquin Benito MD Work Phone: [facility] 02-25-2023 09:46-0400 Body weight 79.38 kg Joaquin Benito MD Work Phone: [facility] Encounters Encounter Date Encounter Type Care Provider Facility Start: 02-21-2025 ambulatory Diana Kelley SENIOR ACCOUNTING CLERK Faci [facility]ity:[facility] Start: 01-24-2025 ambulatory Diana Kelley SENIOR ACCOUNTING CLERK Faci lity:[facility] Start: 12-28-2024 End: 12-28-2024 ambulatory Diana Kelley SENIOR ACCOUNTING CLERK-C Work Phone: [facility] Work Phone: Start: 12-28-2024 Non-patient / Non-visit Dr. Carson harmon MD -[facility] Start: 12-28-2024 End: 12-28-2024 ambulatory Diana Kelley SENIOR ACCOUNTING CLERK-C Work Phone: [facility] Work Phone: Start: 12-28-2024 End: 12-28-[address] Magda Husain MD -Cardiovascular Services Work Phone: Start: 12-27-2024 End: 12-28-2024 ambulatory [facility] Ambulatory Start: 12-21-2024 End: 12-21-2024 ambulatory Diana Kelley SENIOR ACCOUNTING CLERK-C Work Phone: [facility] Work Phone: Start: 12-21-2024 End: 12-21-2024 Patient encounter procedure Diana Kelley SENIOR ACCOUNTING CLERK-C -Laboratory Specimen Work Phone: Start: 12-21-2024 End: 12-21-2024 ambulatory Diana Kelley SENIOR ACCOUNTING CLERK-C Work Phone: [facility] Work Phone: Start: 12-21-2024 End: 12-21-2024 ambulatory Diana Kelley SENIOR ACCOUNTING CLERK Facility:[facility] Start: 12-14-2024 End: 12-14-2024 ambulatory Diana Kelley SENIOR ACCOUNTING CLERK-C Work Phone: [facility] Work Phone: Start: 12-14-2024 End: 12-14-2024 Patient encounter procedure Diana Kelley SENIOR ACCOUNTING CLERK-C -[facility] Work Phone: Start: 12-14-2024 End: 12-14-2024 ambulatory Diana Kelley SENIOR ACCOUNTING CLERK-C Work Phone: [facility] Work Phone: Start: 12-14-2024 End: 12-14-[address] Magda Husain MD -[facility] Work Phone: Start: 12-14-2024 End: 12-14-2024 ambulatory Diana Kelley SENIOR ACCOUNTING CLERK-C Work Phone: [facility] Work Phone: Start: 12-14-2024 End: 12-14-2024 ambulatory Diana Warren SENIOR ACCOUNTING CLERK Facility:[facility] Start: 08-23-2024 End: 08-23-2024 Patient encounter procedure SENIOR ACCOUNTING CLERK Roshni Baker -[facility] Work Phone: Start: 08-23-2024 End: 08-23-2024 ambulatory Diana Warren SENIOR ACCOUNTING CLERK Facility:[facility] Start: 08-01-2024 End: 08-01-2024 ambulatory Estrellita Germain SENIOR ACCOUNTING CLERK Facility:[facility] Start: 07-11-2024 End: 07-11-2024 ambulatory Estrellita Germain SENIOR ACCOUNTING CLERK Facility:[facility] Start: 07-04-2024 End: 07-04-2024 ambulatory Diana Warren SENIOR ACCOUNTING CLERK Facility:[facility] Start: 06-21-2024 End: 06-21-2024 ambulatory [facility] Ambulatory Start: 06-06-2024 End: 06-06-2024 ambulatory Diana Kelley NP Facility:[facility] Start: 05-31-2024 End: 05-31-2024 ambulatory Yessy Villarreal MD Work Phone: [facility] Comment on above: 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 (Primary Dx) Start: 05-17-2024 End: 05-17-2024 Follow-up encounter Yessy Villarrael MD Work Phone: [facility] Comment on above: 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 (Primary Dx) Start: 05-17-2024 End: 05-17-2024 ambulatory [facility] Start: 05-10-2024 End: 05-10-2024 Follow-up encounter Yessy Villarreal MD Work Phone: [facility] Comment on above: 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 (Primary Dx) Start: 05-10-2024 End: 05-10-2024 ambulatory [facility] Start: 05-03-2024 End: 05-03-2024 ambulatory Yessy Villarreal MD Work Phone: [facility] Comment on above: 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 Start: 04-28-2024 End: 04-28-2024 Office outpatient visit 15 minutes Yessy Villarreal MD Work Phone: [facility] Comment on above: 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 (Primary Dx) Start: 04-28-2024 End: 04-28-2024 Subsequent hospital visit by physician Yessy Villarreal MD Work Phone: [facility] Comment on above: 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 Start: 04-28-2024 End: 04-28-2024 ambulatory [facility] Start: 03-16-2024 End: 03-16-2024 Telephone encounter Regis Bravo MD Work Phone: [facility] Pulmonary and Sleep Medicine Comment on above: Other (Annual Lung S creening Reminder) Start: 02-25-2024 End: 02-25-2024 Patient encounter procedure Yessy Villarreal MD Work Phone: [facility] Orthopedic & Sports Medicine Comment on above: Primary osteoarthrit is of left knee (Primary Dx) Start: 02-25-2024 End: 02-25-2024 [facility] Start: 02-08-2024 End: 02-08-2024 ambulatory Caitlyn Carrera RN [facility] Clinical Communication Start: 02-08-2024 End: 02-08-2024 Patient encounter procedure Caitlyn Carrera RN [facility] Clinical Communication Start: 12-20-2023 End: 12-20-2023 Office outpatient visit 15 minutes Yessy Villarreal MD Work Phone: [facility]opedic [facility] Sports Medicine Comment on above: Primary osteoarthrit is of left knee (Primary Dx) Start: 12-20-2023 End: 12-21-2023 Darlyn Marquez MA [facility] Orthopedics and Sports Medicine Start: 07-02-2023 End: 07-02-2023 ambulatory SENIOR ACCOUNTING CLERK-C Diana Kelley SENIOR ACCOUNTING CLERK Work Phone: [facility] Work Phone: Start: 07-02-2023 End: 07-02-2023 Patient encounter procedure SENIOR ACCOUNTING CLERK-Kajal Kelley SENIOR ACCOUNTING CLERK Work Phone: [facility]-Laboratory, Specimen Work Phone: Start: 03-24-2023 End: 03-24-2023 Patient encounter procedure SENIOR ACCOUNTING CLERK-Kajal Kelley SENIOR ACCOUNTING CLERK Work Phone: [facility] Vascular Surgery Work Phone: Start: 03-11-2023 Non-patient / Non-visit SENIOR ACCOUNTING CLERK-C Vel Kelley SENIOR ACCOUNTING CLERK Work Phone: [facility] Start: 03-11-2023 End: 03-11-2023 ambulatory SENIOR ACCOUNTING CLERK-Kajal Kelley SENIOR ACCOUNTING CLERK Work Phone: [facility] Work Phone: Start: 03-11-2023 End: 03-11-2023 Patient encounter procedure SENIOR ACCOUNTING CLERK-C Diana Kelley SENIOR ACCOUNTING CLERK Work Phone: [facility]-Cardiovascular Services Work Phone: Start: 03-03-[address] 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] Start: 02-23-2023 ambulatory Joaquin Benito MD Work Phone: Ambulatory Surgery Start: 01-27-2023 End: 01-27-2023 Subsequent hospital visit by physician Jania Myers REWRITER - MECHANICAL DESIGN ENGINEER Work Phone: [facility] Comment on above: Personal history of nicotine dependence Start: 12-07-2022 Transcribe Orders Jania Myers REWRITER - MECHANICAL DESIGN ENGINEER Work Phone: [facility] Central Scheduling Comment on above: Personal history of nicotine dependence (Primary Dx) Start: 12-02-2022 Telephone encounter Joaquin Benito MD Work Phone: [facility] [place] Comment on above: Screening order/chec klist Start: 11-13-2022 End: 11-13-2022 ambulatory Regis Bravo MD Work Phone: [facility] Laboratory Comment on above: Hypertensive chronic kidney disease with stage 1 through stage 4 chronic kidney disease, or unspecified chronic kidney disease (Primary Dx); Type 2 diabetes mellitus with diabetic chronic kidney disease (HCC); Mixed hyperlipidemia; Benign prostatic hyperplasia without lower urinary tract symptoms Start: 05-25-2022 Transcribe Orders Regis camara MD Work Phone: [facility] Laboratory Comment on above: Pain in left knee (P rimary Dx) Start: 05-11-2022 ambulatory Regis Rosaganga [facility] Start: 02-25-2022 Patient encounter procedure Regis Sanches Shelly Work Phone: [facility] Work Phone: Start: 04-03-2019 End: 04-03-2019 [...] Start: 11-13-2022 Lipid 1996 panel - S alessandra or Plasma [facility] Start: 04-03-2019 Blood count complete auto&auto difrntl wbc Regis Renzo Bravo Work Phone: Start: 04-03-2019 Comprehensive metabo lic panel Regis Bravo Work Phone: Start: 04-03-2019 Hemoglobin glycosyla karen a1c Regis Renzo Bravo Work Phone: Start: 04-03-2019 Lipid panel Regis Bravo Work Phone: Coronary Artery Surgery Tony asael Bravo Work Phone: Comment on above: single heart bypass; Globe Enucleation Left [place] Ver[place]ica Bravo Work Phone: Comment on above: 04-27-05; H/O: surgery H/O enucleation of left eyeball Diana Kelley SENIOR ACCOUNTING CLERK-C Work Phone: Comment on above: 2006 H/O: surgery H/O enucleation of left eyeball Dr. Magda Husain MD History of coronary artery bypass grafting History of coronary artery bypass graft x 1 Dr. Magda Husain MD Plan of Treatment Date Care Activity Detail Author Start: 11-14-2027 Lipid panel Lipid Panel [facility] Start: 04-14-2027 DTaP/Tdap/Td vaccine (2 - Td) DTaP/Tdap/Td vaccine (2 - Td) [place] Start: 04-14-2027 DTaP/Tdap/Td Vaccine s (2 - Td or Tdap) DTaP/Tdap/Td Vaccines (2 - Td or Tdap) [facility] Start: 04-14-2027 Urine microalbumin profile DTaP,Tdap,Td Vaccine (2 - Td or Tdap) [facility] Start: 11-13-2025 Diabetes Screening Diabetes Screenin g [facility] Start: 12-21-2024 Basic metabolic 2008 panel with ionized calcium - Serum or Plasma [facility] Start: 12-14-2024 Evaluation of diagnostic study results [facility] Start: 11-06-[address] [facility] Services Work Phone: Start: 05-31-2024 End: 05-31-2024 ambulatory 05/31/2024 9:00 AM EST Evaluation [facility] at [address] [place] [id number] Yessy Villarreal MD [address] [place] [id number] Reji Clement, PT [facility] at [facility] Start: 05-24-2024 End: 05-24-2024 Follow-up encounter 05/24/2024 9:00 AM EST Follow-Up [facility] Therapy at [address] [place] [phone] Yessy Villarreal MD [address] [place] [id number] Tay Nowka, GENERAL REPAIR MECHANIC [facility] Therapy at [facility] Start: 05-17-2024 End: 05-17-2024 Follow-up encounter 05/17/2024 9:00 AM EDT Follow-Up [facility] at [address] [place] [phone] Yessy Villarreal MD [address] [place], [place] [address] [address] Tay Nowak, GENERAL REPAIR MECHANIC [facility] at [facility] Start: 05-10-2024 End: 05-10-2024 Follow-up encounter 05/10/2024 9:00 AM EDT Follow-Up [facility] Therapy at [address] [place] [phone] Yessy Villarreal MD [address] [place] [phone] Tay Nowak, PERI [facility] Start: 05-03-2024 End: 05-03-2024 ambulatory 05/03/2024 9:00 AM EDT Evaluation [facility] at [address] [place] [phone] Yessy Villarreal MD [address] [place] [id number] Reji Clement, PT [facility] at [facility] Start: 04-27-2024 End: 04-27-2025 XR Shoulder - left 2 Views XR shoulder 2+ views left Imaging Routine Primary osteoarthritis of left shoulder Expected: 04/27/2024, Expires: 04/27/2025 [facility] Work Phone: Comment on above: Expected: 04/27/2024 , Expires: 04/27/2025 Start: 04-03-2024 Lipid screen Lipid screen [facility] [place], [place] Start: 03-19-2024 Covid-19 Vaccine ( season) Covid-19 Vaccine () [facility] Start: 03-19-2024 COVID-19 Vaccine ( season) COVID-19 Vaccine () [facility] Start: 03-19-2024 Influenza vaccination S [facility] Start: 02-26-2024 Glaucoma screening Diabetes: R etinopathy Screening [facility] Start: 02-25-2024 End: 02-25-2024 Patient encounter procedure 02/25/2024 3:15 PM EDT Office Visit [facility] [place] [address] [facility] Start: 11-14-2023 Diabetes: Estimated Glomerular Filtration Rate for Kidney Health Diabetes: Estimated Glomerular Filtration Rate for Kidney Health [facility] Start: 11-14-2023 Diabetes: Urine Albumin-Creatinine Ratio for Kidney Health Diabetes: Urine Albumin-Creatinine Ratio for Kidney Health [facility] Start: 11-14-2023 Lipid panel Lipid Panel [facility] Start: 11-14-2023 Urine screening for protein Diabetes: Urine Protein Screening [facility] Start: 07-19-2023 Advance Directive Discussion Advance Directive Discussion [facility] Start: 07-19-2023 Medicare Advantage Annual Wellness Visit Medicare [facility] Annual Wellness Visit [facility] Start: 03-24-2023 Patient referral [facility] Work Phone: Start: 03-19-2023 COVID-19 Vaccine () COVID-19 Vaccine () [facility] Start: 03-19-2023 Influenza vaccination C [facility] Start: 03-03-2023 EPVDILATED, Provider : Rafa Dockery, Status: Pen, Time: 9:45 AM EPVDILATED, Provider: Rafa Dockery, Status: Pen, Time: 9:45 AM YT-Ukilzvpxsidxv-Vxex erbrome Work Phone: Start: 08-24-2022 EPVOPTOM, Provider: St blossom Nixon, Status: Pen, Time: 10:00 AM EPVOPTOM, Provider: Andrew Nixon, Status: Pen, Time: 10:00 AM AT-Vtpgyaqoefmov-Tmjc bishopliat Work Phone: Start: 07-28-2022 Hemoglobin A1c measurement Diabetes: Hemoglobin A1C [facility] Start: 07-19-2022 ADVANCE DIRECTIVE DISCUSSION ADVANCE DIRECTIVE DISCUSSION [facility] Start: 07-19-2022 DEPRESSION ASSESSMENT DEPRESSION ASS ESSMENT [facility] Start: 09-15-2021 COVID-19 Vaccine (4 - Booster for Pfizer series) COVID-19 Vaccine (4 - Booster for Pfizer series) [facility] Start: 2020 RSV Immunization for Adults (1 - 1-dose 75+ series) RSV Immunization for Adults (1 - 1-dose 75+ series) [facility] Start: 04-03-2020 A1C test (Diabetic o r Prediabetic) A1C test (Diabetic or Prediabetic) [place], [place] Start: 04-03-2020 Creatinine monitoring Creatinine mon itoring [place] Start: 04-03-2020 Potassium monitoring Potassium monit oring [place] Start: 03-19-2019 Influenza vaccination Flu vaccine (# 1) [place] Start: 02-22-2019 Shingrix Vaccine (3 of 3) Shingrix Vaccine (3 of 3) [facility] Start: 02-22-2019 Zoster Vaccines (3 o f 3) Zoster Vaccines (3 of 3) [facility] Start: 01-05-2019 Annual Wellness Visi t (AWV) Annual Wellness Visit (AWV) [place] Start: 03-15-2016 Pneumococcal Vaccine : 65+ (2 of 2 - PPSV23 or PCV20) Pneumococcal Vaccine: 65+ (2 of 2 - PPSV23 or PCV20) [facility] Start: 03-15-2016 Pneumococcal Vaccine : 65+ Years (2 - PPSV23 if available, else PCV20) Pneumococcal Vaccine: 65+ Years (2 - PPSV23 if available, else PCV20) [facility] Start: 03-15-2016 Pneumococcal Vaccine : 65+ Years (2 of 2 - PPSV23 or PCV20) Pneumococcal Vaccine: 65+ Years (2 of 2 - PPSV23 or PCV20) [facility] Start: 05-10-2015 Pneumococcal Vaccine : 65+ Years (2 - PPSV23 if available, else PCV20) Pneumococcal Vaccine: 65+ Years (2 - PPSV23 if available, else PCV20) [facility] Start: 05-10-2015 Pneumococcal Vaccine : 65+ Years (2 of 2 - PPSV23 or PCV20) Pneumococcal Vaccine: 65+ Years (2 of 2 - PPSV23 or PCV20) [facility] Start: 2010 Pneumococcal 65+ yea rs Vaccine (1 of 2 - PCV13) Pneumococcal 65+ years Vaccine (1 of 2 - PCV13) [place] Start: 2010 PNEUMOCOCCAL: 65+ (1 - PCV) PNEUMOCOCCAL: 65+ (1 - PCV) [facility] Start: 2005 RSV Immunization age d 60 or older (1 - 1-dose 60+ series) RSV Immunization aged 60 or older (1 - 1-dose 60+ series) [facility] Start: 2005 RSV Vaccine (1 - 1-dose 60+ series) RSV Vaccine (1 - 1-dose 60+ series) [facility] Start: 10-22-1995 Colon cancer screen colonoscopy Colon cancer screen colonoscopy [place], [place] Start: 10-22-1995 Shingles Vaccine (1 of 2) Shingles Vaccine (1 of 2) [place] Start: 10-22-1995 SHINGRIX VACCINE (1 of 2) SHINGRIX VACCINE (1 of 2) [facility] Start: 1990 DIABETES SCREEN DIABETES SCREEN [facility] Start: 1964 Urine microalbumin profile DTAP,TDAP,TD (1 - Tdap) [facility] Start: 10-22-1963 Anxiety Screening Anxiety Screening [facility] Start: 10-22-1963 Depression Screening Depression Scre ing [facility] Start: 10-22-1963 Hepatitis C screening Hepatitis C Sc [facility] Start: 10-22-1963 HEPATITIS C SCREENING HEPATITIS C [facility] Start: 1957 Depression Screening Depression Scre [facility] Start: 10-22-1955 Diabetic foot examination Diabetes: Foot Exam [facility] Start: 10-22-1955 Preventive dental service Diabetes: Dental Exam [facility] Start: 04-22-1946 COVID-19 VACCINE (#1) COVID-19 VACCI NE (#1) [facility] Start: 1945 AAA screen AAA screen [facility] [place] Start: 1945 Hepatitis B Vaccines (1 of 3 - 3-dose series) Hepatitis B Vaccines (1 of 3 - 3-dose series) [facility] Start: 1945 Hepatitis C screen Hepatitis C leandrae n [place], [place] Start: 1945 Lipid panel Lipid Panel [facility] Start: 1945 Medicare Annual Wellness (AWV) Medicare Annual Wellness (AWV) [facility] Anion gap in Serum o r Plasma [facility] Basic metabolic 2008 panel with ionized calcium - Serum or Plasma [facility] BUN/Creatinine ratio [facility] Calcium [Mass/volume ] in Serum or Plasma [facility] Carbon dioxide, tota l [Moles/volume] in Central venous blood [facility] Creatinine [Mass/volume] in Serum or Plasma [facility] End: 01-27-2023 CT Chest for screening WO contrast [facility] Work Phone: Comment on above: Once for 1 Occurrenc es starting 01/27/2023 until 01/27/2023 Glucose [Mass/volume ] in Serum or Plasma [facility] Measurement of renal function [facility] OUTSIDE PROCEDURE SCAN OUTSIDE P ROCEDURE SCAN Procedures Ordered: 11/13/2022 [facility] Comment on above: Ordered: 11/13/2022 OUTSIDE PROCEDURE SCAN OUTSIDE P ROCEDURE SCAN Procedures Ordered: 01/26/2023 [facility] Comment on above: Ordered: 01/26/2023 Patient referral [facility] Work Phone: Potassium measurement [facility] End: 04-03-2019 PSA, Total and Free PSA, Total and Free Lab Routine Once for 1 Occurrences starting 04/03/2019 until 04/03/2019 [facility]: Once for 1 Occurrenc es starting 04/03/2019 until 04/03/2019 PSA, Total and Free PSA, Total a nd Free Lab Routine 04/03/2019 2:38 PM EDT [facility] of perfusion of myocardium under exercise stress [facility] End: 12-03-2023 Screening colonoscopy COLONOSCOPY SCREENING Endoscopy Routine Benign neoplasm of colon, unspecified part of colon 1 Occurrences starting 12/02/2022 until 12/03/2023 [facility] Work Phone: Comment on above: 1 Occurrences starti ng 12/02/2022 until 12/03/2023 Serum chloride measurement [facility] Sodium measurement [facility] Urea nitrogen [Mass/volume] in Serum or Plasma [facility] Carotid arteries [facility] End: 04-28-2024 XR Shoulder - left 2 Views [facility] Comment on above: Once for 1 Occurrenc es starting 04/28/2024 until 04/28/2024 [facility] Immunizations Immunization Date Immunization Notes Care Provider Tyesha ibarra 04-27-2022 influenza, high dose seasonal, [facility] 04-27-2022 influenza virus vacc ine, unspecified formulation Jania Myers REWRITER - MECHANICAL DESIGN ENGINEER Work Phone: [facility] 04-11-2021 Influenza, High-dose Seasonal, Quadrivalent, Preservative Free [facility] 04-18-2020 influenza, seasonal, injectable [facility] 03-16-2020 influenza, injectabl e, quadrivalent, preservative free [facility] 04-10-2019 influenza, high dose seasonal, preservative-free [facility] 12-28-2018 zoster vaccine recombinant [facility] 05-25-2018 zoster vaccine, live [facility] 03-25-2018 influenza, high dose seasonal, preservative-free [facility] 04-14-2017 tetanus toxoid, redu caty diphtheria toxoid, and acellular pertussis vaccine, adsorbed Regis Bravo [facility] 03-15-2017 influenza, high dose seasonal, preservative-free [facility] 05-15-2016 influenza, high dose seasonal, preservative-free [facility] 04-27-2015 influenza, high dose seasonal, preservative-free [facility] 03-15-2015 pneumococcal conjuga te vaccine, 13 valent [facility] Payers Date Payer Category Payer Self-pay 2022 Medicare HMO [employer] SECURE [id number] 2022 Medicare [id number] 2020 Unknown 2018 Unknown [employer] [address] xxxxxxxxxxxx 2018-Present [phone] [address] [place] [address] xxxxxxxxxxxx [id number] 2017 Medicare MEDICARE MEDICAR E PART A AND B xxxxxxxxxx 2017-Present [phone] [address] [address] [place] [address] xxxxxxxxxx [id number] 2010 Medicare 1945 Unknown [id number] 1945 Unknown [id number] 1945 Unknown [id number] 4 1945 Unknown [id number] 4 Medicare [id number] Unknown [id number] Unknown [id number] [id number] Unknown [id number] [id number] Unknown [id number] [id number] Unknown [id number] [id number] Unknown [id number] [id number] Unknown [id number] [id number] Unknown [id number] [id number] Unknown [id number] [id number] Unknown [id number] [id number] Unknown [id number] [id number] Unknown [id number] Social History Date Type Detail Facility Start: 08-17-2018 End: 12-14-2024 Tobacco smoking status NHIS Former smoker [place], [place] Start: 08-17-2018 End: 02-25-2024 Alcohol intake Yes [place], [place] Start: 1945 Sex Assigned At Not on file [place], [place] Start: 06-01-2022 End: 02-25-2024 Former smoker Former smoker Fernando montoya Work Phone: History of tobacco use Current smoker [facility] Start: 06-01-2022 End: 02-25-2024 Alcohol intake Current drinker of alcohol (finding) [facility] Start: 05-22-2022 End: 01-27-2023 Exposure to SARS-CoV-2 (event) Not sure [facility] Start: 03-03-2023 End: 03-24-2023 Tobacco smoking status [facility] Tobacco smoking consumption unknown [facility] Start: 1945 Sex Assigned At Male W [facility] Start: 02-25-2023 Tobacco smoking status HIIS Occasional tobacco smoker [facility] History of tobacco use Cigarette Smoker [facility] Start: 02-25-2023 Alcohol Comment 2 or less days per w [facility] Start: 02-16-2022 Sex Male (finding) Alexia Gentile yenifer Clinical Notes 12-02-2022 to 12-28-2024 Note Date & Type Note Facility 12-28-2024 Progress note Note Date/Time December 28, 2024 8:58pm [facility] [address] [place] [address] OFFICE VISIT Date of Service: 12/28/24 MR#: [id number] Acct: [id number] Name: TRES DICKSON Rep #: [id number] : 1945 Provider: OLIVER Kelley Age/Sex: 79/M Location: [facility] Status: Signed Intake Vital Signs 12/21/24 15:03 12/28/24 15:44 Height 5 ft 8.5 in 5 ft 8.5 in Weight: 177 lb BMI 26.5 BP 130/64 H Blood Pressure Location Rt brachial Position Sitting Respiration 18 Temp 97.9 F Temp Source Surface Pulse 70 Pulse Source Doppler Pulse Oximetry (%) 95 Oxygen Delivery Method room air Intake Visit Reasons: Hypertension Accompanied by: Self Is patient in pain?: No Allergies No Known Allergies Allergy (Verified 12/14/24 08:53) Medications ?Medication ?Instructions ?Recorded ?Confirmed ?Type aspirin 81 mg tablet,delayed 81 mg PO DAILY 03/03/23 0 12/28/24 History release cholecalciferol (vitamin D3) 125 125 mcg PO DAILY 06/1812/28/24 History mcg (5,000 unit) capsule metoprolol succinate 50 mg 50 mg PO DAILY #90 tabs 12/28/24 Rx tablet,extended release 24 hr simvastatin 40 mg tablet 40 mg PO QHS #90 tabs 12/28/24 Rx lisinopril 10 mg tablet 10 mg PO QDAY #90 tabs 12/1412/28/24 Rx PFSH Medical History (Updated 12/28/24 @ 20:56 by Diana Kelley SENIOR ACCOUNTING CLERK, SENIOR ACCOUNTING CLERK-C) Hollenhorst plaque, right eye Screening for lung [...] who presents to the office today for HTN and his is down today .Doing better. Had his carotids done today and wnt over the results. Gave him a copy to give to his eye dr and tell hime to be repeated in 6 months .So he knows something is being done and followed up. ROS Const Constitutional: No anorexia, body ache, chills, excessive sweating, fatigue, fever(s), frequent falls, headache(s), decreased energy, malaise, night sweats, snoring, weakness, weight change, sleep problems, abnormal sleep pattern, changein appetite or other Eyes Eyes: No blurry vision, change in vision, double vision, discharge, dry eyes, bulging eyes, floaters, visual disturbances, eye pain, Light sensitivity, spots in vision, tunnel vision or other ENT ENT: No abnormal hearing, ear or mastoid pain, ear discharge, ear pressure, hearing loss, tinnitus, dizziness/vertigo, balance problems, nosebleed/epistaxis, nasal congestion, nasal obstruction, nose pain, sinus pressure, sinus pain, nasal discharge, post nasal drip, headache(s), facial pain, dental pain, dry mouth, difficulty swallowing, bad breath, hoarseness, lipswelling, mouth lesions, mouth pain, neck pain, sore throat, tongue swelling, throat swelling or other Resp Respiratory: No cough, change in phlegm color, chest congestion, excessive phlegm production, hemoptysis, pain on inspiration, shortness of breath, pain with cough, snoring, stridor, wheezing or other Cardio Cardiology: No chest pain at rest, chest pain with exertion, leg pain with exertion, excessive sweating, shortness of breath, dyspnea on exertion, generalized swelling, irregular heart rhythm, lightheadedness, orthopnea, radiating jaw, neck or arm pain, fast heart rate, slow heart rate, palpitations or other Gastro GI: No abdominal pain, No belching, No bloating, No change in bowel habits, No change in stool character, No coffee ground emesis, No constipation, No cramping, No diarrhea, No heartburn, No Difficulty Swallowing, No feeling full early, No excessive flatus, No incontinent of stools, No Vomiting blood/hematemesis, No Blood in stool, No loose stools, No Black,tarry stools, Nonausea/dyspepsia, No pain with swallowing, No vomiting, No hemorrhoids, No rectal pain and No other Genitourinary: No difficulty urinating, burning urination, painful urination, urinary frequency, urinary urgency or blood in urine Musc Musculoskeletal: No abnormal gait, joint pain, back pain, deformity, joint swelling, limited range of motion, loss of height, muscle cramps, muscle weakness, decreased muscle mass, myalgias, neck pain, numbness, radiating pain into limb, stiffness, tingling, restless legs, leg pain with exertion or other Skin Skin: No acne, hair loss in leg, change in hair, nail changes, boil, change in skin color, dry skin, redness, excessive hair growth, yellowing of the eye, lesions, itchy eyes, rash, skin pain, skin ulcer, sores, skin swelling, wounds or other Breast Breast: No other Neuro Neurology: No abnormal gait, abnormal hearing, abnormal movements, abnormal speech, behavioral changes, confusion, unsteady gait/balance, dizziness, weakness, frequent falls, headache(s), lack of coordination, loss of vision, memory loss, numbness, tingling, visual disturbances, restless legs, fainting, tremor(s) or other Psych Psychiatric: No abnormal sleep pattern, No lack of enjoyment, No anxiety, No behavioral changes, No change in appetite, No confusion, No depression, No difficulty concentrating, No hopelessness, No irritability, No memory loss, No mood swings, No panic attacks, No paranoia, No Thoughts of harming yourself/Others, No hallucinations and No other Endo Endo: No excessive sweating, No fatigue and No other Aller/Imm Allergy/Immunologic: No itchy eyes, lip swelling, throat swelling, tongue swelling or wheezing Exam Const Constitutional: Yes cooperative and Yes healthy appearing Orientation: Yes alert, awake and oriented x3 HENMT Head: Yes normocephalic Ear: Yes hearing grossly normal bilaterally TM-Right: normal TM-Left: normal Pinna-Right: within normal limits Pinna-Left: within normal limits Face: Yes normal facial exam Nose: Yes external nose normal Mouth: Yes oral mucosae normal Neck Neck: normal visual inspection Thyroid: thyroid normal Eyes General: Yes appearance normal, both eyes and all related structures Chest Chest palpation & inspection: Yes normal inspection of the chest Resp Effort & Inspection: No stridor Auscultation: Yes clear to auscultation bilaterally Cardio Palpitation: Yes normal PMI Rate: Yes regular rate Rhythm: Yes regular rhythm GI Inspection: Yes normal to inspection Auscultation: Yes normal bowel sounds Palpation: Yes soft and no hepatosplenomegaly Rectal Exam: No hemorrhoids General: Yes bladder normal to inspection and bladder normal to palpation; No CVA tenderness Musc Cervical Spine: Yes cervical ROM normal Thoracic/Lumbar Spine: Yes thoracic and lumbar spine normal to inspection Skin General: no rashes or lesions noted Lesions: Yes no lesions Extrem General: Yes normal to inspection Neuro General: Yes CN's II-XI intact bilaterally, alert, oriented x3 and deep tendon reflexes 2+ bilaterally Cranial Nerves: Yes CN's II-XI intact bilaterally Speech: Yes speech normal Gait: Yes normal gait Motor: No weakness Psych Appearance: Positive grossly normal Mood: Positive congruent mood Affect: Positive normal affect Speech and Movement: Yes speech and movement normal Attitude: Yes cooperative Thought Process: Yes normal Thought Content: Yes normal Judgment: Yes judgment good Coding Level of Care Code Off vis,est,level 3 Diagnoses Hollenhorst plaque, right eye H34.211 Stenosis of carotid artery, unspecified laterality I65.29 Laterality: unspecified laterality Primary hypertension I10 Hypertension type: primary hypertension Assessment and Plan Assessment and Plan (1) Hollenhorst plaque, right eye: Status: Chronic (2) Carotid artery stenosis: Status: Acute Qualifiers: Laterality: unspecified laterality Qualified Code(s): I65.29 - Occlusion and stenosis of unspecified carotid artery (3) Hypertension: Status: Chronic Qualifiers: Hypertension type: primary hypertension Qualified Code(s): I10 - Essential (primary) hypertension Patient Instructions: Patient to follow up with Vascular in 6 months continue meds as prescribed 12/28/242057 <Electronically signed by Diana Truong on SENIOR ACCOUNTING CLERK SENIOR ACCOUNTING CLERK-C> Date _ Diana Kelley NP SENIOR ACCOUNTING CLERK-C CC: ~ [facility] Work Phone: 1(655) 733-281906-12-2025 Progress noteAfter Hours Family Medicine [address], [place] [id number] OFFICE VISIT Date of Service: 12/28/24 MR#: [id number] Acct: [id number] Name: LIZANDROTRES RAFIQ Rep #: [id number] : 1945 Provider: OLIVER Kelley Age/Sex: 79/M Location: [facility] Status: Signed Intake Vital Signs 12/21/24 15:03 12/28/24 15:44 Height 5 ft 8.5 in 5 ft 8.5 in Weight: 177 lb BMI 26.5 BP 130/64 H Blood Pressure Location Rt brachial Position Sitting Respiration 18 Temp 97.9 F Temp Source Surface Pulse 70 Pulse Source Doppler Pulse Oximetry (%) 95 Oxygen Delivery Method room air Intake Visit Reasons: Hypertension Accompanied by: Self Is patient in pain?: No Allergies No Known Allergies Allergy (Verified 12/14/24 08:53) Medications ?Medication ?Instructions ?Recorded ?Confirmed ?Type aspirin 81 mg tablet,delayed 81 mg PO DAILY 03/03/23 0 12/28/24 History release cholecalciferol (vitamin D3) 125 125 mcg PO DAILY 06/1812/28/24 History mcg (5,000 unit) capsule metoprolol succinate 50 mg 50 mg PO DAILY #90 tabs 12/28/24 Rx tablet,extended release 24 hr simvastatin 40 mg tablet 40 mg PO QHS #90 tabs 12/28/24 Rx lisinopril 10 mg tablet 10 mg PO QDAY #90 tabs 12/1412/28/24 Rx PFSH Medical History (Updated 12/28/24 @ 20:56 by Diana Kelley SENIOR ACCOUNTING CLERK, SENIOR ACCOUNTING CLERK-C) Hollenhorst plaque, right eye Screening for lung [...] who presents to the office today for HTN and his is down today .Doing better. Had his carotids done today and wnt over the results. Gave him a copy to give to his eye dr and tell hime to be repeated in 6 months .So he knows something is being done and followed up. ROS Const Constitutional: No anorexia, body ache, chills, excessive sweating, fatigue, fever(s), frequent falls, headache(s), decreased energy, malaise, night sweats, snoring, weakness, weight change, sleep problems, abnormal sleep pattern, changein appetite or other Eyes Eyes: No blurry vision, change in vision, double vision, discharge, dry eyes, bulging eyes, floaters, visual disturbances, eye pain, Light sensitivity, spots in vision, tunnel vision or other ENT ENT: No abnormal hearing, ear or mastoid pain, ear discharge, ear pressure, hearing loss, tinnitus,dizziness/vertigo, balance problems, nosebleed/epistaxis, nasal congestion, nasal obstruction, nosepain, sinus pressure, sinus pain, nasal discharge, post nasal drip, headache(s), facial pain, dental pain, dry mouth, difficulty swallowing, bad breath, hoarseness, lipswelling, mouth lesions, mouth pain, neck pain, sore throat, tongue swelling, throat swelling or other Resp Respiratory: No cough, change in phlegm color, chest congestion, excessive phlegm production, hemoptysis, pain on inspiration, shortness of breath, pain with cough, snoring, stridor, wheezing or other Cardio Cardiology: No chest pain at rest, chest pain with exertion, leg pain with exertion, excessive sweating, shortness of breath, dyspnea on exertion, generalized swelling, irregular heart rhythm, lightheadedness, orthopnea, radiating jaw, neck or arm pain, fast heart rate, slow heart rate, palpitations or other Gastro GI: No abdominal pain, No belching, No bloating, No change in bowel habits, No change in stool character, No coffee ground emesis, No constipation, No cramping, No diarrhea, No heartburn, No Difficulty Swallowing, No feeling full early, No excessive flatus, No incontinent of stools, No Vomiting bloo d/hematemesis, No Blood in stool, No loose stools, No Black,tarry stools, Nonausea/dyspepsia, No pain with swallowing, No vomiting, No hemorrhoids, No rectal pain and No other Genitourinary: No difficulty urinating, burning urination, painful urination, urinary frequency, urinary urgency or blood in urine Musc Musculoskeletal: No abnormal gait, joint pain, back pain, deformity, joint swelling, limited range of motion, loss of height, muscle cramps, muscle weakness, decreased muscle mass, myalgias, neck pain, numbness, radiating pain into limb, stiffness, tingling, restless legs, leg pain with exertion orother Skin Skin: No acne, hair loss in leg, change in hair, nail changes, boil, change in skin color, dry skin, redness, excessive hair growth, yellowing of the eye, lesions, itchy eyes, rash, skin pain, skin ulcer, sores, skin swelling, wounds or other Breast Breast: No other Neuro Neurology: No abnormal gait, abnormal hearing, abnormal movements, abnormal speech, behavioral changes, confusion, unsteady gait/balance, dizziness, weakness, frequent falls, headache(s), lack of coordination, loss of vision, memory loss, numbness, tingling, visual disturbances, restless legs, fainting, tremor(s) or other Psych Psychiatric: No abnormal sleep pattern, No lack of enjoyment, No anxiety, No behavioral changes, Nochange in appetite, No confusion, No depression, No difficulty concentrating, No hopelessness, No irritability, No memory loss, No mood swings, No panic attacks, No paranoia, No Thoughts of harming yo urself/Others, No hallucinations and No other Endo Endo: No excessive sweating, No fatigue and No other Aller/Imm Allergy/Immunologic: No itchy eyes, lip swelling, throat swelling, tongue swelling or wheezing Exam Const Constitutional: Yes cooperative and Yes healthy appearing Orientation: Yes alert, awake and oriented x3 HENMT Head: Yes normocephalic Ear: Yes hearing grossly normal bilaterally TM-Right: normal TM-Left: normal Pinna-Right: within normal limits Pinna-Left: within normal limits Face: Yes normal facial exam Nose: Yes external nose normal Mouth: Yes oral mucosae normal Neck Neck: normal visual inspection Thyroid: thyroid normal Eyes General: Yes appearance normal, both eyes and all related structures Chest Chest palpation & inspection: Yes normal inspection of the chest Resp Effort & Inspection: No stridor Auscultation: Yes clear to auscultation bilaterally Cardio Palpitation: Yes normal PMI Rate: Yes regular rate Rhythm: Yes regular rhythm GI Inspection: Yes normal to inspection Auscultation: Yes normal bowel sounds Palpation: Yes soft and no hepatosplenomegaly Rectal Exam: No hemorrhoids General: Yes bladder normal to inspection and bladder normal to palpation; No CVA tenderness Musc Cervical Spine: Yes cervical ROM normal Thoracic/Lumbar Spine: Yes thoracic and lumbar spine normal to inspection Skin General: no rashes or lesions noted Lesions: Yes no lesions Extrem General: Yes normal to inspection Neuro General: Yes CN's II-XI intact bilaterally, alert, oriented x3 and deep tendon reflexes 2+ bilaterally Cranial Nerves: Yes CN's II-XI intact bilaterally Speech: Yes speech normal Gait: Yes normal gait Motor: No weakness Psych Appearance: Positive grossly normal Mood: Positive congruent mood Affect: Positive normal affect Speech and Movement: Yes speech and movement normal Attitude: Yes cooperative Thought Process: Yes normal Thought Content: Yes normal Judgment: Yes judgment good Coding Level of Care Code Off vis,est,level 3 Diagnoses Hollenhorst plaque, right eye H34.211 Stenosis of carotid artery, unspecified laterality I65.29 Laterality: unspecified laterality Primary hypertension I10 Hypertension type: primary hypertension Assessment and Plan Assessment and Plan (1) Hollenhorst plaque, right eye: Status: Chronic (2) Carotid artery stenosis: Status: Acute Qualifiers: Laterality: unspecified laterality Qualified Code(s): I65.29 - Occlusion and stenosis of unspecified carotid artery (3) Hypertension: Status: Chronic Qualifiers: Hypertension type: primary hypertension Qualified Code(s): I10 - Essential (primary) hypertension Patient Instructions: Patient to follow up with Vascular in 6 months continue meds as prescribed 12/28/242057 on SENIOR ACCOUNTING CLERK SENIOR ACCOUNTING CLERK-C> Date _ Diana Kelley NP SENIOR ACCOUNTING CLERK-C CC: ~ [facility]06-05-2025 Progress note Author Diana Kelley [facility] Note Date/Time December 21, 2024 3:31p m After Hours Family Medicine [address] [place] [address] OFFICE VISIT Date of Service: 12/21/24 MR#: [id number] Acct: [id number] Name: TRES DICKSON Rep #: : 1945 Provider: OLIVER Kelley Age/Sex: 79/M Location: [facility] Status: Signed Intake Vital Signs 12/14/24 19:59 12/21/24 15:03 Height 5 ft 8.5 in 5 ft 8.5 in Intake Visit Reasons: labs to be drawn BMP Allergies No Known Allergies Allergy (Verified 12/14/24 08:53) PFSH Medical History (Updated 12/21/24 @ 15:31 by Diana Kelley NP, SENIOR ACCOUNTING CLERK-C) Hollenhorst plaque, right eye Screening for lung [...] servings: 3 HPI HPI HPI HPI: TRES HARP, is a 79 M who presents to the office today for Coding Level of Care Code No Charge Diagnoses Dyslipidemia E78.5 Coronary artery disease involving nonautologous biological coronary bypass graftwithout angina pectoris I25.810 Coronary Disease-Associated Artery/Lesion type: bypass graft, nonautologous biological Associated angina: without angina Assessment and Plan Assessment and Plan (1) Dyslipidemia: Status: Chronic (2) Coronary artery disease: Status: Chronic Qualifiers: Coronary Disease-Associated Artery/Lesion type: bypass graft, nonautologous biological Associated angina: without angina Qualified Code(s): I25.810 - Atherosclerosis of coronary artery bypass graft(s) without angina pectoris Comment: 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 Patient Instructions: lab sent 12/21/24 1536 <Electronically signed by Diana Truong on SENIOR ACCOUNTING CLERK SENIOR ACCOUNTING CLERK-C> Date _ Diana Kelley NP SENIOR ACCOUNTING CLERK-C CC: ~ [facility] Work Phone: 1(777) 243-668406-05-2025 Progress noteAfter Hours Family Medicine [address] [id number] OFFICE VISIT Date of Service: 12/21/24 MR#: [id number] Acct: [id number] Name: TRES DICKSON Rep #: [id number] : 1945 Provider: OLIVER Kelley Age/Sex: 79/M Location: [facility] Status: Signed Intake Vital Signs 12/14/24 19:59 12/21/24 15:03 Height 5 ft 8.5 in 5 ft 8.5 in Intake Visit Reasons: labs to be drawn BMP Allergies No Known Allergies Allergy (Verified 12/14/24 08:53) PFSH Medical History (Updated 12/21/24 @ 15:31 by Diana Kelley NP, SENIOR ACCOUNTING CLERK-C) Hollenhorst plaque, right eye Screening for lung [...] who presents to the office today for Coding Level of Care Code No Charge Diagnoses Dyslipidemia E78.5 Coronary artery disease involving nonautologous biological coronary bypass graftwithout angina pectoris I25.810 Coronary Disease-Associated Artery/Lesion type: bypass graft, nonautologous biological Associated angina: without angina Assessment and Plan Assessment and Plan (1) Dyslipidemia: Status: Chronic (2) Coronary artery disease: Status: Chronic Qualifiers: Coronary Disease-Associated Artery/Lesion type: bypass graft, nonautologous biological Associated angina: without angina Qualified Code(s): I25.810 - Atherosclerosis of coronary artery bypass graft(s) without angina pectoris Comment: 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 Patient Instructions: lab sent 12/21/24 1531 on DALIA BOYD> Date _ Diana BOYD CC: ~ [facility]05-29-2025 Progress note Author Diana Kelley [facility] Note Date/Time December 14, 2024 8:00p m After Hours Family Medicine [address] [place] [address] OFFICE VISIT Date of Service: 12/14/24 MR#: [id number] Acct: [id number] Name: TRES DICKSON Rep #: [id number] : 1945 Provider: OLIVER Kelley Age/Sex: 79/M Location: [facility] Status: Signed Intake Vital Signs 12/14/24 08:29 12/14/24 19:59 Height 5 ft 8.5 in 5 ft 8.5 in Weight: 181 lb BMI 27.1 BP 144/82 H Blood Pressure Location Lt brachial Position Sitting Respiration 14 Pulse 51 L Pulse Source NIBP Intake Visit Reasons: labs to be drawn Allergies No Known Allergies Allergy (Verified 12/14/24 08:53) [facility] Medical History (Updated 12/14/24 @ 09:19 by [...] <Electronically signed by Diana Truong on DALIA GÓMEZ-C> Date _ Diana Kelley NP SENIOR ACCOUNTING CLERK-C CC: ~ [facility] Work Phone: 1(664) 693-654505-29-2025 Progress noteAfter Hours Family Medicine [address] [id number] OFFICE VISIT Date of Service: 12/14/24 MR#: [id number] Acct: [id number] Name: TRES DICKSON Rep #: [id number] : 1945 Provider: OLIVER Kelley Age/Sex: 79/M Location: [facility] Status: Signed Intake Vital Signs 12/14/24 [...] call with the lab results 12/14/241999 on SENIOR ACCOUNTING CLERK SENIOR ACCOUNTING CLERK-C> Date _ Diana Kelley SENIOR ACCOUNTING CLERK SENIOR ACCOUNTING CLERK-C CC: ~ [facility]04-17-2025 Evaluation note* Diagnosis Onset Date Resolution Status Admit Date Hyperlipidemia acute October 3:51pm Hollenhorst plaque, right eye chroni c November 02, 2024 3:51pm Hypertension chronic November 02, 2024 3:51pm Coronary artery disease chronic M ay 2024 8:44am Dyslipidemia chronic December 14 8:44am 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 December 14, 2024 8:44am History of coronary artery bypass graft x 1 chronic December 14, 2024 8:44am Hollenhorst plaque, right eye chroni c December 14, 2024 8:44am Hypertension chronic December 14 8:44am Hyperlipidemia acute December 14, 2024 3:44pm Obstructive sleep apnea acute M ay 2024 3:44pm Dyslipidemia chronic December 14 3:44pm 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 December 14, 2024 3:44pm Hollenhorst plaque, right eye chroni c December 14, 2024 3:44pm Hypertension chronic December 14 3:44pm Coronary artery disease chronic J une 2024 2:54pm Dyslipidemia chronic December 21 2:54pm [facility] Work Phone: 1(278) 574-462304-17-2025 Evaluation note* Diagnosis Onset Date Resolution Status Admit Date Hyperlipidemia acute October 3:51pm Hollenhorst plaque, right eye chroni c November 02, 2024 3:51pm Hypertension chronic November 02, 2024 3:51pm Coronary artery disease chronic M ay 2024 8:44am Dyslipidemia chronic December 14 8:44am 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 December 14, 2024 8:44am History of coronary artery bypass graft x 1 chronic December 14, 2024 8:44am Hollenhorst plaque, right eye chroni c December 14, 2024 8:44am Hypertension chronic December 14 8:44am Hyperlipidemia acute December 14, 2024 3:44pm Obstructive sleep apnea acute M ay 2024 3:44pm Dyslipidemia chronic December 14 3:44pm 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 December 14, 2024 3:44pm Hollenhorst plaque, right eye chroni c December 14, 2024 3:44pm Hypertension chronic December 14 3:44pm Coronary artery disease chronic J une 2024 2:54pm Dyslipidemia chronic December 21 2:54pm Carotid artery stenosis acute J une 2024 3:36pm Hollenhorst plaque, right eye chroni c December 28, 2024 3:36pm Hypertension chronic December 28, 2 025 3:36pm [facility] Work Phone: 1(697) 948-870502-05-2025 Evaluation note* Diagnosis Onset Date Resolution Status Admit Date Obstructive sleep apnea acute F ebru2024 9:13am Hollenhorst plaque, right eye acute November 02, 2024 3:51pm Hyperlipidemia acute October 3:51pm Hypertension chronic November 02, 2024 3:51pm [facility] Work Phone: 1(524) 649-788002-05-2025 Evaluation note* Diagnosis Onset Date Resolution Status Admit Date Obstructive sleep apnea acute F ebary 2024 9:13am Hyperlipidemia acute October 3:51pm Hollenhorst plaque, right eye chroni c November 02, 2024 3:51pm Hypertension chronic November 02, 2024 3:51pm Coronary artery disease chronic M ay 2024 8:44am Dyslipidemia chronic December 14 8:44am 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 December 14, 2024 8:44am History of coronary artery bypass graft x 1 chronic December 14, 2024 8:44am Hollenhorst plaque, right eye chroni c December 14, 2024 8:44am Hypertension chronic December 14 8:44am Hyperlipidemia acute December 14, 2024 3:44pm Obstructive sleep apnea acute M 2024 3:44pm Dyslipidemia chronic December 14 3:44pm 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 December 14, 2024 3:44pm Hollenhorst plaque, right eye chroni c December 14, 2024 3:44pm Hypertension chronic December 14 3:44pm [facility] Work Phone: 1(713) 503-328911-13-2024 History of Present illness Narrative* Reji Clement, PT - 05/31/2024 9:00 AM EST Images from the original note were not included. [facility] [place] [facility] AT [address] [place] [address] Dept: [phone] Dept PHYSICAL THERAPY RE-EVALUATION Patient Name: Tres [...] 10 Reji Clement PT documented in this [facility]10-30-2024 History of Present illness Narrative* Tay Nowak, GENERAL REPAIR MECHANIC - 05/17/2024 9:00 AM EDT Images from the original note were not included. [facility] [place] [facility] AT [address] [place] [address] Dept: [phone] Dept PHYSICAL THERAPY TREATMENT Patient Name: Tres Ochoaverónica : 1945 Date of Service: 05/17/2024 Referring [...] 05/17/2024 10:24 AM EDT documented in this [facility]10-23-2024 History of Present illness Narrative* Tay Nowak PTA - 05/10/2024 9:00 AM EDT Images from the original note were not included. [facility] [place] [facility] AT [place] [address] [place] [address] Dept: [phone] Dept PHYSICAL THERAPY TREATMENT Patient Name: Tres [...] Entry Therapeutic Exercise Time Entry: 27 Tay Nowak PTA Cosigned by Reji Clement PT at 05/10/2024 4:56 PM EDT documented in this [facility]10-16-2024 History of Present illness Narrative* Reji Clement PT - 05/03/2024 9:00 AM EDT Images from the original note were not included. [facility] [facility] AT [address] [place] [address] Dept: [phone] Dept PHYSICAL THERAPY EVALUATION Patient Name: Tres [...] artery disease), Hyperlipidemia, Hypertension, Melanoma (HCC), and ME (myocardial infarction) (HCC). PSHX: Tres has a [...] Entry Therapeutic Exercise Time Entry: 9 Reji Cleemnt PT documented in this [facility]10-11-2024 History of Present illness Narrative* Yessy Villarreal MD - 04/28/2024 10:00 AM EDT Images from the original note were not included. [facility] [address] [place] [address] [place] [address] Dept: [phone] Dept Chief Complaint Patient presents with Follow-up [...] unable Hawkin's test unable Impingement test unable Prospect's test unable Sulcus test negative Scarf test [...] prior to signing but minor errors in fire prevention chief may have occurred. documented in this [facility]10-11-2024 Miscellaneous Notes* Addendum Note - Yessy Villarreal MD - 04/28/2024 10:00 AM EDTAddended by: YESSY VILLARREAL on: 04/28/2024 12:28 PM Modules accepted: Level of Service documented in this [facility]10-11-2024 Note* Addendum Note - Yessy Villarreal MD - 04/28/2024 10:00 AM EDTAddended by: YESSY VILLARREAL on: 04/28/2024 12:28 PM Modules accepted: [id number] [facility]* Addendum Note - Yessy Villarreal MD - 04/28/2024 10:00 AM EDTAddended by: YESSY VILLARREAL on: 04/28/2024 12:28 PM Modules accepted: Level of Service [id number] NoteAddended by: YESSY VILLARREAL on: 04/28/2024 12:28 PM Modules accepted: [facility] Telephone encounter Note* Telephone Encounter - Toyin Umanzor - 03/16/2024 1:14 PM EDT This patient has had a prior lung screening CT scan at [facility]. According to our records, he/she is now due for an annual lung screening CT scan. Please evaluate and order this annual screening if your patient still meets lung screening criteria. [id number] Miscellaneous Notes* Telephone Encounter - Toyin Umanzor - 03/16/2024 1:14 PM EDT This patient has had a prior lung screening CT scan at [facility]. According to our records, he/she is now due for an annual lung screening CT scan. Please evaluate and order this annual screening if your patient still meets lung screening criteria. documented in this [facility]08-09-2024 History of Present illness Narrative* Yessy Villarreal MD - 02/25/2024 3:15 PM EDT Images from the original note were not included. [facility] [place] [address] [place] [address] Dept: [phone] Dept Chief Complaint Patient presents with Knee [...] prior to signing but minor errors in fire prevention chief may have occurred. documented in this [facility]08-09-2024 Instructions* Patient Instructions* Yessy Villarreal MD - [...] adjusts to the medicine. Also, your health morning caregiver may be able to tell you about ways to prevent or reduce some of these side effects. Check with your health morning caregiver if any of the following side effects [...] advice about side effects. documented in this encounterSUniversity Hospitals Parma Medical [id number] Telephone encounter Note* Telephone Encounter - Elmira Landrum MA - 02/16/2024 10:20 AM EDT Confirmed that gel injections are at [place] office, and called patient to update him, someone had already made his follow up appointment [id number] Miscellaneous Notes* Telephone Encounter - Elmira Landrum MA - 02/16/2024 10:20 AM EDT Confirmed that gel injections are at [place] office, and called patient to update him, someone had already made his follow up appointment * Telephone Encounter - Elmira Landrum MA - 02/16/2024 10:15 AM EDT Images from the original note were not included. * Telephone Encounter - Elmira Landrum MA - 02/09/2024 8:34 AM EDT Called [facility] spoke with Abimbola and set up delivery of Synvisc one for 02/14 to the [facility]. Will call patient and update him. * [...] MA - 02/02/2024 10:59 AM EDT Called [facility] to check status of patient's gel injection order. Spoke with Lupe she states that they reached out to patient to obtain consent to ship and patient told them that He wasn't interested so they placed his order on hold. I reached out to patient and LVM that he needs to call [facility] if he wants to go ahead with his gel injection. Their # is [phone]. Please relay this m essage to patient if he calls the office. Thank you!! * Telephone Encounter - Elmira Landrum MA - 12/28/2023 11:05 AM EDT Called [facility] and gave ICD 10 code, they state the gel is still processing and will reach out to patient when ready for consent to ship to office * Telephone Encounter - Sharon Hopper - 12/27/2023 9:40 AM EDT Lupe with [facility] called asking for ICD 10 code for Synvisc One. She states when calling back you can speak to anyone in the pharmacy. Please advise. * Telephone Encounter - Elmira Landrum MA - 12/20/2023 3:47 PM EDT No PA needed from [facility] ins for Synvisc one injection. Med is pended, please sign. Thank you! documented in this encounterSUniversity Hospitals Parma Medical [id number] Telephone encounter Note* Telephone Encounter - Elmira Landrum MA - 02/16/2024 10:15 AM EDT Images from the original note were not included. [id number] Telephone encounter Note* Telephone Encounter - Julia [...] be coming in. Please call to advise. [facility] [id number] Miscellaneous Notes* Telephone Encounter - Julia Cartagena [...] EDT Patient called in stating he s/w [facility] and they told him [...] - 12/28/2023 10:25 AM EDT Lupe from [facility] is calling to request the ICD 10 code for the patient for the Synvisc 1. can speak to anyone in the pharmacy in regards to this. * Telephone Encounter - Jennifer Fabian - 12/20/2023 3:59 PM EDT Left Knee New Therapy Provider prefers Single Injection (example: Durolane/Gel One). However whatever is a preferred drugon patient's plan is acceptable. Delivery location is [address] [place] [address]. documented in this encounterSUniversity Hospitals Parma Medical [id number] Telephone encounter Note* Telephone Encounter - Elmira Landrum MA - 02/09/2024 8:34 AM EDT Called [facility] spoke with Abimbola and set up delivery of Synvisc one for 02/14 to the [place] office. Will call patient and update him. [facility] [id number] Miscellaneous Notes* Telephone Encounter - Elmira Landrum MA - 02/09/2024 8:34 AM EDT Called [facility] spoke with Abimbola and set up delivery of Synvisc one for 02/14 to the [place] office. Will call patient and update him. [...] MA - 02/02/2024 10:59 AM EDT Called [facility] to check status of patient's gel injection order. Spoke with Lupe she states that they reached out to patient to obtain consent to ship and patient told them that He wasn't interested so they placed his order on hold. I reached out to patient and LVM that he needs to call [facility] if he wants to go ahead with his gel injection. Their # is [phone]. Please relay this m essage to patient if he calls the office. Thank you!! * Telephone Encounter - Elmira Landrum MA - 12/28/2023 11:05 AM EDT Called [facility] and gave ICD 10 code, they state the gel is still processing and will reach out to patient when ready for consent to ship to office * Telephone Encounter - Sharon Hopper - 12/27/2023 9:40 AM EDT Lupe with [facility] called asking for ICD 10 code for Synvisc One. She states when calling back you can speak to anyone in the pharmacy. Please advise. * Telephone Encounter - Elmira Landrum MA - 12/20/2023 3:47 PM EDT No PA needed from [facility] for Synvisc one injection. Med is pended, please sign. Thank you! documented in this encounterSUniversity Hospitals Parma Medical [id number] Telephone encounter Note* Telephone Encounter - Elmira Landrum MA - 02/09/2024 8:28 AM EDT Images from the original note were not included. [facility] [id number] Telephone encounter Note* Telephone Encounter - Denise Tang RN - 02/08/2024 7:19 PM EDT S: Sven (Specialty) [place] [address] [place] with [facility] nurse regarding medication delivery to office B: Synvisc one A: states they need to schedule delivery of above medication R: Please return call to [phone] to discuss Reason for Disposition [1] Caller requesting NON-URGENT health information AND [2] PCP's office is the best resource Protocols used: Information Only Call - No [id number]-XA [facility] [id number] Miscellaneous Notes* Telephone Encounter - Denise Tang RN - 02/08/2024 7:19 PM EDT S: Sven (Specialty) [place] [address] [employer] with [facility] nurse regarding medication delivery to office B: Synvisc one A: states they need to schedule delivery of above medication R: Please return call to [phone] to discuss Reason for Disposition [1] Caller requesting NON-URGENT health information AND [2] PCP's office is the best resource Protocols used: Information Only Call - No [id number] * Telephone Encounter - Caitlyn Carrera RN - 02/08/2024 7:17 PM EDT S: [facility] at # and spoke with Robin. B: Patient's hylan (Synvisc One) is ready to schedule to be sent to the patient. A: Patient's consent is on file. R: Message sent to Dr. Villarreal's office for follow-up. documented in this encounterSUniversity Hospitals Parma Medical [id number] Telephone encounter Note* Telephone Encounter - Caitlyn Carrera RN - 02/08/2024 7:17 PM EDT S: Nurse called [facility] at # and spoke with Robin. B: Patient's hylan (Synvisc One) is ready to schedule to be sent to the patient. A: Patient's consent is on file. R: Message sent to Dr. Villarreal's office for follow-up. [facility] [id number] Telephone encounter Note* Telephone Encounter - Hoda Rees - 02/02/2024 11:51 AM EDT Patient called in stating he s/w [facility] and they told him he [...] for shipment in the next few days. [facility] [id number] Miscellaneous Notes* Telephone Encounter - Hoda Rees - 02/02/2024 11:51 AM EDT Patient called in stating he s/w [facility] and they told him he may have a possible copay of $279. Said they told him they'd get it reach to ship and reach out to the office. Patient unsure if he truly has a copay or not for this with his [facility] Medicare plan. Advised they won't ship to us if there's still a balance due. We'll see if we get call for shipment in the next few days. * Telephone Encounter - Ewa Godoy - 12/28/2023 10:25 AM EDT Lupe from [facility] is calling to request the ICD 10 code for the patient for the Synvisc 1. can speak to anyone in the pharmacy in regards to this. * Telephone Encounter - Jennifer Fabian - 12/20/2023 3:59 PM EDT Left Knee New Therapy Provider prefers Single Injection (example: Durolane/Gel One). However whatever is a preferred drugon patient's plan is acceptable. Delivery location is [address] [place] [address]. documented in this encounterSUniversity Hospitals Parma Medical [id number] Telephone encounter Note* Telephone Encounter - Owen Phelps - 02/02/2024 11:38 AM EDT Pt returning our call, I relayed the information. He verbalizes understanding and will call the pharmacy to ok delivery. RUBENS [facility] [id number] Miscellaneous Notes* Telephone Encounter - Owen Phelps - 02/02/2024 11:38 AM EDT Pt returning our call, I relayed the information. He verbalizes understanding and will call the pharmacy to ok delivery. RUBENS * Telephone Encounter - Elmira Landrum MA - 02/02/2024 10:59 AM EDT Called [facility] to check status of patient's gel injection order. Spoke with Lupe she states that they reached out to patient to obtain consent to ship and patient told them that He wasn't interested so they placed his order on hold. I reached out to patient and LVM that he needs to call [facility] if he wants to go ahead with his gel injection. Their # is [phone]. Please relay carol ann m essage to patient if he calls the office. Thank you!! * Telephone Encounter - Elmira Landrum MA - 12/28/2023 11:05 AM EDT Called [facility] and gave ICD 10 code, they state the gel is still processing and will reach out to patient when ready for consent to ship to office * Telephone Encounter - Sharon Hopper - 12/27/2023 9:40 AM EDT Lupe with [facility] called asking for ICD 10 code for Synvisc One. She states when calling back you can speak to anyone in the pharmacy. Please advise. * Telephone Encounter - Elmira Landrum MA - 12/20/2023 3:47 PM EDT No PA needed from [facility] ins for Synvisc one injection. Med is pended, please sign. Thank you! documented in this encounterSUniversity Hospitals Parma Medical [id number] Telephone encounter Note* Telephone Encounter - Elmira Landrum MA - 02/02/2024 10:59 AM EDT Called [facility] to check status of patient's gel injection order. Spoke with Lupe she states that they reached out to patient to obtain consent to ship and patient told them that He wasn't interested so they placed his order on hold. I reached out to patient and LVM that he needs to call [facility] if he wants to go ahead with his gel injection. Their # is [phone]. Please relay this m essage to patient if he calls the office. Thank you!! [facility] [id number] Telephone encounter Note* Telephone Encounter - Elmira Landrum MA - 12/28/2023 11:05 AM EDT Called [facility] and gave ICD 10 code, they state the gel is still processing and will reach out to patient when ready for consent to ship to office [facility] [id number] Miscellaneous Notes* Telephone Encounter - Elmira Landrum MA - 12/28/2023 11:05 AM EDT Called [facility] and gave ICD 10 code, they state the gel is still processing and will reach out to patient when ready for consent to ship to office * Telephone Encounter - Sharon Hopper - 12/27/2023 9:40 AM EDT Lupe with [facility] called asking for ICD 10 code for Synvisc One. She states when calling back you can speak to anyone in the pharmacy. Please advise. * Telephone Encounter - Elmira Landrum MA - 12/20/2023 3:47 PM EDT No PA needed from [facility] for Synvisc one injection. Med is pended, please sign. Thank you! documented in this [facility]06-11-2024 Telephone encounter Note* Telephone Encounter - Ewa Godoy - 12/28/2023 10:25 AM EDT Lupe from [facility] is calling to request the ICD 10 code for the patient for the Synvisc 1. can speak to anyone in the pharmacy in regards to this. [facility] [id number] Miscellaneous Notes* Telephone Encounter - Ewa Godoy - 12/28/2023 10:25 AM EDT Lupe from [facility] is calling to request the ICD 10 code for the patient for the Synvisc 1. can speak to anyone in the pharmacy in regards to this. * Telephone Encounter - Jennifer Fabian - 12/20/2023 3:59 PM EDT Left Knee New Therapy Provider prefers Single Injection (example: Durolane/Gel One). However whatever is a preferred drugon patient's plan is acceptable. Delivery location is [address] [place] [address]. documented in this [facility]06-10-2024 Telephone encounter Note* Telephone Encounter - Sharon Hopper - 12/27/2023 9:40 AM EDT Lupe with [facility] called asking for ICD 10 code for Synvisc One. She states when calling back you can speak to anyone in the pharmacy. Please advise. [facility] [id number] Miscellaneous Notes* Telephone Encounter - Sharon Hopper - 12/27/2023 9:40 AM EDT Lupe with [facility] called asking for ICD 10 code for Synvisc One. She states when calling back you can speak to anyone in the pharmacy. Please advise. * Telephone Encounter - Elmira Landrum MA - 12/20/2023 3:47 PM EDT No PA needed from [facility] ins for Synvisc one injection. Med is pended, please sign. Thank you! documented in this encounterSUniversity Hospitals Parma Medical [id number] Telephone encounter Note* Telephone Encounter - Jennifer Fabian - 12/20/2023 3:59 PM EDT Left Knee New Therapy Provider prefers Single Injection (example: Durolane/Gel One). However whatever is a preferred drugon patient's plan is acceptable. Delivery location is [address] [place] [address]. [facility] [id number] Telephone encounter Note* Telephone Encounter - Elmira Landrum MA - 12/20/2023 3:47 PM EDT No PA needed from [facility] ins for Synvisc one injection. Med is pended, please sign. Thank you! [facility] [id number] Miscellaneous Notes* Telephone Encounter - Elmira Landrum MA - 12/20/2023 3:47 PM EDT No PA needed from [facility] for Synvisc one injection. Med is pended, please sign. Thank you! documented in this [facility]06-03-2024 History of Present illness Narrative* Yessy Villarreal MD - 12/20/2023 3:15 PM EDT Images from the original note were not included. [facility] [address] [place] [address] Dept: [phone] Dept Chief Complaint Patient presents with New [...] arthritis, we discussed a trial of glucosamine, teei-drk-nwuloen. We talked about using a good quality [...] prior to signing but minor errors in fire prevention chief may have occurred. documented in this encounterSUniversity Hospitals Parma Medical [id number] NoteHNO ID: [id number] Author: Karrie Jasso RN Service: ? Author Type: Registered Nurse Type: Nursing Progress Note Filed: 02/25/2023 11:07 AM Note Text: Physician at bedside.[facility]08-10-2023 NoteHNO ID: [id number] Author: Karrie Jasso RN Service: ? Author Type: Registered Nurse Type: Nursing Progress Note Filed: 02/25/2023 10:53 AM Note Text: Pt. States readiness for discharge. Assisted with dressing.[facility]08-10-2023 Nurse Note* Karrie Jasso RN - 02/25/2023 11:07 AM EDT Physician at bedside. [place] [address]-10-2023 Nurse Note* Karrie Jasso RN - 02/25/2023 11:07 AM EDT Physician at bedside. * Karrie Jasso RN - 02/25/2023 10:53 AM EDT Pt. States readiness for discharge. Assisted with dressing. documented in this encounterC[facility]innati [facility]08-[facility]23 Nurse Note* Karrie Jasso RN - 02/25/2023 10:53 AM EDT Pt. States readiness for discharge. Assisted with dressing. [place] [address]-10-2023 Nurse procedure note* Sedation Documentation - Adore Arredondo RN - 02/25/2023 10:16 AM EDT Abdominal support applied. [facility]08-10-2023 Miscellaneous Notes* Sedation Documentation - Adore Arredondo RN - 02/25/2023 10:16 AM EDT Abdominal support applied. documented in this encounterCincinnati [facility] Medical Center08-10-2023 History and physical note * Joaquin Benito [...] Deep Additional Comments: None Joaquin Benito MD [facility] Work Phone: 1(320) 988-798208-10-2023 History and physical note* Joaquin Benito MD [...] None Joaquin Benito MD documented in this encounterCincinnati [facility] Center05-17-2023 Instructions* Patient Instructions* Elmira Galicia - 12/02/2022 [...] If you do not have a responsible regional driver (family member or friend) withyou to take you home, your exam cannot be done with sedation and will be cancelled. Please bring a list of all of your current medications, including any Zrmd-mdp-Prvqcgc medications with you. Medications If you take [...] your exam. 2 06/2019 documented in this encounterCincinnati [facility] Medical Center05-17-2023 Miscellaneous Notes* Telephone Encounter - Elmira Galicia [...] on exertion? No If yes, give to COLLAR TACKER to evaluate. History of COPD/Emphysema/Asthma/or Sleep Apnea? No If uses an inhaler, have pt bring inhaler with them. On oxygen at home? No If yes, give to COLLAR TACKER to evaluate. Implanted defibrillator (ACD)? No If [...] on dialysis? No If cirrhosis pt., have COLLAR TACKER review chart Do you have a history [...] of breath, on oxygen, using inhalers, seeing jordan man? No If yes, have COLLAR TACKER evaluate patient Personal History Colon polyps? Yes Colon cancer? No Crohn's Disease? No Ulcerative Colitis? No Who/where? Approx date 2011 Family History Colon polyps? No Colon cancer? No Crohn's Disease? No Ulcerative Colitis? No Relationship? Approx age dx. Referring Physician: Office Visit Scheduled: Procedure Date Scheduled: [facility]* Diagnosis Benign neoplasm of colon, unspecified part of colon- Primary documented in [facility] encounter [facility]* Diagnosis Personal history of nicotine dependence documented in this encounter [facility]* Diagnosis Hypertensive chronic kidney disease with stage 1 through stage 4 chronic kidney disease, or unspecified chronic kidney disease- Primary Type 2 diabetes mellitus with diabetic chronic kidney disease (HCC) Mixed hyperlipidemia Benign prostatic hyperplasia without lower urinary tract symptoms documented in this encounter [facility]* Diagnosis Personal history of nicotine dependence- Primary Personal history of nicotine dependence documented in this encounter [facility]gr[facility]formerly [facility]* Diagnosis Onset Date Resolution Status Edema, lower extremity acute Varicosities of leg acute Hypertension [facility] Work Phone: Evaluation note* Diagnosis Onset Date Resolution Status Varicosities of leg acute Hyperlipidemia acute Hypertension [facility] Work Phone: Evaluation note* Diagnosis Primary osteoarthritis of left knee- Primary documented in this encounter [facility]* Diagnosis Primary osteoarthritis of left knee- Primary documented in this encounter [facility]* Diagnosis Benign neoplasm of colon, unspecified part of colon [facility] Diagnosis Primary osteoarthritis of left shoulder- Primary documented in this encounter [facility] note* Diagnosis Primary osteoarthritis of left shoulder documented in this encounter [facility] note* Diagnosis Primary osteoarthritis of left shoulder- Primary documented in this encounter [facility] note* Diagnosis Primary osteoarthritis of left shoulder- Primary documented in this encounter [facility] note* Diagnosis Pain in left knee- Primary documented in this encounter [facility] note* Diagnosis Primary osteoarthritis of left shoulder documented in this encounter [facility] (narrative)* Outpatient Procedure (Routine) - Authorized Specialty Diagnoses / Procedures Referred By Contac t Referred To Contact [facility] Diagnoses Benign neoplasm of colon, unspecified part of colon Procedures COLONOSCOPY SCREENING COLONOSCOPY FLX DX W/COLLJ SPEC WHEN Joaquin Gordon MD [address] [place] [address] [facility] [address] [place], [place] [id number] Referral ID Status Reason Start Date Expiration Date Visits Requested Visits Authorized [id number] Authorized Auto-Generat ed Referral 12/02/2022 12/03/2023 1 1 [facility] for referral (narrative)* Outpatient Procedure (Routine) - Closed Specialty Diagnoses / Procedures Referred By Contrahel t Referred To Contact [facility] Diagnoses Benign neoplasm of colon, unspecified part of colon Procedures COLONOSCOPY SCREENING COLONOSCOPY FLX DX W/COLLJ SPEC WHEN Joaquin Gordon MD [address] [place] [address] [facility] [address] [place], [place] [id number] Referral ID Status Reason Start Date Expiration Date V isits Requested Visits Authorized [id number] Closed Auto-Generate d Referral 12/02/2022 12/03/2023 1 1 [facility] for visit Narrative* Outpatient Procedure (Routine) - Closed Specialty Diagnoses / Procedures Referred By Contac t Referred To Contact [facility] Diagnoses Benign neoplasm of colon, unspecified part of colon Procedures COLONOSCOPY SCREENING COLONOSCOPY FLX DX W/COLLJ SPEC WHEN PFRMD Joaquin Benito MD [address] [place] [address] [facility] [address] [place] [address] Referral ID Status Reason Start Date Expiration Date V isits Requested Visits Authorized [id number] Closed Auto-Generate d Referral 12/02/2022 12/03/2023 1 1 [facility] for visit Narrative* Therapy (Routine) - Authorized Specialty Diagnoses / Procedures Referred By Contac t Referred To Contact Physical Therapy Diagnoses Primary osteoarthritis of left shoulder Procedures IN OFFICE/OUTPATIENT [facility] MDM 60 MINUTES Yessy Villarreal MD [address] [place] [address] Phone: tel: fax: [facility] at [address] [place] [address] Phone: tel: fax: Referral ID Status Reason Start Date Expiration Date Visits Requested Visits Authorized [id number] Authorized Specialty Services Required 04/28/2025 99 99 [facility] Advance Directives No Advanced Directives Records FoundDocuments on File Type Date Recorded Patient Probation And Parole Officer Expl anation Advance Directives and Living Will Power of Welder Apprentice Arc Family History No Family History Records FoundUnknown Family Member Name Dates Details No pertinent family history: Mother, Father(V49.89, Z78.9) Status:Active Summary Purpose Reason for Referral Specialty Diagnoses / Procedures Referred By Contac t Referred To Contact Radiology Diagnoses Personal history of nicotine dependence Procedures CT lung screening low dose Jania Myers, GALA - MECHANICAL DESIGN ENGINEER [address] [place] [address] Referral ID Status Reason Start Date Expiration Date Visits Re quested Visits Authorized [id number] Closed 12/07/2022 06/05/2023 1 1 Specialty Diagnoses / Procedures Referred By Contac t Referred To Contact Diagnoses Primary osteoarthritis of left knee Yessy Villarreal MD [address] [place] [address] Referral ID Status Reason Start Date Expiration Date V isits Requested Visits Authorized [id number] Pending Review 02/25/2024 02/19/2025 1 1 Specialty Diagnoses / Procedures Referred By Kelvin gauthier Referred To Contact Physical Therapy Diagnoses Primary osteoarthritis of left shoulder Procedures IN OFFICE/OUTPATIENT COUNTS INCLUDE 234 BEDS AT [facility] MDM 60 MINUTES Yessy Villarreal MD [address] [place] [address] [facility] [address] [place] [address] [place] [address] Referral ID Status Reason Start Date Expiration Date Visits Requested Visits Authorized [id number] Authorized Specialty Services Required 04/28/2025 99 99 [...] 2024 3:5 1pm RETINAL ARTERY OCCLUSION (KELLEY) Beti caicedo 2024 8:44am Reason for Visit Admit Date Obstructive sleep apnea August 23 9:13am [place] plaque, right eye October 3:51pm Hyperlipidemia November 02, 2024 3:5 1pm Hypertension November 02, 2024 3:5 1pm Chief Complaint Admit Date 6 W FU August 23, 2024 9 :13am RIGHT EYE November 02, 2024 3:5 1pm RETINAL ARTERY OCCLUSION (KELLEY) Beti caicedo 2024 8:44am labs to be drawn December [...] Hypertension December 14, 2024 8:44a m Hyperlipidemia December 14, 2024 3:44p m Obstructive sleep apnea December 14, 2024 3 :44pm Dyslipidemia December 14, 2024 3:44p m H/O enucleation of left eyeball November 3:44pm [place] plaque, right eye December 14, 2024 3:44pm Hypertension December 14, 2024 3:44p m Chief Complaint Admit Date RIGHT EYE November 02, 2024 3:5 1pm RETINAL ARTERY OCCLUSION (KELLEY) Ma y 2024 8:44am labs to be drawn December 14, 2024 3:44p m labs to be drawn BMP December 21, 2024 2:54 pm Reason for Visit Admit Date Hyperlipidemia November 02, 2024 3:5 1pm [place] [...] Hypertension December 14, 2024 8:44a m Hyperlipidemia December 14, 2024 3:44p m Obstructive sleep apnea December 14, 2024 3 :44pm Dyslipidemia December 14, 2024 3:44p m H/O enucleation of left eyeball November 3:44pm [place] plaque, right eye December 14, 2024 3:44pm Hypertension December 14, 2024 3:44p m Coronary artery disease December 21, 2024 2 :54pm Dyslipidemia December 21, 2024 2:54p m Chief Complaint Admit Date RIGHT EYE November 02, 2024 3:5 1pm RETINAL ARTERY OCCLUSION (KELLEY) Ma y 2024 8:44am labs to be drawn December 14, 2024 3:44p m labs to be drawn BMP December 21, 2024 2:54 pm [place], RIGHT EYE December 28, 2024 8:50am Hypertension December 28, 2024 3:36 pm Reason for Visit Admit Date Hyperlipidemia November 02, 2024 3:5 1pm [place] [...] Hypertension December 14, 2024 8:44a m Hyperlipidemia December 14, 2024 3:44p m Obstructive sleep apnea December 14, 2024 3 :44pm Dyslipidemia December 14, 2024 3:44p m H/O enucleation of left eyeball November 3:44pm [place] plaque, right eye December 14, 2024 3:44pm Hypertension December 14, 2024 3:44p m Coronary artery disease December 21, 2024 2 :54pm Dyslipidemia December 21, 2024 2:54p m Carotid artery stenosis December 28, 2024 3:36pm [place] plaque, right eye December 28, 2024 3:36pm Hypertension December 28, 2024 3:36 pm Additional Source Comments (unrecognized sect ion and content) No Status Records FoundNo Status Records FoundNo Status Records FoundNo Status Records FoundNo Status Records FoundNo Status Records FoundNo Status Records Found INFORMATION SOURCE (unrecogn ized section and content) DATE CREATED AUTHOR 05/12/2022 [facility] DATE CREATED AUTHOR 'S ORGANIZ ATION 02/26/2023 [facility] DATE CREATED AUTHOR AUTHOR'S ORGANIZ ATION 03/04/2023 [facility] DATE CREATED AUTHOR AUTHOR'S ORGANIZ ATION 03/04/2023 [facility] DATE CREATED AUTHOR AUTHOR'S ORGANIZ ATION 06/06/2024 [facility] DATE CREATED AUTHOR AUTHOR'S ORGANIZ ATION 12/29/2024 [facility] DATE CREATED AUTHOR AUTHOR'S ORGANIZ ATION 01/18/2025 [facility] Care Teams (unrecognized sec tion and content) Team Status: Active Member Role Status Dates Diana Kelley SENIOR ACCOUNTING CLERK, SENIOR ACCOUNTING CLERK-C Primary Care Provider Active Team Status: Inactive Member Role Status Dates Diana Kelley NP, SENIOR ACCOUNTING CLERK-C Primary Care Provider Active Start: August 23, 2024 End: August 23, 2024 Diana Kelley NP, SENIOR ACCOUNTING CLERK-C Referring Provider Active Start: August 23, 2024 End: August 23, 2024 Roshni Baker NP-C Attending Provider Active Start: August 23, 2024 End: August 23, 2024 Team Status: Inactive Member Role Status Dates Diana Kelley SENIOR ACCOUNTING CLERK, SENIOR ACCOUNTING CLERK-C Primary Care Provider Active Start: November 02, 2024 End: November 02, 2024 Diana Kelley NP, SENIOR ACCOUNTING CLERK-C Attending Provider Active Start: November 02, 2024 End: November 02, 2024 Diana Kelley SENIOR ACCOUNTING CLERK, SENIOR ACCOUNTING CLERK-C Referring Provider Active Start: November 02, 2024 End: November 02, 2024 Team Status: Inactive Member Role Status Dates Diana Kelley NP, SENIOR ACCOUNTING CLERK-C Primary Care Provider Active Start: December 14, 2024 End: December 14, 2024 Diana Kelley SENIOR ACCOUNTING CLERK, SENIOR ACCOUNTING CLERK-C Referring Provider Active Start: December 14, 2024 End: December 14, 2024 Dr. Magda Husain MD Attending Provider Active Start: December 14, 2024 End: December 14, 2024 Muffler Hand Relationship Specialty Start Date End Date Regis Bravo MD [address] [place] [phone] PCP - General 12/17/18 Muffler Hand Relationship Specialty Start Date End Date Regis Bravo MD [address] [place], [place] [id number] PCP - General Family Medicine 12/02/22 Muffler Hand Relationship Specialty Start Date End Date Regis Bravo MD [address] [place] [phone] PCP - General 12/17/18 Muffler Hand Relationship Specialty Start Date End Date Regis Bravo MD [address], [phone] PCP - General 12/17/18 Muffler Hand Relationship Specialty Start Date End Date Regis Bravo MD [address], [place] [id number] PCP - General Family Medicine 12/02/22 Muffler Hand Relationship Specialty Start Date End Date Regis Bravo MD [address], [phone] PCP - General 12/17/18 Team Status: Active Member Role Status Dates Diana Kelley NP, SENIOR ACCOUNTING CLERK-C Primary Care Provider Active Dr. Carson Hanna MD Attending Provider Active Team Status: Inactive Member Role Status Dates Diana Kelley NP, SENIOR ACCOUNTING CLERK-C Attending Provider Active Team Status: Inactive Member Role Status Dates Diana Kelley SENIOR ACCOUNTING CLERK, SENIOR ACCOUNTING CLERK-C Primary Care Pr ovider, Attending Provider, Referring Provider Active Team Status: Active Member Role Status Dates Diana Kelley NP, SENIOR ACCOUNTING CLERK-C Primary Care Provider, Referr ing Provider Active Dr. Carson Hanna MD Attending Provider Active Team Status: Inactive Member Role Status Dates Diana Kelley NP, SENIOR ACCOUNTING CLERK-C Primary Care Provider, Referr ing Provider Active VALERIA Salazar Attending Provider Active Muffler Hand Relationship Specialty Start Date End Date Regis Bravo MD [address] [place] [address] PCP - General 12/17/18 Muffler Hand Relationship Specialty Start Date End Date Regis Bravo MD [address] [place] [address] PCP - General 12/17/18 Muffler Hand Relationship Specialty Start Date End Date Regis Bravo MD [address] [place] [address] PCP - General 12/17/18 Muffler Hand Relationship Specialty Start Date End Date Regis Bravo MD [address] [place] [phone] PCP - General 12/17/18 Muffler Hand Relationship Specialty Start Date End Date Regis Bravo MD [address], [phone] PCP - General 12/17/18 Muffler Hand Relationship Specialty Start Date End Date Regis Bravo MD [address] [place] [address] PCP - General 12/17/18 Muffler Hand Relationship Specialty Start Date End Date Regis Bravo MD [address] [place] [phone] PCP - General 12/17/18 Muffler Hand Relationship Specialty Start Date End Date Regis Bravo MD [address] [place] [phone] PCP - General 12/17/18 Muffler Hand Relationship Specialty Start Date End Date Regis Bravo MD [address] [place] [phone] PCP - General 12/17/18 Muffler Hand Relationship Specialty Start Date End Date Regis Bravo MD [address] [place] [phone] PCP - General 12/17/18 Muffler Hand Relationship Specialty Start Date End Date Regis Bravo MD [address] [place] [phone] PCP - General 12/17/18 Muffler Hand Relationship Specialty Start Date End Date Regis Bravo MD [address], [facility] PCP - General Family Medicine 12/02/22 Muffler Hand Relationship Specialty Start Date End Date Regis Bravo MD [address], [phone] PCP - General 12/17/18 Muffler Hand Relationship Specialty Start Date End Date Regis Bravo MD [address] [place] [phone] PCP - General 12/17/18 Muffler Hand Relationship Specialty Start Date End Date Regis Bravo MD [address] [place] [phone] PCP - General 12/17/18 Muffler Hand Relationship Specialty Start Date End Date Regis Bravo MD [address] [place] [phone] PCP - General 12/17/18 Team Status: Inactive Member Role Status Dates Diana Kelley SENIOR ACCOUNTING CLERK, SENIOR ACCOUNTING CLERK-C Primary Care Provider Active Start: December 14, 2024 End: December 14, 2024 Diana Kelley SENIOR ACCOUNTING CLERK, SENIOR ACCOUNTING CLERK-C Attending Provider Active Start: December 14, 2024 End: December 14, 2024 Diana Kelley SENIOR ACCOUNTING CLERK, SENIOR ACCOUNTING CLERK-C Referring Provider Active Start: December 14, 2024 End: December 14, 2024 Team Status: Active Member Role Status Dates Diana Kelley SENIOR ACCOUNTING CLERK, SENIOR ACCOUNTING CLERK-C Primary Care Provider Active Start: December 14, 2024 Diana Kelley SENIOR ACCOUNTING CLERK, SENIOR ACCOUNTING CLERK-C Attending Provider Active Start: December 14, 2024 Team Status: Inactive Member Role Status Dates Diana Kelley SENIOR ACCOUNTING CLERK, SENIOR ACCOUNTING CLERK-C Primary Care Provider Active Start: December 21, 2024 End: December 21, 2024 Diana Kelley SENIOR ACCOUNTING CLERK, SENIOR ACCOUNTING CLERK-C Attending Provider Active Start: December 21, 2024 End: December 21, 2024 Diana Kelley SENIOR ACCOUNTING CLERK, SENIOR ACCOUNTING CLERK-C Referring Provider Active Start: December 21, 2024 End: December 21, 2024 Team Status: Active Member Role Status Dates Diana Kelley SENIOR ACCOUNTING CLERK, SENIOR ACCOUNTING CLERK-C Primary Care Provider Active Start: December 21, 2024 Diana Kelley SENIOR ACCOUNTING CLERK, SENIOR ACCOUNTING CLERK-C Attending Provider Active Start: December 21, 2024 Team Status: Active Member Role Status Dates Diana Kelley SENIOR ACCOUNTING CLERK, SENIOR ACCOUNTING CLERK-C Primary Care Provider Active Start: December 21, 2024 Diana Kelley SENIOR ACCOUNTING CLERK, SENIOR ACCOUNTING CLERK-C Attending Provider Active Start: December 21, 2024 Diana Kelley SENIOR ACCOUNTING CLERK, SENIOR ACCOUNTING CLERK-C Referring Provider Active Start: December 21, 2024 Team Status: Active Member Role Status Dates Diana Kelley SENIOR ACCOUNTING CLERK, SENIOR ACCOUNTING CLERK-C Primary Care Provider Active Start: December 28, 2024 Dr. Magda Husain MD Attending Provider Active Start: December 28, 2024 Dr. Magda Husain MD Referring Provider Active Start: December 28, 2024 Team Status: Active Member Role Status Dates Diana Kelley SENIOR ACCOUNTING CLERK, SENIOR ACCOUNTING CLERK-C Primary Care Provider Active Start: December 28, 2024 Dr. Carson Hanna MD Attending Provider Active S tart: December 28, 2024 Team Status: Inactive Member Role Status Dates Diana Kelley SENIOR ACCOUNTING CLERK, SENIOR ACCOUNTING CLERK-C Primary Care Provider Active Start: December 28, 2024 End: December 28, 2024 OLIVER Richards NP Attending Provider Active Start: December 28, 2024 End: December 28, 2024 OLIVER Richards NP Referring Provider Active Start: December 28, 2024 End: December 28, 2024 Team Status: Inactive Member Role Status Dates OLIVER Richards NP Primary Care Provider Active Start: December 28, 2024 End: December 28, 2024 Dr. Magda Husain MD Attending Provider Active Start: December 28, 2024 End: December 28, 2024 Dr. Magda Husain MD Referring Provider Active Start: December 28, 2024 End: December 28, 2024 Source Comments (unrecognize d section and content) In the event this informatio n is protected by the Federal Confidentiality of Alcohol and Drug Abuse Patient Records regulations: The Federal rules restrict any use of the information to criminally investigate or prosecute any alcohol or drug abuse patient.[facility] the event this information is protected by the Federal Confidentiality of Alcohol and Drug Abuse Patient Records regulations: The Federal rules restrict any use of the information to criminally investigate or prosecute any alcohol or drug abuse patient.[facility] the event this information is protected by the Federal Confidentiality of Alcohol and Drug Abuse Patient Records regulations: The Federal rules restrict any use of the information to criminally investigate or prosecute any alcohol or drug abuse patient.[facility] Reason for Visit (unrecogniz ed section and content) Reason Comments Screening order/checklist Specialty Diagnoses / Procedures Referred By Contac t Referred To Contact Radiology Diagnoses Personal history of nicotine dependence Procedures CT lung screening low dose Jania Myers, REWRITER - MECHANICAL DESIGN ENGINEER [address] [place] [address] Referral ID Status Reason Start Date Expiration Date Visits Re quested Visits Authorized [id number] Closed 12/07/2022 06/05/2023 1 1 Reason Comments [...] Diagnoses Primary osteoarthritis of left shoulder Procedures IN OFFICE/OUTPATIENT NEW HIGH MDM 60 MINUTES Yessy Villarreal MD [address] [place] [address] [facility] [address] [place], [place] [address] [address] Referral ID Status Reason Start Date Expiration Date Visits Requested Visits Authorized [id number] Authorized Specialty Services Required 4 04/28/2025 99 [...] BE BASED ON THE PRIMARY CLINICAL RECORDS. [facility]. provides no warranty or guarantee of the accuracy or completeness of information in this document.
== END | disposition home or self-care (01) ==
LOC: CVS 06:56
PROVIDERS: PCP Nurse Practitioner; Referring Provider Internal Medicine Cardiovascular Disease; Visit Provider Internal Medicine Cardiovascular Disease
DX: I25.10 Atherosclerotic heart disease of native coronary artery without angina pectoris (principal)
CPT/HCPCS: 78452; 93017; 93306; A9500; Q9957; A4216; C8929

== ENCOUNTER 2025-02-14 09:24 | Day surgery (SDC) | payer MEDICARE, SELFPAY ==
--- NOTE | 2025-02-07 09:10 | RAD_ITS ---
PROCEDURE: CHEST PA AND LATERAL 02/07/2025 REASON FOR EXAM: PRE-OPERATIVE: [facility] TECHNIQUE: CHEST PA AND LATERAL COMPARISON: 06/06/2024 FINDINGS: Median sternotomy wires. No focal consolidation. No pleural effusion or pneumothorax. Cardiac silhouette is within normal limits. No acute fractures. RAD/Chest PA and Lateral IMPRESSION: No focal consolidations. Reading Location: [id number]
--- NOTE | 2025-02-07 09:57 | PCM.HP.BLA ---
History and Physical Date of Admission: 02/14/25 This gentleman has history of coronary artery disease with an emergent single-vessel CABG with SVG to the [facility] and 2006 at [place] for an acute STEMI. 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 Echocardiogram on 01/24/2025 showed LV function 35-40%. Stress test on 01/24/2025 was abnormal with old inferolateral infarct with moderate tye-infarct ischemia. On account of stress test results and reduced LV function, he will proceed with heart catheterization. Patient denies any chest pains or shortness of breath either at rest or with exertion. Denies any palpitations. No orthopnea PND. No ankle edema. Denies any lightheadedness or dizziness. No syncope or presyncope. The note from the primary care physician describes a cholesterol embolus to the right eye. However patient denies that. According to him, he has no problems with vision in his right eye. 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 Per patient, his last visit with his observer electrical prospecting was about 6 months ago. Intake Vital Signs: See EMR Intake Visit Reasons: [facility] Mica Paster Required: No Accompanied by: Self Is patient in pain?: No Allergies No Known Allergies Allergy (Verified 12/14/24 08:53) Medications: See EMR Have you fallen in the past year?: No PFSH Medical History (Updated 12/14/24 @ 09:[address] Magda Husain MD) Hollenhorst plaque, right eye Screening for lung cancer Hypertension Normal colonoscopy Melanoma of eye Surgical History (Updated 12/14/24 @ 09:[address] Magda Husain MD) H/O enucleation of left eyeball S/P CABG x 1 Social History (Updated 12/14/24 @ 08:54 by Elmira Landrum) Smoking Status: Former smoker quit date: 06/26/24 Tobacco: How many years used: 50 second hand exposure: No alcohol intake: current alcohol intake frequency: a few times a week substance use type: does not use caffeine: Yes Type: coffee Number of servings: 3 ROS Const Const: Negative for fatigue, weakness, headache(s) or weight gain ENT ENT: Positive for balance problems (Occ); Negative for headache(s), dizziness or Nosebleed/epistaxis Cardio Chest Pain: No Palpitations: No Edema: None Muscle aches with walking: Bilateral Resp Respiratory: Negative for SOB with activity, SOB at rest or SOB orthopnea\SOB lying down GI GI: Negative nausea, vomiting or heartburn Musc Musc: Positive for muscle aches/ myalgia (BLE after walking), joint pain (Occ, B/L knee) and balance problems (Occ); Negative for muscle weakness Neuro Neuro: Negative for dizziness, lightheadedness, near syncope, syncope, headache(s) or weakness Endo Endo: Negative for fatigue Cardiology Exam Const Appearance: comfortable and no acute distress Nutritional Appearance: well nourished Neck Neck: no JVD Carotids: Negative bruit Chest Auscultation: Bilateral: Clear to Auscultation Cardio Rate: regular rate Rhythm: regular rhythm Heart sounds: S1 normal and S2 normal Neuro General: patient alert, patient awake and patient oriented x3 Extremities Lower Extremity Edema: None: Bilateral Supplemental Info Supplemental Information CABG x1 08/31/2007: Findings: At the time of the surgery, the patient had irritable right ventricle and off-bypass, distal anastomosis to the PDA was performed , and then off-bypass, one reverse saphenous vein graft, graft was placed into the distal PDA. Assessment and Plan Assessment and Plan (1) Coronary artery disease: Status: Chronic Comment: 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 Plan: Continue aspirin. Beta-blockers. Risk factor modification. Based on test results, he will proceed with heart catheterization. Depending on results, further recommendation to be made. (2) History of coronary artery bypass graft x 1: Status: Chronic Plan: See #1 above. (3) Hypertension: Status: Chronic Qualifiers: Hypertension type: primary hypertension Qualified Code(s): I10 - Essential (primary) hypertension Plan: We will continue to optimize medication for blood pressure control. (4) Dyslipidemia: Status: Chronic Plan: Simvastatin. PCP following. (5) Hollenhorst plaque, right eye: Status: Chronic Plan: Patient denies any amaurosis fugax. Continue following with ophthalmology. Carotid duplex ultrasound on 12/28/2024 showed moderate right internal carotid artery stenosis and mild left internal carotid artery stenosis.
[2025-02-07 10:09] LABS: Hematocrit 40.8 % (40-54); Hemoglobin 13.5 g/dL (13.0-16.5); Immature Granulocytes Count 0.040 X10^3/uL (0.0-0.0); Mean Corp Hgb Conc 33.1 g/dL (32-36); Mean Corpuscular Volume 91.9 fL (80-94); Mean Platelet Vol. 12.3 fl (6.2-12.0); NRBC Flagged by Analyzer 0 % (0-5); Platelet Count 132 K/mm3 (150-450); RBC Distribution Width CV 12.4 % (11.6-14.6); RBC Distribution Width SD 41.5 fl (35.1-43.9); Red Blood Count 4.44 M/mm3 (4.6-6.2); White Blood Count 9.2 K/mm3 (4.4-11.0)
[2025-02-07 11:17] LABS: Anion Gap 10 (5-15); BUN 20 mg/dL (4-19); BUN/Creat Ratio 18.7 RATIO (10-20); Calcium,Total 9.3 mg/dL (7.6-11.0); Carbon Dioxide 28.0 mmol/L (21.0-32.0); Chloride 102 mmol/L (98-108); Glucose 104 mg/dL (70-99); Potassium 4.8 mmol/L (3.3-5.1)
[2025-02-13 08:47] VITALS: BMI 26.8
--- NOTE | 2025-02-26 09:47 | CL.D_ITS ---
Patient Name: TRES BONE Study Date: 02/14/2025 Performing: Magda Husain MD Ht: 68.5 inches 173.99 cm : 1945 Wt: 178.99 lbs 81.19 kg Age: 79 Gender: male BSA: 1.96 PROCEDURE(S) PERFORMED DC04-(20998)LHC/COR/CABG CLINICAL PROFILE AND INDICATIONS Indications: Stable Known CAD Heart Failure: None Stress/Imaging Stress Test w/SPECT MPI: Yes Result: Positive High RiskStress Test with SPECT MPI: Positive High Risk CAD Presentations: No Sxs, no angina. 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 The risks and benefits of the procedure as well as a full description of our services here and current unavailability of surgical backup were fully explained to the patient and/or their significant other prior to the catheterization. The Timeout was completed, verifying the correct patient and procedure. The patient's procedural site was prepped and draped in the usual fashion. Local anesthetic was given subcutaneously to right radial region with Lidocaine 2%. Using a modified Seldinger technique, arterial access was obtained via the right radial artery, a 6Fr sheath was inserted. Right Coronary Artery selective angiography was then performed in multiple views using a 5 Fr. 4.0 Gorham catheter. Saphenous Vein graft to the RPDA selective angiography was performed in multiple views using a 5 Fr. 4.0 Gorham catheter. Left Coronary Artery selective angiography was performed in multiple views using a 5 Fr. 4.0 Gorham catheter. Left Coronary Artery selective angiography was performed in multiple views using a 5 Fr. JL3.5 catheter.The arterial sheath was pulled and a TR Band was applied for hemostasis. 12 cc of air CORONARY ANGIOGRAPHY DOMINANCE: Right Dominant LEFT MAIN: 20% Mid LEFT ANTERIOR DESCENDING ARTERY: LAD: Tubular 20% Proximal lesion in LAD RIGHT CORONARY ARTERY: RCA: Complex 100% Ostial lesion in RCA GRAFTS: SVG Graft to RT PDA Complex 100% lesion in SVG Graft to RT PDA COLLATERAL FLOW: Collateral flow from SEP to RT PDA Collateral flow from CX to RT LV-BR COMPLICATIONS No Complications PROCEDURE MEDICATIONS Fentanyl 50 mcg IV Versed 1 mg IV Oxygen: 2 L/min via nasal cannula Baby Aspirin (81mg) 1 Tabs PO @ 02/14/2025 09:54:21 Heparin given IA 02/14/2025 13:32:08 Verapamil 2.5mg, Ntg 200mcgs, 2000 units of Heparin given IA 02/14/2025 13:32:08 SUMMARY OF HEMODYNAMIC DATA Time AIR REST ECG 09:50:19 AO 138/63 (101) SA 13:43:47 ECG 14:05:52 Signed By Magda Husain MD On 02/14/2025 14:06:48 Magda Husain MD
== END 2025-02-14 15:25 | disposition home or self-care (01) ==
PROVIDERS: Nurse Practitioner Family; PCP Nurse Practitioner; Referring Provider Internal Medicine Cardiovascular Disease; Visit Provider Internal Medicine Cardiovascular Disease
DX: I25.10 Atherosclerotic heart disease of native coronary artery without angina pectoris (principal); I25.2 Old myocardial infarction; I10 Essential (primary) hypertension; E78.5 Hyperlipidemia, unspecified; H34.9 Unspecified retinal vascular occlusion; Z95.1 Presence of aortocoronary bypass graft; Z87.891 Personal history of nicotine dependence; Z85.820 Personal history of malignant melanoma of skin
CPT/HCPCS: 36415; 71046; 80048; 85025; 93455; 99152; 99153; Q9967; A4216; C1769; C1894

== ENCOUNTER → 2025-03-15 | Outpatient (CLI) | payer MEDICARE, SELFPAY ==
--- OUTSIDE RECORDS SUMMARY | 2025-03-15 17:53 | XMS RPT_ITS | CCD ---
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 Regis Damon Primary Care Un available Gene, Dr. Rafa Mckeon Attending Hui Dockery, Dr. Rafa Mckeon Referring Hui Kelley INSOLE REINFORCER, INSOLE REINFORCER-C Diana Primary Care Provider Dr. Carson Hanna Attending Provider Warren INSOLE REINFORCER, INSOLE REINFORCER-C Diana Primary Care Provider Warren INSOLE REINFORCER, INSOLE REINFORCER-C Diana Referring Provider Dr. Carson Hanna Attending Provider VALERIA Weller Attending Provider Regis Bravo MD Primary Care [facility] REGIS BRAVO Primary Care Unavailable YESSY VILLARREAL Attending Unavailable YESSY VILLARREAL Attending Unavailable YESSY VILLARREAL Referring Unavailable FINNERAN, REGIS Primary Care Unavailable [...] Unavailable FINNERAN, REGIS Primary Care Unavailable Kelley INSOLE REINFORCER-C, Diana Primary Care Provider Warren INSOLE REINFORCER-C, Diana Referring Provider Olivia GÓMEZ-CRoshni Attending Provider Warren INSOLE REINFORCER-C, Diana Attending Provider Rodrigue PRECIADO, Dr. Man Attending Provider Kelley INSOLE REINFORCER-C, Diana Primary Care Provider Kelley INSOLE REINFORCER-C, Diana Referring Provider Dr. Magda Husain MD Referring Provider Cyndi PRECIADO, Dr. Byrd Attending Provider RAFA DOCKERY Attending Unavailable FINNERAN, REGIS P Primary Care Unavailable RAFA DOCKERY Attending Unavailable FINNERAN, REGIS P Primary Care Unavailable Rodrigue PRECIADO, Dr. Man Other Provider Jason GÓMEZ-CElis Attending Provider Olivia INSOLE REINFORCER-CRoshni Attending Provider Warren INSOLE REINFORCER, Diana Primary Care Unavailable Rodrigue, Magda Referring Unavailable Carson Hanna Attending Unavailable RodrigueMagda Attending Unavailable Rodrigue, Magda Referring Unavailable Kelley INSOLE REINFORCER, Diana Primary Care Unavailable Rodrigue, Magda Attending Unavailable Rodrigue, Magda Consulting Unavailable Rodrigue, Magda Referring Unavailable Kelley INSOLE REINFORCER, Diana Primary Care Unavailable Rodrigue, Magda Attending Unavailable Rodrigue, Magda Consulting Unavailable Rodrigue, Magda Referring Unavailable Kelley INSOLE REINFORCER, Diana Primary Care Unavailable Roshni Baker Attending Unavailable Warren INSOLE REINFORCER, Diana Primary Care Unavailable Kelley INSOLE REINFORCER, Diana Referring Unavailable Kelley INSOLE REINFORCER, Diana Primary Care Unavailable Kelley INSOLE REINFORCER, Diana Referring Unavailable Rodrigue, Magda Attending Unavailable Kelley INSOLE REINFORCER, Diana Referring Unavailable Kelley INSOLE REINFORCER, Diana Primary Care Unavailable Marcellus INSOLE REINFORCER, Estrellita Attending Unavailable Roshni Baker Attending Unavailable Kelley INSOLE REINFORCER, Diana Primary Care Unavailable Kelley INSOLE REINFORCER, Diana Referring Unavailable Kelley INSOLE REINFORCER, Diana Primary Care Unavailable Jason INSOLE REINFORCER, Elis Attending Unavailable Rodrigue, Magda Attending Unavailable Rodrigue, Magda Referring Unavailable Kelley INSOLE REINFORCER, Diana Primary Care Unavailable Kelley INSOLE REINFORCER, Diana Referring Unavailable Kelley INSOLE REINFORCER, Diana Attending Unavailable Kelley INSOLE REINFORCER, Diana Primary Care Unavailable Kelley INSOLE REINFORCER, Diana Primary Care Unavailable Kelley INSOLE REINFORCER, Diana Referring Unavailable Kelley INSOLE REINFORCER, Diana Attending Unavailable Kelley INSOLE REINFORCER, Diana Primary Care Unavailable Rodrigue, Magda Attending Unavailable Rodrigue, Magda Referring Unavailable Kelley INSOLE REINFORCER, Diana Referring Unavailable Kelley INSOLE REINFORCER, Diana Attending Unavailable Kelley INSOLE REINFORCER, Diana Primary Care Unavailable Kelley INSOLE REINFORCER, Diana Primary Care Unavailable Marcellus INSOLE REINFORCER, Estrellita Referring Unavailable Marcellus INSOLE REINFORCER, Estrellita Attending Unavailable Kelley INSOLE REINFORCER, Diana Primary Care Unavailable Roshni Baker Referring Unavailable Roshni Baker Attending Unavailable Warren INSOLE REINFORCER, Diana Primary Care Unavailable Kelley INSOLE REINFORCER, Diana Referring Unavailable Kelley INSOLE REINFORCER, Diana Attending Unavailable Allergies Allergy Classification Reported Allergen(s) Allergy Type Date of Onset Reaction(s) Facility (1 source) ALLERGIES NOT ON FILE; Translations: [ALLERGIES NOT ON FILE] Propensity to adverse reactions (disorder) [facility] 3 Repository Medications Current Medications Medication Drug [...] 12 mg colchicine 0.6 mg oral tablet (11 sources) Start: 01-10-2024 End: 03-13-2024 take 1 [...] Polymyxin-class Antibacterial, Corticosteroid Start: 03-02-2018 Neomycin-Polymyxin -Dexameth 3.5-57508-8.1 Ophthalmic Ointment APPLY A SMALL AMOUNT OF OINTMENT in the left eyelid and in the left eye twice per day. Quantity: 2 Refills: 1 Ordered: 02-Mar-2018 Kings Olmedo MD Start : 02-Mar-2018 Active Start: 03-02-2018 neomycin-polym yxin-dexameth 3.5-42248-6.1 OINT apply A SMALL AMOUNT OF OINTMENT IN THE LEFT EYELID AND IN THE LEFT EYE twice a day 0 03/02/2018 Active dextran 70 1 mg/ml / hypromellose 3 mg/ml ophthalmic solution (1 source) Plasma Volume Director Custom take 1-2 drop(s) into the eye(s) four [...] 24 hr Discontinued 50 mg PO DAILY 90 3 July 02, 2023 7:48pm July 04, 2024 [...] DO Active predniSONE 20 mg oral tablet (11 sources) Start: 4 End: 4 take 2 tablets by mouth once daily Prednisone 20 mg tablet Discontinued 40 mg PO DAILY 20 0 January 10, 2024 12:00am March 13, 2024 6:28pm simvastatin 40 mg oral tablet (20 sources) HMG-CoA Reductase Inhibitor Start: 8 End: 4 take 1 tablet by mouth at bedtime Simvastatin 40 mg tablet Discontinued 40 mg PO AT BEDTIME 90 3 July 02, 2023 7:48pm July 04, 2024 5:40pm Start: 07-29-2015 Simvastatin 40 MG Oral Tablet Quantity: 90 Refills: 0 Ordered: 29-Jul-2015 DO Start : 29-Jul-2015 Active Problems Active Problems Problem Classification Problem Date Documented Date Episodic/Chronic Cancer; other and unspecified primary (1 source) Malignant melanoma of left choroid; Translations: [Malignant neoplasm of choroid] Chronic Cancer; other and unspecified primary (1 source) Malignant tumor of choroid; Translations: [Malignant neoplasm of choroid] Chronic Cataract (4 sources) Nuclear senile cataract; Translations: [Senile nuclear sclerosis] Onset: 09-03-2014 Chronic Complication of device; implant or graft (1 source) Atherosclerosis of coronary artery bypass graft(s) without angina pectoris; Translations: [Atherosclerosis of coronary artery bypass graft(s) without angina pectoris] Onset: 03-06-2025 Chronic Coronary atherosclerosis and other heart disease (20 sources) Coronary arteriosclerosis; Translations: [Atherosclerotic heart disease of pamunkey coronary artery without angina pectoris] Onset: 02-16-2025 12-14-2024 Chronic Comment on above: 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 Coronary atherosclerosis and other heart disease (1 source) Presence of aortocoronary bypass graft; Translations: [Presence of aortocoronary bypass graft] Onset: 03-06-2025 Episodic Coronary atherosclerosis and other heart disease (4 sources) Coronary atherosclerosis and other heart disease Diabetes mellitus with complications (1 source) Type 2 diabetes mellitus; Translations: [Type 2 diabetes mellitus with diabetic chronic kidney disease] 11-13-2022 Chronic Disorders of lipid metabolism (20 sources) Hypercholesterolemia; Translations: [Pure hypercholesterolemia] Onset: 12-19-2024 11-13-2022 Chronic Essential hypertension (20 sources) Hypertensive disorder; Translations: [Essential (primary) hypertension] Onset: 12-29-2024 03-03-2023 Chronic Genitourinary symptoms and ill-defined conditions (12 sources) Increased frequency of urination; Translations: [Frequency of micturition] 07-02-2023 Episodic Gout and other crystal arthropathies (11 sources) Gout; Translations: [Gout, unspecified] 01-11-2024 Chronic [...] Episodic Occlusion or stenosis of precerebral arteries (8 sources) Carotid artery stenosis; Translations: [Occlusion and stenosis of unspecified carotid artery] Onset: 03-06-2025 12-28-2024 Chronic Osteoarthritis (20 sources) Osteoarthritis of [...] anophthalmos, unspecified] Chronic Other connective tissue disease (11 sources) Hand pain; Translations: [Pain in right hand] 03-13-2024 Episodic Other connective tissue disease (11 sources) Pain in hallux; Translations: [Pain in left toe(s)] 01-11-2024 Episodic Other connective tissue disease (11 sources) Swelling of hand; Translations: [Other specified [...] t Migration; 2013-07-18; Other lower respiratory disease (11 sources) Snoring; Translations: [Snoring] 03-31-2024 Episodic Other nervous system disorders (1 source) H/O: cataract; Translations: [Personal history of other disorders of nervous system and sense organs] Episodic Comment on above: od; Other screening for suspected conditions (not mental disorders or infectious disease) (20 sources) Raised prostate specific antigen; Translations: [Elevated prostate specific antigen [PSA]] Onset: 05-05-2018 08-17-2018 Episodic Residual codes; unclassified (19 sources) Obstructive sleep apnea syndrome; Translations: [Obstructive sleep apnea (adult) (pediatric)] 08-23-2024 Chronic Comment on above: AHI 18.2 from HST Residual codes; unclassified (11 sources) Daytime hypersomnia; Translations: [Hypersomnia, unspecified] 07-11-2024 Chronic Residual codes; unclassified (11 sources) Sleep apnea; Translations: [Sleep apnea, unspecified] 03-31-2024 Chronic Residual codes; unclassified (2 sources) Obstructive sleep apnea (adult) (pediatric); Translations: [Obstructive [...] history of tobacco use] 01-27-2023 Episodic Unclassified (11 sources) 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, right eye,G47.33 - Obstructive sleep apnea (adult) (pediatric),E78.2 - Mixed hyperlipidemia,I10 - Essential (primary) hypertension Varicose veins of lower extremity (14 sources) Varicose veins of lower extremity; Translations: [Asymptomatic varicose veins of unspecified lower extremity] 03-03-2023 Episodic Comment on above: Venous Duplex 3:Positive for reflux in two separate right accessory saphenous veinsPositive for reflux in the left great saphenous vein above the knee, accessory saphenous vein belowthe knee, small saphenous vein, Vein of Giacomini, and a hat sizer vein above the malleolus Past or Other [...] Translations: [Pain in joint, lower leg] Episodic Residual codes; unclassified (2 sources) Acquired absence of eye; Translations: [Acquired absence of eye] Onset: 06-21-2024 Episodic Results Test Name Value Interpretation Reference Range Facility Cardiac Cath Diagnosticon Cardiac Cath Diagnostic [facility] Imaging Services [address] [place] [address] Cardiac Cath Diagnostic MR#: [id number] Acct: [id number] Name: TRES DICKSON RAFIQ Rep #: [id number] : 1945 79 From: Magda Husain MD PCP: OLIVER Richards Status:[facility] Patient Name: TRES DICKSON BIMAL Study Date: 02/14/2025 Performing: Magda Husain MD Ht: 68.5 inches 173.99 cm : 1945 Wt: 178.99 lbs 81.19 kg Age: 79 Gender: male BSA: 1.96 PROCEDURE(S) PERFORMED DC04-(27709)LHC/COR/CABG CLINICAL PROFILE AND INDICATIONS Indications: Stable Known CAD Heart Failure: None Stress/Imaging Stress Test w/SPECT MPI: Yes Result: Positive High RiskStress Test with SPECT MPI: Positive High Risk CAD Presentations: No Sxs, no angina. 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 The risks and benefits of the procedure as well as a full description of our services here and current unavailability of surgical backup were fully explained to the patient and/or their significant other prior to the catheterization. The Timeout was completed, verifying the correct patient and procedure. The patient's procedural site was prepped and draped in the usual fashion. Local anesthetic was given subcutaneously to right radial region with Lidocaine 2%. Using a modified Seldinger technique, arterial access was obtained via the right radial artery, a 6Fr sheath was inserted. Right Coronary Artery selective angiography was then performed in multiple views using a 5 Fr. 4.0 [place] catheter. Saphenous Vein graft to the RPDA selective angiography was performed in multiple views using a 5 Fr. 4.0 [place] catheter. Left Coronary Artery selective angiography was performed in multiple views using a 5 Fr. 4.0 [place] catheter. Left Coronary Artery selective angiography was performed in multiple views using a 5 Fr. JL3.5 catheter.The arterial sheath was pulled and a TR Band was applied for hemostasis. 12 cc of air CORONARY ANGIOGRAPHY DOMINANCE: Right Dominant LEFT MAIN: 20% Mid LEFT ANTERIOR DESCENDING ARTERY: LAD: Tubular 20% Proximal lesion in LAD RIGHT CORONARY ARTERY: RCA: Complex 100% Ostial lesion in RCA GRAFTS: SVG Graft to RT PDA Complex 100% lesion in SVG Graft to RT PDA COLLATERAL FLOW: Collateral flow from SEP to RT PDA Collateral flow from CX to RT LV-BR COMPLICATIONS No Complications PROCEDURE MEDICATIONS Fentanyl 50 mcg IV Versed 1 mg IV Oxygen: 2 L/min via nasal cannula Baby Aspirin (81mg) 1 Tabs PO @ 02/14/2025 09:54:21 Heparin given IA 02/14/2025 13:32:08 Verapamil 2.5mg, Ntg 200mcgs, 2000 units of Heparin given IA 02/14/2025 13:32:08 SUMMARY OF HEMODYNAMIC DATA Time AIR REST ECG 09:50:19 AO 138/63 (101) SA 13:43:47 ECG 14:05:52 Signed By Magda Husain MD On 02/14/2025 14:06:48 Magda Husain MD 02/26/25 0947 Date Magda Husain MD [facility] Signature: Date (if indicated) CC: OLIVER Kelley; Dr. Magda Husain MD Date Dictated: 02/14/25 1327 Date Transcribed: 02/14/25 1406 Poll Watcher: NILS Signed Normal [facility] Pulmonary Visit Reporton Pulmonary Visit Report [facility] [address] [place] [address] OFFICE VISIT Date of Service: 02/21/25 MR#: [id number] Acct: [id number] Name: TRES DICKSON Rep #: [id number] : 1945 Provider: Roshni Baker NP Age/Sex: 79/M [place] [facility] Status: Signed Assessment and Plan Assessment and Plan (1) Obstructive sleep apnea: Status: Acute Comment: AHI 18.2 from HST Plan: Uncontrolled Moderate obstructive sleep apnea. He is having difficulty with keeping his mask in place at night. There is mask leak identified on the [facility] and an elevated AHI. I have recommended that he work with RT for PAP management, mask fit, pressure change. The patient may need a fixed pressure versus increasing the range of his AutoPap device. For him to trial various pressures with RT with he is working for his mask adjustment. He is not receiving full benefit yet from his device because apnea is suboptimally controlled and his mask is leaking. I have recommended that he have a nasal steroid spray such as fluticasone OTC available when he has difficulty with nasal congestion so that he can be fully compliant with PAP therapy. I have encouraged him to assist device for the entire night once is set up has been adjusted with RT. Follow-up in 3 to 4 months with compliance download which should be available from the [place]. Orders: Orders Self Mgmnt Educ Training 03/15/25 G47.33 - Obstructive sleep apnea (adult) (pediatric) Plan The patient is aware that his blood pressure is elevated today. He reports that it tends to be 140/60 at home. 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 Plan Details Follow Up: 3-4 months (LMR) HPI HPI Comments Details: Patient is a 79-year-old male patient who presents to the office today for follow-up of sleep apnea. He is ambulatory and currently [...] ago. He does have a greater than [id number] smoking history. He has been following with the [facility] for his annual LDCT. He states that he has an upcoming CT scan next week. He has never been prescribed any inhalers. He is using a nicotine patch to help with smoking cessation. The patient reports that he is using his PAP device. He feels rested on awakening but was feeling rested on awakening prior to the diagnosis of sleep apnea. He feels like he is not seeing a difference in treating his sleep apnea. He reports that his sleep was better before using the machine. It is taking him a while to fall asleep. He is still comfortable with the mask. He does nap on occasion. Nocturia does not occur. He is not experiencing significant oral dryness but this does occur at times. He denies morning headache. He is struggling with keeping his mask secure as he does move at night during sleep. He begins his night in supine positioning. He denies shortness of breath, cough, sputum production or hemoptysis. He denies wheezing, chest tightness, chest pain or palpitations. He denies fever, chills or body aches. The patient reports that he had a heart cath completed last week and that it was good . He indicates that he had sinus symptoms following the heart cath and did not use his device for 3 to 4 days afterwards. Unattended sleep study from August 01, 2024 which shows AHI 18.2. Documentation reviewed with patient today includes: [facility] from January 12, 2025 which documents AutoPap compliance. The patient has an AutoPap at 5 to 15 cm. He has 100% compliance with the device looking at the date range from December 25 through January 10, 2025. He used the device 4 hours and 49 minutes nightly average. His average pressure was 8.9 cm, 95th percentile 13.6 cm and max pressure 14.3 cm. There is 8.2 L/min median airleak, 16.6 L/min 95th percentile leak. AHI is 9.4. Intake Vital Signs 08/23/24 08:16 12/21/24 15:03 02/21/25 08:07 Height 5 ft 8.5 in 5 ft 8.5 in 5 ft 8.5 in Weight: 178 lb BMI 26.6 BP 163/82 H Blood Pressure Location Lt brachial Position Sitting Respiration 20 H Pulse 50 L Pulse Source Monitor Temp 97.1 F L Temperature Source Temporal Artery Pulse Oximetry (%) 92 Oxygen Delivery Method room air Intake Visit Reasons: 8-12 WK F/U Melter Loader Required: No DME Vendor: [email or web address] Accompanied by: Self Is patie (more content not included)... Normal [facility] Absolute lymphocyte countOrd ered By: Jt Navarro on 02-07-2025 Lymphocytes Auto (Unsp spec) [#/Vol] 1.77 10*3/uL 0.83-4.51 [facility] Absolute neutrophil countOrd ered By: Jt Navarro on 02-07-2025 Neutrophils (Bld) [#/Vol] 5.9 10*3/uL 2.0-7.7 [facility] Anion gap in Serum or Plasma Ordered By: Jt Navarro on 02-07-2025 Anion gap [Moles/Vol] 10 mmol/L 5-15 [facility] Automated lymphocyte count a s percentage of total leukocytesOrdered By: Jt Navarro on 02-07-2025 Lymphocytes/100 WBC Auto (Unsp spec) 19.3 % 19-41 [facility] BUN/creatinine ratioOrdered By: Jt Navarro on 02-07-2025 Urea nitrogen/Creatinine [Mass ratio] 18.7 mg/mg 10-20 [facility] Basic Metabolic Profile (BMP )on 02-07-2025 BUN/CRE 18.7 RATIO Normal 10-20 [facility] Comment on above: Performed By: #### L 100.0100, L500.2500 #### [facility] [address] [place], [address] Calcium [Mass/Vol] 9.3 mg/dL Normal 7.6-11.0 [facility] Comment on above: Performed By: #### L 100.0100, L500.2500 #### [facility] [address] [place], [address] Chloride [Moles/Vol] 102 mmol/L Normal 98-108 [facility] Comment on above: Performed By: #### L 100.0100, L500.2500 #### [facility] [address] [place], [address] CO2 [Moles/Vol] 28.0 mmol/L Normal 21.0-32.0 [facility] Comment on above: Performed By: #### L 100.0100, L500.2500 #### [facility] [address] [place], [address] Creatinine [Mass/Vol] 1.08 mg/dL Normal 0.70-1.20 [facility] Comment on above: Performed By: #### L 100.0100, L500.2500 #### [facility] [address] [place], [address] GAP 10 Normal 5-15 [facility] Comment on above: Performed By: #### L 100.0100, L500.2500 #### [facility] [address] [place], [address] GFR/1.73 sq M.predicted among non-blacks MDRD (S/P/Bld) [Vol rate/Area] 70 mL/min/{1.73_m2} Normal >60 [facility] Comment on above: Result Comment: mL/m in/1.73m2 CKD-EPI Creatinine Equation (2020) Performed By: #### L 100.0100, L500.2500 #### [facility] [address] [place], [address] Glucose [Mass/Vol] 104 mg/dL High 70-99 [facility] Comment on above: Performed By: #### L 100.0100, L500.2500 #### [facility] [address] [place], [address] Potassium [Moles/Vol] 4.8 mmol/L Normal 3.3-5.1 [facility] Comment on above: Result Comment: Hemo lysis present, Results??could be affected. ?? Performed By: #### L 100.0100, L500.2500 #### [facility] [address] [place], [address] Sodium [Moles/Vol] 141 mmol/L Normal 133-145 [facility] Comment on above: Performed By: #### L 100.0100, L500.2500 #### [facility] [address] [place], [address] Urea nitrogen [Mass/Vol] 20 mg/dL High 4-19 [facility] Comment on above: Performed By: #### L 100.0100, L500.2500 #### [facility] [address] [place], [address] Basophil percentageOrdered B y: Jt Navarro on 02-07-2025 Basophils/100 WBC (Bld) 0.8 % 0-1 [facility] CBC W/Diff, Automatedon 01-17 Absolute Lymph 1.77 X10 3/uL Normal 0.83-4.51 [facility] Comment on above: Performed By: #### L 100.0100, L500.2500 #### [facility] [address] [place], [address] Absolute Neut 5.9 X10 3/uL Normal 2.0-7.7 [facility] Comment on above: Performed By: #### L 100.0100, L500.2500 #### [facility] [address] [place], [address] Basophils/100 WBC (Bld) 0.8 % Normal 0-1 [facility] Comment on above: Performed By: #### L 100.0100, L500.2500 #### [facility] [address] [place], [address] Eosinophils/100 WBC (Bld) 4.6 % Normal 0-5 [facility] Comment on above: Performed By: #### L 100.0100, L500.2500 #### [facility] [address] [place], [address] Erythrocyte distribution width (RBC) [Ratio] 12.4 % Normal 11.6-14.6 [facility] Comment on above: Performed By: #### L 100.0100, L500.2500 #### [facility] [address] [place], [address] Hematocrit (Bld) [Volume fraction] 40.8 % Normal 40-54 [facility] Comment on above: Performed By: #### L 100.0100, L500.2500 #### [facility] [address] [place], [address] Hemoglobin (Bld) [Mass/Vol] 13.5 g/dL Normal 13.0-16.5 [facility] Comment on above: Performed By: #### L 100.0100, L500.2500 #### [facility] [address] [place], [address] IG% 0.400 Normal 0.0-0.9 [facility] Comment on above: Result Comment: IG% - Immature Granulocytes (promyelocytes, myelocytes and metamyelocytes) > 1% indicates that a LEFT SHIFT is Present. Performed By: #### L 100.0100, L500.2500 #### [facility] [address] [place], [address] Lymphocytes/100 WBC (Bld) 19.3 % Normal 19-41 [facility] Comment on above: Performed By: #### L 100.0100, L500.2500 #### [facility] [address] [place], [address] MCH (RBC) [Entitic mass] 30.4 pg Normal 27.0-32.0 [facility] Comment on above: Performed By: #### L 100.0100, L500.2500 #### [facility] [address] [place], [address] MCHC (RBC) [Mass/Vol] 33.1 g/dL Normal 32-36 [facility] Comment on above: Performed By: #### L 100.0100, L500.2500 #### [facility] [address] [place], [address] MCV (RBC) [Entitic vol] 91.9 fL Normal 80-94 [facility] Comment on above: Performed By: #### L 100.0100, L500.2500 #### [facility] [address] [place], [address] Monocytes/100 WBC (Bld) 11.0 % High 0-10 [facility] Comment on above: Performed By: #### L 100.0100, L500.2500 #### [facility] [address] [place], [address] Neutrophils/100 WBC (Bld) 63.9 % Normal 47-70 [facility] Comment on above: Performed By: #### L 100.0100, L500.2500 #### [facility] [address] [place], [address] Nucleated RBC (Bld) [#/Vol] 0 10*3/uL Normal 0-5 [facility] Comment on above: Performed By: #### L 100.0100, L500.2500 #### [facility] [address] [place], [address] Platelet mean volume (Bld) [Entitic vol] 12.3 fL High 6.2-12.0 [facility] Comment on above: Performed By: #### L 100.0100, L500.2500 #### [facility] [address] [place], [address] Platelets (Bld) [#/Vol] 132 10*3/uL Low 150-450 [facility] Comment on above: Performed By: #### L 100.0100, L500.2500 #### [facility] [address] [place], [address] RBC (Bld) [#/Vol] 4.44 10*6/uL Low 4.6-6.2 [facility] Comment on above: Performed By: #### L 100.0100, L500.2500 #### [facility] [address] [place], [address] RDW SD 41.5 fl Normal 35.1-43.9 [facility] Comment on above: Performed By: #### L 100.0100, L500.2500 #### [facility] [address] [place], [address] WBC (Bld) [#/Vol] 9.2 10*3/uL Normal 4.4-11.0 [facility] Comment on above: Performed By: #### L 100.0100, L500.2500 #### [facility] [address] [place], [address] Carbon dioxide, total [Moles /volume] in Central venous bloodOrdered By: Jt Navarro on 02-07-2025 CO2 [Moles/Vol] 28.0 mmol/L 21.0-32.0 [facility] Chest PA and Lateralon 02-07 Chest PA and Lateral [facility] Services [address] [place] [address] Chest PA and Lateral MR#: [id number] Acct: [id number] Name: TRES DICKSON Rep #: [id number] : 1945 M 79 From: Salvador Crowder PCP: OLIVER Richards Status: PRE [facility] Study: Chest PA and Lateral Date of Exam: 02/07/25 Exam# [id number] Ordering Dr: Jt Navarro NP, NP-Kajal PROCEDURE: CHEST PA AND LATERAL 02/07/2025 REASON FOR EXAM: PRE-OPERATIVE: [facility] TECHNIQUE: CHEST PA AND LATERAL COMPARISON: 06/06/2024 FINDINGS: Median sternotomy wires. No focal consolidation. No pleural effusion or pneumothorax. Cardiac silhouette is within normal limits. No acute fractures. RAD/Chest PA and Lateral IMPRESSION: No focal consolidations. Reading Location: [id number] CC: OLIVER Kelley; SYBILC Jt Navarro Poll Watcher: Signed Normal [facility] Chloride assayOrdered By: Jazmyn Navarro on 02-07-2025 Chloride [Moles/Vol] 102 mmol/L 98-108 [facility] Eosinophil percentageOrdered By: Jt Navarro on 02-07-2025 Eosinophils/100 WBC (Bld) 4.6 % 0-5 [facility] Erythrocyte distribution wid th ratioOrdered By: Jt Navarro on 02-07-2025 Erythrocyte distribution width (RBC) [Ratio] 12.4 % 11.6-14.6 [facility] Erythrocyte distribution wid th standard deviationOrdered By: Jt Navarro on 02-07-2025 Erythrocyte distribution width (RBC) [Ratio] 41.5 fl 35.1-43.9 [facility] Glomerular filtration rate ( GFR) estimation/1.73 sq m using serum, plasma, or whole bOrdered By: Jt Navarro on 02-07-2025 GFR/1.73 sq M.predicted among non-blacks MDRD (S/P/Bld) [Vol rate/Area] 70 mL/min/{1.73_m2} >60 [facility] Comment on above: mL/min/1.73m2 CKD-EP I Creatinine Equation (2020) Hematocrit Auto (Bld) [Volum e fraction]Ordered By: Jt Navarro on 02-07-2025 Hematocrit (Bld) [Volume fraction] 40.8 % 40-54 [facility] Hemoglobin measurementOrdere d By: Jt Navarro on 02-07-2025 Hemoglobin (Bld) [Mass/Vol] 13.5 g/dL 13.0-16.5 [facility] Immature granulocytes/100 WB C Auto (Bld)Ordered By: Jt Navarro on 02-07-2025 Immature granulocytes/100 WBC (Bld) 0.400 % 0.0-0.9 [facility] Comment on above: IG% - Immature Granu locytes (promyelocytes, myelocytes and metamyelocytes) > 1% indicates that a LEFT SHIFT is Present. MCV (mean corpuscular volume ) determinationOrdered By: Jt Navarro on 02-07-2025 MCV (RBC) [Entitic vol] 91.9 fL 80-94 [facility] Mean corpuscular hemoglobin (MCH) determinationOrdered By: Jt Navarro on 02-07-2025 MCH (RBC) [Entitic mass] 30.4 pg 27.0-32.0 [facility] Mean corpuscular hemoglobin concentration (MCHC) determinationOrdered By: Jt Navarro 02-07-2025 MCHC (RBC) [Mass/Vol] 33.1 g/dL 32-36 [facility] Mean platelet volume determi nationOrdered By: Jt Navarro on 02-07-2025 Platelet mean volume (Bld) [Entitic vol] 12.3 fL High 6.2-12.0 [facility] Monocyte percentageOrdered B y: Jt Navarro on 02-07-2025 Monocytes/100 WBC (Bld) 11.0 % High 0-10 [facility] Neutrophil percentageOrdered By: Jt Navarro on 02-07-2025 Neutrophils/100 WBC (Bld) 63.9 % 47-70 [facility] Nucleated red blood cell per centageOrdered By: Jt aNvarro on 02-07-2025 Nucleated RBC/100 WBC (Bld) [Ratio] 0 % 0-5 [facility] Platelet countOrdered By: Jazmyn Navarro on 02-07-2025 Platelets (Bld) [#/Vol] 132 10*3/uL Low 150-450 [facility] Potassium measurement (mass/ volume)Ordered By: Jt Navarro on 02-07-2025 Potassium (Unsp spec) [Mass/Vol] 4.8 mmol/L 3.3-5.1 [facility] Comment on above: Hemolysis present, R esults could be affected. RBC Auto (Bld) [#/Vol]Ordere d By: Jt Navarro on 02-07-2025 RBC (Bld) [#/Vol] 4.44 10*6/uL Low 4.6-6.2 [facility] Serum creatinine measurement (mass/volume)Ordered By: Jt Navarro on 02-07-2025 Creatinine [Mass/Vol] 1.08 mg/dL 0.70-1.20 [facility] Serum glucose measurement (m ass/volume)Ordered By: Jt Navarro on 02-07-2025 Glucose [Mass/Vol] 104 mg/dL High 70-99 [facility] Serum or plasma calcium kristy urement (mass/volume)Ordered By: Jt Navarro on 02-07-2025 Calcium [Mass/Vol] 9.3 mg/dL 7.6-11.0 [facility] Serum or plasma urea nitroge n measurement (mass/volume)Ordered By: Jt Navarro on 02-07-2025 Urea nitrogen [Mass/Vol] 20 mg/dL High 4-19 [facility] Sodium levelOrdered By: Jt Navarro on 02-07-2025 Sodium [Moles/Vol] 141 mmol/L 133-145 [facility] White blood cell (WBC) count Ordered By: Jt Navarro on 02-07-2025 WBC (Bld) [#/Vol] 9.2 10*3/uL 4.4-11.0 [facility] Echocardiogram study reportO rdered By: Magda Husain on 01-29-2025 Study report [facility] [place] [address] Echo Complete W/ Contrast 01/24/25 0954 MR#: [id number] Acct: [id number] Name: TRES DICKSON Rep #:[id number] : 1945 79 From: Magda Husain MD Attending Dr: Dr. Magda Husain MD Status: REG CLI Ordering Dr: Magda Husain MD Date: Location: [facility] Sex: M C Admitted: Reason For Study Reason For Study: CAD/ASHD Procedure This was a 2D Doppler, Color Flow transthoracic echocardiogram. The study was technically difficult. Due to suboptimal imaging windows. Contrast injection was performed. Left Ventricle Normal LV size. Mild concentric left ventricular hypertrophy. Inferior, posterior and apical akinesis. Estimated LVEF 35-40%. Stage I diastolic dysfunction. Right Ventricle Normal right ventricle. Atria The left atrium is mildly enlarged. Normal right atrium. Bubble contrast study is negative for PFO/ASD. Mitral Valve Trivial mitral valve insufficiency. Tricuspid Valve Trivial tricuspid valve insufficiency. Normal pulmonary artery pressure. Aortic Valve Aortic sclerosis, no stenosis. Pulmonic Valve The pulmonic valve is not well visualized. Great Vessels Normal sized aortic root. Pericardium/Pleural No pericardial effusion. Medication Diluted definity 3.0ml given slow IV push to enhance endocardial definition. Performed a rapid injection of agitated mix of 9 cc saline and 1cc air to assess for atrial septal defect. MMode/2D Measurements & Calculations LVIDd: 6.1 cm IVSd: 1.3 cm Ao root diam: 3.2 cm LVIDs: 5.1 cm LVPWd: 1.1 cm RVDd: 3.3 cm FS: 16.7 % LAV(MOD-bp): 69.2 ml LVAd ap4: 39.0 cm2 LVAd ap2: 38.1 cm2 LAV(MOD-bp) Indexed: 35.5 ml/m2 LVLd ap4: 9.2 cm LVLd ap2: 8.6 cm LAV(MOD-sp2): 69.7 ml EDV(MOD-sp4): 139.6 ml EDV(MOD-sp2): 143.6 ml LAV(MOD-sp4): 69.6 ml EDV(sp4-el): 141.1 ml EDV(sp2-el): 143.5 ml LVAs ap4: 29.1 cm2 LVAs ap2: 28.7 cm2 LVLs ap4: 8.3 cm LVLs ap2: 7.9 cm ESV(MOD-sp4): 86.7 ml ESV(MOD-sp2): 91.5 ml ESV(sp4-el): 86.1 ml ESV(sp2-el): 88.3 ml EF(MOD-sp4): 37.9 % EF(MOD-sp2): 36.3 % EF(sp4-el): 39.0 % SV(MOD-sp4): 52.9 ml SV(MOD-sp2): 52.1 ml SV(sp4-el): 55.0 ml SI(MOD-sp4): 27.2 ml/m2 SI(MOD-sp2): 26.8 ml/m2 LA A4 area: 22.2 cm2 LA dimension(2D): 3.2 cm RA A4 area: 13.4 cm2 TAPSE: 1.8 cm Time Measurements MV dec time: 0.32 sec Doppler Measurements & Calculations MV E max karla: 56.5 cm/sec Lat Peak E' Karla: 6.0 cm/sec Med Peak E' Karla: 3.4 cm/sec MV A max karla: 107.7 cm/sec E/E' lat: 9.4 E/E' med: 16.8 MV E/A: 0.52 MV V2 max: 107.1 cm/sec MV P1/2t max karla: 82.6 cm/sec Ao V2 max: 132.9 cm/sec MV max P.6 mmHg MV P1/2t: 74.1 msec Ao max P.1 mmHg MV V2 mean: 52.0 cm/sec MV dec slope: 326.8 cm/sec2 Ao V2 mean: 90.9 cm/sec MV mean P.4 mmHg MVA(P1/2t): 3.0 cm2 Ao mean P.7 mmHg MV V2 VTI: 43.3 cm Ao V2 VTI: 34.0 cm AV (velocity ratio): 0.71 LV V1 max: 98.5 cm/sec PA V2 max: 71.2 cm/sec TR max karla: 237.0 cm/sec LV V1 max P.9 mmHg TR max P.5 mmHg LV V1 mean P.7 mmHg LV V1 mean: 60.1 cm/sec LV V1 VTI: 24.2 cm ECHO/Echo Complete W/ Contrast Interpretation Summary Mild concentric left ventricular hypertrophy. Inferior, posterior and apical akinesis. Estimated LVEF 35-40%. Stage I diastolic dysfunction. The left atrium is mildly enlarged. Aortic sclerosis, no stenosis. ___ Ordering Physician: Magda Husain Referring Physician: Diana Kelley Performed By: Katie Nair, JEFFERY, RVT 01/29/251008 Date _ Magda Husain MD CC: INSOLE REINFORCER-C Diana Kelley; Dr. Magda Husain MD ~ Date Dictated: 01/24/25953 Date Transcribed: 01/29/251008 Poll Watcher: Signed [facility] Work Phone: Cardiovascular stress test r eportOrdered By: Magda Husain on 01-24-2025 Study report [facility] [address] [place] [address] [place] [address] MR#: [id number] Acct: [id number] Name: TRES DICKSON Rep #: [id number] : 1945 79 From: Magda Husain MD Primary Care: OLIVER Richards Statu s: REG CLI Referring Dr: Magda Husain MD Sex: M C Stress Test Report Date: 01/24/2025 Procedure: Exercise tolerance test/imaging study Indications: Coronary artery disease Consent: Per the patient Procedure: The patient exercised on a Romel protocol for 6 minutes achieving a peak heart rate of 129 bpm (91% predicted maximal heart rate) with a peak blood pressure 164/96 mmHg and a peak MET capacity of 7.0 METs. The baseline ECG demonstrated sinus rhythm with Q waves in inferior leads suggestive of old inferior [place]. The peak exercise ECG failed to show any diagnostic ischemic changes. No significant cardiac arrhythmias noted. The functional capacity was considered average. There was no complaint of chest discomfort during exercise or recovery. The examination was discontinued secondary to target heart rate being achieved and dyspnea. The patient was injected with 11.8 mCi of technetium 99m Cardiolite and subsequently rest SPECT Cardiolite nuclear imaging was obtained in the horizontal long, vertical long, and short axis views. Post-exercise, the patientwas injected with 34.7 mCi of technetium 99m Cardiolite and subsequently stress SPECT Cardiolite nuclear imaging was obtained in the horizontal long, vertical long, and short axis views. A gated Cardiolite study at peak stress was obtained. Rest and stress SPECT Cardiolite nuclear imaging status post realignment, normalization, and attenuation correction, demonstrates a large inferior and lateral resting defect suggestive of prior inferolateral infarct. There is moderate worsening post exercise suggestive of moderate tye-infarct ischemia. The gated study reveals inferolateral akinesis. The reported LVEF is 32%. Impression: 1. Technically adequate (percent predicted maximal heart rate greater than 85%)exercise tolerance test 2. Peak exercise ECG with no diagnostic ischemic changes 3. No significant cardiac arrhythmias noted 4. 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 5. The gated Cardiolite study reports an LVEF of 32%. This note was generated with AX[employer]-Oneation software. It may contain incorrectwords, spelling, and punctuation that were not noted in checking the note beforesigning. 01/24/25952 Date _ Magda Husain MD CC: INSOLE REINFORCERRamón Kelley; Dr. Magda Husain MD ~ Date Dictated: 01/24/25949 Date Transcribed: 01/24/25949 Poll Watcher: NILS Gil [facility] Work Phone: Echo Complete W/ Contraston 01-24-2025 Echo Complete W/ Contrast [facility] [address] [place] [address] Echo Complete W/ Contrast 01/24/25953 MR#: [id number] Acct: [id number] Name: TRES DICKSON Rep #: [id number] : 1945 79 From: Magda Husain MD Attending Dr: Dr. Magda Husain MD Status: REG CLI Ordering Dr: Magda Husain MD Date: 01/24/25 Location: [facility] Sex: M C Admitted: Reason For Study Reason For Study: CAD/ASHD Procedure This was a 2D Doppler, Color Flow transthoracic echocardiogram. The study was technically difficult. Due to suboptimal imaging windows. Contrast injection was performed. Left Ventricle Normal LV size. Mild concentric left ventricular hypertrophy. Inferior, posterior and apical akinesis. Estimated LVEF 35-40%. Stage I diastolic dysfunction. Right Ventricle Normal right ventricle. Atria The left atrium is mildly enlarged. Normal right atrium. Bubble contrast study is negative for PFO/ASD. Mitral Valve Trivial mitral valve insufficiency. Tricuspid Valve Trivial tricuspid valve insufficiency. Normal pulmonary artery pressure. Aortic Valve Aortic sclerosis, no stenosis. Pulmonic Valve The pulmonic valve is not well visualized. Great Vessels Normal sized aortic root. Pericardium/Pleural No pericardial effusion. Medication Diluted definity 3.0ml given slow IV push to enhance endocardial definition. Performed a rapid injection of agitated mix of 9 cc saline and 1cc air to assess for atrial septal defect. MMode/2D Measurements Calculations LVIDd: 6.1 cm IVSd: 1.3 cm Ao root diam: 3.2 cm LVIDs: 5.1 cm LVPWd: 1.1 cm RVDd: 3.3 cm FS: 16.7 % LAV(MOD-bp): 69.2 ml LVAd ap4: 39.0 cm2 LVAd ap2: 38.1 cm2 LAV(MOD-bp) Indexed: 35.5 ml/m2 LVLd ap4: 9.2 cm LVLd ap2: 8.6 cm LAV(MOD-sp2): 69.7 ml EDV(MOD-sp4): 139.6 ml EDV(MOD-sp2): 143.6 ml LAV(MOD-sp4): 69.6 ml EDV(sp4-el): 141.1 ml EDV(sp2-el): 143.5 ml LVAs ap4: 29.1 cm2 LVAs ap2: 28.7 cm2 LVLs ap4: 8.3 cm LVLs ap2: 7.9 cm ESV(MOD-sp4): 86.7 ml ESV(MOD-sp2): 91.5 ml ESV(sp4-el): 86.1 ml ESV(sp2-el): 88.3 ml EF(MOD-sp4): 37.9 % EF(MOD-sp2): 36.3 % EF(sp4-el): 39.0 % SV(MOD-sp4): 52.9 ml SV(MOD-sp2): 52.1 ml SV(sp4-el): 55.0 ml SI(MOD-sp4): 27.2 ml/m2 SI(MOD-sp2): 26.8 ml/m2 LA A4 area: 22.2 cm2 LA dimension(2D): 3.2 cm RA A4 area: 13.4 cm2 TAPSE: 1.8 cm Time Measurements MV dec time: 0.32 sec Doppler Measurements Calculations MV E max karla: 56.5 cm/sec Lat Peak E' Karla: 6.0 cm/sec Med Peak E' Karla: 3.4 cm/sec MV A max karla: 107.7 cm/sec E/E' lat: 9.4 E/E' med: 16.8 MV E/A: 0.52 MV V2 max: 107.1 cm/sec MV P1/2t max karla: 82.6 cm/sec Ao V2 max: 132.9 cm/sec MV max P.6 mmHg MV P1/2t: 74.1 msec Ao max P.1 mmHg MV V2 mean: 52.0 cm/sec MV dec slope: 326.8 cm/sec2 Ao V2 mean: 90.9 cm/sec MV mean P.4 mmHg MVA(P1/2t): 3.0 cm2 Ao mean P.7 mmHg MV V2 VTI: 43.3 cm Ao V2 VTI: 34.0 cm AV (velocity ratio): 0.71 LV V1 max: 98.5 cm/sec PA V2 max: 71.2 cm/sec TR max karla: 237.0 cm/sec LV V1 max P.9 mmHg TR max P.5 mmHg LV V1 mean P.7 mmHg LV V1 mean: 60.1 cm/sec LV V1 VTI: 24.2 cm ECHO/Echo Complete W/ Contrast Interpretation Summary Mild concentric left ventricular hypertrophy. Inferior, posterior and apical akinesis. Estimated LVEF 35-40%. Stage I diastolic dysfunction. The left atrium is mildly enlarged. Aortic sclerosis, no stenosis. ___ Ordering Physician: Magda Husain Referring Physician: Diana Kelley Performed By: Katie Nair, JEFFERY, RVT 01/29/25 1009 Date Magda Husain MD CC: INSOLE REINFORCER-C Diana Kelley; Dr. Magda Husain MD Date Dictated: 01/24/25 0954 Date Transcribed: 01/29/25 1009 Poll Watcher: Signed Normal [facility] Stress Reporton 01-24-2025 Stress Report [facility] [address] [place] [address] MR#: [id number] Acct: [id number] Name: TRES DICKSON Rep #: [id number] : 1945 79 From: Magda Husain MD Primary Care: OLIVER Richards Status: REG CLI Referring Dr: Magda Husain MD Sex: M C Stress Test Report Date: 01/24/2025 Procedure: Exercise tolerance test/imaging study Indications: Coronary artery disease Consent: Per the patient Procedure: The patient exercised on a Romel protocol for 6 minutes achieving a peak heart rate of 129 bpm (91% predicted maximal heart rate) with a peak blood pressure 164/96 mmHg and a peak MET capacity of 7.0 METs. The baseline ECG demonstrated sinus rhythm with Q waves in inferior leads suggestive of old inferior [place]. The peak exercise ECG failed to show any diagnostic ischemic changes. No significant cardiac arrhythmias noted. The functional capacity was considered average. There was no complaint of chest discomfort during exercise or recovery. The examination was discontinued secondary to target heart rate being achieved and dyspnea. The patient was injected with 11.8 mCi of technetium 99m Cardiolite and subsequently rest SPECT Cardiolite nuclear imaging was obtained in the horizontal long, vertical long, and short axis views. Post-exercise, the patient was injected with 34.7 mCi of technetium 99m Cardiolite and subsequently stress SPECT Cardiolite nuclear imaging was obtained in the horizontal long, vertical long, and short axis views. A gated Cardiolite study at peak stress was obtained. Rest and stress SPECT Cardiolite nuclear imaging status post realignment, normalization, and attenuation correction, demonstrates a large inferior and lateral resting defect suggestive of prior inferolateral infarct. There is moderate worsening post exercise suggestive of moderate tye- infarct ischemia. The gated study reveals inferolateral akinesis. The reported LVEF is 32%. Impression: 1. Technically adequate (percent predicted maximal heart rate greater than 85%) exercise tolerance test 2. Peak exercise ECG with no diagnostic ischemic changes 3. No significant cardiac arrhythmias noted 4. 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 5. The gated Cardiolite study reports an LVEF of 32%. This note was generated with [employer] dictation software. It may contain incorrect words, spelling, and punctuation that were not noted in checking the note before signing. 01/24/2553 Date Magda Husain MD CC: OLIVER Kelley; Dr. Magda Husain MD Date Dictated: 01/24/25949 Date Transcribed: 01/24/25949 Poll Watcher: NILS Signed Normal [facility] Carotid Duplex Ultrasoundon 12-28-2024 Carotid Duplex Ultrasound [facility] [address] [place] [address]. [place] [address] Carotid Duplex Ultrasound 12/28/24908 MR#: [id number] Acct: [id number] Name: TRES DICKSON Rep #: [id number] : 1945 79 From: Carson Hanna MD Attending Dr: Dr. Magda Husain MD Status: REG CLI Ordering Dr: Magda Husain MD Date: 12/28/24 Location: [facility] Sex: M C Admitted: Reason For Study [...] the left vertebral artery. Procedure Carotid Duplex 01265. This is a Carotid Duplex examination using B-mode, color flow and specral Doppler. Exam performed in department. VL/Carotid Duplex Ultrasound Interpretation Summary Moderate (50-69%) stenosis right extracranial internal carotid. Mild (<50%) stenosis left extracranial internal carotid. Patent and antegrade vertebrals bilaterally. ___ Ordering Physician: Magda Husain Referring Physician: Magda Husain MD Performed By: Lois Ortiz RVT 12/28/24 1249 Date Carson Hanna MD CC: OLIVER Kelley; Dr. Magda Husain MD Date Dictated: 12/28/24908 Date Transcribed: 12/28/24 1249 Poll Watcher: Signed Normal [facility] Duplex ultrasound of carotid artery reportOrdered By: Carson Hanna on 12-28-2024 Study report [facility] [place] [address] Carotid Duplex Ultrasound 12/28/24908 MR#: [id number] Acct: [id number] Name: TRES DICKSON Rep #:[id number] : 1945 79 From: Carson Crowder [...] the left vertebral artery. Procedure Carotid Duplex 82332. This is a Carotid Duplex examination using B-mode, color flow and specral Doppler. Exam performed in department. VL/Carotid Duplex Ultrasound Interpretation Summary Moderate (50-69%) stenosis right extracranial internal carotid. Mild (<50%) stenosis left extracranial internal carotid. Patent and antegrade vertebrals bilaterally. ___ Ordering Physician: Magda Husain Referring Physician: Magda Husain MD Performed By: Lois Ortiz, MARYCRUZT 12/28/24 1249 Date _ Carson Hanna MD CC: OLIVER Kelley; Dr. Magda Husain MD ~ Date Dictated: 12/28/24908 Date Transcribed: 12/28/24 1249 Poll Watcher: Signed [facility] Work Phone: Basic Metabolic Profile (BMP )on 12-22-2024 BUN/CRE 13.8 RATIO Normal 10-20 [facility] Comment on above: Performed By: #### L 500.2500 #### [facility] [address] [place], [address] Calcium [Mass/Vol] 8.8 mg/dL Normal 7.6-11.0 [facility] Comment on above: Performed By: #### L 500.2500 #### [facility] [address] [place], [address] Chloride [Moles/Vol] 104 mmol/L Normal 98-108 [facility] Comment on above: Performed By: #### L 500.2500 #### [facility] [address] [place], [address] CO2 [Moles/Vol] 27.4 mmol/L Normal 21.0-32.0 [facility] Comment on above: Performed By: #### L 500.2500 #### [facility] [address] [place], [address] Creatinine [Mass/Vol] 1.33 mg/dL High 0.70-1.20 [facility] Comment on above: Performed By: #### L 500.2500 #### [facility] [address] [place], [address] GAP 11 Normal 5-15 [facility] Comment on above: Performed By: #### L 500.2500 #### [facility] [address] [place], [address] GFR/1.73 sq M.predicted among non-blacks MDRD (S/P/Bld) [Vol rate/Area] 54 mL/min/{1.73_m2} Low >60 [facility] Comment on above: Result Comment: mL/m in/1.73m2 CKD-EPI Creatinine Equation (2020) Performed By: #### L 500.2500 #### [facility] [address] [place], [address] Glucose [Mass/Vol] 110 mg/dL High 70-99 [facility] Comment on above: Performed By: #### L 500.2500 #### [facility] [address] [place], [address] Potassium [Moles/Vol] 4.7 mmol/L Normal 3.3-5.1 [facility] Comment on above: Performed By: #### L 500.2500 #### [facility] [address] [place], [place], [address] Sodium [Moles/Vol] 143 mmol/L Normal 133-145 [facility] Comment on above: Performed By: #### L 500.2500 #### [facility] [address] [place], [place], [address] Urea nitrogen [Mass/Vol] 18 mg/dL Normal 4-19 [facility] Comment on above: Performed By: #### L 500.2500 #### [facility] [address] [place], [place], [address] Anion gap in Serum or Plasma Ordered By: Magda Husain on 12-21-2024 Anion gap [Moles/Vol] 11 mmol/L 5-15 [facility] BUN/creatinine ratioOrdered By: Magda Husain on 12-21-2024 Urea nitrogen/Creatinine [Mass ratio] 13.8 mg/mg 10-20 [facility] Carbon dioxide, total [Moles /volume] in Central venous bloodOrdered By: Magda Husain on 12-21-2024 CO2 [Moles/Vol] 27.4 mmol/L 21.0-32.0 [facility] Chloride assayOrdered By: Nils Husain on 12-21-2024 Chloride [Moles/Vol] 104 mmol/L 98-108 [facility] Glomerular filtration rate ( GFR) estimation/1.73 sq m using serum, plasma, or whole bOrdered By: Magda Husain on 12-21-2024 GFR/1.73 sq M.predicted among non-blacks MDRD (S/P/Bld) [Vol rate/Area] 54 mL/min/{1.73_m2} Low >60 [facility] Comment on above: mL/min/1.73m2 CKD-EP I Creatinine Equation (2020) Potassium measurement (mass/ volume)Ordered By: Magda Husain on 12-21-2024 Potassium (Unsp spec) [Mass/Vol] 4.7 mmol/L 3.3-5.1 [facility] Serum creatinine measurement (mass/volume)Ordered By: Magda Husain on 12-21-2024 Creatinine [Mass/Vol] 1.33 mg/dL High 0.70-1.20 [facility] Serum glucose measurement (m ass/volume)Ordered By: Magda Husain on 12-21-2024 Glucose [Mass/Vol] 110 mg/dL High 70-99 [facility] Serum or plasma calcium kristy urement (mass/volume)Ordered By: Magda Husain on 12-21-2024 Calcium [Mass/Vol] 8.8 mg/dL 7.6-11.0 [facility] Serum or plasma urea nitroge n measurement (mass/volume)Ordered By: Magda Husain on 12-21-2024 Urea nitrogen [Mass/Vol] 18 mg/dL 4-19 [facility] Sodium levelOrdered By: Jaquan Husain on 12-21-2024 Sodium [Moles/Vol] 143 mmol/L 133-145 [facility] Absolute lymphocyte countOrd ered By: Diana Kelley on 12-14-2024 Lymphocytes Auto (Unsp spec) [#/Vol] 1.80 10*3/uL 0.83-4.51 [facility] Absolute neutrophil countOrd ered By: Diana Kelley on 12-14-2024 Neutrophils (Bld) [#/Vol] 4.8 10*3/uL 2.0-7.7 [facility] Anion gap in Serum or Plasma Ordered By: Diana Kelley on 12-14-2024 Anion gap [Moles/Vol] 10 mmol/L 5-15 [facility] Automated lymphocyte count a s percentage of total leukocytesOrdered By: Diana Kelley on 12-14-2024 Lymphocytes/100 WBC Auto (Unsp spec) 23.0 % 19-41 [facility] BUN/creatinine ratioOrdered By: Diana Kelley on 12-14-2024 Urea nitrogen/Creatinine [Mass ratio] 18.1 mg/mg 10-20 [facility] Basophil percentageOrdered B y: Diana Kelley on 12-14-2024 Basophils/100 WBC (Bld) 0.9 % 0-1 [facility] Bilirubin, totalOrdered By: Diana Kelley on 12-14-2024 Bilirubin [Mass/Vol] 0.43 mg/dL 0.00-1.30 [facility] Calculated very low density lipoprotein (VLDL) cholesterol measurementOrdered By: Diana Kelley on 12-14-2024 Calculated very low density lipoprotein (VLDL) cholesterol measurement 33 mg/dL 5-40 [facility] Carbon dioxide, total [Moles /volume] in Central venous bloodOrdered By: Diana Kelley on 12-14-2024 CO2 [Moles/Vol] 26.4 mmol/L 21.0-32.0 [facility] Cardiology Visit Reporton Cardiology Visit Report [facility] [address] [place] [address] OFFICE VISIT Date of Service: 12/14/24 MR#: [id number] Acct: [id number] Name: TRES DICKSON Rep #: [id number] : 1945 Provider: Dr. 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 Intake Vital Signs 11/02/24 12:53 12/14/24 08:29 Height 5 ft 8.5 in 5 ft 8.5 in Weight: 181 lb BMI 27.1 BP 144/82 H Blood Pressure Location Lt brachial Position Sitting Respiration 14 Pulse 51 L Pulse Source NIBP Intake Visit Reasons: RETINAL ARTERY OCCLUSION (WARREN) Melter Loader Required: No Accompanied by: Self Is patient [...] factor modification. ECG indicative of previous inferior [place]. ST changes that may denote lateral ischemia. Check exercise stress Myoview. Check echocardiogram. (2) History of coronary artery bypass graft x 1: Status: Chronic Plan: See #1 above. (3) Hypertension: St (more content not included)... Normal [facility] Chloride assayOrdered By: Do ra Kelley on 12-14-2024 Chloride [Moles/Vol] 103 mmol/L 98-108 [facility] Eosinophil percentageOrdered By: Diana Kelley on 12-14-2024 Eosinophils/100 WBC (Bld) 4.4 % 0-5 [facility] Erythrocyte distribution wid th ratioOrdered By: Diana Kelley on 12-14-2024 Erythrocyte distribution width (RBC) [Ratio] 12.1 % 11.6-14.6 [facility] Erythrocyte distribution wid th standard deviationOrdered By: Diana Kelley on 12-14-2024 Erythrocyte distribution width (RBC) [Ratio] 41.0 fl 35.1-43.9 [facility] Glomerular filtration rate ( GFR) estimation/1.73 sq m using serum, plasma, or whole bOrdered By: Diana Kelley on 12-14-2024 GFR/1.73 sq M.predicted among non-blacks MDRD (S/P/Bld) [Vol rate/Area] 71 mL/min/{1.73_m2} >60 [facility] Comment on above: mL/min/1.73m2 CKD-EP I Creatinine Equation (2020) Hematocrit Auto (Bld) [Volum e fraction]Ordered By: Diana Kelley on 12-14-2024 Hematocrit (Bld) [Volume fraction] 39.9 % Low 40-54 [facility] Hemoglobin measurementOrdere d By: Diana Kelley on 12-14-2024 Hemoglobin (Bld) [Mass/Vol] 13.5 g/dL 13.0-16.5 [facility] Immature granulocytes/100 WB C Auto (Bld)Ordered By: Diana Kelley on 12-14-2024 Immature granulocytes/100 WBC (Bld) 0.500 % 0.0-0.9 [facility] Comment on above: IG% - Immature Granu locytes (promyelocytes, myelocytes and metamyelocytes) > 1% indicates that a LEFT SHIFT is Present. LDL calc ser/plasOrdered By: Diana Kelley on 12-14-2024 Cholesterol in LDL [Mass/Vol] 52 mg/dL [facility] Comment on above: Qqsutdyosj=005-100 m g/dL & Higher Hcee=280 mg/dL or greater Laboratory - Chemistry and C hemistry - challengeOrdered By: Diana Kelley on 12-14-2024 AST [Catalytic activity/Vol] 28 U/L <38 [facility] MCV (mean corpuscular volume ) determinationOrdered By: Diana Kelley on 12-14-2024 MCV (RBC) [Entitic vol] 91.9 fL 80-94 [facility] Mean corpuscular hemoglobin (MCH) determinationOrdered By: Diana Kelley on 12-14-2024 MCH (RBC) [Entitic mass] 31.1 pg 27.0-32.0 [facility] Mean corpuscular hemoglobin concentration (MCHC) determinationOrdered By: Diana Kelley on 12-14-2024 MCHC (RBC) [Mass/Vol] 33.8 g/dL 32-36 [facility] Mean platelet volume determi nationOrdered By: Diana Kelley on 12-14-2024 Platelet mean volume (Bld) [Entitic vol] 12.5 fL High 6.2-12.0 [facility] Monocyte percentageOrdered B y: Diana Kelley on 12-14-2024 Monocytes/100 WBC (Bld) 9.3 % 0-10 [facility] Neutrophil percentageOrdered By: Diana Kelley on 12-14-2024 Neutrophils/100 WBC (Bld) 61.9 % 47-70 [facility] Nucleated red blood cell per centageOrdered By: Diana Kelley on 12-14-2024 Nucleated RBC/100 WBC (Bld) [Ratio] 0 % 0-5 [facility] Platelet countOrdered By: Do ra Kelley on 12-14-2024 Platelets (Bld) [#/Vol] 157 10*3/uL 150-450 [facility] Potassium measurement (mass/ volume)Ordered By: Diana Kelley on 12-14-2024 Potassium (Unsp spec) [Mass/Vol] 4.6 mmol/L 3.3-5.1 [facility] RBC Auto (Bld) [#/Vol]Ordere d By: Diana Kelley on 12-14-2024 RBC (Bld) [#/Vol] 4.34 10*6/uL Low 4.6-6.2 [facility] Screening total cholesterol/ high density lipoprotein (HDL) cholesterol ratioOrdered By: Diana Kelley on 12-14-2024 Cholesterol.total/Chol esterol in HDL [Mass ratio] 3.58 {ratio} [facility] Serum creatinine measurement (mass/volume)Ordered By: Diana Kelley on 12-14-2024 Creatinine [Mass/Vol] 1.06 mg/dL 0.70-1.20 [facility] Serum globulin measurementOr dered By: Diana Kelley on 12-14-2024 Globulin (S) [Mass/Vol] 2.6 g/dL 2.2-4.2 [facility] Serum glucose measurement (m ass/volume)Ordered By: Diana Kelley on 12-14-2024 Glucose [Mass/Vol] 108 mg/dL High 70-99 [facility] Serum or plasma alanine goodson otransferase (ALT) measurementOrdered By: Diana Kelley on 05-29-2025 ALT [Catalytic activity/Vol] 13 U/L <47 [facility] Serum or plasma albumin kristy urement (mass/volume)Ordered By: Diana Kelley on 12-14-2024 Albumin [Mass/Vol] 4.1 g/dL 3.4-4.8 [facility] Serum or plasma albumin/glob ulin mass ratioOrdered By: Diana Kelley on 12-14-2024 Albumin/Globulin [Mass ratio] 1.5 {ratio} 0.9-2.4 [facility] Serum or plasma alkaline len sphatase measurementOrdered By: Diana Kelley on 12-14-2024 ALP [Catalytic activity/Vol] 62 U/L 40-129 [facility] Serum or plasma calcium kristy urement (mass/volume)Ordered By: Diana Kelley on 12-14-2024 Calcium [Mass/Vol] 9.2 mg/dL 7.6-11.0 [facility] Serum or plasma cholesterol in HDL measurement (mass/volume)Ordered By: Diana Kelley on 12-14-2024 Cholesterol in HDL [Mass/Vol] 33 mg/dL Low >40 [facility] Comment on above: National Cholesterol Education Program (NCEP) guidelines:<40 mg/dL: Low HDL-cholesterol (major risk factor for CHD)>= 60 mg/dL: High HDL-cholesterol (negative risk factor for CHD)HDL-cholesterol is affected by a number of factors, e.g. smoking, exercise, hormones, sex and age. Serum or plasma cholesterol measurement (mass/volume)Ordered By: Diana Kelley on 12-14-2024 Cholesterol [Mass/Vol] 117 mg/dL <201 [facility] Comment on above: Cholesterol level, D esirable <200 mg/dLBorderline high cholesterol 200-239 mg/dLHigh cholesterol >=240 mg/dLRecommendations of the NCEP Adult Treatment Panel for the following risk-cutoff thresholds for the [place] population. Serum or plasma urea nitroge n measurement (mass/volume)Ordered By: Diana Kelley on 12-14-2024 Urea nitrogen [Mass/Vol] 19 mg/dL 4-19 [facility] Sodium levelOrdered By: Diana Kelley on 12-14-2024 Sodium [Moles/Vol] 139 mmol/L 133-145 [facility] Total proteinOrdered By: Osei Kelley on 12-14-2024 Protein [Mass/Vol] 6.7 g/dL 5.9-8.4 [facility] Triglycerides measurementOrd ered By: Diana Kelley on 12-14-2024 Triglyceride [Mass/Vol] 163 mg/dL <199 [facility] Comment on above: The drugs N-Acetylcy steine and Metamizole may falsely depress this assay. Normal range: <150 mg/dLBorderline High: 150-199 mg/dLHigh: 200-499 mg/dLVery High: >500 mg/dL White blood cell (WBC) count Ordered By: Diana Kelley on 12-14-2024 WBC (Bld) [#/Vol] 7.8 10*3/uL 4.4-11.0 [facility] Pulmonary Visit Reporton Pulmonary Visit Report [facility] [address] [place] [address] OFFICE VISIT Date of Service: 08/23/24 MR#: [id number] Acct: [id number] Name: TRES DICKSON Rep #: [id number] : 1945 Provider: Roshni Baker NP Age/Sex: 78/M [place] [facility] [place] Status: Signed Assessment and Plan Assessment and [...] The patient would like to use the [place] for his DME vendor. I would like [...] ago. He does have a greater than 65-zazu-ekky smoking history. He has been following with the [facility] [facility] for his annual LDCT. He [...] air Intake Visit Reasons: 6 W FU Melter Loader Required: No Accompanied by: Self Allergies No [...] Positive c (more content not included)... Normal [facility] Pulmonary Visit Reporton Pulmonary Visit Report [facility] [address] [place], [place] [address] OFFICE VISIT Date of Service: 07/11/24 MR#: [id number] Acct: [id number] Name: LIZANDROTRES RAFIQ Rep #: [id number] : 1945 Provider: OLIVER Germain Age/Sex: 78/M [place] [facility] [place] Status: Signed Assessment and Plan Assessment and [...] ago. He does have a greater than 27-xcwh-ieuc smoking history. [facility]. He [...] you fallen in the past year?: No [facility] Medical Histo (more content not included)... Normal [facility] CBC W/Diff, Automatedon 06-18 Absolute Lymph 2.20 X10 3/uL Normal 0.83-4.51 [facility] Comment on above: Performed By: #### L 501.9940, L100.0100, L500.4050, L500.4100 #### [facility] [address] [place], [address] Absolute Neut 5.6 X10 3/uL Normal 2.0-7.7 [facility] Comment on above: Performed By: #### L 501.9940, L100.0100, L500.4050, L500.4100 #### [facility] [address] [place], [address] Basophils/100 WBC (Bld) 0.9 % Normal 0-1 [facility] Comment on above: Performed By: #### L 501.9940, L100.0100, L500.4050, L500.4100 #### [facility] [address] [place], [address] Eosinophils/100 WBC (Bld) 4.2 % Normal 0-5 [facility] Comment on above: Performed By: #### L 501.9940, L100.0100, L500.4050, L500.4100 #### [facility] [address] [place], [address] Erythrocyte distribution width (RBC) [Ratio] 12.4 % Normal 11.6-14.6 [facility] Comment on above: Performed By: #### L 501.9940, L100.0100, L500.4050, L500.4100 #### [facility] [address] [place], [address] Hematocrit (Bld) [Volume fraction] 42.2 % Normal 40-54 [facility] Comment on above: Performed By: #### L 501.9940, L100.0100, L500.4050, L500.4100 #### [facility] [address] [place], [address] Hemoglobin (Bld) [Mass/Vol] 13.6 g/dL Normal 13.0-16.5 [facility] Comment on above: Performed By: #### L 501.9940, L100.0100, L500.4050, L500.4100 #### [facility] [address] [place], [address] IG% 0.200 Normal 0.0-0.9 [facility] Comment on above: Result Comment: IG% - Immature Granulocytes (promyelocytes, myelocytes and metamyelocytes) > 1% indicates that a LEFT SHIFT is Present. Performed By: #### L 501.9940, L100.0100, L500.4050, L500.4100 #### [facility] [address] [place], [address] Lymphocytes/100 WBC (Bld) 24.1 % Normal 19-41 [facility] Comment on above: Performed By: #### L 501.9940, L100.0100, L500.4050, L500.4100 #### [facility] [address] [place], [address] MCH (RBC) [Entitic mass] 30.0 pg Normal 27.0-32.0 [facility] Comment on above: Performed By: #### L 501.9940, L100.0100, L500.4050, L500.4100 #### [facility] [address] [place], [address] MCHC (RBC) [Mass/Vol] 32.2 g/dL Normal 32-36 [facility] Comment on above: Performed By: #### L 501.9940, L100.0100, L500.4050, L500.4100 #### [facility] [address] [place], [address] MCV (RBC) [Entitic vol] 93.2 fL Normal 80-94 [facility] Comment on above: Performed By: #### L 501.9940, L100.0100, L500.4050, L500.4100 #### [facility] [address] [place], [address] Monocytes/100 WBC (Bld) 9.8 % Normal 0-10 [facility] Comment on above: Performed By: #### L 501.9940, L100.0100, L500.4050, L500.4100 #### [facility] [address] [place], [address] Neutrophils/100 WBC (Bld) 60.8 % Normal 47-70 [facility] Comment on above: Performed By: #### L 501.9940, L100.0100, L500.4050, L500.4100 #### [facility] [address] [place], [address] Nucleated RBC (Bld) [#/Vol] 0 10*3/uL Normal 0-5 [facility] Comment on above: Performed By: #### L 501.9940, L100.0100, L500.4050, L500.4100 #### [facility] [address] [place], [address] Platelet mean volume (Bld) [Entitic vol] 12.9 fL High 6.2-12.0 [facility] Comment on above: Performed By: #### L 501.9940, L100.0100, L500.4050, L500.4100 #### [facility] [address] [place], [address] Platelets (Bld) [#/Vol] 134 10*3/uL Low 150-450 [facility] Comment on above: Performed By: #### L 501.9940, L100.0100, L500.4050, L500.4100 #### [facility] [address] [place], [address] RBC (Bld) [#/Vol] 4.53 10*6/uL Low 4.6-6.2 [facility] Comment on above: Performed By: #### L 501.9940, L100.0100, L500.4050, L500.4100 #### [facility] [address] [place], [address] RDW SD 42.6 fl Normal 35.1-43.9 [facility] Comment on above: Performed By: #### L 501.9940, L100.0100, L500.4050, L500.4100 #### [facility] [address] [place], [address] WBC (Bld) [#/Vol] 9.1 10*3/uL Normal 4.4-11.0 [facility] Comment on above: Performed By: #### L 501.9940, L100.0100, L500.4050, L500.4100 #### [facility] [address] [place], [address] Comprehensive Metabolic [facility] 07-04-2024 Albumin [Mass/Vol] 3.4 g/dL Normal 3.2-5.0 [facility] Comment on above: Performed By: #### L 501.9940, L100.0100, L500.4050, L500.4100 #### [facility] [address] [place], [address] Albumin/Globulin [Mass ratio] 1.0 {ratio} Normal 0.9-2.4 [facility] Comment on above: Performed By: #### L 501.9940, L100.0100, L500.4050, L500.4100 #### [facility] [address] [place], [address] ALK P 63 U/L Normal 45-117 [facility] Comment on above: Performed By: #### L 501.9940, L100.0100, L500.4050, L500.4100 #### [facility] [address] [place], [address] ALT [Catalytic activity/Vol] 11 U/L Low 16-61 [facility] Comment on above: Performed By: #### L 501.9940, L100.0100, L500.4050, L500.4100 #### [facility] [address] [place], [address] AST [Catalytic activity/Vol] 15 U/L Normal 15-37 [facility] Comment on above: Performed By: #### L 501.9940, L100.0100, L500.4050, L500.4100 #### [facility] [address] [place], [address] Bilirubin [Mass/Vol] 0.50 mg/dL Normal 0.20-1.00 [facility] Comment on above: Result Comment: For patients on eltrombopag therapy, use of Dimension [place] TBIL is not recommended. Performed By: #### L 501.9940, L100.0100, L500.4050, L500.4100 #### [facility] [address] [place], [address] BUN/CRE 19.2 RATIO Normal 10-20 [facility] Comment on above: Performed By: #### L 501.9940, L100.0100, L500.4050, L500.4100 #### [facility] [address] [place], [address] CA,Total 8.5 mg/dL Normal 8.5-10.1 [facility] Comment on above: Performed By: #### L 501.9940, L100.0100, L500.4050, L500.4100 #### [facility] [address] [place], [address] Chloride [Moles/Vol] 107 mmol/L Normal 98-107 [facility] Comment on above: Performed By: #### L 501.9940, L100.0100, L500.4050, L500.4100 #### [facility] [address] [place], [address] CO2 [Moles/Vol] 32.0 mmol/L Normal 21.0-32.0 [facility] Comment on above: Performed By: #### L 501.9940, L100.0100, L500.4050, L500.4100 #### [facility] [address] [place], [address] Creatinine [Mass/Vol] 0.99 mg/dL Normal 0.70-1.30 [facility] Comment on above: Result Comment: The validity of the calculated GFR GFRAA in patients over 70 years has not been determined. Clinical correlation is essential. Performed By: #### L 501.9940, L100.0100, L500.4050, L500.4100 #### [facility] [address] [place], [address] EST GFR - AA 94 mL/min Normal >60 [facility] Comment on above: Result Comment: Afri can [place] GFR Calc Performed By: #### L 501.9940, L100.0100, L500.4050, L500.4100 #### [facility] [address] [place], [address] GAP 1 Low 5-15 [facility] Comment on above: Performed By: #### L 501.9940, L100.0100, L500.4050, L500.4100 #### [facility] [address] [place], [address] GFR/1.73 sq M.predicted among non-blacks MDRD (S/P/Bld) [Vol rate/Area] 78 mL/min/{1.73_m2} Normal >60 [facility] Comment on above: Result Comment: Non- GFR Calc Performed By: #### L 501.9940, L100.0100, L500.4050, L500.4100 #### [facility] [address] [place], [address] Globulin (S) [Mass/Vol] 3.4 g/dL Normal 2.2-4.2 [facility] Comment on above: Performed By: #### L 501.9940, L100.0100, L500.4050, L500.4100 #### [facility] [address] [place], [address] Glucose [Mass/Vol] 99 mg/dL Normal 74-106 [facility] Comment on above: Performed By: #### L 501.9940, L100.0100, L500.4050, L500.4100 #### [facility] [address] [place], [address] Potassium [Moles/Vol] 4.3 mmol/L Normal 3.5-5.1 [facility] Comment on above: Performed By: #### L 501.9940, L100.0100, L500.4050, L500.4100 #### [facility] [address] [place], [address] Sodium [Moles/Vol] 140 mmol/L Normal 136-145 [facility] Comment on above: Performed By: #### L 501.9940, L100.0100, L500.4050, L500.4100 #### [facility] [address] [place], [address] T PROT 6.8 g/dL Normal 6.4-8.2 [facility] Comment on above: Performed By: #### L 501.9940, L100.0100, L500.4050, L500.4100 #### [facility] [address] [place], [address] Urea nitrogen [Mass/Vol] 19 mg/dL High - [facility] Comment on above: Performed By: #### L 501.9940, L100.0100, L500.4050, L500.4100 #### [facility] [address] [place], [address] Lipid Profileon 07-04-2024 Cholesterol [Mass/Vol] 98 mg/dL Normal 200 [facility] Comment on above: Result Comment: <200 mg/dL Desirable 200-240 mg/dL Borderline >240 mg/dL High Risk Performed By: #### L 501.9940, L100.0100, L500.4050, L500.4100 #### [facility] [address] [place], [address] Cholesterol in HDL [Mass/Vol] 39 mg/dL Low [facility] Comment on above: Result Comment: The drugs N-Acetylcysteine and Metamizole may falsely depress this assay. Reference Range HDL <40 mg/dL Low HDL Cholesterol HDL >or= 60 mg/dL High HDL Cholesterol Performed By: #### L 501.9940, L100.0100, L500.4050, L500.4100 #### [facility] [address] [place], [address] Cholesterol in LDL [Mass/Vol] 38 mg/dL Normal 0-130 [facility] Comment on above: Performed By: #### L 501.9940, L100.0100, L500.4050, L500.4100 #### [facility] [address] [place], [address] Cholesterol in VLDL [Mass/Vol] 21 mg/dL Normal 5-40 [facility] Comment on above: Performed By: #### L 501.9940, L100.0100, L500.4050, L500.4100 #### [facility] [address] [place], [address] Triglyceride [Mass/Vol] 104 mg/dL Normal [facility] Comment on above: Result Comment: The drugs N-Acetylcysteine and Metamizole may falsely depress this assay. Serum Triglycerides Reference Interval Normal <150 mg/dL Borderline high 150 - 199 mg/dL High 200 - 499 mg/dL Very High > or = 500 mg/dL Performed By: #### L 501.9940, L100.0100, L500.4050, L500.4100 #### [facility] [address] [place], [address] PSA,Total- Diagnosticon 06-18 PSA, DIAGNOSTIC 1.61 ng/mL Normal 0.0-4.0 [facility] Comment on above: Result Comment: This test was performed using the TPSA assay method for the [employer] chemistry system. Values obtained with different assay methods cannot be used interchangably. When changing PSA assays in the course of monitoring a patient, additional sequential testing should be carried out to confirm baseline values. Performed By: #### L 501.9940, L100.0100, L500.4050, L500.4100 #### [facility] [address] [place], [address] Chest PA and Lateralon 06-06 Chest PA and Lateral [facility] [address] [place] [address] Chest PA and Lateral MR#: [id number] Acct: [id number] Name: TRES DICKSON Rep #: [id number] : 1945 M 78 From: Hugo Crowder PCP: OLIVER Richards Status: REG CLI Study: Chest PA and Lateral Date of Exam: 06/06/24 Exam# [id number] Ordering Dr: Diaan Kelley NP N P-C [id number] INDICATION: sleep apnea sob EXAMINATION/TECHNIQUE: X-RAY - [...] at 8:15 EST , CC: OLIVER Kelley Poll Watcher: Signed [facility] Progress Noteon 05-31-2024 Progress Note [facility] [place] [facility] AT [address] [place] [address] Dept: [phone] Dept PHYSICAL THERAPY RE-EVALUATION Patient Name: Tres [...] Stated Goal: reduce pain Outcome Measures SPADI: Objective SHOULDER Observation: forward head, rounded shoulders [...] Time Entry: 10 Reji Clement, PT Normal [facility] Progress Noteon 05-17-2024 Progress Note [facility] AT [address] [place] [address] Dept: [phone] Dept PHYSICAL THERAPY TREATMENT Patient Name: Tres [...] Time Entry: 28 Tay Nowak PTA Normal [facility] Progress Noteon 05-10-2024 Progress Note [facility] AT [address] [place] [address] Dept: [phone] Dept PHYSICAL THERAPY TREATMENT Patient Name: Tres [...] ea Therapeutic Exercise Activity 7: Weighted dowel slivia raises #5 (Standing) Activity 7 Comment: x [...] Entry Therapeutic Exercise Time Entry: 27 Tay Kaurmisty, TRADE SPECIALIST Normal [facility] Progress Noteon 05-03-2024 Progress Note [facility] AT [place] [address] [place] [address] Dept: [phone] Dept PHYSICAL THERAPY EVALUATION Patient Name: Tres [...] artery disease), Hyperlipidemia, Hypertension, Melanoma (HCC), and [place] (myocardial infarction) ([facility]). PSHX: Tres has a past surgical history [...] patient and/o (more content not included)... Normal [facility] Office Visiton 04-28-2024 Follow-up visit [id number] Tres Dickson 1945 [facility] Provider Department Center 04/28/2024 [id number] [facility] No family history on file Level of Service:04691 DC OFFICE/OUTPATIENT ESTABLISHED LOW MDM 20 MIN Reason for Visit and Comments: Follow-up [701347] - NDX left shoulder Normal [facility] Progress Noteon 04-28-[address] [facility] - [place] [address] [place] [address] [place] [address] Dept: [phone] Dept Chief Complaint Patient presents with Follow-up [...] unable Hawkin's test unable Impingement test unable Blanchester's test unable Sulcus test negative Scarf test [...] prior to signing but minor errors in sap consultant may have occurred. Normal [facility] 36on 03-16-2024 36 This patient has had a prior lung screening CT scan at [facility]. According to our records, he/she is now due for an annual lung screening CT scan. Please evaluate and order this annual screening if your patient still meets lung screening criteria. Normal [facility] Office Visiton 02-25-2024 Follow-up visit [id number] Tres Dickson 1945 M Date Provider Department Center 02/25/2024 [id number] VILLARREAL [facility] WAD None No family history on file Level of Service:70290 DC OFFICE/OUTPT VISIT,PROCEDURE ONLY Reason for Visit and Comments: Knee Pain [286518] - left Normal [facility] PATINSon 02-25-2024 PATINS After your shot toda [...] adjusts to the medicine. Also, your health child care attendant school may be able to tell you about ways to prevent or reduce some of these side effects. Check with your health child care attendant school if any of the following side effects [...] for medical advice about side effects. Normal [facility] Progress Noteon 02-25-2024 Progress Note [facility] [address] [place] [address] Dept: [phone] Dept Chief Complaint Patient presents with Knee [...] prior to signing but minor errors in sap consultant may have occurred. [place] [id number] 36 Confirmed that gel injections are at [place] office, and called patient to update him, someone had already made his follow up appointment [place] [address] Pt is calling back t o check on status of his gel injections. He states he was not asked to pay a co-pay when the Specialty [facility] called him to get approval for delivery of injection to our office and he would like to know when they might be coming in. Please call to advise. [address] 02-09-2024 36 Called Kate croft with [employer] and set up delivery of Synvisc one for 02/14 to the [place] office. Will call patient and update him. [address] 02-08-2024 36 S: [facility] (Edui anne) [facility] [place] - [address] [place] [address] Drive spoke with [facility] nurse regarding medication delivery to office B: Synvisc one A: states they need to schedule delivery of above medication R: Please return call to [phone] to discuss Reason for Disposition [1] Caller requesting NON-URGENT health information AND [2] PCP's office is the best resource Protocols used: Information Only Call - No Ay[place] [address] S: Nurse called [facility] at # and spoke with Robin. B: Patient's hylan (Synvisc One) is ready to schedule to be sent to the patient. A: Patient's consent is on file. R: Message sent to Dr. Villarreal's office for follow-up. [address] 02-02-2024 36 Patient called in [facility] he s/w [facility] and they told him [...] for shipment in the next few days. [facility] 36 Pt returning our tylor l, I relayed the information. He verbalizes understanding and will call the pharmacy to ok delivery. FYI [facility] 36 Called [facility] t o check status of patient's gel injection order. Spoke with Lupe she states that they reached out to patient to obtain consent to ship and patient told them that He wasn't interested so they placed his order on hold. I reached out to patient and LVM that he needs to call [facility] if he wants to go ahead with his gel injection. Their # is [phone]. Please relay this message to patient if he calls the office. Thank you!! [address] 12-28-2023 36 Called [facility] a nd gave ICD 10 code, they state the gel is still processing and will reach out to patient when ready for consent to ship to office [facility] 36 Lupe from [facility] is calling to request the ICD 10 code for the patient for the Synvisc 1. can speak to anyone in the pharmacy in regards to this. [address] 12-27-2023 36 Lupe with [facility] called asking for ICD 10 code for Synvisc One. She states when calling back you can speak to anyone in the pharmacy. Please advise. [address] 12-20-2023 36 Left Knee New Therapy Provider prefers Single Injection (example: Durolane/Gel One). However whatever is a preferred drug on patient's plan is acceptable. Delivery location is [address] [place] [address] Drive, [place] [address]. Normal [facility] 36 No PA needed from [facility] ins for Synvisc one injection. Med is pended, please sign. Thank you! Normal [facility] Office Visiton 12-20-2023 Follow-up visit [id number] Tres Dickson 1945 M Date Provider Department Center 12/20/2023 [id number] VILLARREAL [facility] W[facility] None No family history on file Level of Service:00617 DC OFFICE/OUTPATIENT ESTABLISHED LOW MDM 20 MIN Reason for Visit and Comments: New Patient [542] Knee Pain [553112] - left Normal [facility] Progress Noteon 12-20-2023 Progress Note [facility] [address] [place] [address] [place] [address] Dept: [phone] Dept Chief Complaint Patient presents with New [...] arthritis, we discussed a trial of glucosamine, xruh-lel-auxxrbi. We talked about using a good quality [...] hurt m (more content not included)... Normal [facility] Absolute lymphocyte countOrd ered By: [place] Kelley on 07-02-2023 Lymphocytes Auto (Unsp spec) [#/Vol] 2.06 10*3/uL 0.83-4.51 [facility] Basophil percentageOrdered B y: Diana Tripathison on 07-02-2023 Basophils/100 WBC (Bld) 0.8 % 0-1 [facility] Bilirubin [Mass/Vol] 0.60 mg/dL 0.20-1.00 [facility] Comment on above: For patients on eltr ombopag therapy, use of Dimension [place] TBIL is not recommended. Chloride [Moles/Vol] 107 mmol/L 98-107 [facility] Cholesterol [Mass/Vol] 98 mg/dL <200 [facility] Comment on above: <200 mg/dL Desirable 200-240 mg/dL Borderline >240 mg/dL High Risk Eosinophils/100 WBC (Bld) 3.3 % 0-5 [facility] Glucose [Mass/Vol] 99 mg/dL 74-106 [facility] Neutrophils (Bld) [#/Vol] 5.4 10*3/uL 2.0-7.7 [facility] Neutrophils/100 WBC (Bld) 62.2 % 47-70 [facility] Potassium [Moles/Vol] 4.0 mmol/L 3.5-5.1 [facility] Protein [Mass/Vol] 6.8 g/dL 6.4-8.2 [facility] Sodium [Moles/Vol] 143 mmol/L 136-145 [facility] Triglyceride [Mass/Vol] 170 mg/dL <199 [facility] Comment on above: The drugs N-Acetylcy steine and Metamizole may falsely depress this assay.Serum Triglycerides Reference Interval Normal <150 mg/dL Borderline high 150 - 199 mg/dL High 200 - 499 mg/dL Very High > or = 500 mg/dL WBC (Bld) [#/Vol] 8.6 10*3/uL 4.4-11.0 [facility] Blood erythrocytes count (nu mber/volume)Ordered By: [place] Kelley on 07-02-2023 RBC (Bld) [#/Vol] 4.73 10*6/uL 4.6-6.2 [facility] Blood hemoglobin measurement (mass/volume)Ordered By: [place] Kelley on 07-02-2023 Hemoglobin (Bld) [Mass/Vol] 14.2 g/dL 13.0-16.5 [facility] Blood lymphocytes/100 leukoc ytesOrdered By: Diana Kelley on 07-02-2023 Lymphocytes/100 WBC (Bld) 24.0 % 19-41 [facility] Blood monocytes/100 leukocyt esOrdered By: Diana Kelley on 07-02-2023 Monocytes/100 WBC (Bld) 9.1 % 0-10 [facility] Blood platelet mean volumeOr dered By: [place] Kelley on 07-02-2023 Platelet mean volume (Bld) [Entitic vol] 13.0 fL 6.2-12.0 [facility] Determination of erythrocyte mean corpuscular volume (MCV)Ordered By: Diana Kelley on 07-02-2023 MCV (RBC) [Entitic vol] 93.0 fL 80-94 [facility] Hematocrit Auto (Bld) [Volum e fraction]Ordered By: Diana Kelley on 07-02-2023 Hematocrit (Bld) [Volume fraction] 44.0 % 40-54 [facility] Laboratory - Chemistry and C hemistry - challengeOrdered By: Diana Kelley on 07-02-2023 ALP [Catalytic activity/Vol] 67 U/L 45-117 [facility] ALT [Catalytic activity/Vol] 17 U/L 16-61 [facility] CO2 [Moles/Vol] 32.0 mmol/L 21.0-32.0 [facility] Globulin (S) [Mass/Vol] 3.2 g/dL 2.2-4.2 [facility] Urea nitrogen/Creatinine [Mass ratio] 17.0 mg/mg 10-20 [facility] - Hematology and Cell countsOrdered By: [place] Kelley on 07-02-2023 Erythrocyte distribution width (RBC) [Entitic vol] 41.9 fL 35.1-43.9 [facility] Erythrocyte distribution width (RBC) [Ratio] 12.2 % 11.6-14.6 [facility] Immature granulocytes/100 WBC (Bld) 0.600 % 0.0-0.9 [facility] Comment on above: IG% - Immature Granu locytes (promyelocytes, myelocytes and metamyelocytes) > 1% indicates that a LEFT SHIFT is Present. MCH (RBC) [Entitic mass] 30.0 pg 27.0-32.0 [facility] Nucleated RBC/100 WBC (Bld) [Ratio] 0 % 0-5 [facility] MCHC Auto (RBC) [Mass/Vol]Or dered By: [place] Kelley on 07-02-2023 MCHC (RBC) [Mass/Vol] 32.3 g/dL 32-36 [facility] No Panel InformationOrdered By: Diana Kelley on 07-02-2023 Estimated GFR (MDRD) Amer 87 mL/min >60 [facility] Comment on above: GFR Calc Estimated GFR (MDRD) Non-Af Amer 72 mL/min >60 [facility] Comment on above: Non- GFR Calc Prostate Specific Antigen Total 1.85 ng/mL 0.0-4.0 [facility] Comment on above: This test was perfor med using the TPSA assay method for theBirthday GorillaContextbroker chemistry system. Values obtained with differentassay methods cannot be used interchangably.When changing PSA assays in the course of monitoring apatient, additional sequential testing should be carriedout to confirm baseline values. Platelets bldOrdered By: Osei Kelley on 07-02-2023 Platelets (Bld) [#/Vol] 137 10*3/uL 150-450 [facility] Serum or plasma albumin kristy urement (mass/volume)Ordered By: [place] Kelley on 07-02-2023 Albumin [Mass/Vol] 3.6 g/dL 3.2-5.0 [facility] Serum or plasma albumin/glob ulin mass ratioOrdered By: [place] Kelley on 07-02-2023 Albumin/Globulin [Mass ratio] 1.1 {ratio} 0.9-2.4 [facility] Serum or plasma calcium kristy urement (mass/volume)Ordered By: Diana Kelley on 07-02-2023 Calcium [Mass/Vol] 8.5 mg/dL 8.5-10.1 [facility] Serum or plasma cholesterol in HDL measurement (mass/volume)Ordered By: [place] Kelley on 07-02-2023 Cholesterol in HDL [Mass/Vol] 35 mg/dL >40 [facility] Comment on above: The drugs N-Acetylcy steine and Metamizole may falsely depress this assay. Reference Range HDL <40 mg/dL Low HDL Cholesterol HDL >or= 60 mg/dL High HDL Cholesterol Serum or plasma cholesterol in VLDL measurement (mass/volume)Ordered By: [place] Kelley on 07-02-2023 Cholesterol in VLDL [Mass/Vol] 34 mg/dL 5-40 [facility] Serum or plasma creatinine m easurement (mass/volume)Ordered By: [place] Kelley on 07-02-2023 Creatinine [Mass/Vol] 1.06 mg/dL 0.70-1.30 [facility] Comment on above: The validity of the calculated GFR & GFRAA in patients over 70 years has not been determined. Clinical correlation is essential. Serum or plasma low density lipoprotein (LDL) cholesterol measurement (mass/volume)Ordered By: [place] Kelley on 07-02-2023 Cholesterol in LDL [Mass/Vol] 29 mg/dL 0-130 [facility] Serum or plasma urea nitroge n measurement (mass/volume)Ordered By: Diana Kelley on 07-02-2023 Urea nitrogen [Mass/Vol] 18 mg/dL 7-18 [facility] Thin prep Papanicolaou smear with manual screeningOrdered By: [place] Kelley on 07-02-2023 Thin prep Papanicolaou smear with manual screening 21 U/L 15 [facility] Thin prep Papanicolaou smear with manual screening 4 11-30 [facility] Ophthalmic Eye Examon 2022 Ophthalmic Eye Exam DOCUMENT REVIEWED BY : Rafa Dockery DOCUMENT SIGNED ELECTRONICALLY BY Rafa Dockery ON 03/03/2023 11:00:49 AM [facility] [address] [facility] [place], [address] THIS DOCUMENT WAS CREATED ON: 03/03/2023 11:00:39 [...] S/P Enucliation Left eye PROCEDURES : Enucleation [id number], LLL Cyst removal 03/02/18 INFECTIOUS: Usual childhood [...] TABS (No longer available) - Tablet, [Reported] Hoebhnmf-Ahvmmyizf-Vduucw th 3.5-30468-4.1 Ophthalmic Ointment - #2 3.5 GM Tube, [...] DATE-TIME: 03/03/2023 10:12:42 AM 03/03/2023 10:12:42 AM ELECTRICAL PROSPECTING ENGINEER: [id number] CONFRONTATION VF FTFC prosthetic EXTERNAL EYE EXAM: [...] AM CUP TO DISC: .3 OPTIC DISC: [place] and sharp VITREOUS: PVD MACULA: Normal reflex, [...] leafy vegt (more content not included)... Normal [employer] ANES POSTPROC EVALon 023 ANES POSTPROC EVAL HNO ID: [id number] Author: Samantha Banuelos APRN.DRIVER SUPERVISOR Service: Anesthesiology Author Type: Nurse Linux Solar[employer] Administrator Type: Anesthesia Postprocedure Evaluation Filed: 02/25/2023 10:28 [...] Anesthesia Observations No Documentation SIGNATURE: Samantha Banuelos APRN.DRIVER SUPERVISOR PATIENT NAME: Tres Dickson DATE: February 25, 2023 TIME: 10:28 AM CSN: [id number] Normal [facility] ANES PRE-OPon 02-25-2023 ANES PRE-OP HNO ID: [id number] Author: Samantha Banuelos APRN.CRNA Service: Anesthesiology Author Type: Nurse Linux Solaris Administrator Type: Anesthesia Preprocedure Evaluation Filed: 02/25/2023 10:02 AM Note Text: ANESTHESIOLOGY DAY OF SURGERY NOTE : 1945 Procedure Information Date/Time: 02/25/23 1000 Scheduled providers: Joaquin Bentio MD Procedure: COLONOSCOPY SCREENING Location: Ambulatory Surgery [...] 48 hours of Surgery/Procedure. SIGNATURE: Samantha Banuelos APRN.DRIVER SUPERVISOR PATIENT NAME: Tres Dickson DATE: February 25, 2023 TIME: 10:02 AM CSN: [id number] Normal [facility] Colonoscopyon 02-25-2023 Colonoscopy [facility] Patient Name: Tres Dickson Procedure Date: 02/25/2023 9:58 AM Date of : 1945 Admit Type: Outpatient Age: 77 Room: [place] [address] Gender: Male Note Status: Finalized Attending MD: [...] the patient. Procedure Code(s): --- Professional --- 11850, Colonoscopy, flexible; diagnostic, including collection of specimen(s) by brushing or washing, when performed (separate procedure) CPT copyright 2020 [employer]. All rights reserved. The codes documented in this report are preliminary and upon acquisition lead review may be revised to meet current compliance requirements. Attending Participation: I personally performed the entire procedure. Scope In: 10:09:40 AM Scope Out: 10:19:49 AM MD Joaquin Beckham MD 02/25/2023 10:24:27 AM This report has been signed electronically by Joaquin Benito MD Number of Addenda: 0 Note Initiated On: 02/25/2023 9:58 AM Estimated Blood Loss: Estimated blood loss: none. Normal [facility] Colonoscopy Study observatio non 02-25-2023 [facility] Patient Name: Tres Dickson Procedure Date: 02/25/2023 9:58 AM Date of : 1945 Admit Type: Outpatient Age: 77 Room: [place] [address] Gender: Male Note Status: Finalized Attending MD: Joaquin Benito MD Procedure: Colonoscopy Indications: Screening for colorectal malignant neoplasm Providers: Joaquin Benito MD Patient Profile: Last Colonoscopy: 10 years ago. Referring Physician: Regis Bravo (Referring ) Medicines: Propofol per Anesthesia Complications: No immediate [...] the patient. Procedure Code(s): --- Professional --- 35083, Colonoscopy, flexible; diagnostic, including collection of specimen(s) by brushing or washing, when performed (separate procedure) CPT copyright 2021 [employer]. All rights reserved. The codes documented in this report are preliminary and upon acquisition lead review may be revised to meet current compliance requirements. Attending Participation: I personally performed the entire procedure. Scope In: 10:09:40 AM Scope Out: 10:19:49 AM MD Joaquin Beckham MD 02/25/2023 10:24:27 AM This report has been signed electronically by Joaquin Benito MD Number of Addenda: 0 Note Initiated On: 02/25/2023 9:58 AM Estimated Blood Loss: Estimated blood loss: none. PROVATION [facility] Radiology Study observation (narrative) [facility] HISTORY PHYSICALon HISTORY PHYSICAL HNO ID: [id number] Author: Joaquin Benito MD Service: Gastroenterology Author [...] Additional Comments: None Joaquin Benito MD Normal [facility] CT Chest for screening WO co ntraston 01-28-2023 1. Small pulmonary nodules, the largest 5.2 mm. 2. No acute pulmonary process. ASSESSMENT CATEGORY (version 2021): Lung-RADS Assessment Category 2 - Benign appearance or behavior. Recommend continued annual low-dose screening CT in 12 months. Report Dictated on Electronically Signed By: Rolando Houston MD Electronically Signed Date/Time: 01/28/2023 12:33 PM [facility] 1945 [id number] Exam Date/Time: 01/27/2023 10:32 Procedure: CT LUNG [...] CABG. There is atherosclerotic calcification of the pamunkey coronary arteries. Mild aortic atherosclerotic calcification without aneurysm. Lymph nodes: No enlarged mediastinal, hilar, or axillary lymph nodes. Upper Abdomen: No acute process identified in the upper abdomen. Soft tissues and Osseous structures: Unremarkable [facility] CT Chest for screening WO co ntrastOrdered By: Rolando Houston on 01-28-2023 [employer] Work Phone: CT Chest for screening WO co ntraston 01-27-2023 Radiology Study observation (narrative) [employer] CNCOon 12-02-2022 CNCO Letter Text Normal [facility] CNPNon 12-02-2022 CNPN Telephone (GSTNOR) ----- TRES DICKSON ([id number]) 1945 Jose A Date Time Provider Department 12/02/22 JOAQUIN BENITO [...] on exertion? No If yes, give to DRIVER SUPERVISOR to evaluate. History of COPD/Emphysema/Asthma/or Sleep Apnea? No If uses an inhaler, have pt bring inhaler with them. On oxygen at home? No If yes, give to DRIVER SUPERVISOR to evaluate. Implanted defibrillator (ACD)? No If [...] on dialysis? No If cirrhosis pt., have DRIVER SUPERVISOR review chart Do you have a history [...] of breath, on oxygen, using inhalers, seeing theoretical physicist? No If yes, have DRIVER SUPERVISOR evaluate patient Personal History Colon polyps? Yes [...] If you do not have a responsible driver medic (family member or friend) with you to take you home, your exam cannot be done with sedation and will be cancelled. Please bring a list of all of your current medications, including any Apap-mir-Rspnjaq medications with you. Medications If you take [...] drink inc (more content not included)... Normal [facility] PSA, total and freeon 2022 Free PSA [Mass/Vol] 0.4 ng/mL [employer] Free PSA/Total PSA [Mass fraction] 21 % [employer] Comment on above: INTERPRETIVE INFORMA TION: Prostate Specific Antigen, Free Percentage [facility] uses the Joselo Free PSA electrochemiluminescent immunoassay method in conjunction [...] prostate cancer in individual patients. Performed By: [email or web address] [address] [place] [id number] Client Server Developer: Kai Ruff MD, PhD Prostate specific Ag [place] [Mass/Vol] 1.9 ng/mL 0.0 - 4.0 ng/mL [facility] Comment on above: INTERPRETIVE INFORMA TION: Prostate [...] healthy individuals or individuals with nonprostatic carcinoma. [employer] CBC W Auto Differential pane l (Bld)Ordered By: Sheba Rosario on 11-13-2022 Basophils (Bld) [#/Vol] 0.0 10*3/uL 0.0 - 0.2 10*3/uL [employer] Basophils/100 WBC (Bld) 0.4 % 0.0 - 2.0 % [facility] Eosinophils (Bld) [#/Vol] 0.3 10*3/uL 0.0 - 0.5 10*3/uL [facility] Eosinophils/100 WBC (Bld) 2.7 % 1.0 - 6.0 % [facility] Erythrocyte distribution width (RBC) [Ratio] 12.4 % 11.5 - 14.5 % [facility] Hematocrit (Bld) [Volume fraction] 42.5 % 40.0 - 52.0 % [facility] Hemoglobin (Bld) [Mass/Vol] 14.2 g/dL 13.0 - 18.0 g/dL [facility] Immature granulocytes (Bld) [#/Vol] 0.0 10*3/uL NINF - 0.0 10*3/uL [facility] Immature granulocytes/100 WBC (Bld) 0.4 % High NINF - 0.0 % [facility] Interpretation and review of laboratory results Abnormal [facility] Lymphocytes (Bld) [#/Vol] 1.3 10*3/uL 1.0 - 4.3 10*3/uL [facility] Lymphocytes/100 WBC (Bld) 12.6 % Low 20.0 - 40.0 % [facility] MCH (RBC) [Entitic mass] 30.9 pg 26.0 - 34.0 pg [facility] MCHC (RBC) [Mass/Vol] 33.4 % 32.0 - 36.0 % [facility] MCV (RBC) [Entitic vol] 92.6 fL 80.0 - 98.0 fL [facility] Monocytes (Bld) [#/Vol] 0.9 10*3/uL High 0.0 - 0.8 10*3/uL [facility] Monocytes/100 WBC (Bld) 8.6 % 2.0 - 10.0 % [facility] Neutrophils (Bld) [#/Vol] 7.5 10*3/uL High 1.8 - 7.0 10*3/uL [facility] Neutrophils/100 WBC (Bld) 75.3 % 40.0 - 80.0 % [facility] Platelet mean volume (Bld) [Entitic vol] 12.7 fL High 7.4 - 12.4 fL [facility] Platelets (Bld) [#/Vol] 133 10*3/uL Low 140 - 440 10*3/uL [facility] RBC (Bld) [#/Vol] 4.59 10*6/uL 4.40 - 5.9 0 10*6/uL [facility] WBC (Bld) [#/Vol] 9.9 10*3/uL 3.6 - 10.7 10*3/uL [facility] Comprehensive metabolic 1997 panelon 11-13-2022 Albumin [Mass/Vol] 3.8 g/dL 3.5 - 5.0 g/dL [facility] ALP [Catalytic activity/Vol] 60 U/L 38 - 126 U/L [facility] ALT [Catalytic activity/Vol] 17 U/L 0 - 49 U/L [facility] Anion gap [Moles/Vol] 2 mmol/L Low 3 - 13 mmol/L [facility] AST [Catalytic activity/Vol] 32 U/L 15 - 46 U/L [facility] Bilirubin [Mass/Vol] 0.7 mg/dL 0.2 - 1 .3 mg/dL [facility] Calcium [Mass/Vol] 8.7 mg/dL 8.4 - 10. 4 mg/dL [facility] Chloride [Moles/Vol] 104 mmol/L 98 - 10 7 mmol/L [facility] CO2 [Moles/Vol] 33 mmol/L High 22 - 30 mmol/L [facility] Creatinine [Mass/Vol] 0.97 mg/dL 0.66 - 1.25 mg/dL [facility] GFR/1.73 sq M.predicted MDRD (S/P/Bld) [Vol rate/Area] 80.4 mL/min/{1.73_m2} [facility] Comment on above: Calculation based on the Chronic Kidney Disease Epidemiology Collaboration (CKD-EPI) equation refit without adjustment for race Glucose [Mass/Vol] 115 mg/dL High 70 - 100 mg/dL [facility] Potassium [Moles/Vol] 4.5 mmol/L 3.5 - 5.1 mmol/L [facility] Protein [Mass/Vol] 7.0 g/dL 6.3 - 8.2 g/dL [facility] Sodium [Moles/Vol] 139 mmol/L 135 - 145 mmol/L [facility] Urea nitrogen [Mass/Vol] 18 mg/dL 9 - 20 mg/dL [facility] Lipid 1996 panelon 3 Cholesterol [Mass/Vol] 107 mg/dL NINF - 200 mg/dL [facility] Cholesterol in HDL [Mass/Vol] 37 mg/dL Low 40 - 60 mg/dL [facility] Cholesterol in LDL [Mass/Vol] 53 mg/dL 0 - <100 [facility] Cholesterol.total/Chol esterol in HDL [Mass ratio] 3 {ratio} [facility] Comment on above: Ref Range: < 3 Low Risk for CHD 3-6 Mod Risk for CHD > 6 High Risk for CHD Triglyceride [Mass/Vol] 83 mg/dL NINF - 150 mg/dL [facility] Microalbumin/Creatinine rati o panel (U)on 11-13-2022 Albumin DL <= 20 mg/L (U) [Mass/Vol] 11.8 mg/L 0.0 - 29.9 mg/L [facility] Albumin/Creatinine DL <= 20 mg/L (U) [Mass ratio] 10.2 mg/g 0.0 - 29.9 mg/g [facility] CREATININE, URINE 115.4 mg/dL No Range [facility] Microalbumin concentrations <30 are considered normal, 30-300 are considered microalbuminuria (or risk of diabetic nephropathy), and >300 are considered clinical albuminuria (clinical nephropathy). Diabetes Care,27, Supplement 1, E31-21, 2004 [facility] No Panel Informationon 11-13 Interpretation and review of laboratory results Abnormal [facility] US Extremity Non Vascular Li [email or web address] 05-11-2022 US Extremity Non Vascular Limited Patient Name: TRES DICKSON Ultrasound ACCESSION EXAM DATE/TIME PROCEDURE ORDERING PROVIDER [id number] 05/11/2022 13:00 EDT US Extremity Non MD SHELLY, REGIS Vascular Limited RENZO CPT code 22097 Reason For Exam (US Extremity Non Vascular [...] Transcribed Date and Time: 05/11/2022 2:42 Normal [facility] CBC Auto Differentialon 09- Absolute Baso # 0.1 10*3/uL 0 - 0.2 10*3/uL [place] Absolute Neut # 5.8 10*3/uL 1.8 - 7 10*3/uL [place] Basophils/100 WBC (Bld) 1.1 % 0 - 2 % [place] Eosinophils (Bld) [#/Vol] 0.4 10*3/uL 0 - 0.5 10*3/uL [place] Eosinophils/100 WBC (Bld) 4.7 % 1 - 6 % [place] Erythrocyte distribution width (RBC) [Ratio] 13.1 % 11.5 - 14.5 % [place] Granulocytes/100 WBC (Bld) 66.8 % 40 - 80 % [place] Hematocrit (Bld) [Volume fraction] 42.1 % 40 - 52 % [place] Hemoglobin (Bld) [Mass/Vol] 14.0 g/dL 13 - 18 g/dL [place] Interpretation and review of laboratory results Abnormal [place] Lymphocytes (Bld) [#/Vol] 1.6 10*3/uL 1 - 4.3 10*3/uL [place] Lymphocytes/100 WBC (Bld) 18.1 % Low 20 - 40 % [place] MCH (RBC) [Entitic mass] 29.9 pg 26 - 34 pg [place] MCHC (RBC) [Mass/Vol] 33.2 % 32 - 36 % [place] MCV (RBC) [Entitic vol] 89.9 fL 80 - 98 fL [place] Monocytes (Bld) [#/Vol] 0.8 10*3/uL 0 - 0.8 10*3/uL [place] Monocytes/100 WBC (Bld) 9.3 % 2 - 10 % [place] Platelet mean volume (Bld) [Entitic vol] 11.9 fL High 7.4 - 10.4 fL [place] Platelets (Bld) [#/Vol] 172 10*3/uL 140 - 440 10*3/uL [place] Comment on above: Few large platelets seen on slide. RBC (Bld) [#/Vol] 4.68 10*6/uL 4.4 - 5.9 10*6/uL [place] WBC (Bld) [#/Vol] 8.6 10*3/uL 3.6 - 10.7 10*3/uL [place] Test Performed by [facility], [address] , [address] Comprehensive Metabolic Pane cristian 04-03-2019 Albumin [Mass/Vol] 3.9 g/dL 3.5 - 5 g/dL [place] ALP [Catalytic activity/Vol] 34 U/L Low 38 - 126 U/L [place] ALT [Catalytic activity/Vol] 25 U/L 13 - 69 U/L [place] Anion gap [Moles/Vol] 10 mmol/L [place] AST [Catalytic activity/Vol] 28 U/L 15 - 46 U/L [place] Bilirubin Ql (U) 0.4 mg/dL 0.2 - 1.3 mg/dL [place] Calcium [Mass/Vol] 9.4 mg/dL 8.4 - 10. 4 mg/dL [place] Chloride [Moles/Vol] 106 mmol/L 98 - 10 7 mmol/L [place] CO2 [Moles/Vol] 27 mmol/L 22 - 30 mmol/L [place] Creatinine [Mass/Vol] 1.42 mg/dL High 0.52 - 1.25 mg/dL [place] EGFR IF NonAfrican [place] 48.8 mL/min >60 [place] Comment on above: Source- MDRD equatio n with creatinine calibration to IDMS(NKDEP) eGFR not recommended for drug dose adjustment GFR/1.73 sq M predicted among blacks MDRD (S/P/Bld) [Vol rate/Area] 59.2 mL/min/{1.73_m2} >60 [place] Glucose [Mass/Vol] 102 mg/dL High 70 - 100 mg/dL [place] Potassium [Moles/Vol] 4.8 mmol/L 3.5 - 5.1 mmol/L [place] Protein [Mass/Vol] 6.7 g/dL 6.3 - 8.2 g/dL [place] Sodium [Moles/Vol] 143 mmol/L 135 - 145 mmol/L [place] Urea nitrogen [Mass/Vol] 33 mg/dL High 7 - 20 mg/dL [place] Hemoglobin A1Con 04-03-2019 eAG 128 mg/dL [place] HbA1c (Bld) [Mass fraction] 6.1 % High 4 - 5.7 % [place] Comment on above: --HgbA1C levels may not be accurate in patients who have renal disease, received recent blood transfusions, are anemic, or who have dyshemoglobinemia. Interpretation and review of laboratory results Abnormal [place] Test Performed by [facility], [address] , [address] Lipid Panelon 04-03-2019 Cholesterol [Mass/Vol] 108 mg/dL <200 [place], [place] Cholesterol in HDL [Mass/Vol] 27 mg/dL Low 40 - 60 mg/dL [place] Cholesterol in LDL [Mass/Vol] 54 mg/dL <100 [place] Cholesterol.total/Chol esterol in HDL [Mass ratio] 4 {ratio} [place] Comment on above: Ref Range: < 3 Low Risk for CHD 3-6 Mod Risk for CHD > 6 High Risk for CHD Triglyceride [Mass/Vol] 137 mg/dL <150 [place] Otheron 04-03-2019 Interpretation and review of laboratory results Abnormal [place] Test Performed by [facility], [address] , [place], [place] [id number] [place] [address] [place], [place] Vital Signs Date Time Vital Sign Value Performing Clinician Gayla mak 02-21-2025 08:07-0400 Body mass index (BMI) [Ratio] 26.6 kg/m2 Diana eKlley [employer]ER-C Work Phone: [facility] 02-21-2025 08:07-0400 Body temperature 97.1 [degF] Diana Kelley [employer]ER-C Work Phone: [facility] 02-21-2025 08:07-0400 Body weight 80.73 kg Diana Kelley [employer]-C Work Phone: [facility] 02-21-2025 08:07-0400 Diastolic blood pressure 82 mm[Hg] Diana Kelley [employer]-C Work Phone: [facility] 02-21-2025 08:07-0400 Heart rate 50 /min Diana Kelley [employer]-C Work Phone: [facility] 02-21-2025 08:07-0400 Respiratory rate 20 /min Diana Kelley [employer]-C Work Phone: [facility] 02-21-2025 08:07-0400 SaO2% (BldA) [Mass fraction] 92 % Diana Kelley [employer]-C Work Phone: [facility] 02-21-2025 08:07-0400 Systolic blood pressure 163 mm[Hg] Diana Kelley [employer]-C Work Phone: [facility] 02-14-2025 09:51-0400 Body height 173.99 cm Diana Kelley [employer]ER-C Work Phone: [facility] 02-14-2025 09:51-0400 Body weight 81.19 kg Diana Kelley [employer]-C Work Phone: [facility] 02-13-2025 08:47-0400 Body mass index (BMI) [Ratio] 26.8 kg/m2 Diana Kelley [employer]-C Work Phone: [facility] 02-07-2025 16:32-0400 Body height 173.99 cm Diana Kelley [employer]ER-C Work Phone: [facility] 02-07-2025 16:32-0400 Body mass index (BMI) [Ratio] 26.8 kg/m2 Dianajorge Kelley [employer]LE [employer]IN[employer]CER-C Work Phone: [facility] 02-07-2025 16:32-0400 Body temperature 98.1 [degF] Dianajorge Kelley [employer]ER-C Work Phone: [facility] 02-07-2025 16:32-0400 Body weight 81.19 kg Diana Kelley [employer]CER-C Work Phone: [facility] 02-07-2025 16:32-0400 Diastolic blood pressure 60 mm[Hg] Diana Kelley [employer]CER-C Work Phone: [facility] 02-07-2025 16:32-0400 Heart rate 62 /min Dianajorge Kelley [employer]ER-C Work Phone: [facility] 02-07-2025 16:32-0400 Respiratory rate 18 /min Dianajorge Kelley [employer]ER-C Work Phone: [facility] 02-07-2025 16:32-0400 SaO2% (BldA) [Mass fraction] 95 % Diana Kelley [employer]CER-C Work Phone: [facility] 02-07-2025 16:32-0400 Systolic blood pressure 120 mm[Hg] Diana Kelley [employer]CER-C Work Phone: [facility] 12-28-2024 15:44-0400 Body height 173.99 cm Diana Kelley [employer]LE [employer]IN[employer]CER-C Work Phone: [facility] 12-28-2024 15:44-0400 Body mass index (BMI) [Ratio] 26.5 kg/m2 Diana Kelley [employer]CER-C Work Phone: [facility] 12-28-2024 15:44-0400 Body temperature 97.9 [degF] Diana Kelley [employer]CER-C Work Phone: [facility] 12-28-2024 15:44-0400 Body weight 80.28 kg Diana Kelley [employer]CER-C Work Phone: [facility] 12-28-2024 15:44-0400 Diastolic blood pressure 64 mm[Hg] Diana Kelley [employer]CER-C Work Phone: [facility] 12-28-2024 15:44-0400 Heart rate 70 /min Dianajorge Kelley [employer]ER-C Work Phone: [facility] 12-28-2024 15:44-0400 Respiratory rate 18 /min Dianajorge Kelley [employer]CER-C Work Phone: [facility] 12-28-2024 15:44-0400 SaO2% (BldA) [Mass fraction] 95 % Diana Kelley [employer]CER-C Work Phone: [facility] 12-28-2024 15:44-0400 Systolic blood pressure 130 mm[Hg] Diana Kelley [employer]CER-C Work Phone: [facility] 12-21-2024 15:03-0400 Body height 173.99 cm Diana Kelley [employer]ER-C Work Phone: [facility] 12-14-2024 19:59-0400 Body height 173.99 cm Diana Kelley [employer]IN[employer]CER-C Work Phone: [facility] 12-14-2024 08:29-0400 Body height 173.99 cm Diana Kelley [employer]LE [employer]IN[employer]CER-C Work Phone: [facility] 12-14-2024 08:29-0400 Body mass index (BMI) [Ratio] 27.1 kg/m2 Diana Kelley [employer]IN[employer]CER-C Work Phone: [facility] 12-14-2024 08:29-0400 Body weight 82.1 kg Diana Kelley [employer]CER-C Work Phone: [facility] 12-14-2024 08:29-0400 Diastolic blood pressure 82 mm[Hg] Diana Kelley [employer]CER-C Work Phone: [facility] 12-14-2024 08:29-0400 Heart rate 51 /min Dianajorge Kelley [employer]ER-C Work Phone: [facility] 12-14-2024 08:29-0400 Respiratory rate 14 /min Dianajorge Kelley [employer]ER-C Work Phone: [facility] 12-14-2024 08:29-0400 Systolic blood pressure 144 mm[Hg] Diana Kelley [employer]CER-C Work Phone: [facility] 11-02-2024 12:53-0400 Body mass index (BMI) [Ratio] 27.4 kg/m2 Diana Kelley [employer]CER-C Work Phone: [facility] 11-02-2024 12:53-0400 Body temperature 98.1 [degF] Diana Kelley [employer]ER-C Work Phone: [facility] 11-02-2024 12:53-0400 Body weight 83 kg Diana Kelley [employer]IN[employer]CER-C Work Phone: [facility] 11-02-2024 12:53-0400 Diastolic blood pressure 76 mm[Hg] Diana Kelley [employer]CER-C Work Phone: [facility] 11-02-2024 12:53-0400 Heart rate 61 /min Dianajorge Kelley [employer]CER-C Work Phone: [facility] 11-02-2024 12:53-0400 Respiratory rate 18 /min Diana Kelley [employer] REINFORCER-C Work Phone: [facility] 11-02-2024 12:53-0400 SaO2% (BldA) [Mass fraction] 96 % Diana Kelley [employer]ER-C Work Phone: [facility] 11-02-2024 12:53-0400 Systolic blood pressure 156 mm[Hg] Diana Kelley [employer]CER-C Work Phone: [facility] 08-23-2024 08:16-0500 Body mass index (BMI) [Ratio] 26.2 kg/m2 Dianajorge TripathiKelley [employer]LE REINFORCER-C Work Phone: [facility] 08-23-2024 08:16-0500 Body temperature 97.2 [degF] Diana Kelley [employer]CER-C Work Phone: [facility] 08-23-2024 08:16-0500 Body weight 79.37 kg Diana Kelley [employer]CER-C Work Phone: [facility] 08-23-2024 08:16-0500 Diastolic blood pressure 89 mm[Hg] Diana Kelley [employer]IN[employer]CER-C Work Phone: [facility] 08-23-2024 08:16-0500 Heart rate 57 /min Diana Kelley [employer]IN[employer]CER-C Work Phone: [facility] 08-23-2024 08:16-0500 Respiratory rate 18 /min Dianajorge TripathiKelley [employer]LE REINFORCER-C Work Phone: [facility] 08-23-2024 08:16-0500 SaO2% (BldA) [Mass fraction] 96 % Diana Kelley [employer] REINFORCER-C Work Phone: [facility] 08-23-2024 08:16-0500 Systolic blood pressure 151 mm[Hg] Diana Kelley [employer]CER-C Work Phone: [facility] 04-28-2024 10:23-0400 Body height 177.8 cm Yessy Villarreal MD Work Phone: [facility] 04-28-2024 10:23-0400 Body mass index (BMI) [Ratio] 25.11 kg/m2 Yessy Villarreal MD Work Phone: [facility] 04-28-2024 10:23-0400 Body weight 79.38 kg Yessy Villarreal MD Work Phone: [facility] 04-28-2024 10:23-0400 Diastolic blood pressure 82 mm[Hg] Yessy Villarreal MD Work Phone: [facility] 04-28-2024 10:23-0400 Systolic blood pressure 134 mm[Hg] Yessy Villarreal MD Work Phone: [facility] 02-25-2024 15:02-0400 Body height 177.8 cm Yessy Villarreal MD Work Phone: [facility] 02-25-2024 15:02-0400 Body mass index (BMI) [Ratio] 25.11 kg/m2 Yessy Villarreal MD Work Phone: [facility] 02-25-2024 15:02-0400 Body weight 79.38 kg Yessy Villarreal MD Work Phone: [facility] 12-20-2023 14:56-0400 Body height 177.8 cm Yessy Villarreal MD Work Phone: [facility] 12-20-2023 14:56-0400 Body mass index (BMI) [Ratio] 25.11 kg/m2 Yessy Villarreal MD Work Phone: [facility] 12-20-2023 14:56-0400 Body weight 79.38 kg Yessy Villarreal MD Work Phone: [facility] 07-02-2023 18:47-0500 Body height 173.99 cm OLIVER Kelley [employer]LE REINFORCER Work Phone: [facility] 07-02-2023 18:47-0500 Body mass index (BMI) [Ratio] 26.6 kg/m2 OLIVER Kelley [employer]SOLE REINFORCER Work Phone: [facility] 07-02-2023 18:47-0500 Body temperature 98.1 [degF] OLIVER Kelley [employer] REINFORCER Work Phone: [facility] 07-02-2023 18:47-0500 Body weight 80.73 kg OLIVER Kelley [employer]LE REINFORCER Work Phone: [facility] 07-02-2023 18:47-0500 Diastolic blood pressure 70 mm[Hg] [employer]-C Diana Kelley [employer]SOLE REINFORCER Work Phone: [facility] 07-02-2023 18:47-0500 Heart rate 76 /min [employer] Diana Kelley [employer]SOLE REINFORCER Work Phone: [facility] 07-02-2023 18:47-0500 Respiratory rate 18 /min [employer] Diana Kelley [employer]SOLE REINFORCER Work Phone: [facility] 07-02-2023 18:47-0500 SaO2% (BldA) [Mass fraction] 95 % [employer]C Diana Kelley [employer]SOLE REINFORCER Work Phone: [facility] 07-02-2023 18:47-0500 Systolic blood pressure 140 mm[Hg] [employer]-C Diana Kelley [employer]SOLE REINFORCER Work Phone: [facility] 03-24-2023 09:10-0400 Body temperature 98.4 [degF] [employer]C Diana Kelley [employer]SOLE REINFORCER Work Phone: [facility] 03-24-2023 09:10-0400 Body weight 78.92 kg [employer]-C Diana Kelley [employer]SOLE REINFORCER Work Phone: [facility] 03-24-2023 09:10-0400 Diastolic blood pressure 80 mm[Hg] [employer]-C Diana Kelley [employer]SOLE REINFORCER Work Phone: [facility] 03-24-2023 09:10-0400 Heart rate 51 /min [employer]C Diana Kelley [employer]SOLE REINFORCER Work Phone: [facility] 03-24-2023 09:10-0400 Respiratory rate 16 /min [employer]-C Diana Kelley [employer]SOLE REINFORCER Work Phone: [facility] 03-24-2023 09:10-0400 SaO2% (BldA) [Mass fraction] 97 % [employer]-C Diana Kelley [employer]SOLE REINFORCER Work Phone: [facility] 03-24-2023 09:10-0400 Systolic blood pressure 146 mm[Hg] [employer]ER-C Diana Kelley [employer]SOLE REINFORCER Work Phone: [facility] 03-03-2023 16:08-0400 Body height 173.99 cm [employer] REINFORCER-C Diana Kelley [employer]SOLE REINFORCER Work Phone: [facility] 03-03-2023 16:08-0400 Body mass index (BMI) [Ratio] 26 kg/m2 [employer]C Diana Kelley [employer]SOLE REINFORCER Work Phone: [facility] 03-03-2023 16:08-0400 Body temperature 97.9 [degF] [employer]-C Diana Kelley [employer]SOLE REINFORCER Work Phone: [facility] 03-03-2023 16:08-0400 Body weight 78.92 kg [employer]INFORCER-C Diana Kelley [employer]SOLE REINFORCER Work Phone: [facility] 03-03-2023 16:08-0400 Diastolic blood pressure 70 mm[Hg] [employer]-C Diana Kelley [employer]SOLE REINFORCER Work Phone: [facility] 03-03-2023 16:08-0400 Heart rate 67 /min [employer]C Diana Kelley [employer]LE REINFORCER Work Phone: [facility] 03-03-2023 16:08-0400 Respiratory rate 18 /min [employer] Diana Kelley [employer]SOLE REINFORCER Work Phone: [facility] 03-03-2023 16:08-0400 SaO2% (BldA) [Mass fraction] 96 % [employer]-C Diana Kelley [employer]SOLE REINFORCER Work Phone: [facility] 03-03-2023 16:08-0400 Systolic blood pressure 130 mm[Hg] [employer]-C Diana Kelley [employer]SOLE REINFORCER Work Phone: [facility] 02-25-2023 10:43-0400 Diastolic blood pressure 61 mm[Hg] Joaquin Benito MD Work Phone: [facility] 02-25-2023 10:43-0400 Heart rate 50 /min Joaquin Benito MD Work Phone: [facility] 02-25-2023 10:43-0400 Respiratory rate 16 /min Joaquin Benito MD Work Phone: [facility] 02-25-2023 10:43-0400 SaO2% (BldA) [Mass fraction] 95 % Joaquin Benito MD Work Phone: [facility] 02-25-2023 10:43-0400 Systolic blood pressure 121 mm[Hg] Joaquin Benito MD Work Phone: [facility] 02-25-2023 10:23-0400 Body temperature 97.3 [degF] Joaquin Benito MD Work Phone: [facility] 02-25-2023 09:46-0400 Body height 177.8 cm Joaquin Benito MD Work Phone: [facility] 02-25-2023 09:46-0400 Body mass index (BMI) [Ratio] 25.11 kg/m2 Joaquin Benito MD Work Phone: [facility] 02-25-2023 09:46-0400 Body weight 79.38 kg Joaquin Benito MD Work Phone: [facility] Encounters Encounter Date Encounter Type Care Provider Facility Start: 03-15-2025 ambulatory Diana Kelley [employer] RE[employer]FORCER Faci lity:[facility] Start: 02-21-2025 End: 02-21-2025 Patient encounter procedure IN[employer]LE REINFORCER Roshni Baker -[facility] Work Phone: Start: 02-21-2025 End: 02-21-2025 ambulatory Diana Kelley [employer]CER-C Work Phone: -[facility] Start: 02-14-2025 End: 02-14-2025 Admission to same day surgery center Dr. Magda Husain MD -Lead Project Manager/Special Procedures Work Phone: Start: 02-14-2025 End: 02-14-2025 ambulatory Diana Kelley [employer]-C Work Phone: -Lead Project Manager/Special Procedures Start: 02-07-2025 End: 02-07-2025 ambulatory Diana Kelley [employer]CER-C Work Phone: -[facility] Start: 02-07-2025 ambulatory Magda Rodrigue Facility:[facility] Start: 02-07-2025 Non-patient / Non-visit Dr. Magda mackenzie MD -[facility] Start: 01-25-2025 Non-patient / Non-visit Elis de la garza [employer]CER-C -[facility] Work Phone: Start: 01-25-2025 ambulatory Diana Kelley [employer]LE REINFORCER Faci lity:[facility] Start: 01-24-2025 ambulatory Magda Rodrigue Facility:[facility] Start: 01-24-2025 Non-patient / Non-visit Dr. Magda mackenzie MD -[facility] Start: 01-24-2025 End: 01-24-2025 ambulatory Diana Kelley [employer]ER-C Work Phone: -Cardiovascular Services Start: 01-24-2025 End: 01-24-[address] Magda Husain MD -Cardiovascular Services Work Phone: Start: 01-24-2025 End: 01-24-2025 ambulatory Magda [facility] Facility:[facility] Start: 12-28-2024 End: 12-28-2024 ambulatory Diana Kelley [employer]CER-C Work Phone: [facility] Work Phone: Start: 12-28-2024 Non-patient / Non-visit Dr. Carson harmon MD -[facility] Start: 12-28-2024 End: 12-28-2024 ambulatory Diana Kelley [employer]CER-C Work Phone: [facility] Work Phone: Start: 12-28-2024 End: 12-28-[address] Magda Husain MD -Cardiovascular Services Work Phone: Start: 12-27-2024 End: 12-28-2024 ambulatory [facility] Start: 12-21-2024 End: 12-21-2024 ambulatory Diana Kelley [employer]CER-C Work Phone: [facility] Work Phone: Start: 12-21-2024 End: 12-21-2024 Patient encounter procedure Diana Kelley [employer]SOLE REINFORCER-C -Laboratory Specimen Work Phone: Start: 12-21-2024 End: 12-21-2024 ambulatory Diana Kelley [employer]LE REINFORCER-C Work Phone: [facility] Work Phone: Start: 12-21-2024 End: 12-21-2024 ambulatory Dianajorge Kelley [employer]LE REINFORCER Facility:[facility] Start: 12-14-2024 End: 12-14-2024 ambulatory Diana Kelley [employer] REINFORCER-C Work Phone: [facility] Work Phone: Start: 12-14-2024 End: 12-14-2024 Patient encounter procedure Diana Kelley [employer]SOLE REINFORCER-C -[facility] Work Phone: Start: 12-14-2024 End: 12-14-2024 ambulatory Diana Kelley [employer]LE REINFORCER-C Work Phone: [facility] Work Phone: Start: 12-14-2024 End: 12-14-[address] Magda Husain MD -[facility] Work Phone: Start: 12-14-2024 End: 12-14-2024 ambulatory Diana Kelley [employer]LE REINFORCER-C Work Phone: [facility] Work Phone: Start: 12-14-2024 End: 12-14-2024 ambulatory Dianajorge Kelley [employer]LE REINFORCER Facility:[facility] Start: 08-23-2024 End: 08-23-2024 Patient encounter procedure INSOLE REINFORCER Roshni Baker -[facility] Work Phone: Start: 08-23-2024 End: 08-23-2024 ambulatory Roshni Baker [place] Start: 08-01-2024 End: 08-01-2024 ambulatory Diana Kelley [employer]SOLE REINFORCER Facility:[facility] Start: 07-11-2024 End: 07-11-2024 ambulatory Diana Kelley [employer] [place] [place]: 07-04-2024 End: 07-04-2024 ambulatory Diana Kelley [employer] Facility:[facility] Start: 06-21-2024 End: 06-21-2024 ambulatory [facility] Start: 06-06-2024 End: 06-06-2024 ambulatory Diana Kelley [employer] Facility:[facility] Start: 05-31-2024 End: 05-31-2024 ambulatory Yessy Villarreal MD Work Phone: [facility] Comment on above: 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 (Primary Dx) Start: 05-17-2024 End: 05-17-2024 Follow-up encounter Yessy Villarreal MD Work Phone: [facility] Comment on above: 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 (Primary Dx) Start: 05-17-2024 End: 05-17-2024 ambulatory [facility] Start: 05-10-2024 End: 05-10-2024 Follow-up encounter Yessy Villarreal MD Work Phone: [facility] Comment on above: 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 (Primary Dx) Start: 05-10-2024 End: 05-10-2024 ambulatory [facility] Start: 05-03-2024 End: 05-03-2024 ambulatory Yessy Villarreal MD Work Phone: [facility] Comment on above: 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 Start: 04-28-2024 End: 04-28-2024 Office outpatient visit 15 minutes Yessy Villarreal MD Work Phone: [facility] Comment on above: 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 (Primary Dx) Start: 04-28-2024 End: 04-28-2024 Subsequent hospital visit by physician Yessy Villarreal MD Work Phone: [facility] Comment on above: 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 Start: 04-28-2024 End: 04-28-2024 ambulatory [facility] Start: 03-16-2024 End: 03-16-2024 Telephone encounter Regis Bravo MD Work Phone: [facility] Comment on above: Other (Annual Lung S creening Reminder) Start: 02-25-2024 End: 02-25-2024 Patient encounter procedure Yessy Villarreal MD Work Phone: [facility] Comment on above: Primary osteoarthrit is of left knee (Primary Dx) Start: 02-25-2024 End: 02-25-2024 ambulatory [facility] Start: 02-08-2024 End: 02-08-2024 ambulatory Caitlyn Carrera RN [facility] Clinical Communication Start: 02-08-2024 End: 02-08-2024 Patient encounter procedure Caitlyn Carrera RN [facility] Clinical Communication Start: 12-20-2023 End: 12-20-2023 Office outpatient visit 15 minutes Yessy Villarreal MD Work Phone: [facility] Comment on above: Primary osteoarthrit is of left knee (Primary Dx) Start: 12-20-2023 End: 12-21-2023 Darlyn Marquez MA [facility] Start: 07-02-2023 End: 07-02-2023 ambulatory INSOLE REINFORCER-Kajal Kelley INSOLE REINFORCER Work Phone: [facility] Work Phone: Start: 07-02-2023 End: 07-02-2023 Patient encounter procedure INSOLE REINFORCER-Kajal Kelley INSOLE REINFORCER Work Phone: [facility]-Laboratory, Specimen Work Phone: Start: 03-24-2023 End: 03-24-2023 Patient encounter procedure INSOLE REINFORCER-Kajal Kelley INSOLE REINFORCER Work Phone: [facility] Work Phone: Start: 03-11-2023 Non-patient / Non-visit INSOLE REINFORCER-C Vel Kelley INSOLE REINFORCER Work Phone: [facility] Start: 03-11-2023 End: 03-11-2023 ambulatory INSOLE REINFORCER-Kajal Kelley INSOLE REINFORCER Work Phone: [facility] Work Phone: Start: 03-11-2023 End: 03-11-2023 Patient encounter procedure INSOLE REINFORCER-Kajal Kelley INSOLE REINFORCER [facility] Work Phone: Start: 03-03-[address] 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] Start: 02-23-2023 ambulatory Joaquin Benito MD Work Phone: Ambulatory Surgery Start: 01-27-2023 End: 01-27-2023 Subsequent hospital visit by physician 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 Phone: [facility] Comment on above: Personal history of nicotine dependence Start: 12-07-2022 Transcribe Orders 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 Phone: [facility] Central Scheduling Comment on above: Personal history of nicotine dependence (Primary Dx) Start: 12-02-2022 Telephone encounter Joaquin Benito MD Work Phone: [facility] [place] Comment on above: Screening order/chec klist Start: 11-13-2022 End: 11-13-2022 ambulatory Regis Bravo MD Work Phone: [facility] Laboratory Comment on above: Hypertensive chronic kidney disease with stage 1 through stage 4 chronic kidney disease, or unspecified chronic kidney disease (Primary Dx); Type 2 diabetes mellitus with diabetic chronic kidney disease (HCC); Mixed hyperlipidemia; Benign prostatic hyperplasia without lower urinary tract symptoms Start: 05-25-2022 Transcribe Orders Regis camara MD Work Phone: [facility] Laboratory Comment on above: Pain in left knee (P rimary Dx) Start: 05-11-2022 ambulatory Regis Bravo [facility] Start: 02-25-2022 Patient encounter procedure Regis Bravo Work Phone: [facility] Work Phone: Start: 04-03-2019 End: 04-03-2019 Subsequent hospital visit by physician Regis Bravo Work Phone: [facility] Laboratory Procedures Date Procedure Procedure Detail Performing Clinician Start: 02-07-2025 X-ray of chest, PA a nd lateral views Diana Kelley NP-C Work Phone: Start: 01-24-2025 Radionuclide imaging of perfusion of myocardium under exercise stress Diana Kelley INSOLE REINFORCER-C Work Phone: Start: 02-25-2023 Colonoscopy flx dx w/collj spec when pfrmd Joaquin Benito MD Work Phone: Start: 11-13-2022 Comprehensive metabo lic panel Regis Bravo MD Work Phone: Start: 11-13-2022 Lipid panel Regis guerrier MD Work Phone: Start: 11-13-2022 Lipid 1996 panel - S alessandra or Plasma [facility] Start: 04-03-2019 Blood count complete auto&auto difrntl wbc Regis Bravo Work Phone: Start: 04-03-2019 Comprehensive metabo lic panel Regis Bravo Work Phone: Start: 04-03-2019 Hemoglobin glycosyla karen a1c Regis Mtz Shelly Work Phone: Start: 04-03-2019 Lipid panel Regis Gonzales mary janebonita Shelly Work Phone: Coronary Artery Surgery Tony asael [place]anches Shelly Work Phone: Comment on above: single heart bypass; Globe Enucleation Left [place] Shelly Work Phone: Comment on above: 04-27-05; H/O: surgery H/O enucleation of left eyeball Diana Warren INSOLE REINFORCER-C Work Phone: Comment on above: 2006 H/O: surgery H/O enucleation of left eyeball Dr. Magda Husain MD History of coronary artery bypass grafting History of coronary artery bypass graft x 1 Dr. Magda Husain MD Plan of Treatment Date Care Activity Detail Author Start: 11-14-2027 Lipid panel Lipid Panel [facility] Start: 04-14-2027 DTaP/Tdap/Td vaccine (2 - Td) DTaP/Tdap/Td vaccine (2 - Td) [place] Start: 04-14-2027 DTaP/Tdap/Td Vaccine s (2 - Td or Tdap) DTaP/Tdap/Td Vaccines (2 - Td or Tdap) [facility] Start: 04-14-2027 Urine microalbumin profile DTaP,Tdap,Td Vaccine (2 - Td or Tdap) [facility] Start: 11-13-2025 Diabetes Screening Diabetes Screenin g [facility] Start: 02-14-2025 Patient discharge [facility] Start: 12-21-2024 Basic metabolic 2008 panel with ionized calcium - Serum or Plasma [facility] Start: 12-14-2024 Evaluation of diagnostic study results [facility] Start: 11-06-2024 Patient referral [facility] Work Phone: Start: 05-31-2024 End: 05-31-2024 ambulatory 05/31/2024 9:00 AM EST Evaluation [facility] Therapy at [address] [place] [address] Yessy Villarreal MD [address] [place] [address] Reji Clement, PT [facility] Start: 05-24-2024 End: 05-24-2024 Follow-up encounter 05/24/2024 9:00 AM EST Follow-Up [facility] at [address] [place] [phone] Yessy Villarreal MD [address] [place] [address] Tay Nowak PTA [facility] Start: 05-17-2024 End: 05-17-2024 Follow-up encounter 05/17/2024 9:00 AM EDT Follow-Up [facility] at [address] [place] [address] Yessy Villarreal MD [address] [place] [address] Tay Nowak PTA [facility] Start: 05-10-2024 End: 05-10-2024 Follow-up encounter 05/10/2024 9:00 AM EDT Follow-Up [facility] at [address] [place] [address] Yessy Villarreal MD [address] [place] [address] Tay Nowak PTA [facility] Start: 05-03-2024 End: 05-03-2024 ambulatory 05/03/2024 9:00 AM EDT Evaluation [facility] at [address] [place] [address] Yessy Villarreal MD [address] [place] [id number] Reji Clement, PT [facility] Start: 04-27-2024 End: 04-27-2025 XR Shoulder - left 2 Views XR shoulder 2+ views left Imaging Routine Primary osteoarthritis of left shoulder Expected: 04/27/2024, Expires: 04/27/2025 [facility] Work Phone: Comment on above: Expected: 04/27/2024 , Expires: 04/27/2025 Start: 04-03-2024 Lipid screen Lipid screen [facility] [place] [place] Start: 03-19-2024 Covid-19 Vaccine ( season) Covid-19 Vaccine () [facility] Start: 03-19-2024 COVID-19 Vaccine ( season) COVID-19 Vaccine () [facility] Start: 03-19-2024 Influenza vaccination S [facility] Start: 02-26-2024 Glaucoma screening Diabetes: R etinopathy Screening [facility] Start: 02-25-2024 End: 02-25-2024 Patient encounter procedure 02/25/2024 3:15 PM EDT Office Visit [facility] [address] [place] [address] [place] [phone] [facility] Start: 11-14-2023 Diabetes: Estimated Glomerular Filtration Rate for Kidney Health Diabetes: Estimated Glomerular Filtration Rate for Kidney Health [facility] Start: 11-14-2023 Diabetes: Urine Albumin-Creatinine Ratio for Kidney Health Diabetes: Urine Albumin-Creatinine Ratio for Kidney Health [facility] Start: 11-14-2023 Lipid panel Lipid Panel [facility] Start: 11-14-2023 Urine screening for protein Diabetes: Urine Protein Screening [facility] Start: 07-19-2023 Advance Directive Discussion Advance Directive Discussion [facility] Start: 07-19-2023 Medicare Advantage Annual Wellness Visit Medicare Advantage Annual Wellness Visit [facility] Start: 03-24-2023 Patient referral [facility] Work Phone: Start: 03-19-2023 COVID-19 Vaccine ( season) COVID-19 Vaccine ( season) [facility] Start: 03-19-2023 Influenza vaccination C [facility] Start: 03-03-2023 EPVDILATED, Provider : Rafa Dockery, Status: Pen, Time: 9:45 AM EPVDILATED, Provider: Rafa Dockery, Status: Pen, Time: 9:45 AM YP-Lombndefgeiho-Lenx erbrook Work Phone: Start: 08-24-2022 EPVOPTOM, Provider: St blossom Nixon, Status: Pen, Time: 10:00 AM EPVOPTOM, Provider: Andrew Nixon, Status: Pen, Time: 10:00 AM CQ-Anxhpxglxznpd-Jpsp erbrook Work Phone: Start: 07-28-2022 Hemoglobin A1c measurement Diabetes: Hemoglobin A1C [facility] Start: 07-19-2022 ADVANCE DIRECTIVE DISCUSSION ADVANCE DIRECTIVE DISCUSSION [facility] Start: 07-19-2022 DEPRESSION ASSESSMENT DEPRESSION ASS ESSMENT [facility] Start: 09-15-2021 COVID-19 Vaccine (4 - Booster for Pfizer series) COVID-19 Vaccine (4 - Booster for Pfizer series) [facility] Start: 2020 RSV Immunization for Adults (1 - 1-dose 75+ series) RSV Immunization for Adults (1 - 1-dose 75+ series) [facility] Start: 04-03-2020 A1C test (Diabetic o r Prediabetic) A1C test (Diabetic or Prediabetic) [place] Start: 04-03-2020 Creatinine monitoring Creatinine mon itoring [place] Start: 04-03-2020 Potassium monitoring Potassium monit oring [place] Start: 03-19-2019 Influenza vaccination Flu vaccine (# 1) [place] Start: 02-22-2019 Shingrix Vaccine (3 of 3) Shingrix Vaccine (3 of 3) [facility] Start: 02-22-2019 Zoster Vaccines (3 o f 3) Zoster Vaccines (3 of 3) [facility] Start: 06-20-2019 Annual Wellness Visi t (AWV) Annual Wellness Visit (AWV) [place] Start: 03-15-2016 Pneumococcal Vaccine : 65+ (2 of 2 - PPSV23 or PCV20) Pneumococcal Vaccine: 65+ (2 of 2 - PPSV23 or PCV20) [facility] Start: 03-15-2016 Pneumococcal Vaccine : 65+ Years (2 - PPSV23 if available, else PCV20) Pneumococcal Vaccine: 65+ Years (2 - PPSV23 if available, else PCV20) [facility] Start: 03-15-2016 Pneumococcal Vaccine : 65+ Years (2 of 2 - PPSV23 or PCV20) Pneumococcal Vaccine: 65+ Years (2 of 2 - PPSV23 or PCV20) [facility] Start: 05-10-2015 Pneumococcal Vaccine : 65+ Years (2 - PPSV23 if available, else PCV20) Pneumococcal Vaccine: 65+ Years (2 - PPSV23 if available, else PCV20) [facility] Start: 05-10-2015 Pneumococcal Vaccine : 65+ Years (2 of 2 - PPSV23 or PCV20) Pneumococcal Vaccine: 65+ Years (2 of 2 - PPSV23 or PCV20) [facility] Start: 2010 Pneumococcal 65+ yea rs Vaccine (1 of 2 - PCV13) Pneumococcal 65+ years Vaccine (1 of 2 - PCV13) [place] Start: 2010 PNEUMOCOCCAL: 65+ (1 - PCV) PNEUMOCOCCAL: 65+ (1 - PCV) [facility] Start: 2005 RSV Immunization age d 60 or older (1 - 1-dose 60+ series) RSV Immunization aged 60 or older (1 - 1-dose 60+ series) [facility] Start: 2005 RSV Vaccine (1 - 1-dose 60+ series) RSV Vaccine (1 - 1-dose 60+ series) [facility] Start: 10-22-1995 Colon cancer screen colonoscopy Colon cancer screen colonoscopy [place] Start: 10-22-1995 Shingles Vaccine (1 of 2) Shingles Vaccine (1 of 2) [place] Start: 10-22-1995 SHINGRIX VACCINE (1 of 2) SHINGRIX VACCINE (1 of 2) [facility] Start: 1990 DIABETES SCREEN DIABETES SCREEN [facility] Start: 1964 Urine microalbumin profile DTAP,TDAP,TD (1 - Tdap) [facility] Start: 10-22-1963 Anxiety Screening Anxiety Screening [facility] Start: 10-22-1963 Depression Screening Depression Scre ening [facility] Start: 10-22-1963 Hepatitis C screening Hepatitis C Sc reening [facility] Start: 10-22-1963 HEPATITIS C SCREENING HEPATITIS C SC [facility] Start: 1957 Depression Screening Depression Scre ing [facility] Start: 10-22-1955 Diabetic foot examination Diabetes: Foot Exam [facility] Start: 10-22-1955 Preventive dental service Diabetes: Dental Exam [facility] Start: 04-22-1946 COVID-19 VACCINE (#1) COVID-19 VACCI NE (#1) [facility] Start: 1945 AAA screen AAA screen [place], [place] Start: 1945 Hepatitis B Vaccines (1 of 3 - 3-dose series) Hepatitis B Vaccines (1 of 3 - 3-dose series) [facility] Start: 1945 Hepatitis C screen Hepatitis C scree n [place] Start: 1945 Lipid panel Lipid Panel [facility] Start: 1945 Medicare Annual Wellness (AWV) Medicare Annual Wellness (AWV) [facility] Anion gap in Serum o r Plasma [facility] Basic metabolic 2008 panel with ionized calcium - Serum or Plasma [facility] BUN/Creatinine ratio [facility] Calcium [Mass/volume ] in Serum or Plasma [facility] Carbon dioxide, tota l [Moles/volume] in Central venous blood [facility] Creatinine [Mass/volume] in Serum or Plasma [facility] End: 01-27-2023 CT Chest for screening WO contrast [facility] Work Phone: Comment on above: Once for 1 Occurrenc es starting 01/27/2023 until 01/27/2023 Glucose [Mass/volume ] in Serum or Plasma [facility] Measurement of renal function [facility] OUTSIDE PROCEDURE SCAN OUTSIDE P ROCEDURE SCAN Procedures Ordered: 11/13/2022 [facility] Comment on above: Ordered: 11/13/2022 OUTSIDE PROCEDURE SCAN OUTSIDE P ROCEDURE SCAN Procedures Ordered: 01/26/2023 [facility] Comment on above: Ordered: 01/26/2023 Patient referral [facility] Work Phone: Potassium measurement [facility] End: 04-03-2019 PSA, Total and Free PSA, Total and Free Lab Routine Once for 1 Occurrences starting 04/03/2019 until 04/03/2019 [facility], [place] Comment on above: Once for 1 Occurrenc es starting 04/03/2019 until 04/03/2019 PSA, Total and Free PSA, Total a nd Free Lab Routine 04/03/2019 2:38 PM EDT [facility], [place] Radionuclide imaging of perfusion of myocardium under exercise stress [facility] End: 12-03-2023 Screening colonoscopy COLONOSCOPY SCREENING Endoscopy Routine Benign neoplasm of colon, unspecified part of colon 1 Occurrences starting 12/02/2022 until 12/03/2023 [facility] Work Phone: Comment on above: 1 Occurrences starti ng 12/02/2022 until 12/03/2023 Serum chloride measurement [facility] Sodium measurement [facility] Urea nitrogen [Mass/volume] in Serum or Plasma [facility] Carotid arteries [facility] End: 04-28-2024 XR Shoulder - left 2 Views [facility] Comment on above: Once for 1 Occurrenc es starting 04/28/2024 until 04/28/2024 [facility] Immunizations Immunization Date Immunization Notes Care Provider Tyesha ibarra 04-27-2022 influenza, high dose seasonal, preservative-free [facility] 04-27-2022 influenza virus vacc ine, unspecified formulation 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 Phone: [facility] 04-11-2021 Influenza, High-dose Seasonal, Quadrivalent, Preservative Free [facility] 04-18-2020 influenza, seasonal, injectable [facility] 03-16-2020 influenza, injectabl e, quadrivalent, preservative free [facility] 04-10-2019 influenza, high dose seasonal, preservative-free [facility] 12-28-2018 [facility] 05-25-2018 zoster vaccine, live [facility] 03-25-2018 influenza, high dose seasonal, preservative-free [facility] 04-14-2017 tetanus toxoid, redu caty diphtheria toxoid, and acellular pertussis vaccine, adsorbed Regis Bravo [facility] 03-15-2017 influenza, high dose seasonal, preservative-free [facility] 05-15-2016 influenza, high dose seasonal, preservative-free [facility] 04-27-2015 influenza, high dose seasonal, preservative-free [facility] 03-15-2015 pneumococcal conjuga te vaccine, 13 valent [facility] Payers Date Payer Category Payer Self-pay 2022 Medicare HMO [employer]URE [id number] 2022 Medicare [id number] 2020 Unknown 2018 Unknown [employer] M [employer] [address] xxxxxxxxxxxx 2018-Present [phone] [address] [place] [address] xxxxxxxxxxxx [id number] 2017 Medicare MEDICARE MEDICAR E PART A AND B xxxxxxxxxx 2017-Present [phone] [address] [address] [place] [address] xxxxxxxxxx [id number] 2010 Medicare 1945 Unknown [id number] 1945 Unknown [id number] [id number] 1945 Unknown [id number] [id number] 4 1945 Unknown [id number] [id number] 4 Medicare [id number] Unknown [id number] 2.16.840.1.121034.3.579.2.462 Unknown [id number] 2.16.840.1.883461.3.579.2.462 Unknown [id number] 2.16.840.1.533701.3.579.2.462 Unknown [id number] 2.16.840.1.944473.3.579.2.462 Unknown [id number] 2.16.840.1.196703.3.579.2.462 Unknown [id number] 2.16.840.1.742349.3.579.2.462 Unknown [id number] 2.16.840.1.570805.3.579.2.462 Unknown [id number] 2.16.840.1.340019.3.579.2.462 Unknown [id number] 2.16.840.1.972702.3.579.2.462 Unknown [id number] 2.16.840.1.102658.3.579.2.462 Unknown [id number] 2.16.840.1.948275.3.579.2.462 Unknown [id number] 2.16.840.1.901067.3.579.2.462 Unknown [id number] 2.16.840.1.054586.3.579.2.462 Unknown [id number] 2.16.840.1.259231.3.579.2.462 Unknown [id number] 2.16.840.1.606089.3.579.2.462 Unknown [id number] 2.16.840.1.666930.3.579.2.462 Unknown [id number] 2.840.1.666568.3.579.2.462 Unknown [id number] [id number] Social History Date Type Detail Facility Start: 08-17-2018 End: 02-14-2025 Tobacco smoking status NHIS Former smoker [place] Start: 08-17-2018 End: 02-25-2024 Alcohol intake Yes [place] Start: 1945 Sex Assigned At Not on file [place] Start: 06-01-2022 End: 02-25-2024 Former smoker Former smoker [facility] Work Phone: History of tobacco use Current smoker [facility] Start: 06-01-2022 End: 02-25-2024 Alcohol intake Current drinker of alcohol (finding) [facility] Start: 05-22-2022 End: 01-27-2023 Exposure to SARS-CoV-2 (event) Not sure [facility] Start: 03-03-2023 End: 03-24-2023 Tobacco smoking status [facility] Tobacco smoking consumption unknown [facility] Start: 1945 Sex Assigned At Male [facility] Start: 02-25-2023 Tobacco smoking status [facility] Occasional tobacco smoker [facility] History of tobacco use Cigarette Smoker [facility] Start: 02-25-2023 Alcohol Comment 2 or less days per w [place] [facility] Start: 02-16-2022 Sex Male (finding) [facility] yenifer Clinical Notes 12-02-2022 to 02-07-2025 Note Date & Type Note Facility 02-07-2025 Radiology Diagnostic study note [facility] Imaging Services [address] [place], [place] [id number] Chest PA and Lateral MR#: [id number] Acct: [id number] Name: TRES DICKSON Rep #: [id number] : 1945 M [id number] From: Ada David MD PCP: OLIVER Richards Status: PRE [facility] Study:Chest PA and Lateral Date of Exam: 02/07/25 Exam# [id number] Ordering Dr: Andrzej Navarro NP INSOLE REINFORCER-Kajal PROCEDURE: CHEST PA AND LATERAL 02/07/2025 REASON FOR EXAM: PRE-OPERATIVE: [facility] TECHNIQUE: CHEST PA AND LATERAL COMPARISON: 06/06/2024 FINDINGS: Median sternotomy wires. No focal consolidation. No pleural effusion or pneumothorax. Cardiac silhouette is within normal limits. No acute fractures. RAD/Chest PA and Lateral IMPRESSION: No focal consolidations. Reading Location: [id number] CC: OLIVER Kelley; OLIVER Navarro ~ Poll Watcher: Signed [facility] 02-07-2025 Note [facility] Medical Records Department [address] [place] [address] History Physical Exam 02/07/25 0957 MR#: [id number] Acct: [id number] Name: TRES DICKSON Rep #: [id number] : 1945 79 From: Magda Husain MD PCP: OLIVER Richards Status:DEP [facility] Location: [facility] History and Physical Date of Admission: 02/14/25 This gentleman has history of coronary artery disease with an emergent single-vessel CABG with SVG to the [facility] and 2006 at [place] for an acute STEMI. 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 Echocardiogram on 01/24/2025 showed LV function 35- 40%. Stress test on 01/24/2025 was abnormal with old inferolateral infarct with moderate tye-infarct ischemia. On account of stress test results and reduced LV function, he will proceed with heart catheterization. 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 Beta-blockers. Risk factor modification. Based on test results, he will proceed with heart catheterization. Depending on results, further recommendation to be made. (2) History of coronary artery bypass graft x 1: Status: Chronic Plan: See #1 above. (3) Hypertension: Status: Chronic Qualifiers: Hypertension type: primary hypertension Qualified Code(s): I10 - Essential (primary) hypertension Plan: We will continue to optimize medication for blood pressure control. (4) Dyslipidemia: Status: Chronic Plan: Simvastatin. PCP following. (5) Hollenhorst plaque, right eye: Status: Chronic Plan: Patient denies any amaurosis fugax. Continue following with ophthalmology. Carotid duplex ultrasound on 12/28/2024 showed moderate right internal carotid artery stenosis and mild left internal carotid artery stenosis. 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 [facility] 12-28-2024 Progress note Note Date/Time December 28, 2024 8:58pm After Hours Family Medicine [address] [place] [address] OFFICE VISIT Date of Service: 12/28/24 MR#: [id number] Acct: [id number] Name: TRES DICKSON Rep #: [id number] : 1945 Provider: OLIVER Kelley Age/Sex: 79/M Location: [facility] Status: Signed Intake Vital Signs 12/21/24 [...] (Updated 12/28/24 @ 20:56 by Diana Kelley INSOLE REINFORCER, INSOLE REINFORCER-C) Hollenhorst plaque, right eye Screening for lung [...] 12/28/242057 <Electronically signed by Diana Truong on DALIA GÓMEZ-C> Date _ Diana Kelley NP, NP-C CC: ~ [facility] Work Phone: 1(367) 597-865206-12-2025 Progress noteAfter Hours Family Medicine [address], [place] [id number] OFFICE VISIT Date of Service: 12/28/24 MR#: [id number] Acct: [id number] Name: TRES DICKSON Rep #: [id number] : 1945 Provider: OLIVER Kelley Age/Sex: 79/M Location: [facility] Status: Signed Intake Vital Signs 12/21/24 [...] (Updated 12/28/24 @ 20:56 by Diana Kelley INSOLE REINFORCER, INSOLE REINFORCER-C) Hollenhorst plaque, right eye Screening for lung [...] Orientation: Yes alert, awake and oriented x3 [facility] Head: Yes normocephalic Ear: Yes hearing grossly [...] months continue meds as prescribed 12/28/242057 on INSOLE REINFORCER INSOLE REINFORCER-C> Date _ Diana Kelley INSOLE REINFORCER INSOLE REINFORCER-C CC: ~ [facility]06-05-2025 Progress note Author Diana Kelley [facility] Note Date/Time December 21, 2024 3:31p m After Hours Family [facility] [address] [place] [address] OFFICE VISIT Date of Service: 12/21/24 MR#: [id number] Acct: [id number] Name: KARTIKVerónicaTRES Rep #: [id number] : 1945 Provider: OLIVER Kelley Age/Sex: 79/M Location: [facility] Status: Signed Intake Vital Signs 12/14/24 19:59 12/21/24 15:03 Height 5 ft 8.5 in 5 ft 8.5 in Intake Visit Reasons: labs to be drawn BMP Allergies No Known Allergies Allergy (Verified 12/14/24 08:53) PFSH Medical History (Updated 12/21/24 @ 15:31 by Diana Kelley NP, INSOLE REINFORCER-C) Hollenhorst plaque, right eye Screening for lung [...] PDA. Patient Instructions: lab sent 12/21/24 1531 <Electronically signed by Diana Truong on DALIA INSOLE REINFORCER-C> Date _ Diana Kelley NP INSOLE REINFORCER-C CC: ~ [facility] Work Phone: 1(312) 977-268606-05-2025 Progress noteAfter Hours Family Medicine [address] [place] [address] OFFICE VISIT Date of Service: 12/21/24 MR#: [id number] Acct: [id number] Name: TRES DICKSON Rep #: [id number] : 1945 Provider: OLIVER Kelley Age/Sex: 79/M Location: [facility] Status: Signed Intake Vital Signs 12/14/24 19:59 12/21/24 15:03 Height 5 ft 8.5 in 5 ft 8.5 in Intake Visit Reasons: labs to be drawn BMP Allergies No Known Allergies Allergy (Verified 12/14/24 08:53) PFSH Medical History (Updated 12/21/24 @ 15:31 by Diana Kelley NP, OLIVER) Hollenhorst plaque, right eye Screening for lung [...] right PDA. Patient Instructions: lab sent 12/21/24 2091 on DALIA BOYD> Date _ Diana BOYD CC: ~ [facility]05-29-2025 Progress note Author Diana Kelley [facility] Note Date/Time December 14, 2024 8:00p m After Hours Family [facility] [address] [place] [address] OFFICE VISIT Date of Service: 12/14/24 MR#: [id number] Acct: [id number] Name: TRES DICKSON Rep #: : 1945 Provider: OLIVER Kelley Age/Sex: 79/M Location: [facility] Status: Signed Intake Vital Signs 12/14/24 [...] 12/14/241999 <Electronically signed by Diana Truong on INSOLE REINFORCER INSOLE REINFORCER-C> Date _ Diana Kelley NP INSOLE REINFORCER-C CC: ~ [facility] Work Phone: 1(452) 322-860205-29-2025 Progress noteAfter Hours Family Medicine [address], [place] [id number] OFFICE VISIT Date of Service: 12/14/24 MR#: [id number] Acct: [id number] Name: TRES DICKSON Rep #: [id number] : 1945 Provider: OLIVER Kelley Age/Sex: 79/M Location: [facility] Status: Signed Intake Vital Signs 12/14/24 [...] call with the lab results 12/14/241999 on INSOLE REINFORCER INSOLE REINFORCER-C> Date _ Diana Kelley NP, NP-C CC: ~ [facility]04-17-2025 Evaluation note* Diagnosis Onset Date Resolution Status Admit Date Hyperlipidemia acute October 3:51pm Hollenhorst plaque, right eye chroni c November 02, 2024 3:51pm Hypertension chronic November 02, 2024 3:51pm Coronary artery disease chronic M ay 2024 8:44am Dyslipidemia chronic December 14 8:44am 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 December 14, 2024 8:44am History of coronary artery bypass graft x 1 chronic December 14, 2024 8:44am Hollenhorst plaque, right eye chroni c December 14, 2024 8:44am Hypertension chronic December 14 8:44am Hyperlipidemia acute December 14, 2024 3:44pm Obstructive sleep apnea acute M 2024 3:44pm Dyslipidemia chronic December 14 3:44pm 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 December 14, 2024 3:44pm Hollenhorst plaque, right eye chroni c December 14, 2024 3:44pm Hypertension chronic December 14 3:44pm Coronary artery disease chronic J [facility] 2024 2:54pm Dyslipidemia chronic December 21 2:54pm [facility] Work Phone: 1(600) 110-837304-17-2025 Evaluation note* Diagnosis Onset Date Resolution Status Admit Date Hyperlipidemia acute October 3:51pm Hollenhorst plaque, right eye chroni c November 02, 2024 3:51pm Hypertension chronic November 02, 2024 3:51pm Coronary artery disease chronic M 2024 8:44am Dyslipidemia chronic December 14 8:44am 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 December 14, 2024 8:44am History of coronary artery bypass graft x 1 chronic December 14, 2024 8:44am Hollenhorst plaque, right eye chroni c December 14, 2024 8:44am Hypertension chronic December 14 8:44am Hyperlipidemia acute December 14, 2024 3:44pm Obstructive sleep apnea acute M ay 2024 3:44pm Dyslipidemia chronic December 14 3:44pm 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 December 14, 2024 3:44pm Hollenhorst plaque, right eye chroni c December 14, 2024 3:44pm Hypertension chronic December 14 3:44pm Coronary artery disease chronic J une 2024 2:54pm Dyslipidemia chronic December 21 2:54pm Carotid artery stenosis acute J une 2024 3:36pm Hollenhorst plaque, right eye chroni c December 28, 2024 3:36pm Hypertension chronic December 28, 2 025 3:36pm [facility] Work Phone: 1(919) 807-608904-17-2025 Evaluation note* Diagnosis Onset Date Resolution Status Admit Date Hyperlipidemia acute October 3:51pm Hollenhorst plaque, right eye chroni c November 02, 2024 3:51pm Hypertension chronic November 02, 2024 3:51pm Coronary artery disease chronic [facility] 2024 8:44am Dyslipidemia chronic December 14 8:44am 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 December 14, 2024 8:44am History of coronary artery bypass graft x 1 chronic December 14, 2024 8:44am Hollenhorst plaque, right eye chroni c December 14, 2024 8:44am Hypertension chronic December 14 8:44am Hyperlipidemia acute December 14, 2024 3:44pm Obstructive sleep apnea acute [facility] 2024 3:44pm Dyslipidemia chronic December 14 3:44pm 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 December 14, 2024 3:44pm Hollenhorst plaque, right eye chroni c December 14, 2024 3:44pm Hypertension chronic December 14 3:44pm Coronary artery disease chronic J une 2024 2:54pm Dyslipidemia chronic December 21 2:54pm Carotid artery stenosis acute J une 2024 3:36pm Hollenhorst plaque, right eye chroni c December 28, 2024 3:36pm Hypertension chronic December 28, 2 025 3:36pm Obstructive sleep apnea acute J [facility] 2024 4:20pm Coronary artery disease chronic J [facility] 2024 4:20pm History of coronary artery bypass graft x 1 chronic February 07, 2025 4:20pm Hollenhorst plaque, right eye chroni c February 07, 2025 4:20pm [facility] Work Phone: 1(808) 301-843504-17-2025 Evaluation note* Diagnosis Onset Date Resolution Status Admit Date Hyperlipidemia acute October 3:51pm Hollenhorst plaque, right eye chroni c November 02, 2024 3:51pm Hypertension chronic November 02, 2024 3:51pm Coronary artery disease chronic [facility] 2024 8:44am Dyslipidemia chronic December 14 8:44am 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 December 14, 2024 8:44am History of coronary artery bypass graft x 1 chronic December 14, 2024 8:44am Hollenhorst plaque, right eye chroni c December 14, 2024 8:44am Hypertension chronic December 14 8:44am Hyperlipidemia acute December 14, 2024 3:44pm Obstructive sleep apnea acute M ay 2024 3:44pm Dyslipidemia chronic December 14 3:44pm 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 December 14, 2024 3:44pm Hollenhorst plaque, right eye chroni c December 14, 2024 3:44pm Hypertension chronic December 14 3:44pm Coronary artery disease chronic J [facility] 2024 2:54pm Dyslipidemia chronic December 21 2:54pm Carotid artery stenosis acute J [facility] 2024 3:36pm Hollenhorst plaque, right eye chroni c December 28, 2024 3:36pm Hypertension chronic December 28, 2 025 3:36pm Obstructive sleep apnea acute J [facility] 2024 4:20pm Coronary artery disease chronic J [facility] 2024 4:20pm History of coronary artery bypass graft x 1 chronic February 07, 2025 4:20pm Hollenhorst plaque, right eye chroni c February 07, 2025 4:20pm Obstructive sleep apnea acute A ugust 2024 9:16am [facility] Work Phone: 1(381) 883-643102-05-2025 Evaluation note* Diagnosis Onset Date Resolution Status Admit Date Obstructive sleep apnea acute F ebruary 2024 9:13am Hollenhorst plaque, right eye acute November 02, 2024 3:51pm Hyperlipidemia acute October 3:51pm Hypertension chronic November 02, 2024 3:51pm [facility] Work Phone: 1(116) 502-816802-05-2025 Evaluation note* Diagnosis Onset Date Resolution Status Admit Date Obstructive sleep apnea acute F ebruary 2024 9:13am Hyperlipidemia acute October 3:51pm Hollenhorst plaque, right eye chroni c November 02, 2024 3:51pm Hypertension chronic November 02, 2024 3:51pm Coronary artery disease chronic M ay 2024 8:44am Dyslipidemia chronic December 14 8:44am 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 December 14, 2024 8:44am History of coronary artery bypass graft x 1 chronic December 14, 2024 8:44am Hollenhorst plaque, right eye chroni c December 14, 2024 8:44am Hypertension chronic December 14 8:44am Hyperlipidemia acute December 14, 2024 3:44pm Obstructive sleep apnea acute M 2024 3:44pm Dyslipidemia chronic December 14 3:44pm 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 [facility] AT [address] [place] [address] Dept: [phone] Dept PHYSICAL THERAPY RE-EVALUATION Patient Name: Tres [...] Clement PT documented in this [facility]10-30-2024 History of Present illness Narrative* Tay Nowak, TRADE SPECIALIST - 05/17/2024 9:00 AM EDT Images from the original note were not included. [facility] [place] [facility] AT [address] [place] [address] Dept: [phone] Dept PHYSICAL THERAPY TREATMENT Patient Name: Tres [...] AM EDT documented in this [facility]10-23-2024 History of Present illness Narrative* Tay Nowak PTA - 05/10/2024 9:00 AM EDT Images from the original note were not included. [facility] [place] [facility] AT [place] [address] [place] [address] Dept: [phone] Dept PHYSICAL THERAPY TREATMENT Patient Name: Tres [...] seat 8, lvl 3 Activity 8 Comment: / Home Exercise Program: Progressed home exercise program [...] PM EDT documented in this [facility]10-16-2024 History of Present illness Narrative* Reji Clement PT - 05/03/2024 9:00 AM EDT Images from the original note were not included. [facility] [place] [facility] AT [place] [address] [place] [address] Dept: [phone] Dept PHYSICAL THERAPY EVALUATION Patient Name: Tres [...] artery disease), Hyperlipidemia, Hypertension, Melanoma (HCC), and [place] (myocardial infarction) (HCC). PSHX: Tres has a [...] Clement PT documented in this [facility]10-11-2024 History of Present illness Narrative* Yessy Villarreal MD - 04/28/2024 10:00 AM EDT Images from the original note were not included. [facility] [address] [place] [address] [place] [address] Dept: [phone] Dept Chief Complaint Patient presents with Follow-up [...] unable Hawkin's test unable Impingement test unable Blanchester's test unable Sulcus test negative Scarf test [...] prior to signing but minor errors in sap consultant may have occurred. documented in this [facility]10-11-2024 Miscellaneous Notes* Addendum Note - Yessy Villarreal MD - 04/28/2024 10:00 AM EDTAddended by: YESSY VILLARREAL on: 04/28/2024 12:28 PM Modules accepted: Level of Service documented in this [facility]10-11-2024 Note* Addendum Note - Yessy Villarreal MD - 04/28/2024 10:00 AM EDTAddended by: YESSY VILLARREAL on: 04/28/2024 12:28 PM Modules accepted: Level of Service [id number] Note* Addendum Note - Yessy Villarreal MD - 04/28/2024 10:00 AM EDTAddended by: YESSY VILLARREAL on: 04/28/2024 12:28 PM Modules accepted: Level of Service [facility] [id number] NoteAddended by: YESSY VILLARREAL on: 04/28/2024 12:28 PM Modules accepted: [facility] Telephone encounter Note* Telephone Encounter - Toyin Umanzor - 03/16/2024 1:14 PM EDT This patient has had a prior lung screening CT scan at [facility]. According to our records, he/she is now due for an annual lung screening CT scan. Please evaluate and order this annual screening if your patient still meets lung screening criteria. [facility] [id number] Miscellaneous Notes* Telephone Encounter - Toyin Umanzor - 03/16/2024 1:14 PM EDT This patient has had a prior lung screening CT scan at [facility]. According to our records, he/she is now due for an annual lung screening CT scan. Please evaluate and order this annual screening if your patient still meets lung screening criteria. documented in this [facility]08-09-2024 History of Present illness Narrative* Yessy Villarreal MD - 02/25/2024 3:15 PM EDT Images from the original note were not included. [facility] [address] [place] [address] Dept: [phone] Dept Chief Complaint Patient presents with Knee [...] prior to signing but minor errors in sap consultant may have occurred. documented in this [facility]08-09-2024 Instructions* Patient Instructions* Yessy Villarreal MD - [...] adjusts to the medicine. Also, your health child care attendant school may be able to tell you about ways to prevent or reduce some of these side effects. Check with your health child care attendant school if any of the following side effects [...] advice about side effects. documented in this encounterSKindred [id number] Telephone encounter Note* Telephone Encounter - Elmira Landrum MA - 02/16/2024 10:20 AM EDT Confirmed that gel injections are at [facility], and called patient to update him, someone had already made his follow up appointment [facility] [id number] Miscellaneous Notes* Telephone Encounter - Elmira Landrum MA - 02/16/2024 10:20 AM EDT Confirmed that gel injections are at [facility], and called patient to update him, someone had already made his follow up appointment * Telephone Encounter - Elmira Landrum MA - 02/16/2024 10:15 AM EDT Images from the original note were not included. * Telephone Encounter - Elmira Landrum MA - 02/09/2024 8:34 AM EDT Called [facility] spoke with Abimbola and set up delivery of Synvisc one for 02/14 to the [place] office. Will call patient and update him. [...] MA - 02/02/2024 10:59 AM EDT Called [facility] to check status of patient's gel injection order. Spoke with Lupe she states that they reached out to patient to obtain consent to ship and patient told them that He wasn't interested so they placed his order on hold. I reached out to patient and LVM that he needs to call [facility] if he wants to go ahead with his gel injection. Their # is [phone]. Please relay this m essage to patient [...] - 12/27/2023 9:40 AM EDT Lupe with [facility] called asking for ICD 10 code for Synvisc One. She states when calling back you can speak to anyone in the pharmacy. Please advise. * Telephone Encounter - Elmira Landrum MA - 12/20/2023 3:47 PM EDT No PA needed from [facility] for Synvisc one injection. Med is pended, please sign. Thank you! documented in this encounterSKindred [id number] Telephone encounter Note* Telephone Encounter - Elmira Landrum MA - 02/16/2024 10:15 AM EDT Images from the original note were not included. [facility] [id number] Telephone encounter Note* Telephone Encounter - Julia [...] be coming in. Please call to advise. [facility] [id number] Miscellaneous Notes* Telephone Encounter - Julia Cartagena [...] EDT Patient called in stating he s/w [facility] and they told him [...] - 12/28/2023 10:25 AM EDT Lupe from [facility] is calling to request the ICD 10 code for the patient for the Synvisc 1. can speak to anyone in the pharmacy in regards to this. * Telephone Encounter - Jennifer Fabian - 12/20/2023 3:59 PM EDT Left Knee New Therapy Provider prefers Single Injection (example: Durolane/Gel One). However whatever is a preferred drugon patient's plan is acceptable. Delivery location is [address] [place] [address]. documented in this encounterSKindred [id number] Telephone encounter Note* Telephone Encounter - Elmira Landrum MA - 02/09/2024 8:34 AM EDT Called [facility] spoke with Abimbola and set up delivery of Synvisc one for 02/14 to the [place] office. Will call patient and update him. [facility] [id number] Miscellaneous Notes* Telephone Encounter - Elmira Landrum MA - 02/09/2024 8:34 AM EDT Called [facility] spoke with Abimbola and set up delivery of Synvisc one for 02/14 to the [place] office. Will call patient and update him. [...] MA - 02/02/2024 10:59 AM EDT Called [facility] to check status of patient's gel injection order. Spoke with Lupe she states that they reached out to patient to obtain consent to ship and patient told them that He wasn't interested so they placed his order on hold. I reached out to patient and LVM that he needs to call [facility] if he wants to go ahead with his gel injection. Their # is [phone]. Please relay this m essage to patient if he calls the office. Thank you!! * Telephone Encounter - Elmira Landrum MA - 12/28/2023 11:05 AM EDT Called [facility] and gave ICD 10 code, they state the gel is still processing and will reach out to patient when ready for consent to ship to office * Telephone Encounter - Sharon Hopper - 12/27/2023 9:40 AM EDT Lupe with [facility] called asking for ICD 10 code for Synvisc One. She states when calling back you can speak to anyone in the pharmacy. Please advise. * Telephone Encounter - Elmira Landrum MA - 12/20/2023 3:47 PM EDT No PA needed from [facility] for Synvisc one injection. Med is pended, please sign. Thank you! documented in this encounterSKindred [id number] Telephone encounter Note* Telephone Encounter - Elmira Landrum MA - 02/09/2024 8:28 AM EDT Images from the original note were not included. [facility] [id number] Telephone encounter Note* Telephone Encounter - Denise Tang RN - 02/08/2024 7:19 PM EDT S: [facility]Special[facility] [place] [address] LiveRSVP with [facility] nurse regarding medication delivery to office B: Synvisc one A: states they need to schedule delivery of above medication R: Please return call to [phone] to discuss Reason for Disposition [1] Caller requesting NON-URGENT health information AND [2] PCP's office is the best resource Protocols used: Information Only Call - No [id number] [facility] [id number] Miscellaneous Notes* Telephone Encounter - Denise Tang RN - 02/08/2024 7:19 PM EDT S: [facility]Specialty) [place] [address] [employer] [employer] with [facility] nurse regarding medication delivery to office B: Synvisc one A: states they need to schedule delivery of above medication R: Please return call to [phone] to discuss Reason for Disposition [1] Caller requesting NON-URGENT health information AND [2] PCP's office is the best resource Protocols used: Information Only Call - No [id number] * Telephone Encounter - Caitlyn Carrera RN - 02/08/2024 7:17 PM EDT S: Nurse called [facility] at # and spoke with Robin. B: Patient's hylan (Synvisc One) is ready to schedule to be sent to the patient. A: Patient's consent is on file. R: Message sent to Dr. Villarreal's office for follow-up. documented in this encounterSKindred [id number] Telephone encounter Note* Telephone Encounter - Caitlyn Carrera RN - 02/08/2024 7:17 PM EDT S: Nurse called [facility] at # and spoke with Robin. B: Patient's hylan (Synvisc One) is ready to schedule to be sent to the patient. A: Patient's consent is on file. R: Message sent to Dr. Villarreal's office for follow-up. [facility] [facility] [id number] Telephone encounter Note* Telephone Encounter - Hoda Naranjo Negrita - 02/02/2024 11:51 AM EDT Patient called in stating he s/w [facility] and they told him [...] for shipment in the next few days. [facility] [id number] Miscellaneous Notes* Telephone Encounter - Hoda Rees - 02/02/2024 11:51 AM EDT Patient called in stating he s/w [facility] and they told him [...] - 12/28/2023 10:25 AM EDT Lupe from [facility] is calling to request the ICD 10 code for the patient for the Synvisc 1. can speak to anyone in the pharmacy in regards to this. * Telephone Encounter - Jennifer Fabian - 12/20/2023 3:59 PM EDT Left Knee New Therapy Provider prefers Single Injection (example: Durolane/Gel One). However whatever is a preferred drugon patient's plan is acceptable. Delivery location is [address] [place] [address]. documented in this encounterSKindred [id number] Telephone encounter Note* Telephone Encounter - Owen Phelps - 02/02/2024 11:38 AM EDT Pt returning our call, I relayed the information. He verbalizes understanding and will call the pharmacy to ok delivery. FYRitchie [facility] [id number] Miscellaneous Notes* Telephone Encounter - Owen Phelps - 02/02/2024 11:38 AM EDT Pt returning our call, I relayed the information. He verbalizes understanding and will call the pharmacy to ok delivery. FYRitchie * Telephone Encounter - Elmria Landrum MA - 02/02/2024 10:59 AM EDT Called [facility] to check status of patient's gel injection order. Spoke with Lupe she states that they reached out to patient to obtain consent to ship and patient told them that He wasn't interested so they placed his order on hold. I reached out to patient and LVM that he needs to call [facility] if he wants to go ahead with his gel injection. Their # is [phone]. Please relay this m essage to patient [...] - 12/27/2023 9:40 AM EDT Lupe with [facility] called asking for ICD 10 code for Synvisc One. She states when calling back you can speak to anyone in the pharmacy. Please advise. * Telephone Encounter - Elmira Landrum MA - 12/20/2023 3:47 PM EDT No PA needed from [facility] for Synvisc one injection. Med is pended, please sign. Thank you! documented in this encounterSKindred [id number] Telephone encounter Note* Telephone Encounter - Elmira Landrum MA - 02/02/2024 10:59 AM EDT Called [facility] to check status of patient's gel injection order. Spoke with Lupe she states that they reached out to patient to obtain consent to ship and patient told them that He wasn't interested so they placed his order on hold. I reached out to patient and LVM that he needs to call [facility] if he wants to go ahead with his gel injection. Their # is [phone]. Please relay this m essage to patient if he calls the office. Thank you!! [facility] [id number] Telephone encounter Note* Telephone Encounter - Elmira Landrum MA - 12/28/2023 11:05 AM EDT Called [facility] and gave ICD 10 code, they state the gel is still processing and will reach out to patient when ready for consent to ship to office [facility] [id number] Miscellaneous Notes* Telephone Encounter - Elmira Landrum MA - 12/28/2023 11:05 AM EDT Called [facility] and gave ICD 10 code, they state the gel is still processing and will reach out to patient when ready for consent to ship to office * Telephone Encounter - Sharon Hopper - 12/27/2023 9:40 AM EDT Lupe with [facility] called asking for ICD 10 code for Synvisc One. She states when calling back you can speak to anyone in the pharmacy. Please advise. * Telephone Encounter - Elmira Landrum MA - 12/20/2023 3:47 PM EDT No PA needed from [facility] ins for Synvisc one injection. Med is pended, please sign. Thank you! documented in this encounterSKindred [id number] Telephone encounter Note* Telephone Encounter - Ewa Godoy - 12/28/2023 10:25 AM EDT Lupe from [facility] is calling to request the ICD 10 code for the patient for the Synvisc 1. can speak to anyone in the pharmacy in regards to this. [facility] [id number] Miscellaneous Notes* Telephone Encounter - Ewa Godoy - 12/28/2023 10:25 AM EDT Lupe from [facility] is calling to request the ICD 10 code for the patient for the Synvisc 1. can speak to anyone in the pharmacy in regards to this. * Telephone Encounter - Jennifer Fabian - 12/20/2023 3:59 PM EDT Left Knee New Therapy Provider prefers Single Injection (example: Durolane/Gel One). However whatever is a preferred drugon patient's plan is acceptable. Delivery location is [address] [place] [address]. documented in this [facility]06-10-2024 Telephone encounter Note* Telephone Encounter - Sharon Hopper - 12/27/2023 9:40 AM EDT Lupe with [facility] called asking for ICD 10 code for Synvisc One. She states when calling back you can speak to anyone in the pharmacy. Please advise. [facility] [id number] Miscellaneous Notes* Telephone Encounter - Sharon Hopper - 12/27/2023 9:40 AM EDT Lupe with [facility] called asking for ICD 10 code for Synvisc One. She states when calling back you can speak to anyone in the pharmacy. Please advise. * Telephone Encounter - Elmira Landrum MA - 12/20/2023 3:47 PM EDT No PA needed from [facility] ins for Synvisc one injection. Med is pended, please sign. Thank you! documented in this [facility]06-03-2024 Telephone encounter Note* Telephone Encounter - Jennifer Fabian - 12/20/2023 3:59 PM EDT Left Knee New Therapy Provider prefers Single Injection (example: Durolane/Gel One). However whatever is a preferred drugon patient's plan is acceptable. Delivery location is [address] [place] [address]. [facility] [id number] Telephone encounter Note* Telephone Encounter - Elmira Landrum MA - 12/20/2023 3:47 PM EDT No PA needed from [facility] ins for Synvisc one injection. Med is pended, please sign. Thank you! [facility] [id number] Miscellaneous Notes* Telephone Encounter - Elmira Landrum MA - 12/20/2023 3:47 PM EDT No PA needed from [facility] for Synvisc one injection. Med is pended, please sign. Thank you! documented in this encounterSKindred [id number] History of Present illness Narrative* Yessy Villarreal MD - 12/20/2023 3:15 PM EDT Images from the original note were not included. [facility] [address] [place] [address] Dept: [phone] Dept Chief Complaint Patient presents with New [...] arthritis, we discussed a trial of glucosamine, uaxa-htr-ckvugsf. We talked about using a good quality [...] prior to signing but minor errors in sap consultant may have occurred. documented in this encounterSKindred [id number] NoteHNO ID: [id number] Author: Karrie Jasso RN Service: ? Author Type: Registered Nurse Type: Nursing Progress Note Filed: 02/25/2023 11:07 AM Note Text: Physician at bedside.[facility]08-10-2023 NoteHNO ID: [id number] Author: Karrie Jasso RN Service: ? Author Type: Registered Nurse Type: Nursing Progress Note Filed: 02/25/2023 10:53 AM Note Text: Pt. States readiness for discharge. Assisted with dressing.[facility]08-10-2023 Nurse Note* Karrie Jasso RN - 02/25/2023 11:07 AM EDT Physician at bedside. [facility]08-10-2023 Nurse Note* Karrie Jasso RN - 02/25/2023 11:07 AM EDT Physician at bedside. * Karrie Jasso RN - 02/25/2023 10:53 AM EDT Pt. States readiness for discharge. Assisted with dressing. documented in this encounterThe [facility] Nurse Note* Karrie Jasso RN - 02/25/2023 10:53 AM EDT Pt. States readiness for discharge. Assisted with dressing. [facility]08-10-2023 Nurse procedure note* Sedation Documentation - Adore Arredondo RN - 02/25/2023 10:16 AM EDT Abdominal support applied. [facility]08-10-2023 Miscellaneous Notes* Sedation Documentation - Adore Arreodndo RN - 02/25/2023 10:16 AM EDT Abdominal support applied. documented in this encounterThe [facility] History and physical note * Joaquin Benito [...] Deep Additional Comments: None Joaquin Benito MD [facility] Work Phone: [phone]) 435-879408-10-2023 History and physical note* Joaquin Benito MD [...] None Joaquin Benito MD documented in this encounterThe [facility]-2023 Instructions* Patient Instructions* Elmira Frida - 12/02/2022 11:38 AM EDT Images from [...] If you do not have a responsible driver medic (family member or friend) withyou to take you home, your exam cannot be done with sedation and will be cancelled. Please bring a list of all of your current medications, including any Plwg-jwe-Dtdqiwe medications with you. Medications If you take [...] your exam. 2 06/2019 documented in this encounterThe [facility]23 Miscellaneous Notes* Telephone Encounter - Elmira Galicia [...] on exertion? No If yes, give to DRIVER SUPERVISOR to evaluate. History of COPD/Emphysema/Asthma/or Sleep Apnea? No If uses an inhaler, have pt bring inhaler with them. On oxygen at home? No If yes, give to DRIVER SUPERVISOR to evaluate. Implanted defibrillator (ACD)? No If [...] on dialysis? No If cirrhosis pt., have DRIVER SUPERVISOR review chart Do you have a history [...] of breath, on oxygen, using inhalers, seeing theoretical physicist? No If yes, have DRIVER SUPERVISOR evaluate patient Personal History Colon polyps? Yes Colon cancer? No Crohn's Disease? No Ulcerative Colitis? No Who/where? Approx date 2011 Family History Colon polyps? No Colon cancer? No Crohn's Disease? No Ulcerative Colitis? No Relationship? Approx age dx. Referring Physician: Office Visit Scheduled: Procedure Date Scheduled: [facility] Diagnosis Benign neoplasm of colon, unspecified part of colon- Primary documented in this encounter [facility] note* Diagnosis Personal history of nicotine dependence documented in this encounter [facility] note* Diagnosis Hypertensive chronic kidney disease with stage 1 through stage 4 chronic kidney disease, or unspecified chronic kidney disease- Primary Type 2 diabetes mellitus with diabetic chronic kidney disease (HCC) Mixed hyperlipidemia Benign prostatic hyperplasia without lower urinary tract symptoms documented in this encounter [facility] AndersonTesoro Enterprisesw[facility]* Diagnosis Personal history of nicotine dependence- Primary Personal history of nicotine dependence documented in this encounter [facility]del[facility] note* Diagnosis Onset Date Resolution Status Edema, lower extremity acute Varicosities of leg acute Hypertension [facility] Work Phone: Evaluation note* Diagnosis Onset Date Resolution Status Varicosities of leg acute Hyperlipidemia acute Hypertension [facility] Work Phone: Evaluation note* Diagnosis Primary osteoarthritis of left knee- Primary documented in this encounter [facility] note* Diagnosis Primary osteoarthritis of left knee- Primary documented in this encounter [facility] note* Diagnosis Benign neoplasm of colon, unspecified part of colon documented in this encounter [facility] note* Diagnosis Primary osteoarthritis of left shoulder- Primary documented in this encounter [facility] note* Diagnosis Primary osteoarthritis of left shoulder documented in this encounter [facility] note* Diagnosis Primary osteoarthritis of left shoulder- Primary documented in this encounter [facility] note* Diagnosis Primary osteoarthritis of left shoulder- Primary documented in this encounter [facility] note* Diagnosis Pain in left knee- Primary documented in this encounter [facility] note* Diagnosis Primary osteoarthritis of left shoulder documented in this encounter [facility] for referral (narrative)* Outpatient Procedure (Routine) - Authorized Specialty Diagnoses / Procedures Referred By Contac t Referred To Contact [facility] Diagnoses Benign neoplasm of colon, unspecified part of colon Procedures COLONOSCOPY SCREENING COLONOSCOPY FLX DX W/COLLJ SPEC WHEN Joaquin Gordon MD [address] [place] [address] [facility] [address] [place] [address] Referral ID Status Reason Start Date Expiration Date Visits Requested Visits Authorized [id number] Authorized Auto-Generat ed Referral 12/02/2022 12/03/2023 1 1 [facility] for referral (narrative)* Outpatient Procedure (Routine) - Closed Specialty Diagnoses / Procedures Referred By Contac t Referred To Contact [facility] Diagnoses Benign neoplasm of colon, unspecified part of colon Procedures COLONOSCOPY SCREENING COLONOSCOPY FLX DX W/COLLJ SPEC WHEN Joaquin Gordon MD [address] [place] [address] [place] [id number] Referral ID Status Reason Start Date Expiration Date V isits Requested Visits Authorized [id number] Closed Auto-Generate d Referral 12/02/2022 12/03/2023 1 1 [facility] for visit Narrative* Outpatient Procedure (Routine) - Closed Specialty Diagnoses / Procedures Referred By Contrahel t Referred To Contact [facility] Diagnoses Benign neoplasm of colon, unspecified part of colon Procedures COLONOSCOPY SCREENING COLONOSCOPY FLX DX W/COLLJ SPEC WHEN PFRMD Thong, Joaquin Cotto MD [address] [facility] [place] [address] [facility] [place] [address] [place] [address] Referral ID Status Reason Start Date Expiration Date V isits Requested Visits Authorized [id number] Closed Auto-Generate d Referral 12/02/2022 12/03/2023 1 1 [facility] for visit Narrative* Therapy (Routine) - Authorized Specialty Diagnoses / Procedures Referred By Kelvin gauthier Referred To Contact Physical Therapy Diagnoses Primary osteoarthritis of left shoulder Procedures DC OFFICE/OUTPATIENT [facility] 60 MINUTES Yessy Villarreal MD [address] [place] [address] Phone: tel: fax: [facility] at [address] [place] [address] Phone: tel: fax: Referral ID Status Reason Start Date Expiration Date Visits Requested Visits Authorized [id number] Authorized Specialty Services Required 04/28/2025 99 99 [facility] Advance Directives No Advanced Directives Records FoundDocuments on File 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 Yes February 14, 2025 9:51am Name of Medical Power of Joint Special Operations Diane Dickson February 14, 2025 9:51am Advance Directives Yes February 14 9:51am Family History No Family History Records FoundUnknown Family Member Name Dates Details No pertinent family history: Mother, Father(V49.89, Z78.9) Status:Active Summary Purpose Reason for Referral Specialty Diagnoses / Procedures Referred By Kelvin gauthier Referred To Contact Radiology Diagnoses Personal history of nicotine dependence Procedures CT lung screening low dose Belmichelle, Janiawilberto Gonzalez, SEAMER OPERATOR - EPIC PROFESSIONAL [address] [place] [address] Referral ID Status Reason Start Date Expiration Date Visits Re quested Visits Authorized [id number] Closed 12/07/2022 06/05/2023 1 1 Specialty Diagnoses / Procedures Referred By Kelvin gauthier Referred To Contact Diagnoses Primary osteoarthritis of left knee Yessy Villarreal MD [address] [place] [id number] Referral ID Status Reason Start Date Expiration Date V isits Requested Visits Authorized [id number] Pending Review 02/25/2024 02/19/2025 1 1 Specialty Diagnoses / Procedures Referred By Kelvin gauthier Referred To Contact Physical Therapy Diagnoses Primary osteoarthritis of left shoulder Procedures DC OFFICE/OUTPATIENT NEW [facility] 60 MINUTES Yessy Villarreal MD [address] [place] [id number] [place] [address] Referral ID Status Reason Start Date Expiration Date Visits Requested Visits Authorized [id number] Authorized Specialty Services Required 04/28/2025 99 99 [...] 3:5 1pm RETINAL ARTERY OCCLUSION (KELLEY) Beti y 2024 8:44am Reason for Visit Admit [...] 2024 3:44p m labs to be drawn [facility] December 21, 2024 2:54 pm Reason for [...] 2024 3:44p m labs to be drawn [facility] December 21, 2024 2:54 pm [place], [...] 3:36pm Hypertension December 28, 2024 3:36 pm Chief Complaint Admit Date RIGHT EYE November 02, 2024 3:5 1pm RETINAL ARTERY OCCLUSION (KELLEY) Ma y 2024 8:44am labs to be drawn December 14, 2024 3:44p m labs to be drawn [facility] December 21, 2024 2:54 pm [place], RIGHT EYE December 28, 2024 8:50am Hypertension December 28, 2024 3:36 pm CAD January 24, 2025 6:55a m Coronary artery disease January 24, 2025 9 :50am Amb Documentation January 25, 2025 3:00 pm Chief Complaint Admit Date RIGHT EYE November 02, 2024 3:5 1pm RETINAL ARTERY OCCLUSION (KELLEY) Ma y 2024 8:44am labs to be drawn December 14, 2024 3:44p m labs to be drawn [facility] December 21, 2024 2:54 pm [place], RIGHT EYE December 28, 2024 8:50am Hypertension December 28, 2024 3:36 pm CAD January 24, 2025 6:55a m Coronary artery disease January 24, 2025 9 :50am Amb Documentation January 25, 2025 3:00 pm Sinus infection & other issues January 4:20pm Chief Complaint Admit Date RIGHT EYE November 02, 2024 3:5 1pm RETINAL ARTERY OCCLUSION (KELLEY) Ma y 2024 8:44am labs to be drawn December 14, 2024 3:44p m labs to be drawn [facility] December 21, 2024 2:54 pm [place]ST [place]QUE, RIGHT EYE December 28, 2024 8:50am Hypertension December 28, 2024 3:36 pm CAD January 24, 2025 6:55a m Coronary artery disease January 24, 2025 9 :50am Amb Documentation January 25, 2025 3:00 pm Sinus infection & other issues January 4:20pm Abnormal ECG, CABG February 14, 2025 9:24 am Reason for Visit Admit Date Hyperlipidemia November [...] 3:36pm Hypertension December 28, 2024 3:36 pm Obstructive sleep apnea February 07, 2025 4:20pm Coronary artery disease February 07, 2025 4:20pm History of coronary artery bypass graft x 1 February 07, 2025 4:20pm [place]st plaque, right eye February 07, 2025 4:20pm Chief Complaint Admit Date RIGHT EYE November 02, 2024 3:5 1pm RETINAL ARTERY OCCLUSION (KELLEY) Ma y 2024 8:44am labs to be drawn December 14, 2024 3:44p m labs to be drawn [facility] December 21, 2024 2:54 pm [place]ST [place]QUE, RIGHT EYE December 28, 2024 8:50am Hypertension December 28, 2024 3:36 pm CAD January 24, 2025 6:55a m Coronary artery disease January 24, 2025 9 :50am Amb Documentation January 25, 2025 3:00 pm Abnormal ECG, CABG February 07, 2025 9:57 am Sinus infection & other issues January 4:20pm Abnormal ECG, CABG February 14, 2025 9:24 am 8-12 WK F/U February 21, 2025 9:1 6am Reason for Visit Admit Date Hyperlipidemia November [...] 3:36pm Hypertension December 28, 2024 3:36 pm Obstructive sleep apnea February 07, 2025 4:20pm Coronary artery disease February 07, 2025 4:20pm History of coronary artery bypass graft x 1 February 07, 2025 4:20pm [place]horst plaque, right eye February 07, 2025 4:20pm Obstructive sleep apnea February 21, 2025 9:16am Additional Source Comments (unrecognized sect ion and content) No Status Records FoundNo Status Records FoundNo Status Records FoundNo Status Records FoundNo Status Records FoundNo Status Records FoundNo Status Records Found INFORMATION SOURCE (unrecogn ized section and content) DATE CREATED AUTHOR 05/12/2022 [facility] DATE CREATED AUTHOR AUTHOR'S ORGANIZ ATION 02/26/2023 [facility] DATE CREATED AUTHOR AUTHOR'S ORGANIZ ATION 03/04/2023 [facility] DATE CREATED AUTHOR AUTHOR'S ORGANIZ ATION 03/04/2023 [facility] DATE CREATED AUTHOR AUTHOR'S ORGANIZ ATION 06/06/2024 [facility] DATE CREATED AUTHOR AUTHOR'S ORGANIZ ATION 12/29/2024 [facility] DATE CREATED AUTHOR AUTHOR'S ORGANIZ ATION 03/10/2025 [facility] Care Teams (unrecognized sec tion and content) Team Status: Active Member Role Status Dates Diana Kelley INSOLE REINFORCER, INSOLE REINFORCER-C Primary Care Provider Active Team Status: Inactive Member Role Status Dates Diana Kelley INSOLE REINFORCER, INSOLE REINFORCER-C Primary Care Provider Active Start: August 23, 2024 End: August 23, 2024 Diana Kelley NP, INSOLE REINFORCER-C Referring Provider Active Start: August 23, 2024 End: August 23, 2024 Roshni Baker INSOLE REINFORCER-C Attending Provider Active Start: August 23, 2024 End: August 23, 2024 Team Status: Inactive Member Role Status Dates Diana Kelley INSOLE REINFORCER, INSOLE REINFORCER-C Primary Care Provider Active Start: November 02, 2024 End: November 02, 2024 Diana Kelley INSOLE REINFORCER, INSOLE REINFORCER-C Attending Provider Active Start: November 02, 2024 End: November 02, 2024 Diana Kelley INSOLE REINFORCER, INSOLE REINFORCER-C Referring Provider Active Start: November 02, 2024 End: November 02, 2024 Team Status: Inactive Member Role Status Dates iDana Kelley INSOLE REINFORCER, INSOLE REINFORCER-C Primary Care Provider Active Start: December 14, 2024 End: December 14, 2024 Diana Kelley INSOLE REINFORCER, INSOLE REINFORCER-C Referring Provider Active Start: December 14, 2024 End: December 14, 2024 Dr. Magda Husain MD Attending Provider Active Start: December 14, 2024 End: December 14, 2024 Material Preparation Worker Relationship Specialty Start Date End Date Regis Bravo MD [address] [place] [phone] PCP - General 12/17/18 Material Preparation Worker Relationship Specialty Start Date End Date Regis Bravo MD [address] [place], [place] [id number] PCP - General Family Medicine 12/02/22 Material Preparation Worker Relationship Specialty Start Date End Date Regis Bravo MD [address] [place], [id number] PCP - General 12/17/18 Material Preparation Worker Relationship Specialty Start Date End Date Regis Bravo MD [address] [place] [address] PCP - General 12/17/18 Material Preparation Worker Relationship Specialty Start Date End Date Regis Bravo MD [address] [place], [place] [id number] PCP - General Family Medicine 12/02/22 Material Preparation Worker Relationship Specialty Start Date End Date Regis Bravo MD [address] [place], [phone] PCP - General 12/17/18 Team Status: Active Member Role Status Dates Diana Kelley NP, INSOLE REINFORCER-C Primary Care Provider Active Dr. Carson Hanna MD Attending Provider Active Team Status: Inactive Member Role Status Dates Diana Kelley NP, INSOLE REINFORCER-C Attending Provider Active Team Status: Inactive Member Role Status Dates Diana Kelley INSOLE REINFORCER, INSOLE REINFORCER-C Primary Care Pr ovider, Attending Provider, Referring Provider Active Team Status: Active Member Role Status Dates Diana Kelley NP, INSOLE REINFORCER-C Primary Care Provider, Referr ing Provider Active Dr. Carson Hanna MD Attending Provider Active Team Status: Inactive Member Role Status Dates Diana Kelley INSOLE REINFORCER, INSOLE REINFORCER-C Primary Care Provider, Referr ing Provider Active VALERIA Salazar Attending Provider Active Material Preparation Worker Relationship Specialty Start Date End Date Regis Bravo MD [address] [place] [phone] PCP - General 12/17/18 Material Preparation Worker Relationship Specialty Start Date End Date Regis Bravo MD [address], [phone] PCP - General 12/17/18 Material Preparation Worker Relationship Specialty Start Date End Date Regis Bravo MD [address], [id number] PCP - General 12/17/18 Material Preparation Worker Relationship Specialty Start Date End Date Regis Bravo MD [address], [phone] PCP - General 12/17/18 Material Preparation Worker Relationship Specialty Start Date End Date Regis Bravo MD [address], [id number] PCP - General 12/17/18 Material Preparation Worker Relationship Specialty Start Date End Date Regis Bravo MD [address], [phone] PCP - General 12/17/18 Material Preparation Worker Relationship Specialty Start Date End Date Regis Bravo MD [address], [phone] PCP - General 12/17/18 Material Preparation Worker Relationship Specialty Start Date End Date Regis Bravo MD [address], [phone] PCP - General 12/17/18 Material Preparation Worker Relationship Specialty Start Date End Date Regis Bravo MD [address] [place] [phone] PCP - General 12/17/18 Material Preparation Worker Relationship Specialty Start Date End Date Regis Bravo MD [address] [place] [phone] PCP - General 12/17/18 Material Preparation Worker Relationship Specialty Start Date End Date Regis Bravo MD [address] [place] [address] PCP - General 12/17/18 Material Preparation Worker Relationship Specialty Start Date End Date Regis Bravo MD [address] [place], [place] [phone] PCP - General Family Medicine 12/02/22 Material Preparation Worker Relationship Specialty Start Date End Date Regis Bravo MD [address] [place] [address] PCP - General 12/17/18 Material Preparation Worker Relationship Specialty Start Date End Date Regis Bravo MD [address] [place] [phone] PCP - General 12/17/18 Material Preparation Worker Relationship Specialty Start Date End Date Regis Bravo MD [address] [place] [phone] PCP - General 12/17/18 Material Preparation Worker Relationship Specialty Start Date End Date Regis Bravo MD [address] [place] [phone] PCP - General 12/17/18 Team Status: Inactive Member Role Status Dates Diana Kelley INSOLE REINFORCER, INSOLE REINFORCER-C Primary Care Provider Active Start: December 14, 2024 End: December 14, 2024 Diana Kelley INSOLE REINFORCER, INSOLE REINFORCER-C Attending Provider Active Start: December 14, 2024 End: December 14, 2024 Diana Kelley INSOLE REINFORCER, INSOLE REINFORCER-C Referring Provider Active Start: December 14, 2024 End: December 14, 2024 Team Status: Active Member Role Status Dates Diana Kelley INSOLE REINFORCER, INSOLE REINFORCER-C Primary Care Provider Active Start: December 14, 2024 Diana Kelley INSOLE REINFORCER, INSOLE REINFORCER-C Attending Provider Active Start: December 14, 2024 Team Status: Inactive Member Role Status Dates Diana Kelley INSOLE REINFORCER, INSOLE REINFORCER-C Primary Care Provider Active Start: December 21, 2024 End: December 21, 2024 Diana Kelley INSOLE REINFORCER, INSOLE REINFORCER-C Attending Provider Active Start: December 21, 2024 End: December 21, 2024 Diana Kelley INSOLE REINFORCER, INSOLE REINFORCER-C Referring Provider Active Start: December 21, 2024 End: December 21, 2024 Team Status: Active Member Role Status Dates Diana Kelley INSOLE REINFORCER, INSOLE REINFORCER-C Primary Care Provider Active Start: December 21, 2024 Diana Kelley INSOLE REINFORCER, INSOLE REINFORCER-C Attending Provider Active Start: December 21, 2024 Team Status: Active Member Role Status Dates Diana Kelley INSOLE REINFORCER, INSOLE REINFORCER-C Primary Care Provider Active Start: December 21, 2024 Diana Kelley INSOLE REINFORCER, INSOLE REINFORCER-C Attending Provider Active Start: December 21, 2024 Diana Kelley INSOLE REINFORCER, INSOLE REINFORCER-C Referring Provider Active Start: December 21, 2024 Team Status: Active Member Role Status Dates Diana Kelley INSOLE REINFORCER, INSOLE REINFORCER-C Primary Care Provider Active Start: December 28, 2024 Dr. Magda Husain MD Attending Provider Active Start: December 28, 2024 Dr. Magda Husain MD Referring Provider Active Start: December 28, 2024 Team Status: Active Member Role Status Dates Diana Kelley NP, INSOLE REINFORCER-C Primary Care Provider Active Start: December 28, 2024 Dr. Carson Hanna MD Attending Provider Active S tart: December 28, 2024 Team Status: Inactive Member Role Status Dates Diana Kelley INSOLE REINFORCER, INSOLE REINFORCER-C Primary Care Provider Active Start: December 28, 2024 End: December 28, 2024 Diana Kelley INSOLE REINFORCER, INSOLE REINFORCER-C Attending Provider Active Start: December 28, 2024 End: December 28, 2024 Diana Kelley INSOLE REINFORCER, INSOLE REINFORCER-C Referring Provider Active Start: December 28, 2024 End: December 28, 2024 Team Status: Inactive Member Role Status Dates Diana Kelley INSOLE REINFORCER, INSOLE REINFORCER-C Primary Care Provider Active Start: December 28, 2024 End: December 28, 2024 Dr. Magda Husain MD Attending Provider Active Start: December 28, 2024 End: December 28, 2024 Dr. Magda Husain MD Referring Provider Active Start: December 28, 2024 End: December 28, 2024 Team Status: Active Member Role/Relationship Status Dates Diana Kelley INSOLE REINFORCER, INSOLE REINFORCER-C Primary Care Provider Active Team Status: Inactive Member Role/Relationship Status Dates Diana Kelley INSOLE REINFORCER, INSOLE REINFORCER-C Primary Care Provider Active Start: November 02, 2024 End: November 02, 2024 Diana Kelley INSOLE REINFORCER, INSOLE REINFORCER-C Attending Provider Active Start: November 02, 2024 End: November 02, 2024 Diana Kelley INSOLE REINFORCER, INSOLE REINFORCER-C Referring Provider Active Start: November 02, 2024 End: November 02, 2024 Team Status: Inactive Member Role/Relationship Status Dates Diana Kelley INSOLE REINFORCER, INSOLE REINFORCER-C Primary Care Provider Active Start: December 14, 2024 End: December 14, 2024 Diana Kelley INSOLE REINFORCER, INSOLE REINFORCER-C Referring Provider Active Start: December 14, 2024 End: December 14, 2024 Dr. Magda Husain MD Attending Provider Active Start: December 14, 2024 End: December 14, 2024 Team Status: Inactive Member Role/Relationship Status Dates Diana Kelley INSOLE REINFORCER, INSOLE REINFORCER-C Primary Care Provider Active Start: December 14, 2024 End: December 14, 2024 Diana Kelley INSOLE REINFORCER, INSOLE REINFORCER-C Attending Provider Active Start: December 14, 2024 End: December 14, 2024 Diana Kelley INSOLE REINFORCER, INSOLE REINFORCER-C Referring Provider Active Start: December 14, 2024 End: December 14, 2024 Team Status: Inactive Member Role/Relationship Status Dates Diana Kelley INSOLE REINFORCER, INSOLE REINFORCER-C Primary Care Provider Active Start: December 14, 2024 End: December 14, 2024 Diana Kelley INSOLE REINFORCER, INSOLE REINFORCER-C Attending Provider Active Start: December 14, 2024 End: December 14, 2024 Diana Kelley INSOLE REINFORCER, INSOLE REINFORCER-C Referring Provider Active Start: December 14, 2024 End: December 14, 2024 Team Status: Inactive Member Role/Relationship Status Dates Diana Kelley INSOLE REINFORCER, INSOLE REINFORCER-C Primary Care Provider Active Start: December 21, 2024 End: December 21, 2024 Diana Kelley INSOLE REINFORCER, INSOLE REINFORCER-C Attending Provider Active Start: December 21, 2024 End: December 21, 2024 Diana Kelley INSOLE REINFORCER, INSOLE REINFORCER-C Referring Provider Active Start: December 21, 2024 End: December 21, 2024 Team Status: Inactive Member Role/Relationship Status Dates Diana Kelley INSOLE REINFORCER, INSOLE REINFORCER-C Primary Care Provider Active Start: December 21, 2024 End: December 21, 2024 Diana Kelley INSOLE REINFORCER, INSOLE REINFORCER-C Attending Provider Active Start: December 21, 2024 End: December 21, 2024 Diana Kelley INSOLE REINFORCER, INSOLE REINFORCER-C Referring Provider Active Start: December 21, 2024 End: December 21, 2024 Team Status: Inactive Member Role/Relationship Status Dates Diana Kelley INSOLE REINFORCER, INSOLE REINFORCER-C Primary Care Provider Active Start: December 28, 2024 End: December 28, 2024 Dr. Magda Husain MD Attending Provider Active Start: December 28, 2024 End: December 28, 2024 Dr. Magda Husain MD Referring Provider Active Start: December 28, 2024 End: December 28, 2024 Team Status: Active Member Role/Relationship Status Dates Diana Kelley INSOLE REINFORCER, INSOLE REINFORCER-C Primary Care Provider Active Start: December 28, 2024 Dr. Carson Hanna MD Attending Provider Active S tart: December 28, 2024 Dr. Magda Husain MD Referring Provider Active Start: December 28, 2024 Team Status: Inactive Member Role/Relationship Status Dates Diana Kelley INSOLE REINFORCER, INSOLE REINFORCER-C Primary Care Provider Active Start: December 28, 2024 End: December 28, 2024 Diana Kelley INSOLE REINFORCER, INSOLE REINFORCER-C Attending Provider Active Start: December 28, 2024 End: December 28, 2024 Diana Kelley INSOLE REINFORCER, INSOLE REINFORCER-C Referring Provider Active Start: December 28, 2024 End: December 28, 2024 Team Status: Inactive Member Role/Relationship Status Dates Diana Kelley INSOLE REINFORCER, INSOLE REINFORCER-C Primary Care Provider Active Start: January 24, 2025 End: January 24, 2025 Dr. Magda Husain MD Attending Provider Active Start: January 24, 2025 End: January 24, 2025 Dr. Magda Husain MD Referring Provider Active Start: January 24, 2025 End: January 24, 2025 Team Status: Active Member Role/Relationship Status Dates Diana Kelley INSOLE REINFORCER, INSOLE REINFORCER-C Primary Care Provider Active Start: January 24, 2025 Dr. Magda Husain MD Attending Provider Active Start: January 24, 2025 Dr. Magda Husain MD Referring Provider Active Start: January 24, 2025 Dr. Magda Husain MD Other Provider Active Star t: January 24, 2025 Team Status: Active Member Role/Relationship Status Dates Diana Kelley INSOLE REINFORCER, INSOLE REINFORCER-C Primary Care Provider Active Start: January 25, 2025 Elis Gomez INSOLE REINFORCER, INSOLE REINFORCER-C Attending Provider Active Start: January 25, 2025 Team Status: Inactive Member Role/Relationship Status Dates Diana Kelley INSOLE REINFORCER, INSOLE REINFORCER-C Primary Care Provider Active Start: February 07, 2025 End: February 07, 2025 Diana Kelley INSOLE REINFORCER, INSOLE REINFORCER-C Attending Provider Active Start: February 07, 2025 End: February 07, 2025 Diana Kelley INSOLE REINFORCER, INSOLE REINFORCER-C Referring Provider Active Start: February 07, 2025 End: February 07, 2025 Team Status: Inactive Member Role/Relationship Status Dates Diana Kelley INSOLE REINFORCER, INSOLE REINFORCER-C Primary Care Provider Active Start: February 14, 2025 End: February 14, 2025 Dr. Magda Husain MD Attending Provider Active Start: February 14, 2025 End: February 14, 2025 Dr. Madga Husain MD Referring Provider Active Start: February 14, 2025 End: February 14, 2025 Team Status: Active Member Role/Relationship Status Dates Diana Kelley INSOLE REINFORCER, INSOLE REINFORCER-C Primary Care Provider Active Start: February 07, 2025 Dr. Magda Husain MD Attending Provider Active Start: February 07, 2025 Dr. Magda Husain MD Referring Provider Active Start: February 07, 2025 Dr. Magda Husain MD Other Provider Active Star t: February 07, 2025 Team Status: Inactive Member Role/Relationship Status Dates Diana Kelley INSOLE REINFORCER, INSOLE REINFORCER-C Primary Care Provider Active Start: February 07, 2025 End: February 07, 2025 Diana Kelley NP, INSOLE REINFORCER-C Attending Provider Active Start: February 07, 2025 End: February 07, 2025 Diana Kelley INSOLE REINFORCER, INSOLE REINFORCER-C Referring Provider Active Start: February 07, 2025 End: February 07, 2025 Team Status: Inactive Member Role/Relationship Status Dates Diana Kelley NP, INSOLE REINFORCER-C Primary Care Provider Active Start: February 14, 2025 End: February 14, 2025 Dr. Magda Husain MD Attending Provider Active Start: February 14, 2025 End: February 14, 2025 Dr. Magda Husain MD Referring Provider Active Start: February 14, 2025 End: February 14, 2025 Team Status: Inactive Member Role/Relationship Status Dates Diana Kelley NP, INSOLE REINFORCER-C Primary Care Provider Active Start: February 21, 2025 End: February 21, 2025 Diana Kelley NP, INSOLE REINFORCER-C Referring Provider Active Start: February 21, 2025 End: February 21, 2025 Roshni Baker NP-C Attending Provider Active Start: February 21, 2025 End: February 21, 2025 Source Comments (unrecognize d section and content) In the event this informatio n is protected by the Federal Confidentiality of Alcohol and Drug Abuse Patient Records regulations: The Federal rules restrict any use of the information to criminally investigate or prosecute any alcohol or drug abuse patient.[facility] the event this information is protected by the Federal Confidentiality of Alcohol and Drug Abuse Patient Records regulations: The Federal rules restrict any use of the information to criminally investigate or prosecute any alcohol or drug abuse patient.[facility] the event this information is protected by the Federal Confidentiality of Alcohol and Drug Abuse Patient Records regulations: The Federal rules restrict any use of the information to criminally investigate or prosecute any alcohol or drug abuse patient.[facility] Reason for Visit (unrecogniz ed section and content) Reason Comments Screening order/checklist Specialty Diagnoses / Procedures Referred By Contac t Referred To Contact Radiology Diagnoses Personal history of nicotine dependence Procedures CT lung screening low dose Jania Myers, SEAMER OPERATOR - EPIC PROFESSIONAL [address] [place] [address] Referral ID Status Reason Start Date Expiration Date Visits Re quested Visits Authorized [id number] Closed 12/07/2022 06/05/2023 1 1 Reason Comments [...] Diagnoses Primary osteoarthritis of left shoulder Procedures DC OFFICE/OUTPATIENT NEW HIGH MDM 60 MINUTES Yessy Villarreal MD [address] [place] [address] [facility] [address] [place] [address] [place] [address] Referral ID Status Reason Start Date Expiration Date Visits Requested Visits Authorized [id number] Authorized Specialty Services Required 4 04/28/2025 99 [...] BE BASED ON THE PRIMARY CLINICAL RECORDS. [facility]. provides no warranty or guarantee of the accuracy or completeness of information in this document.
== END | disposition home or self-care (01) ==
LOC: SL 11:51
PROVIDERS: PCP Nurse Practitioner; Referring Provider Nurse Practitioner Family; Visit Provider Nurse Practitioner Family
DX: G47.33 Obstructive sleep apnea (adult) (pediatric) (principal)
CPT/HCPCS: 98960; G0463

== ENCOUNTER → 2025-05-01 | Outpatient (CLI) | payer MEDICARE, SELFPAY ==
[2025-05-01 22:37] LABS: Hematocrit 40.3 % (40-54); Hemoglobin 13.4 g/dL (13.0-16.5); Immature Granulocytes Count 0.020 X10^3/uL (0.0-0.0); Mean Corp Hgb Conc 33.3 g/dL (32-36); Mean Corpuscular Volume 91.8 fL (80-94); Mean Platelet Vol. 12.6 fl (6.2-12.0); NRBC Flagged by Analyzer 0 % (0-5); Platelet Count 160 K/mm3 (150-450); RBC Distribution Width CV 12.1 % (11.6-14.6); RBC Distribution Width SD 41.1 fl (35.1-43.9); Red Blood Count 4.39 M/mm3 (4.6-6.2); White Blood Count 8.3 K/mm3 (4.4-11.0)
[2025-05-01 22:46] LABS: Cholesterol 115 mg/dL (<=200); Low Density Lipoprotein Calc. 43 mg/dL; PSA,Total - Annual Screen 2.34 ng/mL (0.02-4.00); Triglycerides 187 mg/dL; Very Low Density Lipoprotein 37 mg/dL (5-40); cholesterol:hdl ratio screen 3.36
[2025-05-02 15:35] LABS: AST(SGOT) 31 U/L (<=37); Alanine Aminotransfer ALT/SGPT 24 U/L (<=46); Albumin, Serum 4.3 g/dL (3.4-4.8); Alkaline Phosphatase 67 U/L (40-129); Anion Gap 11 (5-15); BUN 25 mg/dL (4-19); BUN/Creat Ratio 23.3 RATIO (10-20); Calcium,Total 9.8 mg/dL (7.6-11.0); Carbon Dioxide 26.5 mmol/L (21.0-32.0); Chloride 100 mmol/L (98-108); Globulin 2.9 g/dL (2.2-4.2); Glucose 101 mg/dL (70-99); Potassium 4.9 mmol/L (3.3-5.1)
[2025-05-04 11:08] LABS: Vitamin D 1,25-Dihydroxy 48.4 pg/mL (24.8-81.5)
== END | disposition home or self-care (01) ==
PROVIDERS: PCP Nurse Practitioner; Visit Provider Nurse Practitioner
DX: I25.5 Ischemic cardiomyopathy (principal); Z95.1 Presence of aortocoronary bypass graft; M1A.4720 Other secondary chronic gout, left ankle and foot, without tophus (tophi); E78.2 Mixed hyperlipidemia; I10 Essential (primary) hypertension; N40.0 Benign prostatic hyperplasia without lower urinary tract symptoms; E55.9 Vitamin D deficiency, unspecified; Z12.5 Encounter for screening for malignant neoplasm of prostate
CPT/HCPCS: 80053; 80061; 82652; 84153; 85025; G0103